=== PATIENT | male | born 1945 | race Caucasian/White ===

== ENCOUNTER → 2018-09-02 08:16 | Outpatient (BNVA) | payer MEDICARE, OTHER, SELFPAY | PROVIDERS: Visit Provider Urology | DX: R31.0 Gross hematuria (principal); R97.20 Elevated prostate specific antigen [PSA] | CPT/HCPCS: 36415; 99213; 84153 ==

== ENCOUNTER 2018-09-02 09:17 | Outpatient (CLI) | payer MEDICARE, OTHER, SELFPAY ==
[2018-09-03 10:22] LABS: PSA, Diagnostic 12.6 ng/ml (0-6.5)
== END 2018-09-02 09:37 ==
PROVIDERS: PCP Family Medicine; Visit Provider Urology
DX: R97.20 Elevated prostate specific antigen [PSA] (principal)
CPT/HCPCS: 36415; 84153

== ENCOUNTER 2019-03-14 01:22 | Outpatient (CLI) | payer MEDICARE, OTHER, SELFPAY ==
[2019-03-17 11:00] LABS: PSA, Diagnostic 12.5 ng/ml (0-6.5)
== END 2019-03-14 01:42 ==
PROVIDERS: Urology; PCP Family Medicine; Visit Provider Physician Assistant Medical
DX: R97.20 Elevated prostate specific antigen [PSA] (principal); Z80.42 Family history of malignant neoplasm of prostate
CPT/HCPCS: 36415; 84153

== ENCOUNTER → 2019-04-22 09:31 | Outpatient (BNVA) | payer MEDICARE, OTHER, SELFPAY | PROVIDERS: PCP Family Medicine; Visit Provider Urology | DX: R97.20 Elevated prostate specific antigen [PSA] (principal); N40.0 Benign prostatic hyperplasia without lower urinary tract symptoms | CPT/HCPCS: 99213 ==

== ENCOUNTER 2019-09-26 10:15 | Outpatient (CLI) | payer MEDICARE, OTHER, SELFPAY ==
[2019-09-29 11:09] LABS: PSA, Diagnostic 15.6 ng/ml (0-6.5)
== END 2019-09-26 10:35 ==
PROVIDERS: PCP Family Medicine; Visit Provider Urology
DX: R97.20 Elevated prostate specific antigen [PSA] (principal)
CPT/HCPCS: 36415; 84153

== ENCOUNTER → 2019-10-28 08:35 | Outpatient (BNVA) | payer MEDICARE, OTHER, SELFPAY | PROVIDERS: PCP Family Medicine; Referring Provider Family Medicine; Visit Provider Urology | DX: R97.20 Elevated prostate specific antigen [PSA] (principal) | CPT/HCPCS: 99213 ==

== ENCOUNTER → 2020-02-10 14:30 | Outpatient (BNVA) | payer MEDICARE, OTHER, SELFPAY | PROVIDERS: PCP Family Medicine; Referring Provider Family Medicine; Visit Provider Urology | DX: R31.0 Gross hematuria (principal) | CPT/HCPCS: 81003; 99213 ==

== ENCOUNTER 2020-02-10 15:32 | Outpatient (REF) | payer MEDICARE, OTHER, SELFPAY ==
--- NOTE | 2020-02-10 15:00 | PAPNONF_PTH ---
PATIENT: Tino Hart LOC: [facility] U#:[id number] AGE/SX: 74/M ROOM: RE02/10/[address]: Paulino Yi MD : [id number] BED: DIS: 02/10/2020 SPEC #: [id number] RECD: 02/10/20 18:32 STATUS: RIC REQ #: [id number] ZACHARY: 02/10/20 15:[address]: Paulino Yi DEPT: [facility] Cytology RECD BY: Marleny Gillis ENTERED: 02/10/20 18:34 SP TYPE: CAITLYN PEREZ DR: Jose Rafael Ivy MD Tissues: 1 - BODY FLUID CYTO(SPUTUM/URINE)[facility] Procedures: BODY FLUID CYTO(URINE/SPUTUM) Comments: [id number] (TOTAL VOLUME = 70 ml's) (35 ml's URINE & 35 ml's CYTOLYT ADDED IN 2 CONTAINERS)
== END 2020-02-10 15:52 ==
LOC: LBN 15:32
PROVIDERS: PCP Family Medicine; Visit Provider Urology
DX: R31.0 Gross hematuria (principal); R82.89 Other abnormal findings on cytological and histological examination of urine
CPT/HCPCS: 88104

== ENCOUNTER 2020-08-25 19:47 | Outpatient (REF) | payer MEDICARE, OTHER, SELFPAY ==
[2020-08-25 18:28] LABS: Albumin 4.1 g/dL (3.4-5.0); Alkaline Phosphatase 85 U/L (46-116); Anion Gap 7.6 mmol/L (3-11); BUN 32 mg/dL (7-18); Bilirubin, Total 0.4 mg/dL (0.2-1.0); CO2 26.4 mmol/L (21.0-32.0); CREATININE 1.45 mg/dL (0.70-1.30); Calcium 9.1 mg/dL (8.5-10.1); Chloride 99 mmol/L (98-107); Cholesterol 233 mg/dL (<200); Estimated GFR 47.71 (mL/min/1.73m2); Glucose 230 mg/dL (74-106); HDL Cholesterol 24 mg/dL (40-60); Potassium 3.9 mmol/L (3.5-5.1); Sodium 133 mmol/L (136-145); Total Protein 7.4 g/dL (6.4-8.2); Triglyceride 891 mg/dL (<150)
[2020-08-25 18:47] LABS: AST 27 U/L (15-37); LDL CHOLESTEROL 99 mg/dL (<100)
[2020-08-25 20:36] LABS: ALT 42 U/L (16-63)
== END 2020-08-25 20:07 ==
LOC: LBN 19:47
PROVIDERS: PCP Family Medicine; Visit Provider Nurse Practitioner Family
DX: E11.9 Type 2 diabetes mellitus without complications (principal); E78.5 Hyperlipidemia, unspecified
CPT/HCPCS: 80053; 80061; 83721

== ENCOUNTER 2021-01-06 02:46 | Outpatient (CLI) | payer MEDICARE, OTHER, SELFPAY ==
[2021-01-06 12:57] LABS: ALT 34 U/L (16-63); AST 19 U/L (15-37); Albumin 4.3 g/dL (3.4-5.0); Alkaline Phosphatase 86 U/L (46-116); Anion Gap 8.3 mmol/L (3-11); BUN 31 mg/dL (7-18); Bilirubin, Total 0.9 mg/dL (0.2-1.0); CO2 30.7 mmol/L (21.0-32.0); CREATININE 1.3 mg/dL (0.70-1.30); Calcium 9.9 mg/dL (8.5-10.1); Calculated LDL 55 mg/dL (<100); Chloride 100 mmol/L (98-107); Cholesterol 149 mg/dL (<200); Estimated GFR 53.96 (mL/min/1.73m2); Glucose 143 mg/dL (74-106); HDL Cholesterol 37 mg/dL (40-60); Potassium 4.4 mmol/L (3.5-5.1); Sodium 139 mmol/L (136-145); Total Protein 7.7 g/dL (6.4-8.2); Triglyceride 286 mg/dL (<150)
[2021-01-06 12:58] LABS: COMMENT (LAB VIEW ONLY) 109.22 mg/dL; Microalb ug/mg Crea 11.1 ug/mg Cr
[2021-01-06 13:05] LABS: Hemoglobin A1C 6.5 % (<5.7)
[2021-01-06 22:17] LABS: PSA, Diagnostic 15.2 ng/mL (0.0-6.5)
== END 2021-01-06 02:47 | disposition home or self-care (01) ==
LOC: LOS 02:46
PROVIDERS: Urology; PCP Family Medicine; Visit Provider Family Medicine
DX: E11.9 Type 2 diabetes mellitus without complications (principal); E78.5 Hyperlipidemia, unspecified; R97.20 Elevated prostate specific antigen [PSA]
CPT/HCPCS: 36415; 80053; 80061; 82043; 82570; 83036; 84153

== ENCOUNTER → 2021-02-10 09:57 | Outpatient (BNVA) | payer MEDICARE, OTHER, SELFPAY | PROVIDERS: PCP Family Medicine; Referring Provider Family Medicine; Visit Provider Nurse Practitioner Gerontology | DX: N40.2 Nodular prostate without lower urinary tract symptoms (principal); R97.20 Elevated prostate specific antigen [PSA]; Z80.42 Family history of malignant neoplasm of prostate; Z87.448 Personal history of other diseases of urinary system | CPT/HCPCS: 81003; 99213 ==

== ENCOUNTER 2021-04-12 01:46 | Outpatient (CLI) | payer MEDICARE, OTHER, SELFPAY ==
--- NOTE | 2021-04-12 07:30 | DI.US_ITS ---
Exam(s) US SCROTUM EXAM: US SCROTUM CLINICAL HISTORY: Mass on left testicle,n50.89. TECHNIQUE: Scrotal ultrasound performed using grayscale, color-flow and spectral Doppler analysis. COMPARISON: No exams were available for comparison FINDINGS: Right testicle: 4.5 x 2.7 x 3.3 cm Left testicle: 5.0 x 2.3 x 3.0 cm Echogenicity: Normal. Contour: Smooth. Mass: None seen. Microlithiasis: None. Hydrocele: None. Variocele: None. Hernia: No peristalsing bowel loop identified. Epididymis: 1.3 x 0.9 x 1.0 centimeter spermatocele in the head of the left epididymis. 3 millimeter spermatocele in the head of the right epididymis. DOPPLER: Color: Symmetric and uniform, no hyperemia. Duplex: Bilateral testicular arterial waveforms visualized. IMPRESSION: Normal appearing bilateral testicles. 1.3 centimeter spermatocele in the head of the left epididymis corresponds to the palpable abnormality. DATA REPOSITORY:
== END 2021-04-12 02:06 ==
PROVIDERS: PCP Family Medicine; Visit Provider Nurse Practitioner Family
DX: N50.89 Other specified disorders of the male genital organs (principal); N43.41 Spermatocele of epididymis, single
CPT/HCPCS: 76870

== ENCOUNTER → 2021-04-15 08:30 | Outpatient (BNVA) | payer MEDICARE, OTHER, SELFPAY | PROVIDERS: PCP Family Medicine; Referring Provider Family Medicine; Visit Provider Physical Therapy Assistant | DX: Z12.11 Encounter for screening for malignant neoplasm of colon (principal); E11.9 Type 2 diabetes mellitus without complications; I10 Essential (primary) hypertension ==

== ENCOUNTER 2021-05-17 08:10 | Day surgery (SDC) | payer MEDICARE, OTHER, SELFPAY ==
--- NOTE | 2021-05-17 06:33 | W.COLOREPORT ---
Date of service: 05/17/21 Time of Service: 09:29 Colonoscopy Report Date of procedure: 05/17/21 Pre-op diagnosis general: Colon Cancer screening Post-op diagnosis procedure note: other (Aborted procedure due to poor prep) Procedure: Unable to perform colonoscopy due to poor prep Surgeon: Tamara Silva Anesthesia Type: General:No Airway (ASA 2/Cira Zavala, ANA) Estimated blood loss (mL): 0 Pathology: none sent Complications: None Disposition: same day Indications: The patient is here for Colonoscopy pre-op. His last screening was in 2007 and was unremarkable. He has no family history of colon cancer. He has not had any bowel habit changes. -Discussed colonoscopy bowel prep as well as the procedure. Discussed possible complications of the procedure to include bleeding, pain, perforation, missed small lesion/polyp, sore throat, aspiration and adverse reaction to the medications. Questions were answered to patient?s satisfaction. No guarantees were implied or given. Prep: Miralax/Dulcolax Findings: Large amount of dark liquid stool throughout rectum and sigmoid. Colonoscope clogged 2 times. Unable to proceed due to poor prep Procedure Description: After informed consent was obtained the patient was taken to the procedure room and placed in a left decubitous position. Monitors were applied and a time out was done. The patients name, date of , procedure, allergies to medications and metal in their body was reviewed. The patient was then sedated. Once sedated and comfortable a rectal exam was done. External exam was normal. Internal exam revealed a normal sphincter tone and no palpable masses. The prostate felt mildly enlarged but smooth. The scope was then introduced and there was a large amount of dark liquid and solid stool throughout the rectum and sigmoid colon. Attempted to suction out the stool and debries. Colonoscope clogged 2 times. Abborted procedure. Patient will need a 2 day prep or go-lytly prep Follow up: We will call patient to set up follow up Colonoscopy with 2 day prep
--- NOTE | 2021-05-17 06:34 | W.PM.DSUDISC ---
Discharge Plan Disposition Patient Disposition: HOME Condition: Good Discharge Details Reason For Visit: SCREENING Attending Provider: Tamara Silva Primary Care Provider: Jas Darden Home Meds and New Rx's Prescriptions: Continued atorvastatin 20 mg tablet 20 mg PO DAILY Qty: 90 RF: 4 aspirin [Adult Low Dose Aspirin] 81 mg tablet,delayed release (DR/EC) 81 mg PO DAILY Qty: 90 RF: 3 finasteride 5 mg tablet 5 mg PO DAILY Qty: 90 RF: 3 (DME) FreeStyle Anamika 14 Day Sensor Kit See Rx Instructions .ROUTE .MEDSUPPLY Qty: 1 RF: 0 (DME) FreeStyle Anamika 14 Day [place] Misc See Rx Instructions .ROUTE .MEDSUPPLY Qty: 1 RF: 0 metformin 500 mg tablet 500 mg PO DAILY Qty: 90 RF: 11 (DME) lancets 1 EACH misc 1 ea Miscellaneous DAILY Qty: 100 RF: 3 lisinopril-hydrochlorothiazide 20-25 mg tablet 1 tab PO DAILY Qty: 90 RF: 4 (DME) blood-glucose meter Misc 1 ea Miscellaneous ONCE Qty: 1 RF: 0 (DME) blood sugar diagnostic Strip 1 ea Miscellaneous DAILY Qty: 100 RF: 5 metoprolol succinate 50 mg tablet extended release 24 hr 50 mg PO DAILY Qty: 90 RF: 4 Discontinued bisacodyl [Dulcolax (bisacodyl)] 5 mg tablet,delayed release (DR/EC) 5 mg PO ONCE Qty: 4 RF: 0 polyethylene glycol 3350 17 gram/dose powder 238 g PO ONCE Qty: 238 RF: 0 Discharge Instructions Additional Instructions: Findings: Unable to perform colonoscopy due to large amount of liquid and solid stool Follow up: My office will call you to set up another date for colonoscopy. We will need to do a 2 day prep in order to make sure that your large intestine is all cleaned out. Please call if you develop: fevers >101.5 Nausea or Vomiting Abdominal pain that is not transient Rectal bleeding that is more then a tbsp A hard abdomen and inability to pass gas DAY SURGERY UNIT POST ENDOSCOPY INSTRUCTIONS Instructions for everyone who is given Anesthesia: For your safety, please do the following for the next 24 Hours: a. Do not drive or operate dangerous equipment b. Do not drink alcohol beverages or use any recreational drugs for the first 24 hours or while taking pain medications. The medications in your body may have a reaction that can be dangerous. c. Do not make any important decisions or sign any important papers 1. Generally there are no restrictions on your activity after a day or so has gone by, but you may feel a bit fatigued for a few days. 2. After you arrive home you may have a light meal and return to a normal diet as you can tolerate it without feeling sick to your stomach. 3. After surgery, you may feel pain or discomfort. This should be only transient, but if it persists please contact your doctor. 4. If there are any questions regarding the findings of your procedure, please feel free to contact your doctor. 6. If you are unable to contact your doctor with a problem, contact the hospital at [phone]. 7. Continue all your regular medications unless directed otherwise. I understand the above instructions and have no questions. Signature of Patient or Responsible Adult Escort Date/Time Name of Responsible Adult Escort Signature of Nurse Date/Time Activity:: Activity as Tolerated Diet:: As Tolerated Discharge Orders Discharge Orders: Discharge Order (Routine); Ordered 05/17/21 Ordered By: Tamara Silva
--- NOTE | 2021-05-17 06:35 | HPE_ITS ---
Date of service: 05/17/21 Time of Service: 09:03 Assessment and Plan Assessment and plan (1) Encounter for colorectal cancer screening: Status: Acute Assessment and plan: The patient is here for Colonoscopy pre-op. His last screening was in 2007 and was unremarkable. He has no family history of colon cancer. He has not had any bowel habit changes. -Discussed colonoscopy bowel prep as well as the procedure. Discussed possible complications of the procedure to include bleeding, pain, perforation, missed small lesion/polyp, sore throat, aspiration and adverse reaction to the medications. Questions were answered to patient?s satisfaction. No guarantees were implied or given. History of Present Illness Narrative: 75 y/o male with history of Type 2 DM, HTN and hyperlipidema presents for colonoscopy screening pre-op. His last screening was in 2007, which was unremarkable. He denies a family history of colon cancer. He denies any changes in bowel habits including bloody or black tarry stools, abdominal pain, diarrhea or constipation. He denies constitutional symptoms. Denies use of marijuana or any other recreational or illegal drugs. He denies chest pain, palpitations, dyspnea or dyspnea with exertion. He denies prior history or family history of adverse reactions or complications with anesthesia. The patient denies any history of stroke, IA, seizures, bleeding or clotting disorders. He denies having any implanted metal in his body. There have been no changes in his health since he was last seen in the office [facility] Medical History Diabetes Umbilical hernia pt. denies this Surgical History Arthroplasty of knee bilateral Arthroscopy, Shoulder B/L History of arthroscopy of knee Status post arthroscopy of shoulder Family History Mother Diabetes Father Personal history of malignant neoplasm Breast Sister Personal history of malignant neoplasm Ovarian Brother No problems noted. Grandfather No problems noted. Grandfather No problems noted. Grandmother No problems noted. Grandmother No problems noted. Social History (Updated 04/15/21 @ 09:42 by HELDER Sinclair) Smoking/Tobacco Use Status: Former Tobacco Use Quit Date: 11/26/77 Smoking risk assessment performed?: Yes Alcohol Intake: never Drug use: Never Substance use type: does not use Do you feel safe at home: Yes Do you feel safe in your relationship?: Yes Meds Allergies and Home Medications Allergies Allergy/AdvReac Type Severity Reaction Status Date / Time No Known Allergies Allergy Verified 05/17/21 08:22 Home Medications Medication Instructions Recorded Confirmed Type lancets #100 ea 09/17/14 05/16/21 History lisinopril 20 1 tab PO DAILY #90 tab-cap 06/02/20 05/17/21 Rx mg-hydrochlorothiazide 25 mg tablet blood-glucose meter #1 ea 08/13/20 05/16/21 Rx aspirin 81 mg tablet,delayed 81 mg PO DAILY #90 tab 08/27/20 05/17/21 Rx release atorvastatin 20 mg tablet 20 mg PO DAILY #90 tab 08/27/20 05/17/21 Rx blood sugar diagnostic #100 strip 09/28/20 05/16/21 Rx flash glucose scanning reader #1 ea 10/12/20 05/16/21 Rx flash glucose sensor #1 ea 10/12/20 05/16/21 Rx metoprolol succinate 50 mg 50 mg PO DAILY #90 tab-cap 12/09/20 05/17/21 Rx tablet,extended release 24 hr metformin 500 mg tablet 500 mg PO DAILY #90 tab 01/11/21 05/17/21 Rx finasteride 5 mg tablet 5 mg PO DAILY #90 tab-cap 02/10/21 05/17/21 Rx bisacodyl 5 mg tablet,delayed 5 mg PO ONCE #4 tab 04/20/21 05/17/21 Rx release polyethylene glycol 3350 17 238 g PO ONCE #238 g 04/20/21 05/17/21 Rx gram/dose oral powder
[2021-05-17 08:15] VITALS: BP 163/85; PULSE 70; RESP 16; TEMP 36.4; O2SAT 97
--- NOTE | 2021-05-17 08:40 | W.ANESPRE ---
General Info Date of Service Date Performed: 05/17/21 Height: 6 ft 1 in Weight: 103.6 kg Body Mass Index (BMI): 30.1 Surgical Procedure: Operation Date: 05/17/21 09:20 Proposed Procedures Side Surgeon p Colonoscopy Tamara Silva MD Meds Allergies and Home Medications Allergies Allergy/AdvReac Type Severity Reaction Status Date / Time No Known Allergies Allergy Verified 05/17/21 08:22 Home Medication Medication Instructions Recorded lancets #100 ea 09/17/14 lisinopril 20 1 tab PO DAILY #90 tab-cap 06/02/20 mg-hydrochlorothiazide 25 mg tablet blood-glucose meter #1 ea 08/13/20 aspirin 81 mg tablet,delayed 81 mg PO DAILY #90 tab 08/27/20 release atorvastatin 20 mg tablet 20 mg PO DAILY #90 tab 08/27/20 blood sugar diagnostic #100 strip 09/28/20 flash glucose scanning reader #1 ea 10/12/20 flash glucose sensor #1 ea 10/12/20 metoprolol succinate 50 mg 50 mg PO DAILY #90 tab-cap 12/09/20 tablet,extended release 24 hr metformin 500 mg tablet 500 mg PO DAILY #90 tab 01/11/21 finasteride 5 mg tablet 5 mg PO DAILY #90 tab-cap 02/10/21 bisacodyl 5 mg tablet,delayed 5 mg PO ONCE #4 tab 04/20/21 release polyethylene glycol 3350 17 238 g PO ONCE #238 g 04/20/21 gram/dose oral powder Current Visit Medications: Current Medications Generic Name Dose Route Start Last Admin Trade Name Freq PRN Reason Stop Dose Admin Hyoscyamine Sulfate 0.125 mg 05/17/21 06:34 Hyoscyamine 0.125 Mg Sl/Oral/Chew SL DIRECTED PRN Ringer's Solution 1,000 mls @ 80 mls/hr 05/17/21 06:00 IV 06/15/21 23:59 INFUSION COREEN IV Miscellaneous Supplies 1 each 05/17/21 06:00 Iv Access IV 06/15/21 23:59 DIRECTED COREEN Ondansetron HCl 4 mg 05/17/21 06:34 Ondansetron 4 Mg/2 Ml Vial IVP Q4H PRN PRN Nausea / Vomiting Sodium Chloride 0 ml 05/17/21 06:00 Normal Saline Flush 10 Ml Syr IV 06/15/21 23:59 PRN PRN Sodium Chloride 0 ml 05/17/21 06:00 Normal Saline 10 Ml Vial IJ 06/15/21 23:59 DIRECTED PRN Sterile Water 0 ml 05/17/21 06:00 Water,Injection,Sterile 10 Ml Vial IJ 06/15/21 23:59 DIRECTED PRN PFSH Active Problems Active Problems: Problem Status Onset Code Encounter for colorectal cancer screening Z12.11, Z12.12 Tinnitus H93.19 Shoulder pain M25.519 Elevated PSA R97.20 Osteoarthritis M19.90 Knee pain M25.569 Hyperlipidemia 04/25/13 E78.5 Family history of prostate cancer Z80.42 Essential hypertension 12/24/13 I10 Edema R60.9 Diverticulitis of colon K57.32 Diabetes 09/25/14 E11.9 Actinic keratosis L57.0 Testicular mass N50.89 Diabetes E11.9 Medical History Medical History Diabetes Umbilical hernia pt. denies this Surgical History Surgical History Arthroplasty of knee bilateral Arthroscopy, Shoulder B/L History of arthroscopy of knee Status post arthroscopy of shoulder Tobacco Smoking/Tobacco Use Status: Former Tobacco Use Alcohol Alcohol Intake: never Substance Use Substance use: Never Substance use type: does not use Vital Signs and Lab Results Vital Signs Most Recent Vital Signs in EMR: Most Recent Vital Signs Temp Pulse Resp BP Pulse Ox 36.4 C L 70 16 163/85 H 97 05/17/21 08:15 05/17/21 08:15 05/17/21 08:15 05/17/21 08:15 05/17/21 08:15 Lab Results Blood Type / Crossmatch: No Data to Display Complete Blood Count: No Data to Display Complete Metabolic Panel: No Data to Display Liver Function Panel: No Data to Display Coagulation Panel: No Data to Display Cardiac Panel: No Data to Display Arterial Blood Gas: No Data to Display Venous Blood Gas: No Data to Display Pancreas Panel: No Data to Display Thyroid Panel: No Data to Display Infectious Disease: No Data to Display Blood Cultures: No Data to Display Toxicology Panel: No Data to Display Anesthesia Assessment and Plan Anesthesia History Personal History: No History of Anesthesia Complications Family History: No Family History of Anesthesia Complications Exercise Tolerance Exercise Tolerance: Metabolic Equivalents>4 Pertinent Negatives Pertinent Negatives: No Symptoms of GERD, No Major Cardiovascular Symptoms or Complaints and No Major Pulmonary Symptoms or Complaints Cardiac & Pulmonary Exam Cardiac Exam: Normal S1/S2 Heart Sounds Pulmonary Exam: Clear Bilateral Breath Sounds Airway Exam Known Difficult Airway: No Mallampati Class: 2 Mouth Opening: Normal (> 3cm) Thyromental Distance: Greater than 3 cm Neck Range of Motion: Full ROM Neck Circumference: Normal Teeth Condition: Normal Dentition ASA Classification ASA Score: ASA 2 Emergency Case?: No NPO Status NPO Status: NPO Clears >2 hours, Solids >8 hours Anesthesia Plan Resuscitation Status: Full Code Anesthesia Technique: General Anesthesia Airway Planned: Natural Airway Monitors Used: Standard Monitors Preoperative Comments:: Blood sugar 133 @ 0800
[2021-05-17] MEDS: Lactated Ringers 1,000 ML 80 ML IV (08:43)
[2021-05-17 09:02] VITALS: BMI 30.1
[2021-05-17 09:30] VITALS: BP 118/73; PULSE 66; RESP 16; TEMP 36.5; O2SAT 94
--- NOTE | 2021-05-17 09:33 | W.ANESPOSTOP ---
Postoperative Evaluation Date, Time and Location Date Performed: 05/17/21 Time Performed: 09:33 Patient Location: Day Surgery Unit Vital Signs Most Recent Imported Vital Signs: Most Recent Vital Signs Temp Pulse Resp BP Pulse Ox 36.4 C L 70 16 163/85 H 97 05/17/21 08:15 05/17/21 08:15 05/17/21 08:15 05/17/21 08:15 05/17/21 08:15 Most Recent Manually Entered Vital Signs: Adult Blood Pressure: 118/73 Heart Rate: 63 Respirations: 16 Oxygen Saturation (%): 95 Temperature (C): 36.5 C Pain Score (0-10 Scale): 0 Pain Score Most Recent Pain Score: Most Recent Pain Score Pain Level 0 05/17/21 08:15 Assessment Mental Status: Awake (Alert & Oriented to Patient Baseline) Airway and Respiratory Function: Patent airway with normal (patient baseline) respiratory exam Cardiovascular Function: Hemodynamically Stable Hydration Status: Adequately Hydrated Nausea & Vomiting: No Nausea or Vomiting Pain: Pt. Denies Any Pain Peripheral Nerve Block: Patient did not receive a nerve block
[2021-05-17 09:34] VITALS: BP 118/73; PULSE 63; RESP 16; TEMPC 36.5; O2SAT 95
[2021-05-17 10:00] VITALS: BP 140/82; PULSE 61; RESP 17; TEMP 36.5; O2SAT 97
== END 2021-05-17 10:40 | disposition home or self-care (01) ==
LOC: SUR 08:11
PROVIDERS: PCP Nurse Practitioner Family; Visit Provider Surgery
PROC: 0DJD8ZZ Inspection of Lower Intestinal Tract, Via Natural or Artificial Opening Endoscopic (ICD-10-PCS; CPT 45378; principal; 2021-05-17 09:15)
DX: Z12.11 Encounter for screening for malignant neoplasm of colon (principal); E11.9 Type 2 diabetes mellitus without complications; Z53.8 Procedure and treatment not carried out for other reasons
CPT/HCPCS: G0121; J2001

== ENCOUNTER → 2021-07-05 08:34 | Outpatient (BNVA) | payer MEDICARE, OTHER, SELFPAY | PROVIDERS: PCP Nurse Practitioner Family; Referring Provider Nurse Practitioner Family; Visit Provider Surgery | DX: Z12.11 Encounter for screening for malignant neoplasm of colon (principal); Z12.12 Encounter for screening for malignant neoplasm of rectum; E11.9 Type 2 diabetes mellitus without complications; I10 Essential (primary) hypertension ==

== ENCOUNTER 2021-07-13 08:13 | Day surgery (SDC) | payer MEDICARE, OTHER, SELFPAY ==
--- NOTE | 2021-07-13 06:25 | COLE_ITS ---
Date of service: 07/13/21 Time of Service: 09:11 Colonoscopy Report Date of procedure: 07/13/21 Pre-op diagnosis general: Colon Cancer Screening Post-op diagnosis procedure note: other (polyps, diverticulosis) Procedure: Colonoscopy with polypectomy Surgeon: Tamara Silva Anesthesia Type: General:No Airway (see anesthesia record) Pathology: other (rectal polyp x2, cecal polyp, ascending polyp, sigmoid polyp x2) Complications: None Disposition: same day Indications: Abebe is a pleasant 75-year-old gentleman who is back to see me to discuss his screening colonoscopy. There was an attempt at a colonoscopy back in April but unfortunately the MiraLAX prep did not work for him. The prior colonoscopy he took GoLYTELY which worked well for him. We discussed repeating his colonoscopy but this time using GoLYTELY as his prep. He has not had any new health issues since I saw him back in April. The colonoscopy and prep were again discussed with him we reviewed risks and benefits and he wished to proceed. Risks, benefits and complications have been reviewed. Complications include but are not limited to bleeding, pain, perforation, missed small lesion/polyp, sore throat, aspiration and adverse reaction to the medications. Questions were en tertained and answered to their satisfaction and they wished to proceed. No guarantees were given or implied. Proceed with colonoscopy under sedation Prep: Miralax/Dulcolax Procedure Start Time: :11 Procedure End Time: :55 Retraction Time: 25 minutes Findings: polyps X6 diverticulosis Procedure Description: After informed consent was obtained the patient was taken to the procedure room and placed in a left decubitous position. Monitors were applied and a time out was done. The patients name, date of , procedure, allergies to medications and metal in their body was reviewed. The patient was then sedated. Once sedated and comfortable a rectal exam was done. External exam was normal. Internal exam revealed a normal sphincter tone and no palpable masses. The prostate felt smooth and enlarged. The scope was then introduced and retro-flexed. No internal hemorrhoids, polyps or masses were identified on retro-flexion. The scope was then advanced to the cecum without difficulty. The ileocecal vlave and appendiceal orifice were identified. The prep was good. The scope was then slowly retracted over 25 minutes back into the rectum. Polyps were removed hot snare in the cecum and with cold forceps in the ascending colon, sigmoid colon x2 and rectum x2. There was mild diverticulosis noted. The scope was removed and the patient was woken up and taken back to Same day surgery in stable condition. The patient tolerated the procedure well and there were no immediate complications. Follow up: The patient should follow up in 3 - 5 years unless they develop changes in bowel habits or other new gastrointestinal complaints.
--- NOTE | 2021-07-13 06:26 | W.PM.DSUDISC ---
Discharge Plan Disposition Patient Disposition: HOME Condition: Good Discharge Details Reason For Visit: Colonoscopy Attending Provider: Tamara Silva Primary Care Provider: Jas Darden Home Meds and New Rx's Prescriptions: Continued atorvastatin 20 mg tablet 20 mg PO DAILY Qty: 90 RF: 4 aspirin [Adult Low Dose Aspirin] 81 mg tablet,delayed release (DR/EC) 81 mg PO DAILY Qty: 90 RF: 3 finasteride 5 mg tablet 5 mg PO DAILY Qty: 90 RF: 3 (DME) FreeStyle Anamika 14 Day Sensor Kit See Rx Instructions .ROUTE .MEDSUPPLY Qty: 1 RF: 0 (DME) FreeStyle Anamika 14 Day [place] Misc See Rx Instructions .ROUTE .MEDSUPPLY Qty: 1 RF: 0 metformin 500 mg tablet 500 mg PO DAILY Qty: 90 RF: 11 (DME) lancets 1 EACH misc 1 ea Miscellaneous DAILY Qty: 100 RF: 3 lisinopril-hydrochlorothiazide 20-25 mg tablet 1 tab PO DAILY Qty: 90 RF: 4 (DME) blood-glucose meter Misc 1 ea Miscellaneous ONCE Qty: 1 RF: 0 (DME) blood sugar diagnostic Strip 1 ea Miscellaneous DAILY Qty: 100 RF: 5 metoprolol succinate 50 mg tablet extended release 24 hr 50 mg PO DAILY Qty: 90 RF: 4 varicella-zoster [id number] (PF) 50 mcg/0.5 mL suspension for reconstitution 0.5 ml IM ONCE Qty: 1 RF: 0 Shingrix (PF) 50 mcg/0.5 mL suspension for reconstitution 0.5 ml IM ONCE Qty: 1 RF: 0 Discontinued bisacodyl [Dulcolax (bisacodyl)] 5 mg tablet,delayed release (DR/EC) 5 mg PO ONCE Qty: 4 RF: 0 peg 3350-electrolytes [Golytely] 236-22.74-6.74 -5.86 gram recon soln 240 ml PO Q10M Qty: 4000 RF: 0 Discharge Instructions Instructions: Diverticulosis (DC), Colorectal Polyps (DC) Additional Instructions: Findings: multiple polyps diverticulosis Follow up: 3-5 years Please call if you develop: fevers >101.5 Nausea or Vomiting Abdominal pain that is not transient Rectal bleeding that is more then a tbsp A hard abdomen and inability to pass gas DAY SURGERY UNIT POST ENDOSCOPY INSTRUCTIONS Instructions for everyone who is given Anesthesia: For your safety, please do the following for the next 24 Hours: a. Do not drive or operate dangerous equipment b. Do not drink alcohol beverages or use any recreational drugs for the first 24 hours or while taking pain medications. The medications in your body may have a reaction that can be dangerous. c. Do not make any important decisions or sign any important papers 1. Generally there are no restrictions on your activity after a day or so has gone by, but you may feel a bit fatigued for a few days. 2. After you arrive home you may have a light meal and return to a normal diet as you can tolerate it without feeling sick to your stomach. 3. After surgery, you may feel pain or discomfort. This should be only transient, but if it persists please contact your doctor. 4. If there are any questions regarding the findings of your procedure, please feel free to contact your doctor. 6. If you are unable to contact your doctor with a problem, contact the hospital at [phone]. 7. Continue all your regular medications unless directed otherwise. I understand the above instructions and have no questions. Signature of Patient or Responsible Adult Escort Date/Time Name of Responsible Adult Escort Signature of Nurse Date/Time Activity:: Activity as Tolerated Diet:: high fiber Discharge Orders Discharge Orders: Discharge Order (Routine); Ordered 07/13/21 Ordered By: Tamara Silva
[2021-07-13 08:30] VITALS: BP 149/82; PULSE 74; RESP 17; TEMP 36.7; O2SAT 96
[2021-07-13] MEDS: Lactated Ringers 1,000 ML 80 ML IV (08:47)
--- NOTE | 2021-07-13 08:53 | W.ANESPRE ---
General Info Date of Service Date Performed: 07/13/21 Height: 6 ft 1 in Weight: 105.3 kg Body Mass Index (BMI): 30.6 Surgical Procedure: Operation Date: 07/13/21 09:35 Proposed Procedures Side Surgeon p Colonoscopy Tamara Silva MD Meds Allergies and Home Medications Allergies Allergy/AdvReac Type Severity Reaction Status Date / Time No Known Allergies Allergy Verified 07/13/21 08:34 Home Medication Medication Instructions Recorded lancets #100 ea 09/17/14 lisinopril 20 1 tab PO DAILY #90 tab-cap 06/02/20 mg-hydrochlorothiazide 25 mg tablet blood-glucose meter #1 ea 08/13/20 aspirin 81 mg tablet,delayed 81 mg PO DAILY #90 tab 08/27/20 release atorvastatin 20 mg tablet 20 mg PO DAILY #90 tab 08/27/20 blood sugar diagnostic #100 strip 09/28/20 flash glucose scanning reader #1 ea 10/12/20 flash glucose sensor #1 ea 10/12/20 metoprolol succinate 50 mg 50 mg PO DAILY #90 tab-cap 12/09/20 tablet,extended release 24 hr metformin 500 mg tablet 500 mg PO DAILY #90 tab 01/11/21 finasteride 5 mg tablet 5 mg PO DAILY #90 tab-cap 02/10/21 varicella-zoster glycoE vacc-AS01B 0.5 ml IM ONCE #1 ea 05/23/21 adj(PF) 50 mcg/0.5 mL IM susp, kit varicella-zoster glycoE vacc-AS01B 0.5 ml IM ONCE #1 ea 06/08/21 adj(PF) 50 mcg/0.5 mL IM susp, kit bisacodyl 5 mg tablet,delayed 5 mg PO ONCE #4 tab 07/05/21 release peg 3350-electrolytes 236 240 ml PO Q10M #4000 ml 07/05/21 gram-22.74 gram-6.74 gram-5.86 gram solution Current Visit Medications: Current Medications Generic Name Dose Route Start Last Admin Trade Name Freq PRN Reason Stop Dose Admin Hyoscyamine Sulfate 0.125 mg 07/13/21 06:27 Hyoscyamine 0.125 Mg Sl/Oral/Chew SL DIRECTED PRN Ringer's Solution 1,000 mls @ 80 mls/hr 07/13/21 06:00 07/13/21 08:47 IV 08/11/21 23:59 80 mls/hr INFUSION COREEN Administration IV Miscellaneous Supplies 1 each 07/13/21 06:00 Iv Access IV 08/11/21 23:59 DIRECTED COREEN Ondansetron HCl 4 mg 07/13/21 06:27 Ondansetron 4 Mg/2 Ml Vial IVP Q4H PRN PRN Nausea / Vomiting Sodium Chloride 0 ml 07/13/21 06:00 Normal Saline Flush 10 Ml Syr IV 08/11/21 23:59 PRN PRN Sodium Chloride 0 ml 07/13/21 06:00 Normal Saline 10 Ml Vial IJ 08/11/21 23:59 DIRECTED PRN Sterile Water 0 ml 07/13/21 06:00 Water,Injection,Sterile 10 Ml Vial IJ 08/11/21 23:59 DIRECTED PRN PFSH Active Problems Active Problems: Problem Status Onset Code Shoulder pain M25.519 Knee pain M25.569 Edema R60.9 Diverticulitis of colon K57.32 Diabetes 09/25/14 E11.9 Encounter for colorectal cancer screening Z12.11, Z12.12 Testicular mass N50.89 Actinic keratosis L57.0 Essential hypertension 12/24/13 I10 Family history of prostate cancer Z80.42 Hyperlipidemia 04/25/13 E78.5 Osteoarthritis M19.90 Elevated PSA R97.20 Tinnitus H93.19 Diabetes E11.9 Medical History Medical History Actinic keratosis Diabetes Elevated PSA Essential hypertension (12/24/13) Family history of prostate cancer BPH rising PSA Hyperlipidemia (04/25/13) Osteoarthritis Testicular mass Tinnitus Surgical History Surgical History Arthroscopy, Shoulder Left only History of arthroscopy of both knees History of arthroscopy of knee Status post arthroscopy of shoulder Tobacco Smoking/Tobacco Use Status: Former Tobacco Use Alcohol Alcohol Intake: current Alcohol intake frequency: holidays/special occasions only Substance Use Substance use: Never Substance use type: does not use Vital Signs and Lab Results Vital Signs Most Recent Vital Signs in EMR: Most Recent Vital Signs Temp Pulse Resp BP Pulse Ox 36.7 C 74 17 149/82 H 96 07/13/21 08:30 07/13/21 08:30 07/13/21 08:30 07/13/21 08:30 07/13/21 08:30 Lab Results Blood Type / Crossmatch: No Data to Display Complete Blood Count: No Data to Display Complete Metabolic Panel: No Data to Display Liver Function Panel: No Data to Display Coagulation Panel: No Data to Display Cardiac Panel: No Data to Display Arterial Blood Gas: No Data to Display Venous Blood Gas: No Data to Display Pancreas Panel: No Data to Display Thyroid Panel: No Data to Display Infectious Disease: No Data to Display Blood Cultures: No Data to Display Toxicology Panel: No Data to Display Anesthesia Assessment and Plan Anesthesia History Personal History: No History of Anesthesia Complications Family History: No Family History of Anesthesia Complications Exercise Tolerance Exercise Tolerance: Metabolic Equivalents>4 Pertinent Negatives Pertinent Negatives: No Symptoms of GERD, No Major Cardiovascular Symptoms or Complaints, No Major Pulmonary Symptoms or Complaints and No History of CVA/TIA Cardiac & Pulmonary Exam Cardiac Exam: Normal S1/S2 Heart Sounds Pulmonary Exam: Clear Bilateral Breath Sounds Airway Exam Known Difficult Airway: No Mallampati Class: 2 Mouth Opening: Normal (> 3cm) Thyromental Distance: Less than 3 cm Neck Range of Motion: Limited ROM Neck Circumference: Normal Teeth Condition: Normal Dentition Airway Comments: Short thick neck ASA Classification ASA Score: ASA 2 Emergency Case?: No NPO Status NPO Status: NPO Clears >2 hours, Solids >8 hours Anesthesia Plan Resuscitation Status: Full Code Anesthesia Technique: General Anesthesia Airway Planned: Natural Airway Monitors Used: Standard Monitors
[2021-07-13 08:58] VITALS: BMI 30.6
--- NOTE | 2021-07-13 09:15 | BOWEL_PTH ---
PATIENT: Tino Hart LOC: [facility] U#:[id number] AGE/SX: 75/M ROOM: RE07/13/[address]: Tamara Silva MD : 1945 BED: DIS: 07/13/2021 SPEC #: [id number] RECD: 07/13/21 12:42 STATUS: RIC REQ #: [id number] ZACHARY: 07/13/21 09:[address]: Tamara Silva DEPT: Surgical Specimen RECD BY: Marleny Gillis ENTERED: 07/13/21 12:44 SP TYPE: Bowel OTHR DR: Jas Darden, PRESSURE TESTER Tissues: 1 - BIOPSY BOWEL 2 - BIOPSY BOWEL 3 - BIOPSY BOWEL 4 - BIOPSY BOWEL Procedures: GROSS AND MICRO LEVEL 4 Comments: [id number]
[2021-07-13 10:08] VITALS: BP 109/69; PULSE 75; RESP 16; TEMP 36.4; O2SAT 96
--- NOTE | 2021-07-13 10:09 | W.ANESPOSTOP ---
Postoperative Evaluation Date, Time and Location Date Performed: 07/13/21 Time Performed: 10:09 Patient Location: Day Surgery Unit Vital Signs Most Recent Imported Vital Signs: Most Recent Vital Signs Temp Pulse Resp BP Pulse Ox 36.7 C 74 17 149/82 H 96 07/13/21 08:30 07/13/21 08:30 07/13/21 08:30 07/13/21 08:30 07/13/21 08:30 Most Recent Manually Entered Vital Signs: Adult Blood Pressure: 109/69 Heart Rate: 71 Respirations: 12 Oxygen Saturation (%): 95 Temperature (C): 36.5 C Pain Score (0-10 Scale): 0 Pain Score Most Recent Pain Score: Most Recent Pain Score Pain Level 0 07/13/21 08:30 Assessment Mental Status: Awake (Alert & Oriented to Patient Baseline) Airway and Respiratory Function: Patent airway with normal (patient baseline) respiratory exam Cardiovascular Function: Hemodynamically Stable Hydration Status: Adequately Hydrated Nausea & Vomiting: No Nausea or Vomiting Pain: Pt. Denies Any Pain Peripheral Nerve Block: Patient did not receive a nerve block
[2021-07-13 10:10] VITALS: BP 109/69; PULSE 71; RESP 12; TEMPC 36.5; O2SAT 95
[2021-07-13 10:58] VITALS: BP 133/78; PULSE 62; RESP 16; TEMP 36.1; O2SAT 97
== END 2021-07-13 11:18 | disposition home or self-care (01) ==
LOC: SUR 08:13
PROVIDERS: PCP Nurse Practitioner Family; Visit Provider Surgery
PROC: 0DJD8ZZ Inspection of Lower Intestinal Tract, Via Natural or Artificial Opening Endoscopic (ICD-10-PCS; CPT 45378; principal; 2021-07-13 09:30)
DX: Z12.11 Encounter for screening for malignant neoplasm of colon (principal); D12.2 Benign neoplasm of ascending colon; K62.1 Rectal polyp; D17.79 Benign lipomatous neoplasm of other sites
CPT/HCPCS: 45385; 45380; 88305; J2001

== ENCOUNTER 2022-02-14 02:41 | Outpatient (CLI) | payer MEDICARE, SELFPAY ==
[2022-02-14 21:10] LABS: Lab Add On Test DONE
[2022-02-15 18:25] LABS: PSA, Diagnostic 12.4 ng/mL (0.0-6.5)
== END 2022-02-14 02:42 | disposition home or self-care (01) ==
LOC: LBO 02:41
PROVIDERS: PCP Nurse Practitioner Family; Visit Provider Nurse Practitioner Gerontology
DX: E11.9 Type 2 diabetes mellitus without complications (principal); R97.20 Elevated prostate specific antigen [PSA]
CPT/HCPCS: 36415; 83036; 84153

== ENCOUNTER → 2022-02-21 10:23 | Outpatient (BNVA) | payer MEDICARE, SELFPAY | PROVIDERS: PCP Nurse Practitioner Family; Referring Provider Family Medicine; Visit Provider Nurse Practitioner Gerontology | DX: N40.2 Nodular prostate without lower urinary tract symptoms (principal); R31.29 Other microscopic hematuria; Z80.42 Family history of malignant neoplasm of prostate; R97.20 Elevated prostate specific antigen [PSA] | CPT/HCPCS: 51798; 81003; 99214 ==

== ENCOUNTER 2022-06-12 11:50 | Emergency (ER) | payer MEDICARE, SELFPAY ==
[2022-06-12 11:58] VITALS: BP 193/80; PULSE 78; RESP 16; TEMP 36.9; O2SAT 97
--- OUTSIDE RECORDS SUMMARY | 2022-06-12 12:08 | XMS_ITS | Encounter Summary ---
:1945 [place] [address] Care Team Providers Name Role Phone Shy Gutierrez TELECOM ENGINEER Primary Care Provider Encounter Details Date Type Department Care Team Description 05/24/2022 Telephone Emergency Department Bijal Taylor, [place] [address] Social History Tobacco Use Types Packs/Day Years Used Date Former Smoker Smokeless Tobacco: Never Used Comments: quit 40 yrs ago Alcohol Use Standard Drinks/Week Comments No 0 (1 standard drink = 0.6 oz pure alcoho l) Sex Assigned at Date Recorded Not on file documented as of this encounter Plan of Treatment Upcoming Encounters Date Type Specialty Care Team Description 07/17/2022 Office Visit Physical Therapy Ro Colvin, PT documented as of this encounter Visit Diagnoses Not on filedocumented in this encounter Care Teams Medical Center Director Relationship Specialty Start Date End Date Shy Gutierrez, TELECOM ENGINEER PCP - General Family Medicine 08/31/[address] [place] [address] documented as of this encounter
--- OUTSIDE RECORDS SUMMARY | 2022-06-12 12:08 | XMS_ITS | Clinical Summary ---
:1945 Author Organization [facility] [place] [address] Care Team Providers Name Role Phone Shy Gutierrez APRN Primary Care Provider Allergies No known active allergies Medications Medication Sig Dispensed Refills Start Date End Date Status meTOPROLOL succinate Take 1 tablet by 0 06/27/2017 Active (TOPROL-XL) 50 mg mouth nightly. Tablet Sustained Release 24 hr acetaminophen (TYLENOL) Take 2 tablets by 30 tablet 1 07/02/20 17 Active 325 mg Tablet mouth every 6 hours as needed. lisinopril-hydrochlorot Take 2 tablets by 30 tablet 11 07/02/20 17 Active hiazide mouth daily. (PRINZIDE;ZESTORETIC) 10-12.5 mg Tablet Additional Information Patient taking differently: 2 tablet Oral NIGHTLY, Reported on 05/20/2022 ibuprofen (ADVIL;MOTRIN) 800 mg Take 1 tablet by mouth 30 tablet 0 07/02/2017 Active Tablet every 8 hours as needed for Pain. aspirin EC 81 mg Tablet, Take 81 mg by mouth 0 Active Delayed Release (E.C.) nightly. atorvastatin (Lipitor) 20 mg Take 20 mg by mouth 0 0 03/01/2022 Active Tablet nightly. metFORMIN (Glucophage) 500 mg Take 500 mg by mouth 2 0 08/25/2020 Active Tablet times daily (with meals). meclizine (Antivert) 25 mg Take 1 tablet by mouth 20 tablet 0 06/03/2022 Active Tablet 3 times daily as needed for Dizziness. Active Problems Problem Noted Date Class 1 obesity in adult 07/02/2017 Overview: ?? 07/02/2017 weight 109.7 kg. Height 185. 4 cm. bmi 31.84 interscapular back pain with EKG changes r/o ACS 07/01 Overview: Images from the original note were not i ncluded. ?? 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 06/2017 He has been seen by PCP-Neck/ Back/scapular Pain. He has been treated with Ibuprofen + tramadol + flexeril. He has been on prednisone taper. Physical therapy. ?? 06/30/2017 Neck/shoulder back pain inte nsified. Diaphoretic. Admitted to [facility]. ?? 06/30/2017 CAT scan chest/abdomen/pelvi s showed no acute aortic dissection. ?? 07/01/2017 transferred from [facility] with [address] elevation in V1/q wvaed and [address] elevation in V2. T wave inversion avL ?? 07/01/2017 CPK 30. Trop <0.03 ?? 07/02/2017 Echo-LVEF 70% with no WMAs. Mod concentric LVH. LA mod dilated. PASP 29 ?? 07/02/2017 Nuclear stress showed no isc hemia Hypertension 07/01/2017 Overview: ?? 07/01/2017 BP on arrival [facility] 190. (duenas s not been taking lisinopril-HCTZ for the past 8-months) HLD (hyperlipidemia) 07/01/2017 Overview: ?? 07/02/2017 Lipid profile TC 175. HDL 37 . Trig 235. LDL 120 on No statin Diabetes mellitus diet controlled 07/01/2017 Overview: ?? 07/01/2017 HAIC 5.7 on no hypoglycemics ACS (acute coronary syndrome) 07/01/2017 CIS - cc: neck, right shoulder and back pain 1 CIS - Entered not Verified 01/24/2011 Encounters Date Type Specialty Care Team Description 06/03/2022 Emergency Emergency Medicine Caridad Curran D izziness; Vertigo; Sinus pressure 05/24/2022 Telephone Emergency Medicine Bijal Magana RN 05/20/2022 Emergency Emergency Medicine Rao, Ashwini Gonzalez MD B enign paroxysmal positional vert igo, unspecified lat erality (Primary Dx) 05/20/2022 Emergency Emergency Medicine Biju Jacobson MD Champ gn paroxysmal positional vert igo, unspecified lat erality from Last 3 Months Immunizations Name Administration Dates Next Due Influenza Vaccine, Whole 09/13/2005 Pneumococcal Polyvalent 23 03/30/2003 Td, adult 03/30/2003 Social History Tobacco Use Types Packs/Day Years Used Date Former Smoker Smokeless Tobacco: Never Used Comments: quit 40 yrs ago Alcohol Use Standard Drinks/Week Comments No 0 (1 standard drink = 0.6 oz pure alcoho l) Sex Assigned at Date Recorded Not on file Last Filed Vital Signs Vital Sign Reading Time Taken Comments Blood Pressure 124/53 06/03/2022 3:02 PM EDT Pulse 76 06/03/2022 11:14 AM EDT Temperature 37.3 ??C (99.1 ??F) 06/03/2022 11:14 AM EDT Respiratory Rate 16 06/03/2022 11:14 AM EDT Oxygen Saturation 97% 06/03/2022 3:02 PM EDT Inhaled Oxygen Concentration - - Weight 103.4 kg (228 lb) 06/03/2022 11:14 AM EDT Height 185.4 cm (6' 1) 05/20/2022 1:13 PM EDT Body Mass Index 30.08 05/20/2022 1:13 PM EDT Plan of Treatment Upcoming Encounters Date Type Specialty Care Team Description 07/17/2022 Office Visit Physical Therapy Ro Colvin, PT Health Maintenance Due Date Last Done Comments Covid-19 Vaccine (#1) 1950 DM Opthalmology Exam 1955 DM Urine Microalbumin yearly 1955 Hepatitis C Screening 1964 Tdap adult 1965 Colonoscopy 1991 Zoster vaccine (1 of 2) 1996 Advance Directive 2001 Pneumoccocal Vaccine: 65+ (2 - 03/30/2004 03/30/2003 PCV) AAA Screen 2011 Tetanus vaccine 03/30/2013 03/30/2003 Influenza (Flu) vaccine (1 of 1 - 07/27/2022 09/13/2005 Influenza standard series) DM Hemoglobin A1c 6 month 11/19/2022 05/20/2022, 07/01/2017 DM Creatinine yearly 06/03/2023 06/03/2022, 05/20/2022, 07/02/2017, Additional history exists Procedures Procedure Name Priority Date/Time Associated Comments Diagnosis CT CAROTIDS AND [place] STAT 06/03/2022 2:36 PM Results for this OF [place] W CONTRAST EDT procedu re are in the results section. CT HEAD WO CONTRAST STAT 06/03/2022 2:36 PM Re sults for this (GENERIC) EDT procedure are i n the results section. DIFFERENTIAL, AUTOMATED STAT 06/03/2022 1:16 PM Results for this EDT procedure are i n the results section. HEMOGRAM STAT 06/03/2022 1:16 PM Results f or this EDT procedure are i n the results section. HC LYME DISEASE, DEMETRIA Routine 06/03/2022 1:16 PM Results for this EDT procedure are i n the results section. BASIC METABOLIC PANEL STAT 06/03/2022 1:16 PM Results for this (NON-FASTING) EDT procedure are in the results section. HC CBC,PLT & AUTO DIFF STAT 06/03/2022 1:16 PM EDT DIFFERENTIAL, AUTOMATED STAT 05/20/2022 7:18 PM Results for this EDT procedure are i n the results section. HEMOGRAM STAT 05/20/2022 7:18 PM Results f or this EDT procedure are i n the results section. COMPREHENSIVE METABOLIC STAT 05/20/2022 7:18 PM Results for this PANEL (NON-FASTING) EDT procedur e are in the results section. HC HEMOGLOBIN A1C STAT 05/20/2022 7:18 PM Resu lts for this EDT procedure are i n the results section. LIPID PANEL (REFLEX STAT 05/20/2022 7:18 PM Re sults for this DIRECT LDL) EDT procedure are i n the results section. HC CBC,PLT & AUTO DIFF STAT 05/20/2022 7:18 PM EDT HC PARTIAL STAT 05/20/2022 7:18 PM Results f or this THROMBOPLASTIN TIME EDT procedur e are in the results section. HC PROTHROMBIN TIME STAT 05/20/2022 7:18 PM Re sults for this EDT procedure are i n the results section. EKG 12-LEAD STAT 05/20/2022 5:50 PM Results f or this EDT procedure are i n the results section. MRI BRAIN WWO CONTRAST STAT 05/20/2022 5:50 PM Results for this (GENERIC) EDT procedure are i n the results section. EKG 12-LEAD STAT 05/20/2022 1:11 PM Results f or this EDT procedure are i n the results section. from Last [address] Angiogram Carotids & [place] (06/03/2022 2:36 PM EDT) Anatomical Region Laterality Modality Neck, Head Computed Tomography Specimen (Source) Anatomical Collection Method Collection Time Re ceived Time Location / / Volume Laterality 06/03/2022 2:53 PM EDT Impressions 06/03/2022 2:41 PM EDT 1. No intracranial infarct, hemorrhage o r other acute intracranial abnormality. 2. No severe vascular stenosis or occlus ion. Thank you for letting us participate in the care of this patient. ??If you are a health care provider and have any questi ons regarding this report, please contact the number below. ??For patients who have questions please contact the health manager intensive care unit that requested your imaging first. ? Narrative 06/03/2022 2:41 PM EDT EXAMINATION: CT HEAD WO CONTRAST (GENERIC), CT ANGIOGRAM CAROTIDS AND [place] CLINICAL HISTORY: Dizziness, persistent/ recurrent, cardiac or vascular cause suspected; Vertigo type symptoms, evalua te acute intracranial process TECHNIQUE: CT head performed without intravenous co ntrast administration. CTA carotids and [place] performed following int ravenous administration of 65 mm Omnipaque 350. 3-D and MIP images create d. COMPARISON: MR 05/20/2022 FINDINGS: CT head: The ventricles are unchanged in size or contour. There is no intracranial mass, mass effect, or shift . There is no intracranial hemorrhage or extra-axial collection. No CT evidence o f acute territorial infarct. Middle ear and mastoid air cells are normally aerat ed. There is no osseous and relatively. CTA: The arch origins are normal. There is an independent origin of the left vertebral artery from the arch, an anato meli variant. Right carotid: Common carotid origin is normal. There is minor plaque at the carotid bifurcation without ICA stenosis . The cervical ICA is normal in caliber. Left carotid: Common carotid origin is n ormal. There is minor plaque at the bifurcation without ICA stenosis. The ce rvical ICA is normal in caliber. Right vertebral artery: The Right verteb ral artery is dominant. There is a small noncalcified plaque at the origin withou t stenosis. No focal stenosis is present in the neck. Left vertebral artery: Left vertebral ar johnson originates strictly from the arch. There is minor plaque at the arch origin s without significant stenosis. The cervical vertebral artery is relatively small throughout its course without focal stenosis. Intracranial circulation: There is mild narrowing of the paraclinoid left ICA. Intradural cranial internal carotid jaya hernan otherwise normal in caliber. The right A1 segment is dominant. MCA, DOTTY, and branches appear unremarkable. The intradural Right vertebral artery is dom inant. The left vertebral artery has a small branch extending to the basilar co nfluence, with the majority of the left vertebral artery supplying the left PICA . The basilar arteries normal in caliber. Posterior cerebral arteries are normal. Procedure Note Deuce Redd MD - 06/03/2022Format ting of this note might be different from the original. EXAMINATION: CT HEAD WO CONTRAST (GENERI C), CT ANGIOGRAM CAROTIDS AND [place] CLINICAL HISTORY: Dizziness, persistent/ recurrent, cardiac or vascular cause suspected; Vertigo type symptoms, evalua te acute intracranial process TECHNIQUE: CT head performed without intravenous co ntrast administration. CTA carotids and [place] performed following int ravenous administration of 65 mm Omnipaque 350. 3-D and MIP images create d. COMPARISON: MR 05/20/2022 FINDINGS: CT head: The ventricles are unchanged in size or contour. There is no intracranial mass, mass effect, or shift . There is no intracranial hemorrhage or extra-axial collection. No CT evidence o f acute territorial infarct. Middle ear and mastoid air cells are normally aerat ed. There is no osseous and relatively. CTA: The arch origins are normal. There is an independent origin of the left vertebral artery from the arch, an anato meli variant. Right carotid: Common carotid origin is normal. There is minor plaque at the carotid bifurcation without ICA stenosis . The cervical ICA is normal in caliber. Left carotid: Common carotid origin is n ormal. There is minor plaque at the bifurcation without ICA stenosis. The ce rvical ICA is normal in caliber. Right vertebral artery: The Right verteb ral artery is dominant. There is a small noncalcified plaque at the origin withou t stenosis. No focal stenosis is present in the neck. Left vertebral artery: Left vertebral ar johnson originates strictly from the arch. There is minor plaque at the arch origin s without significant stenosis. The cervical vertebral artery is relatively small throughout its course without focal stenosis. Intracranial circulation: There is mild narrowing of the paraclinoid left ICA. Intradural cranial internal carotid jaya hernan otherwise normal in caliber. The right A1 segment is dominant. MCA, DOTTY, and branches appear unremarkable. The intradural Right vertebral artery is dom inant. The left vertebral artery has a small branch extending to the basilar co nfluence, with the majority of the left vertebral artery supplying the left PICA . The basilar arteries normal in caliber. Posterior cerebral arteries are normal. IMPRESSION 1. No intracranial infarct, hemorrhage o r other acute intracranial abnormality. 2. No severe vascular stenosis or occlus ion. Thank you for letting us participate in the care of this patient. If you are a health care provider and have any questi ons regarding this report, please contact the number below. For patients w ho have questions please contact the health manager intensive care unit that requested your imaging first. Horacio Chrystalshikhajane PLANT MAINTENANCE WORKER IMG CT ORDERABLES CT Head wo Contrast (Generic) (06/03/2022 2:36 PM EDT) Anatomical Region Laterality Modality Head Computed Tomography Specimen (Source) Anatomical Collection Method Collection Time Re ceived Time Location / / Volume Laterality 06/03/2022 2:53 PM EDT Impressions 06/03/2022 2:41 PM EDT 1. No intracranial infarct, hemorrhage o r other acute intracranial abnormality. 2. No severe vascular stenosis or occlus ion. Thank you for letting us participate in the care of this patient. ??If you are a health care provider and have any questi ons regarding this report, please contact the number below. ??For patients who have questions please contact the health manager intensive care unit that requested your imaging first. ? Narrative 06/03/2022 2:41 PM EDT EXAMINATION: CT HEAD WO CONTRAST (GENERIC), CT ANGIOGRAM CAROTIDS AND [place] CLINICAL HISTORY: Dizziness, persistent/ recurrent, cardiac or vascular cause suspected; Vertigo type symptoms, evalua te acute intracranial process TECHNIQUE: CT head performed without intravenous co ntrast administration. CTA carotids and [place] performed following int ravenous administration of 65 mm Omnipaque 350. 3-D and MIP images create d. COMPARISON: MR 05/20/2022 FINDINGS: CT head: The ventricles are unchanged in size or contour. There is no intracranial mass, mass effect, or shift . There is no intracranial hemorrhage or extra-axial collection. No CT evidence o f acute territorial infarct. Middle ear and mastoid air cells are normally aerat ed. There is no osseous and relatively. CTA: The arch origins are normal. There is an independent origin of the left vertebral artery from the arch, an anato meli variant. Right carotid: Common carotid origin is normal. There is minor plaque at the carotid bifurcation without ICA stenosis . The cervical ICA is normal in caliber. Left carotid: Common carotid origin is n ormal. There is minor plaque at the bifurcation without ICA stenosis. The ce rvical ICA is normal in caliber. Right vertebral artery: The Right verteb ral artery is dominant. There is a small noncalcified plaque at the origin withou t stenosis. No focal stenosis is present in the neck. Left vertebral artery: Left vertebral ar johnson originates strictly from the arch. There is minor plaque at the arch origin s without significant stenosis. The cervical vertebral artery is relatively small throughout its course without focal stenosis. Intracranial circulation: There is mild narrowing of the paraclinoid left ICA. Intradural cranial internal carotid jaya hernan otherwise normal in caliber. The right A1 segment is dominant. MCA, DOTTY, and branches appear unremarkable. The intradural Right vertebral artery is dom inant. The left vertebral artery has a small branch extending to the basilar co nfluence, with the majority of the left vertebral artery supplying the left PICA . The basilar arteries normal in caliber. Posterior cerebral arteries are normal. Procedure Note Deuce Redd MD - 06/03/2022Format ting of this note might be different from the original. EXAMINATION: CT HEAD WO CONTRAST (GENERI C), CT ANGIOGRAM CAROTIDS AND [place] CLINICAL HISTORY: Dizziness, persistent/ recurrent, cardiac or vascular cause suspected; Vertigo type symptoms, evalua te acute intracranial process TECHNIQUE: CT head performed without intravenous co ntrast administration. CTA carotids and [place] performed following int ravenous administration of 65 mm Omnipaque 350. 3-D and MIP images create d. COMPARISON: MR 05/20/2022 FINDINGS: CT head: The ventricles are unchanged in size or contour. There is no intracranial mass, mass effect, or shift . There is no intracranial hemorrhage or extra-axial collection. No CT evidence o f acute territorial infarct. Middle ear and mastoid air cells are normally aerat ed. There is no osseous and relatively. CTA: The arch origins are normal. There is an independent origin of the left vertebral artery from the arch, an anato meli variant. Right carotid: Common carotid origin is normal. There is minor plaque at the carotid bifurcation without ICA stenosis . The cervical ICA is normal in caliber. Left carotid: Common carotid origin is n ormal. There is minor plaque at the bifurcation without ICA stenosis. The ce rvical ICA is normal in caliber. Right vertebral artery: The Right verteb ral artery is dominant. There is a small noncalcified plaque at the origin withou t stenosis. No focal stenosis is present in the neck. Left vertebral artery: Left vertebral ar johnson originates strictly from the arch. There is minor plaque at the arch origin s without significant stenosis. The cervical vertebral artery is relatively small throughout its course without focal stenosis. Intracranial circulation: There is mild narrowing of the paraclinoid left ICA. Intradural cranial internal carotid jaya hernan otherwise normal in caliber. The right A1 segment is dominant. MCA, DOTTY, and branches appear unremarkable. The intradural Right vertebral artery is dom inant. The left vertebral artery has a small branch extending to the basilar co nfluence, with the majority of the left vertebral artery supplying the left PICA . The basilar arteries normal in caliber. Posterior cerebral arteries are normal. IMPRESSION 1. No intracranial infarct, hemorrhage o r other acute intracranial abnormality. 2. No severe vascular stenosis or occlus ion. Thank you for letting us participate in the care of this patient. If you are a health care provider and have any questi ons regarding this report, please contact the number below. For patients w ho have questions please contact the health manager intensive care unit that requested your imaging first. Horacio García APRN IMG CT ORDERABLES Lyme IgG & IgM Antibody (06/03/2022 1:16 PM EDT) athologist Signature Lyme Screening Neg Neg [facility] LABORATORY Specimen Anatomical Collection Method Collection Time Receive d Time (Source) Location / / Volume Laterality Blood 06/03/2022 1:16 PM 2 6:34 EDT AM EDT Resulting Agency Comment Spec In Lab Horacio García APRN IMMUNOLOGY ORDERABLES Performing Organization Address City/State/[place] [address] (ABNORMAL) Hemogram (06/03/2022 1:16 PM EDT)Only the most recent of2 results within the time period is included. Analysis Performed At Patho logist Time Signature WBC 8.3 4.0 - 9.5 [facility] x10(3)/[facility] LABORATORY RBC 5.76 (H) 4.58 - [facility] 5.54 [facility] x10(6)/[facility] LABORATORY Hemoglobin 17.5 (H) 13.7 - [facility] 16.5 g/dL [facility] LABORATORY Hematocrit 50.1 (H) 40.5 - [facility] 48.5 % [facility] LABORATORY MCV 87.0 82.9 - [facility] 93.1 [facility] LABORATORY MCH 30.4 27.5 - [facility] 32.1 pg [facility] MCHC 34.9 32.0 - [facility] 35.7 g/dL [facility] LABORATORY Platelets 267 145 - 357 [facility] x10(3)/[facility] LABORATORY RDWSD 37.5 36.0 - [facility] 45.0 [facility] LABORATORY RDWCV 11.9 11.4 - [facility] 13.8 % [facility] LABORATORY MPV 10.3 7.6 - 12.9 [facility] LABORATORY nRBC % Auto 0.0 % [facility] LABORATORY nRBC Abs Auto 0.000 0.000 - [facility] 0.000 [facility] x10(3)[facility] LABORATORY Specimen Anatomical Collection Method Collection Time Receive d Time (Source) Location / / Volume Laterality Blood 06/03/2022 1:16 PM 2 1:16 EDT PM EDT Resulting Agency Comment Spec In Lab Horacio García APRN HEMATOLOGY ORDERABLES Performing Organization Address City/State/[place] [address] Differential, Automated (06/03/2022 1:16 PM EDT)Only the most recent of2 results within the time period is included. P athologist Signature Neutrophils % 63.4 % [facility] LABORATORY Neutr Abs (ANC) 5.29 1.70 - [facility] 6.10 [facility] x10(3)/[facility] LABORATORY Lymphocytes % 27.2 % [facility] LABORATORY Lymphocytes Abs 2.3 0.9 - 3.2 [facility] x10(3)/[facility] LABORATORY Monocytes % 7.3 % [facility] LABORATORY Monocyte Abs 0.6 0.3 - 0.9 [facility] x10(3)/[facility] LABORATORY Eosinophils % 1.0 % [facility] LABORATORY Eosinophils Abs 0.1 0.0 - 0.4 [facility] x10(3)/[facility] LABORATORY Basophils % 0.6 % [facility] LABORATORY Basophils Abs 0.0 0.0 - 0.1 [facility] x10(3)/[facility] LABORATORY Immature Gran % 0.50 % [facility] LABORATORY Comment: Immature granulocytes(IG's)percentage an d absolute count will include metamyelocytes, myelocytes, and promyelo cytes. Blood smears from CBCs yielding IG's will be scanned manually for concor dance. If this scan disagrees with the automated IG or if promyelocytes are not ed, a manual differential will be performed. Debra Gran Abs 0.04 0.00 - 0.04 x10(3)/[facility] LABORATORY Specimen Anatomical Collection Method Collection Time Receive d Time (Source) Location / / Volume Laterality Blood 06/03/2022 1:16 PM 2 1:16 EDT PM EDT Resulting Agency Comment Spec In Lab Horacio Bacaicoa [employer] MA[employer]TE[employer]NCE WORKER HEMATOLOGY ORDERABLES Performing Organization Address City/State/[place] [address] (ABNORMAL) Basic Metabolic Panel (non-fasting) (06/03/2022 1:16 PM EDT) P athologist Signature Glucose Lvl 185 65 - 199 [facility] mg/dL [facility] LABORATORY Comment: Diabetes: >=200 mg/dL plus symp toms BUN 28 (H) 10 - 20 mg/dL [facility] LABORATORY Creatinine 1.21 0.80 - 1.50 mg/dL [facility] LABORATORY Sodium 140 135 - 145 mmol/L [facility] LABORATORY Potassium 3.9 3.5 - 5.0 mmol/L [facility] LABORATORY Comment: Please note: ??Patients with WBC >100,00 0 may have falsely elevated Potassium levels. ??For accurate Potassium quantif ication in these patients send serum separator tube (gold top) for subsequent determinations. ??Contact the Clinical Chemistry Laboratory if there are any qu estions. Chloride 100 98 - 107 mmol/L [facility] LABORATORY CO2 24 22 - 31 mmol/L [facility] LABORATORY Anion Gap 16 (H) 5 - 15 mmol/L [facility] LABORATORY Calcium 9.9 8.5 - 10.5 mg/dL [facility] LABORATORY Estimated GFR 62 >=60 mL/min/1.73 m?? [facility] LABORATORY Comment: This patient's estimated GFR was calcula svetlana using the 2020 CKD-EPI equation. The estimated GFR can vary from the essie ured GFR by up to 30% in the absence of rapidly changing kidney function. Assess ment of the estimated GFR is not appropriate when creatinine concentratio ns are rapidly changing. For clinical situations in which a more precise estim ate of GFR is necessary, consider alternative methods of GFR estimation roman ch as a 24-hour urine creatinine clearance. Assignment of CKD stage 1-5 for patients with an eGFR near the transition point between stages may be based on clinical assessment of muscle mass and symptoms in addition to eGFR. Specimen Anatomical Collection Method Collection Time Receive d Time (Source) Location / / Volume Laterality Blood 06/03/2022 1:16 PM 2 1:16 EDT PM EDT Resulting Agency Comment Spec In Lab Horacio García APRN CHEMISTRY ORDERABLES Performing Organization Address City/State/[place] [address] APTT (05/20/2022 7:18 PM EDT) P athologist Signature PTT 29 25 - 37 sec [facility] Comment: The PTT is NOT appropriate for heparin m onitoring. Use the Anti-Xa level for heparin monitoring (HEP UFH) or LMWH mon itoring (HEP LMW). A PTT less than 37 seconds generally indicates adequate hem ostasis. Specimen Anatomical Collection Method Collection Time Receive d Time (Source) Location / / Volume Laterality Blood 05/20/2022 7:18 PM 2 7:24 EDT PM EDT Resulting Agency Comment Spec In Lab Ashwini Yeh MD HEMATOLOGY ORDERABLES Performing Organization Address [facility]/[place] [facility] [place] [address] Prothrombin Time (05/20/2022 7:18 PM EDT) P athologist Signature PT 12.0 9.4 - 12.5 [facility]ATORY INR 1.1 [facility] Comment: An INR <2.0 indicates adequate procoagul ant activity for hemostasis in most patients without underlying bleeding dis orders, though the INR may not adequately reflect hemostatic capacity i n patients with liver disease and synthetic impairment. The recommended ta rget INR range for therapeutic anticoagulation is 2.0 ? 3.0 for most applications, though lower and higher ranges may be appropriate depending on c linical circumstances. Specimen Anatomical Collection Method Collection Time Receive d Time (Source) Location / / Volume Laterality Blood 05/20/2022 7:18 PM 2 7:24 EDT PM EDT Resulting Agency Comment Spec In Lab Ashwini Yeh MD HEMATOLOGY ORDERABLES Performing Organization Address [facility] [place] [address] (ABNORMAL) Hemoglobin A1c (05/20/2022 7:18 PM EDT) Analysis Performed At Patho logist Time Signature Hemoglobin A1C 7.8 (H) 4.3 - 5.6 [facility] Comment: Reference Range: 4.3 - 5.6% 5.7 - 6.4% - Increased Risk of Developin g Diabetes Mellitus >= 6.5% - Consistent with diagnosis of D iabetes Mellitus In the absence of hyperglycemia (i.e. pl asma glucose > 200 mg/dL) or classic symptoms of hyperglycemia a repeat measu rement of HbA1c should be performed on a separate sample to confirm the diagnos is. Diagnosis and Classification of Diabetes Mellitus, Diabetes Care 2013; 36: Suppl. 1, S67-49 Est Avg Gluc See note mg/dL [facility] Comment: Estimated Average Glucose not appropriat e for patients over 70 years of age. eAG equivalents for HbA1c percentages: HbA1c(%) ?eAG(mg/dL) 6.0 ?126 6.5 ?140 7.0 ?154 7.5 ?169 8.0 ?183 8.5 ?197 9.0 ?212 9.5 ?226 10.0 ? 240 Limitations: The eAG calculation has not been validated on women, individuals below 18 years old and above 70 years old, and individuals with hemoglobinopathies. Additional resources are available on [facility] ADA website. Zak SHAW, Margaret J, Jessika R, et al. ??Tr anslating the A1C assay into estimated average glucose values. ??Diabetes Care 2008:31(8):9651-2014. Specimen Anatomical Collection Method Collection Time Receive d Time (Source) Location / / Volume Laterality Blood 05/20/2022 7:18 PM 2 7:24 EDT PM EDT Resulting Agency Comment Spec In Lab Ashwini Yeh MD CHEMISTRY ORDERABLES Performing Organization Address City/State/[place] [address] Lipid Panel (Reflex Direct LDL) (05/20/2022 7:18 PM EDT) athologist Signature Chol, Total 151 mg/dL [facility] Comment: Lower Risk: <200 mg/dL Average Risk: 200-239 mg/dL Higher Risk: >nf=131 mg/dL Triglycerides 291 mg/dL [facility] Comment: Average Risk/Lower Risk: <150 mg/dL Borderline High Risk: 150-199 mg/dL High Risk: 200-499 mg/dL Very High Risk: >jl=082 mg/dL HDL 33 mg/dL [facility] Comment: Males: ?? Higher Risk: <40 mg/dL Females: ?? Higher Risk: <50 mg/dL LDL Cholesterol 60 mg/dL [facility] Comment: Lowest Risk: <100 mg/dL Lower Risk: 100-129 mg/dL Borderline High Risk: 130-159 mg/dL High Risk: 160-189 mg/dL Very High Risk: >oc=438 mg/dL Chol/HDL Ratio 4.6 ratio [facility] Lipid Interpretation See Note [facility] Comment: Lipid management should be guided by a p atient? s ASCVD risk, goals and preferences. ACC/AHA Guidelines recommend high intens ity statin if clinical ASCVD or LDL greater than or equal to 190 mg/dL. [email or web address]/FNA-REA-Dqdxzpttk Adults aged 40-75 with LDL 70-189 mg/dL should have their 10 year ASCVD risk estimated with the ACC/AHA ASCVD risk es timator http://tools.acc.org/KFMWJ-Rzzz-Ptdumfsk r/ Statin should be discussed if risk great er than or equal to 7.5% in non-diabetics. With diabetes, moderate i ntensity statin is recommended if risk less than 7.5%, high intensity if risk g reater than or equal to 7.5%. Annual lipid monitoring on statins is no t necessary. Evaluate secondary causes of Triglycerid es greater than 500 mg/dL or LDL greater than 190 mg/dL: See table 6 of A CC/AHA Guideline. Lifestyle modification is a critical com ponent of ASCVD risk reduction. Specimen Anatomical Collection Method Collection Time Receive d Time (Source) Location / / Volume Laterality Blood 05/20/2022 7:18 PM 7:24 EDT PM EDT Resulting Agency Comment Spec In Lab Ashwini Yeh MD CHEMISTRY ORDERABLES Performing Organization Address City/State/[place] [address] (ABNORMAL) Comprehensive metabolic panel (non-fasting) (05/20/2022 7:18 PM EDT) P athologist Signature Glucose Lvl 150 65 - 199 [facility] mg/dL [facility] Comment: Diabetes: >=200 mg/dL plus symp toms BUN 25 (H) 10 - 20 mg/dL [facility] Creatinine 1.19 0.80 - 1.50 mg/dL [facility] Sodium 140 135 - 145 mmol/L [facility] Potassium 3.9 3.5 - 5.0 mmol/L [facility] Comment: Please note: ??Patients with WBC >100,00 0 may have falsely elevated Potassium levels. ??For accurate Potassium quantif ication in these patients send serum separator tube (gold top) for subsequent determinations. ??Contact the Clinical Chemistry Laboratory if there are any qu estions. Chloride 104 98 - 107 mmol/L [facility] CO2 24 22 - 31 mmol/L [facility] Anion Gap 12 5 - 15 mmol/L [facility] Calcium 9.2 8.5 - 10.5 mg/dL [facility] Total Protein 7.0 6.1 - 8.0 g/dL [facility] Albumin 4.3 3.2 - 5.2 g/dL [facility] AST 12 0 - 39 unit/L [facility] ALT 19 0 - 55 unit/L [facility] Alk Phos 90 40 - 130 unit/L [facility] Total Bilirubin 0.6 0.2 - 1.3 mg/dL [facility] Estimated GFR 64 >=60 mL/min/1.73 m?? [facility] Comment: This patient's estimated GFR was calcula svetlana using the 2020 CKD-EPI equation. The estimated GFR can vary from the essie ured GFR by up to 30% in the absence of rapidly changing kidney function. Assess ment of the estimated GFR is not appropriate when creatinine concentratio ns are rapidly changing. For clinical situations in which a more precise estim ate of GFR is necessary, consider alternative methods of GFR estimation roman ch as a 24-hour urine creatinine clearance. Assignment of CKD stage 1-5 for patients with an eGFR near the transition point between stages may be based on clinical assessment of muscle mass and symptoms in addition to eGFR. Specimen Anatomical Collection Method Collection Time Receive d Time (Source) Location / / Volume Laterality Blood 05/20/2022 7:18 PM 2 7:24 EDT PM EDT Resulting Agency Comment Spec In Lab Ashwini Yeh MD CHEMISTRY ORDERABLES Performing Organization Address City/State/[place] [address] EKG 12 Lead (05/20/2022 5:50 PM EDT)Only the most recent of2 resultswithin the time period is included. Component Value Ref Range Test Analysis Performed Pathologis t Method Time At Signature Ventricular rate 73 BPM MUSE SYSTEM Atrial Rate 73 BPM MUSE SYSTEM P-R Interval 170 ms MUSE SYSTEM QRS Duration 96 ms MUSE SYSTEM Q-T Interval 402 ms MUSE SYSTEM QTC Calculated 442 ms MUSE SYSTEM (Bezet) Calculated P [place] 20 degrees MUSE SYSTEM Calculated R [place] -46 degrees MUSE SYSTEM Calculated T [place] 61 degrees MUSE SYSTEM INTERPRETATION Normal sinus rhythm MUSE SYSTEM Left anterior fascicular block Nonspecific T wave abnormality Abnormal ECG When compared with ECG of 20-MAY-2022 13:11, (unconfirmed) Nonspecific T wave abnormality no longer evident in Anterior leads Confirmed by Dara Santoyo MD ([id number]) on 05/31/2022 12:26:05 PM Specimen Anatomical Collection Method Collection Time Receive d Time (Source) Location / / Volume Laterality 05/20/2022 5:50 PM 2 EDT 12:26 PM EDT Ashwini Yeh MD ECG ORDERABLES Performing Organization Address City/State/ZIP Code Phon e Number MUSE SYSTEM MRI Brain wwo Contrast (Generic) (05/20/2022 5:50 PM EDT) Anatomical Region Laterality Modality Head Magnetic Resonance Specimen (Source) Anatomical Location Collection Method / Collectio n Time Received Time / Laterality Volume Impressions 05/20/2022 6:14 PM EDT No diffusion restriction, mass or mass effect. Essentially unremarkable postcontrast MRI brain. Thank you for letting us participate in the care of this patient. ??If you are a health care provider and have any questi ons regarding this report, please contact the number below. ??For patients who have questions please contact the health manager intensive care unit that requested your imaging first. ? Narrative 05/20/2022 6:14 PM EDT EXAMINATION: MRI BRAIN WWO CONTRAST (GENERIC) CLINICAL HISTORY: Dizziness, persistent/ recurrent, cardiac or vascular cause suspected; dizziness w/ vertical nystagm us TECHNIQUE: MRI of the brain was performe d before and after the intravenous administration of 20cc Dotarem. COMPARISON:None FINDINGS: The ventricles are normal in size for th e age of the patient. There is no mass or mass effect. The torrez-white matter di scrimination is normal. No abnormal restricted diffusion is identified to roman ggest an acute infarct. Few punctate areas of increased T2/STIR signal in the supratentorial brain which are nonspecific and could be related to whit e matter or senescent changes. There is no hemorrhage. The major intracranial ve ssels exhibit the expected signal void. No extra-axial fluid collection is ident ified. The T1 calvarial signal is unremarkable. The craniocervical junction, sella turcica and orbits are within normal gallo its. The included paranasal sinuses and mastoid air cells are well pneumatized. No significant abnormality on postcontra st images. Procedure Note Say Luu MD - 05/20/2022Formatt ing of this note might be different from the original. EXAMINATION: MRI BRAIN WWO CONTRAST (GEN RADHA) CLINICAL HISTORY: Dizziness, persistent/ recurrent, cardiac or vascular cause suspected; dizziness w/ vertical nystagm us TECHNIQUE: MRI of the brain was performe d before and after the intravenous administration of 20cc Dotarem. COMPARISON:None FINDINGS: The ventricles are normal in size for th e age of the patient. There is no mass or mass effect. The torrez-white matter di scrimination is normal. No abnormal restricted diffusion is identified to roman ggest an acute infarct. Few punctate areas of increased T2/STIR signal in the supratentorial brain which are nonspecific and could be related to whit e matter or senescent changes. There is no hemorrhage. The major intracranial ve ssels exhibit the expected signal void. No extra-axial fluid collection is ident ified. The T1 calvarial signal is unremarkable. The craniocervical junction, sella turcica and orbits are within normal gallo its. The included paranasal sinuses and mastoid air cells are well pneumatized. No significant abnormality on postcontra st images. IMPRESSION No diffusion restriction, mass or mass e ffect. Essentially unremarkable postcontrast MRI brain. Thank you for letting us participate in the care of this patient. If you are a health care provider and have any questi ons regarding this report, please contact the number below. For patients w ho have questions please contact the health manager intensive care unit that requested your imaging first. Ashwini Yeh MD IMG MRI ORDERABLES from Last 3 Months Insurance Payer Benefit Plan / Subscriber ID Effective Phone Address T ype Group Dates MEDICARE MEDICARE PART A [id number] 2020-Pres [phone] [place] [address] [place]OO [id number] [employer] MEDICARE AETNA MEDICARE [id number] 2021-Pres [address] [address] [place] [address] [employer] [id number] 2017-Prese [employer] [facility] [facility] [place] [address] [phone] (Work) Advance Directives Latest Code Status on File Code Status Date Activated Date Inactivated Comments Full Code 07/01/2017 6:52 PM 07/02/2017 7:03 PM Does patient have capacity to make decision: Yes Care Teams Saw Feeder Relationship Specialty Start Date End Date Shy Gutierrez, PLANT MAINTENANCE WORKER PCP - General Family Medicine 08/31/[address] [place], [place] [id number]
--- OUTSIDE RECORDS SUMMARY | 2022-06-12 12:08 | XMS_ITS | Encounter Summary ---
:1945 Author Organization [facility] [place] [address] Care Team Providers Name Role Phone Shy Gutierrez APRN Primary Care Provider Reason for Referral Diagnostic Test (Routine) - Pending Review Specialty Diagnoses / Procedures Referred By Contact Refer red To Contact Cardiology Diagnoses Dizziness Vertigo Horacio García APRN [facility] Non-Inv Card Lab Procedures Ziopatch 48 Hrs-15 [place] [address] [place] [address] Fax: Referral ID Status Reason Start Expiration Visits Visits Date Date Requested Authorized [id number] Pending Specialty 06/03/2022 06/03/2023 1 1 Review Service Requested Consultation (Routine) - Authorized Specialty Diagnoses / Procedures Referred By Contact Refer red To Contact Neurology Diagnoses Dizziness Vertigo Horacio García APRN [facility] Neurology [address]c [facility] [place] [address] [place] [address] Fax: Referral ID Status Reason Start Date Expiration Visits Visits Date Requested Authorized [id number] Authorized Consult, 06/03/2022 06/03/2023 1 1 Test & Treat Reason for Visit Reason Comments Dizziness Sinus Problem Encounter Details Date Type Department Care Team Description 06/03/2022 Emergency Emergency Department Caridad Bailey MD Dizziness; [facility] abbe [address]; [place] [address] Sinus pressure [facility] [place] [address] [phone] Social History Tobacco Use Types Packs/Day Years Used Date Former Smoker Smokeless Tobacco: Never Used Comments: quit 40 yrs ago Alcohol Use Standard Drinks/Week Comments No 0 (1 standard drink = 0.6 oz pure alcoho l) Sex Assigned at Date Recorded Not on file documented as of this encounter Last Filed Vital Signs Vital Sign Reading Time Taken Comments Blood Pressure 124/53 06/03/2022 3:02 PM EDT Pulse 76 06/03/2022 11:14 AM EDT Temperature 37.3 ??C (99.1 ??F) 06/03/2022 11:14 AM EDT Respiratory Rate 16 06/03/2022 11:14 AM EDT Oxygen Saturation 97% 06/03/2022 3:02 PM EDT Inhaled Oxygen Concentration - - Weight 103.4 kg (228 lb) 06/03/2022 11:14 AM EDT Height - - Body Mass Index 30.08 05/20/2022 1:13 PM EDT documented in this encounter Discharge Instructions Discharge InstructionsHoracio García APRN - 06/03/2022 3:27 PM EDT You were seen in the emergency department and evaluated for your symptoms including dizziness/vertigo type symptoms. Your exam was reassuring but we were not able to reproduce any of the symptoms that had been reproduced the other day in our maneuvers. Your labs were all reassuring. We also did imaging again of your head and the vessels that supply the blood to the brain with a CT scan which was all reassuring. Blood pressure was slightly elevated when he initially came in but it was reassuring. We recommend that you discuss with your primary care provider whether you need to monitor your blood pressure at home. Recommendations are as follows-- Try to stay hydrated, drink enough fluids so that your urine is a light yellow. We do recommend that you continue with your vestibular physical therapy to continue to work on your symptoms. You can try the meclizine which was prescribed and take this up to 3 times a day as needed for dizziness, if it helps you can use it if not or causes side effects you should not. There were no clear signs that sinus inflammation is involved however it may be part of this. Thingsthat you can try to do are ghar-efb-gkuazli antihistamine such as Claritin or Paulette, take this daily as instructed on package insert instructions and try this for 2 weeks. You can also take an dzni-xpi-ppkfzoa inhaled nasal spray such as Flonase or Nasonex. Take these as directed per package insert instructions and again try for 2 weeks to see if they help with your symptoms. We have ordered a ambulatory heart monitor called a Zio patch. You will likely to pick this up next week, you can also call your primary care provider to see if they can order one locally. Recommend you follow-up with your primary care provider next 5 days. Discuss with them whether referral to cardiology, ear nose and throat or other specialist may be indicated. We have referred you to neurology. Return to the emergency room with any new, worsening or concerning symptoms. AttachmentsThe following attachments cannot be sent through Care Everywhere. Vertigo (Grenadian)documented in this encounter Medications at Time of Discharge Medication Sig Dispensed Refills Start Date End Date meclizine (Antivert) 25 mg Take 1 tablet by 20 tablet 0 07/2022 Tablet mouth 3 times daily as needed for Dizziness. aspirin EC 81 mg Tablet, Take 81 mg by mouth 0 Delayed Release (E.C.) nightly. atorvastatin (Lipitor) 20 Take 20 mg by mouth 0 0 03/01/2022 mg Tablet nightly. metFORMIN (Glucophage) 500 Take 500 mg by mouth 0 08/25/2020 mg Tablet 2 times daily (with meals). acetaminophen (TYLENOL) 325 Take 2 tablets by 30 tablet 1 0 07/02/2017 mg Tablet mouth every 6 hours as needed. lisinopril-hydrochlorothiaz Take 2 tablets by 30 tablet 11 0 07/02/2017 lalita (PRINZIDE;ZESTORETIC) mouth daily. 10-12.5 mg Tablet ibuprofen (ADVIL;MOTRIN) Take 1 tablet by 30 tablet 0 07/02 800 mg Tablet mouth every 8 hours as needed for Pain. meTOPROLOL succinate Take 1 tablet by 0 7 (TOPROL-XL) 50 mg Tablet mouth nightly. Sustained Release 24 hr documented as of this encounter ED Notes Horacio García APRN - 06/03/2022 11:57 AM EDT Patient Name: Tino Hart Patient Age: 76 y.o. Patient : 1945 Encounter Date: 06/03/2022 Chief Complaint Dizziness and Sinus Problem History of Present Illness Tino Hart is a 76 y.o. male who presents for evaluation of vertigo. Past medical history notable for diabetes mellitus type 2, hypertension, hyperlipidemia. Patient presents for evaluation of ongoing/worsening vertigo symptoms. He reports he was seen here on 05/17 for evaluation of approximately 1 week of vertigo type symptoms. At that time he had been describing symptoms provoked by movement that dissipated with staying still. He was seen initially at [facility] emergency department where he was found to have vertical nystagmus with rightward gaze and transferred to our emergency department here at [facility] for further evaluation. Here he underwent an MRI of the brain with and without contrast which was unrevealing. He had a positive [place]-Hallpike to the right. 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 He reports he did end up getting into vestibular rehab and after his first visit he did have some improvement in symptoms. He then tried to do the Krystal at home for symptoms and it did not help. Ultimately hand up doing it to the other side because he is having symptoms both ways without improvement. He saw the physical therapist again who did feel that he had symptoms both ways but was unable to make his symptoms better with maneuvers. He denies fever or chills. He has otherwise been in his usual state of health for the time leading up to this. He denies any headache but he does have for 1 week some right-sided nasal sinus facial pressure as well as sensation of a caterpillar moving around in there sometimes. He wonders if his hearing is a little bit decreased on the right, he does intermittently have a sound of almost like someone tapping on a canvas tent. He has longstanding bilateral tinnitus that is unchanged for the past few decades. He denies any sore throat, cough. No shortness of breath or chest pain/pressure. Denies any abdominal pain or vomiting. He has had nausea with these episodes. He did also try meclizine which seemed to help somewhat with symptoms but not long-term. The history is provided by the patient, family and EMR. Review of Systems ROS as above with pertinent positives and negatives, otherwise 10 systems are reviewed and negative. PMH, PSH, SH, medications and allergies reviewed & updated in chart as appropriate. Physical Exam BP 124/53 Pulse 76 Temp 37.3 ??C (99.1 ??F) (Temporal) Resp 16 Wt 103.4 kg (228 lb) SpO2 97% BMI 30.08 kg/m?? Physical Exam Constitutional: General: He is not in acute distress. Appearance: Normal appearance. HENT: Head: Normocephalic. Jaw: There is normal jaw occlusion. Ears: Comments: Bilateral external auditory canals are clear with small amounts of nonobstructive wax. Right tympanic membrane is intact although does seem slightly retracted. Left tympanic membrane is intact. With finger rub patient endorses hearing in the right is slightly muffled as compared to left. Nose: Mucosal edema (mildly boggy) present. No nasal tenderness. Right Sinus: No maxillary sinus tenderness or frontal sinus tenderness. Left Sinus: No maxillary sinus tenderness or frontal sinus tenderness. Mouth/Throat: Mouth: Mucous membranes are moist. Pharynx: Oropharynx is clear. Cardiovascular: Rate and Rhythm: Normal rate and regular rhythm. Pulmonary: Effort: Pulmonary effort is normal. No respiratory distress. Breath sounds: Normal breath sounds. Musculoskeletal: General: Normal range of motion. Cervical back: Normal range of motion and neck supple. No tenderness. Skin: General: Skin is warm and dry. Capillary Refill: Capillary refill takes less than 2 seconds. Psychiatric: Mood and Affect: Mood normal. Neurological/Back: MS: Alert and oriented ??4, cooperative and follows commands Cranial nerves: CN II-XII grossly intact; PERRLA, extraocular movements intact, no nystagmus, tongue midline and symmetric Motor: Segment Muscle Action Right Left C5 Deltoid Arm Abduction/Flexion 5/5 5/5 C5, C6 Biceps Elbow flexion 5/5 5/5 C7 Triceps Elbow extension 5/5 5/5 C8, T1 Hand intrinsics Grasp 5/5 5/5 L2 Iliopsoas Hip flexion 5/5 5/5 L3 Quadriceps Knee extension 5/5 5/5 L4 Tibialis anterior Dorsiflexion 5/5 5/5 L5 Extensor hallucis Great toe extension 5/5 5/5 S1 Gastrocnemius/FHL Plantarflexion 5/5 5/5 Sensory: Sensation intact and equal in bilateral upper and lower extremities (light touch) Cerebellum: Normal ijgivf-hy-ziaz and finger to examiner, normal rapid alternating movements and no dysmetria (some slowing with exam but it is equal bilaterally without overshoot), slight/very mild tremor, no drift Romberg essentially somewhat equivocal (patient did drift somewhat backwards but did self-correct although he was not aware he was drifting or correcting) -Gait: Slowed with intention and slightly wide-based but not clearly ataxic, able to walk in place on toes and on heels -Speech: clear without dysarthria or aphasia Anni-Hallpike was done initially to the right which did not reproduce any nystagmus or symptoms. Anni-Hallpike was done to the left which did not reproduce any nystagmus or symptoms. We did attempt to doevaluation moving patient's head side to side to elicit nystagmus and consider good phony maneuver but no symptoms reproduced. The only time I was able to reproduce symptoms as when I had him lay up from out of bed and sit on edge of the bed and it was mild and brief. ED Course ED Course as of 06/03/22 1727 Sat Jun 03, 2022 1330 WBC: 8.3 1330 Hemoglobin(!): 17.5 1417 Anion Gap(!): 16 1417 BUN(!): 28 1417 Creatinine: 1.[address] Head wo Contrast (Generic) No acute findings 14[address] CT Angiogram Carotids & [place] No acute findings, findings of the posterior circulation, vertebral arteries and carotid arteries are reviewed 1521 Patient updated with plan for discharge History, examination Vitals, nursing notes reviewed Diagnostics Reviewed and interpreted independently Imaging CT Head wo Contrast (Generic) Final Result 1. No intracranial infarct, hemorrhage or other acute intracranial abnormality. 2. No severe vascular stenosis or occlusion. Thank you for letting us participate in the care of this patient. If you are a health care provider and have any questions regarding this report, please contact the number below. For patients who have questions please contact the health dog day care attendant that requested your imaging first. Angiogram Carotids & [place] Final Result 1. No intracranial infarct, hemorrhage or other acute intracranial abnormality. 2. No severe vascular stenosis or occlusion. Thank you for letting us participate in the care of this patient. If you are a health care provider and have any questions regarding this report, please contact the number below. For patients who have questions please contact the health dog day care attendant that requested your imaging first. Labs Recent Results (from the past 24 hour(s)) Basic Metabolic Panel (non-fasting) Result Value Ref Range Glucose Lvl 185 65 - 199 mg/dL BUN 28 (H) 10 - 20 mg/dL Creatinine 1.21 0.80 - 1.50 mg/dL Sodium 140 135 - 145 mmol/L Potassium 3.9 3.5 - 5.0 mmol/L Chloride 100 98 - 107 mmol/L CO2 24 22 - 31 mmol/L Anion Gap 16 (H) 5 - 15 mmol/L Calcium 9.9 8.5 - 10.5 mg/dL Estimated GFR 62 >=60 mL/min/1.73 m?? Hemogram Result Value Ref Range WBC 8.3 4.0 - 9.5 x10(3)/mcL RBC 5.76 (H) 4.58 - 5.54 x10(6)/mcL Hemoglobin 17.5 (H) 13.7 - 16.5 g/dL Hematocrit 50.1 (H) 40.5 - 48.5 % MCV 87.0 82.9 - 93.1 fL MCH 30.4 27.5 - 32.1 pg MCHC 34.9 32.0 - 35.7 g/dL Platelets 267 145 - 357 x10(3)/mcL RDWSD 37.5 36.0 - 45.0 fL RDWCV 11.9 11.4 - 13.8 % MPV 10.3 7.6 - 12.9 fL nRBC % Auto 0.0 % nRBC Abs Auto 0.000 0.000 - 0.000 x10(3)/mcL Differential, Automated Result Value Ref Range Neutrophils % 63.4 % Neutr Abs (ANC) 5.29 1.70 - 6.10 x10(3)/mcL Lymphocytes % 27.2 % Lymphocytes Abs 2.3 0.9 - 3.2 x10(3)/mcL Monocytes % 7.3 % Monocyte Abs 0.6 0.3 - 0.9 x10(3)/mcL Eosinophils % 1.0 % Eosinophils Abs 0.1 0.0 - 0.4 x10(3)/mcL Basophils % 0.6 % Basophils Abs 0.0 0.0 - 0.1 x10(3)/mcL Immature Gran % 0.50 % Debra Gran Abs 0.04 0.00 - 0.04 x10(3)/mcL Medications As noted below and documented in MAR Medications iohexoL (Omnipaque) (350 mg/mL) solution 0-200 mL (65 mLs Intravenous Given 06/03/22 1437) sodium chloride 0.9% 500 mL IV bolus ( Intravenous Stopped 06/03/22 1503) Procedures None MDM, Assessment and Plan MDM: 76 y.o. male with increasing episodic, provoked vertiginous symptoms. No preceding illnesses, no associated fever, chills. No vision loss, somewhat muffled hearing on right and some sinus pressure on right without pain. On initial presentation patient is afebrile and hemodynamically stable; he is sligh tly hypertensive. Physical exam is notable as above; strength intact throughout, slowed but no abnormal ehemrr-vk-ttxe/rapid alternating movements equivocal Romberg, wide/unsteady gait but not clearly ataxic. Initial plan is for labs. Pertinent diagnostic findings: Labs were reassuring and overall unremarkable, slightly hemoconcentrated with mild bump in H&H but not in other cell lines. BMP unremarkable. Lyme testing was sent and is pending. Patient was initially hypertensive but recheck was in the 120 systolic. He did receive some IV fluids. [place]-Hallpike was not positive or indicative of etiology. I was not able to really reproduce his symptoms except for 1 time when he sat up out of bed and they were brief. We did do a CT scan of the head and the [place] and carotids which did not reveal any acute pathology or obvious causes for his symptoms. This seems based on his symptoms to most likely be BPPV. I do think the most important things would be for continuing outpatient physical therapy for vestibular rehab. I also would look for alternate causes and a Zio patch was ordered. It seems that he was seen by neurology however there is no note or documentation to indicate that so I will refer him to neurology. I did recommend that he could try meclizine for symptoms and if it helped he could take it and if not that he would likely not have any benefit. I recommend he follow-up with his PCP to discuss further evaluation referral such as cardiology and ENT. Overall his exam and findings were most consistent with BPPV however we could not produce or evoke any symptoms although based on he describes it seems like they would end with his previous maneuvers. No evidence of stroke or posterior circulation issue. He might have a slight muffled miss to his hearing on the right but no profound hearing loss, no lesions in the EAC, nothing to suggest vestibular neuritis or labyrinthitis. Although he did have a single isolated blood pressure reading here that washigh no other findings suggestive of press. ASSESSMENT: 1. Dizziness 2. Vertigo 3. Sinus pressure PLAN/DISPO: Follow up with Shy Gutierrez APRN in in 5 days Discharge instructions per AVS Return precautions were discussed with the patient; patient expressed understanding and is in agreement with plan Discharge Medication List as of 06/03/2022 3:36 PM START taking these medications Details meclizine (Antivert) 25 mg Tablet Take 1 tablet by mouth 3 times daily as needed for Dizziness., Disp-20 tablet, R-0, Normal Discharge to home This note was dictated, at least, in part with Trusted[employer] Dictation software. PPE worn during this encounter: Level 2 mask and Eyeglasses Horacio García APRN 06/03/22 [id number] documented in this encounter Miscellaneous Notes ED Triage - Libia Heaton RN - 06/03/2022 11:17 AM EDT HPI (Adult) Stated Reason for Visit: I am having continued severe vertigo, I was seen 05/20/22 and had an MRI and have done the krystal manuever and saw physical therapy and I'm not getting better and my FS has been over 200 the last couple of days. History Obtained From: patient, family Pt. Presents with continued vertigo since 05/09/22 , seen in ED at [facility] on 05/20 and is concerned about continued sx and rising FS. documented in this encounter Plan of Treatment Upcoming Encounters Date Type Specialty Care Team Description 07/17/2022 Office Visit Physical Therapy Ro Colvin N, PT Scheduled Orders Name Type Priority Associated Diagnoses Order S chedule Ziopatch 48 Hrs-15 Cardiac Services Routine Dizziness Expected: Days Vertigo 06/12/2022, Expires: 2022 Scheduled Referrals Name Type Priority Associated Diagnoses Order S chedule Referral to Outpatient Referral Routine Dizziness Ordered: Neurology Vertigo 06/03/2022 documented as of this encounter Procedures Procedure Name Priority Date/Time Associated Diagnosis Comme nts CT CAROTIDS AND STAT 06/03/2022 2:36 PM Result s for this [place] W EDT procedure are in CONTRAST the results section. CT HEAD WO CONTRAST STAT 06/03/2022 2:36 PM Re sults for this (GENERIC) EDT procedure are i n the results section. HC LYME DISEASE, Routine 06/03/2022 1:16 PM Resul ts for this [place] EDT procedure are i n the results section. HEMOGRAM STAT 06/03/2022 1:16 PM Results f or this EDT procedure are i n the results section. DIFFERENTIAL, STAT 06/03/2022 1:16 PM Results for this AUTOMATED EDT procedure are i n the results section. HC CBC,PLT & AUTO STAT 06/03/2022 1:16 PM DIFF EDT BASIC METABOLIC STAT 06/03/2022 1:16 PM Result s for this PANEL (NON-FASTING) EDT procedur e are in the results section. documented in this encounter Results CT Angiogram Carotids & [place] (06/03/2022 2:36 PM EDT) Anatomical Region Laterality [...] who have questions please contact the health dog day care attendant that requested your imaging first. ? Narrative 06/03/2022 2:41 PM EDT EXAMINATION: CT HEAD WO CONTRAST (GENERIC), CT ANGIOGRAM CAROTIDS AND [place] CLINICAL HISTORY: Dizziness, persistent/ recurrent, cardiac or vascular cause suspected; Vertigo type symptoms, evalua te acute intracranial process TECHNIQUE: CT head performed without intravenous co ntrast administration. CTA carotids and [place] performed following int ravenous administration of 65 [...] CONTRAST (GENERI C), CT ANGIOGRAM CAROTIDS AND [place] CLINICAL HISTORY: Dizziness, persistent/ recurrent, cardiac or vascular cause suspected; Vertigo type symptoms, evalua te acute intracranial process TECHNIQUE: CT head performed without intravenous co ntrast administration. CTA carotids and [place] performed following int ravenous administration of 65 [...] ho have questions please contact the health dog day care attendant that requested your imaging first. Horacio Chrystalshikhajane RUGGIERO IMG CT ORDERABLES CT Head wo Contrast [...] who have questions please contact the health dog day care attendant that requested your imaging first. ? Narrative 06/03/2022 2:41 PM EDT EXAMINATION: CT HEAD WO CONTRAST (GENERIC), CT ANGIOGRAM CAROTIDS AND [place] CLINICAL HISTORY: Dizziness, persistent/ recurrent, cardiac or vascular cause suspected; Vertigo type symptoms, evalua te acute intracranial process TECHNIQUE: CT head performed without intravenous co ntrast administration. CTA carotids and [place] performed following int ravenous administration of 65 [...] CONTRAST (GENERI C), CT ANGIOGRAM CAROTIDS AND [place] CLINICAL HISTORY: Dizziness, persistent/ recurrent, cardiac or vascular cause suspected; Vertigo type symptoms, evalua te acute intracranial process TECHNIQUE: CT head performed without intravenous co ntrast administration. CTA carotids and [place] performed following int ravenous administration of 65 [...] ho have questions please contact the health dog day care attendant that requested your imaging first. Horacio García MONIK IMG CT ORDERABLES Differential, Automated (06/03/2022 1:16 PM EDT) P athologist Signature Neutrophils % 63.4 % [facility] Neutr Abs (ANC) 5.29 1.70 - [facility] 6.10 [facility] x10(3)/[facility] LABORAT[facility] Lymphocytes % 27.2 % [facility] Lymphocytes Abs 2.3 0.9 - 3.2 [facility] x10(3)/[facility] LABORATORY Monocytes % 7.3 % [facility] Monocyte Abs 0.6 0.3 - 0.9 [facility] x10(3)/[facility] LABORATORY Eosinophils % 1.0 % [facility] Eosinophils Abs 0.1 0.0 - 0.4 [facility] x10(3)/[facility] LABORATORY Basophils % 0.6 % [facility] Basophils Abs 0.0 0.0 - 0.1 [facility] x10(3)/[facility] LABORATORY Immature Gran % 0.50 % [facility] Comment: Immature granulocytes(IG's)percentage an d absolute count will include metamyelocytes, myelocytes, and promyelo cytes. Blood smears from CBCs yielding IG's will be scanned manually for bruce knight. If this scan disagrees with the automated IG or if promyelocytes are not ed, a manual differential will be performed. Debra Gran Abs 0.04 0.00 - 0.04 x10(3)/[facility] MAR Y [facility] Specimen Anatomical Collection Method Collection Time Receive d Time (Source) Location / / Volume Laterality Blood 06/03/2022 1:16 PM 1:16 EDT PM EDT Resulting Agency Comment Spec In Lab Horacio García APRN HEMATOLOGY ORDERABLES Performing Organization Address City/State/[place] [address] (ABNORMAL) Hemogram (06/03/2022 1:16 PM EDT) Analysis Performed At Patho logist Time Signature WBC 8.3 4.0 - 9.5 [facility] x10(3)/[facility] LABORATORY RBC 5.76 (H) 4.58 - [facility] 5.54 [facility] x10(6)/[facility] LABORATORY Hemoglobin 17.5 (H) 13.7 - [facility] 16.5 g/dL [facility] Hematocrit 50.1 (H) 40.5 - [facility] 48.5 % [facility] MCV 87.0 82.9 - [facility] 93.1 [facility] MCH 30.4 27.5 - [facility] 32.1 pg [facility] MCHC 34.9 32.0 - [facility] 35.7 g/dL [facility] Platelets 267 145 - 357 [facility] x10(3)/[facility] LABORATORY RDWSD 37.5 36.0 - [facility] 45.0 [facility] LABORATORY RDWCV 11.9 11.4 - [facility] MPV 10.3 7.6 - 12.9 [facility] LABORATORY nRBC % Auto 0.0 % [facility] LABORATORY nRBC Abs Auto 0.000 0.000 - [facility] ESTEBAN 0.000 [facility] x10(3)/[facility] LABORATORY Specimen Anatomical Collection Method Collection Time Receive d Time (Source) Location / / Volume Laterality Blood 06/03/2022 1:16 PM 2 1:16 EDT PM EDT Resulting Agency Comment Spec In Lab Horacio Ganna TECHNICAL COMMUNICATOR HEMATOLOGY ORDERABLES Performing Organization Address City/[facility]/ZIP [place] [address] Lyme IgG & IgM Antibody (06/03/2022 1:16 PM EDT) athologist Signature Lyme Screening Neg Neg [facility] LABORATORY Specimen Anatomical Collection Method Collection Time Receive d Time (Source) Location / / Volume Laterality Blood 06/03/2022 1:16 PM 2 6:34 EDT AM EDT Resulting Agency Comment Spec In Lab Horacio Ganna TECHNICAL COMMUNICATOR IMMUNOLOGY ORDERABLES Performing Organization Address City/[facility] [place] [address] (ABNORMAL) Basic Metabolic Panel (non-fasting) (06/03/2022 1:16 PM EDT) athologist Signature Glucose Lvl 185 65 - 199 [facility] mg/dL [facility] Comment: Diabetes: >=200 mg/dL plus symp toms BUN 28 (H) 10 - 20 mg/dL [facility] LABOR[facility] Creatinine 1.21 0.80 - 1.50 mg/dL [facility] LABOR[facility] Sodium 140 135 - 145 mmol/L [facility] Potassium 3.9 3.5 - 5.0 mmol/L [facility] Comment: Please note: ??Patients with WBC >100,00 0 may have falsely elevated Potassium levels. ??For accurate Potassium quantif ication in these patients send serum separator tube (gold top) for subsequent determinations. ??Contact the Clinical Chemistry Laboratory if there are any qu estions. Chloride 100 98 - 107 mmol/L [facility] LABOR[facility]ORY CO2 24 22 - 31 mmol/L [facility] Anion Gap 16 (H) 5 - 15 mmol/L [facility] LABOR[facility] Calcium 9.9 8.5 - 10.5 mg/dL [facility] Estimated GFR 62 >=60 mL/min/1.73 m?? [facility] LABOR[facility] Comment: This patient's estimated [...] Organization Address City/State/[place] [address] documented in this encounter Visit Diagnoses Diagnosis Dizziness Dizziness and giddiness Vertigo Dizziness and giddiness Sinus pressure Other diseases of nasal cavity and sinus es documented in this encounter Administered Medications Inactive Administered Medications - up to 3 most recent administrations Medication Order MAR Action Action Date Dose Rate Site iohexoL (Omnipaque) (350 mg/mL) Given 06/03/2022 2:37 PM EDT 65 mLs solution 0-200 mL 0-200 mL, Intravenous, ONCE PRN, 1 dose, Starting on 06/03/22 at 1436, Until 06/03/22 at 1437, Per Protocol, Warning Vesicant/Irritant Medication , Radiology Contrast, Routine sodium chloride 0.9% 500 mL IV bolus New Bag 06/03/2022 2:33 PM EDT 1000 mL/hr at 1,000 mL/hr, Intravenous, ONCE, 1 dose, On 06/03/22 at 1426 documented in this encounter Active and Recently Administered Medications Times are shown in EDT. Scheduled Medication Order 06/01/2022 06/02/2022 06/03/2022 sodium chloride 0.9% 500 mL IV bolus (COMPLETED) 1433 (New Bag - Provider: Ar Ying, RN)1503 (Stopped - Provider: Ar Ying, RN) at 1,000 mL/hr, Intravenous, ONCE, 1 dose, On 06/03/22 at 1426 PRN Medication Order 06/01/2022 06/02/2022 06/03/2022 iohexoL (Omnipaque) (350 mg/mL) solution 0-200 mL (COMPLETED) 1437 (Given - Provider: Kirstie Bowen) 0-200 mL, Intravenous, ONCE PRN, 1 dose, Starting on 06/03/22 at 1436, Until 06/03/22 at 1437, Per Protocol, Warning Vesicant/Irritant Medication , Radiology Contrast, Routine documented in this encounter Care Teams Operations Executive Relationship Specialty Start Date End Date Shy Gutierrez, TECHNICAL COMMUNICATOR PCP - General Family Medicine 08/31/[address] [place] [address] documented as of this encounter
--- OUTSIDE RECORDS SUMMARY | 2022-06-12 12:09 | XMS_ITS | Encounter Summary ---
:1945 [place] [address] Care Team Providers Name Role Phone Unknown Primary Care Provider Unavailable Encounter Details Date Type Department Care Team Description 07/29/2014 Orders Only [place] [facility] [place] [address] GASTROENTEROLOGY DEPT. [place], [place] [address] (Wo rk) Social History Tobacco Use Types Packs/Day Years Used Date Never Assessed Sex Assigned at Date Recorded Not on file documented as of this encounter Plan of Treatment Upcoming Encounters Date Type Specialty Care Team Description 07/17/2022 Office Visit Physical Therapy Ro Colvin, PT documented as of this encounter Procedures Procedure Name Priority Date/Time Associated Diagnosis Comme nts FILM LIBRARY Routine 07/29/2014 9:24 AM Results f or this STORAGE ONLY CT EDT procedure ar e in ABDOMEN the results section. documented in this encounter Results Film Library- Storage only CT Abdomen (07/29/2014 9:24 AM EDT) Anatomical Region Laterality Modality Abdomen Other Specimen (Source) Anatomical Collection Method Collection Time Re ceived Time Location / / Volume Laterality 07/29/2014 9:24 AM EDT Narrative 09/11/2014 9:30 AM EDT This is a Non-reportable exam Procedure Note BELLO, UNSIGNED REPORT - 09/11/2014Formatt ing of this note might be different from the original. This is a Non-reportable exam Dyllan Riddle MD IMG FILM LIBRARY ORDERABLES documented in this encounter Visit Diagnoses Not on filedocumented in this encounter Care Teams Linen Manager Relationship Specialty Start Date End Date Unknown PCP - General 01/24/11 09/13/14 None documented as of this encounter
--- OUTSIDE RECORDS SUMMARY | 2022-06-12 12:09 | XMS_ITS | Encounter Summary ---
:1945 [place] [address] Care Team Providers Name Role Phone Unknown Primary Care Provider Unavailable Encounter Details Date Type Department Care Team Description 01/24/2011 Office Visit Spine Center at [facility] Tima Casillas, [facility] [place] [address] [facility] [phone] [place] [id number] (Wo rk) Social History Tobacco Use Types Packs/Day Years Used Date Never Assessed Sex Assigned at Date Recorded Not on file documented as of this encounter Plan of Treatment Upcoming Encounters Date Type Specialty Care Team Description 07/17/2022 Office Visit Physical Therapy Ro Colvin, PT documented as of this encounter Visit Diagnoses Not on filedocumented in this encounter Care Teams Fund Accounting Manager Relationship Specialty Start Date End Date Unknown PCP - General 01/24/11 09/13/14 None documented as of this encounter
--- OUTSIDE RECORDS SUMMARY | 2022-06-12 12:09 | XMS_ITS | Encounter Summary ---
:1945 Author Organization [facility] [place] [address] Care Team Providers Name Role Phone Jose Rafael Ivy MD Primary Care Provider Encounter Details Date Type Department Care Team Description 07/01/2017 Telephone Cardiology at [facility] [place] Glo Koehler [place] [facility] [place] [address] CARDIOLOGY DEPT [phone] [place], [place] [address] (Wo rk) Social History Tobacco Use Types Packs/Day Years Used Date Former Smoker Smokeless Tobacco: Never Used Comments: quit 40 yrs ago Alcohol Use Standard Drinks/Week Comments No 0 (1 standard drink = 0.6 oz pure alcoho l) Sex Assigned at Date Recorded Not on file documented as of this encounter Miscellaneous Notes Telephone Encounter - Glo Koehler MD - 07/01/2017 2:54 PM EDT Outside facility: [facility] Outside provider: Dr. Sheets Reason of call: request for transfer Time of call:2: 30 p.m. This is a 71-year-old gentleman with history of diet-controlled diabetes, hypertension, hyperlipidemia who presented to an ER at [facility] with one and a half week history of mid scapular pain, pain got worse last night and he was feeling dizzy, sweaty and presented to ER at [facility]. Apparently on presentation he was very hypertensive with systolic blood pressure of 191 and diastolic of 81. Per outside provider he had CT angiogram of his chest, abdomen and pelvis which showed no Evidence of dissection or aneurysm. He denies any shortness of breath or frontal chest pain. Troponin I he has been unremarkable.patient did have ~ [address] elevation in V1 with Q waves and about [address] elevation in V2 and T-wave inversion in aVL. He does not fulfill STEMI criteria. Patient has been given Dilaudid IV andhas been initiated on IV nitroglycerin(by Out side provider) with some improvement in his interscapular pain. Outside provider would like to transfer him for expert care. Patient has received 324 mg aspirin. He will get 300 mg Plavix. Blood pressure 126/67, heart rate 50, 93% on room air, respiratory rate 13, temperature 36.7. WBC 8, hemoglobin 17.8, platelet 226, BUN 27, creatinine 1.06. Patient takes lisinopril, HCTZ, metoprolol, aspirin at home. Patient is full code and would be okay with cardiac catheterization if needed. I have advised the outside provider to get another EKG and call us if there were any significant changes. Patient accepted for transfer. documented in this encounter Plan of Treatment Upcoming Encounters Date Type Specialty Care Team Description 07/17/2022 Office Visit Physical Therapy Ro Colvin, PT documented as of this encounter Visit Diagnoses Not on filedocumented in this encounter Care Teams Accounts Payable Coordinator Relationship Specialty Start Date End Date Jose Rafael Ivy MD PCP - General 09/14/14 08/30/[address] [place] [address] documented as of this encounter
--- OUTSIDE RECORDS SUMMARY | 2022-06-12 12:09 | XMS_ITS | Encounter Summary ---
:1945 [place] [address] Care Team Providers Name Role Phone Jose Rafael Ivy MD Primary Care Provider Reason for Visit Auth/Cert Specialty Diagnoses / Procedures Referred By Contact Refer red To Contact Diagnoses ACS (acute coronary syndrome) CONCERNING EKG CHANGES Referral ID Status Reason Start Date Expiration Date Visits Requ ested Visits Authorized [id number] 1 1 Encounter Details Date Type Department Care Team Description 07/01/2017 - Hospital Encounter Intermediate Cardiac Gerardo Oh MD [facility] [place] [address] ACS (acute coronary 07/02/2017 Care Unit Richard Abrams MD [facility] [place] [address] syndrome) [place] [id number] Social History Tobacco Use Types Packs/Day Years Used Date Former Smoker Smokeless Tobacco: Never Used Comments: quit 40 yrs ago Alcohol Use Standard Drinks/Week Comments No 0 (1 standard drink = 0.6 oz pure alcoho l) Sex Assigned at Date Recorded Not on file documented as of this encounter Last Filed Vital Signs Vital Sign Reading Time Taken Comments Blood Pressure 171/94 07/02/2017 4:15 PM EDT Pulse 62 07/02/2017 4:15 PM EDT Temperature 37 ??C (98.6 ??F) 07/02/2017 4:15 PM EDT Respiratory Rate 16 07/02/2017 4:15 PM EDT Oxygen Saturation 96% 07/02/2017 4:15 PM EDT Inhaled Oxygen Concentration - - Weight 109.7 kg (241 lb 13.5 oz) 07/02/2017 6:13 AM EDT Height 185.4 cm (6' 1) 07/01/2017 5:06 PM EDT Body Mass Index 31.91 07/01/2017 5:06 PM EDT documented in this encounter Discharge Summaries Ashwini Ryan APRN - 07/02/2017 9:01 AM EDT Images from the original note were not included. Discharge Summary Patient Name: Samira Grigsby Patient Age: 71 y.o. Language: Burkinan Race: White Ethnicity: Not nor Admit date: 07/01/2017 Discharge date and time: 07/02/2017 Attending Physician: Richard Gallardo MD Discharge Physician: Richard Gallardo MD Follow-up Recommendations for Providers: 1. Discharge weight 109.7 kg 2. Please monitor heart rate + blood pressure Patient has been non-compliant with lisinopril-HCTZ in past (no prescription coverage) We have increased lisinopril 20 mg-HCTZ 25 mg 3. Chief complaint neck/back pain Patient is currently receiving physical therapy in [facility] Patient is currently on prednisone taper Patient has recently been prescribed tramadol + flexeril Cervical spine + shoulder X-rays done Inpatient Provider Contact Information: Ashwini Ryan APRN [facility] Provider # [id number] Discharge Diagnoses (Hospital Problems) and Secondary Diagnoses (Chronic Problems): Active Hospital Problems Diagnosis ??? interscapular back pain with EKG changes r/o ACS ?? 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 06/2017 He has been seen by PCP-Neck/ Back/scapular Pain. He has been treated with Ibuprofen + tramadol + flexeril. He has been on prednisone taper. Physical therapy. ?? 06/30/2017 Neck/shoulder back pain intensified. Diaphoretic. Admitted to [facility]. ?? 06/30/2017 CAT scan chest/abdomen/pelvis showed no acute aortic dissection. ?? 07/01/2017 transferred from [facility] with [address] elevation in V1/q wvaed and [address] elevation in V2. T wave inversion avL ?? 07/01/2017 CPK 30. Trop <0.03 ?? 07/02/2017 Echo-LVEF 70% with no WMAs. Mod concentric LVH. LA mod dilated. PASP 29 ?? 07/02/2017 Nuclear stress showed no ischemia ??? Class 1 obesity in adult ?? 07/02/2017 weight 109.7 kg. Height 185.4 cm. bmi 31.84 ??? ACS (acute coronary syndrome) Resolved Hospital Problems Diagnosis Date Resolved No resolved problems to display. Active Non-Hospital Problems Diagnosis ??? Hypertension ?? 07/01/2017 BP on arrival [facility] 190. (has not been taking lisinopril-HCTZ for the past 8-months) ??? HLD (hyperlipidemia) ?? 07/02/2017 Lipid profile TC 175. HDL 37. Trig 235. LDL 120 on No statin ??? Diabetes mellitus diet controlled ?? 07/01/2017 HAIC 5.7 on no hypoglycemics ??? CIS - cc: neck, right shoulder and back pain ??? CIS - Entered not Verified Operations/Major Procedures: ?? 07/02/2017 Echo 1. Moderate concentric left ventricular hypertrophy is observed. There is normal global left ventricular systolic function. Ejection fraction is estimated to be 70%. There are no left ventricular segmental wall motion abnormalities. 2. The right ventricle is normal in size. Right ventricular global systolic function is normal. 3. There is no hemodynamically significant valve disease. 4. See remainder of report for additional findings ?? 07/02/2017 Nuclear medicine EXAMINATION: NM MYOCARDIAL PERFUSION SCAN PHARMACOLOGIC ?? CLINICAL HISTORY: presented with intrascapular pain. neg troponins. abnormal EKG. Hypertensive on arrival ?? TECHNIQUE: During rest, 8 mCi of technetium-99m sestamibi was administered intravenously. Approximately 20 minutes later, SPECT images of the heart were obtained with reconstruction in the short, vertical long and horizontal long axis. ?? The patient then received regadenoson intravenously at a dose of 0.4 mg. 20 seconds later, 26.8 mCi of technetium-99m sestamibi was administered intravenously. Images of the heart were then again obtained with SPECT reconstruction. ?? A low-dose CT scan was acquired for the purpose of attenuation correction ?? COMPARISON: None ?? FINDINGS: ?? No fixed or reversible perfusion defects are present. ?? Functional analysis: ?? Myocardial function: There is normal wall thickening and wall motion. Left ventricular ejection fraction: 61 % (normal greater than 50%). ?? IMPRESSION No ischemia or scar. Left ventricular function is normal History of Presentation: ID/Chief Complaint: Interscapular pain for last 10 days went to [facility] ?? History of Present Illness: ?? 71 yr old male with a history of HTN, HLD and diet controlled Diabetes, quit smoking 40 yrs ago, no family CAD, who came to the [facility] for the interscapular pain for last 10 days with acute worsening this AM associated with dizziness and sweating found to have EKG changes of ST elevation in V1-V2 with TWI in lead I and AVL with negative troponin and negative for PE/Dissection on CTA, sent here for further evaluation. ?? As per the pt he is not taking the BP meds for last 8 months due to insurance issues, started to have some interscapular soreness 10 days ago getting slowly worse with 6-7/10 pain with out any radiation except some times to the back of the neck. After 3 days of pain, last Sunday06/25/2017 he saw the PCP got the steroids and cyclobenzaprine, as well saw the Physical therapist got some electric shocks to the back, chiropractor for joint/muscle massage on Sunday. He still not get relief and having on and off pain. He saw his PCP on Sunday06/29/2017 got the tramadol. He says he used the recliner all these days for the sleep because of less discomfort in that. He clearly says his pain positional - worse with neck extension and better with neck flexion. At any point in the last 10 he did not have any anterior chest pain or left shoulder pain/SOB/N/V/Palpitations/orthopnea/PND/pedal edema. He denies any LOPEZ/Exertional chest pain/ fevers/Upper respiratory infections. He says he is fixing his breeze wayfor last month, may be doing a lot of overhead work. Today morning he around 9 am his pain got worse10/10 with dizziness and sweating in spite of using the tramadol since last night and came to the ED. He has a plans to go [place] today but cancelled. ?? OSH course: ?? Upon arrival his vitals 36.7, 191/81, 57, 16 and 97% on RA. He was given multiple medications for his pain which seems to be not helping as per the pt. His work up at the OSH was negative for the troponin, CTA of the chest/abdomen/pelvis negative for the PE/dissection but EKG has 1 mm horizontal LEONA in V1 and 2 mm concave LEONA in V2 with TWI in lead I and AVL which are new compare to the old EKG done in 2007. He was given 2 nitro/ nitro drip/ valium 2 mg/dilaudid 1 mg/ aspirin 325 mg/Plavix 300 mg and heparin drip. He says he did not feel any difference in his pain after these interventions. ?? Upon arrival here he has 4/10 back pain, increased the nitro drip to 30 meli says may be my pain partially better to 2/10. Vitals stable. Bed side echo looks no WMA but difficult to do as his pain worsewith left lateral position. ?? OSH medications: Aspirin 325 Plavix 300 at 3 pm on 07/01/2017 2 nitro Nitro drip Heparin drip with bolus Valium 2 mg Dilaudid 1 mg ?? OSH labs prior to transfer: Troponin I <0.02 @ 12 pm EKG - 1 mm horizontal LEONA in V1 and 2 mm concave LEONA in V2 with TWI in lead I and AVL which are new compare to the old EKG in 2007 CBC normal with PLT 226 BMP normal Lipase normal Mag 2.2 Ca 8.8 LFT normal CTA of the chest/abdomen/pelvis - no PE/dissection. ?? Home Medications:(supposed to be taken) Aspirin 81 Metoprolol XL 50 mg Lisinopril/HCTZ 10/12.5 mg daily Cyclobenzaprine Ibuprofen S/p steroid course Tramadol Hospital Course: On admission to [place], the patient had no complaints of chest pain and/or SOB. Telemetry was attached which showed NSR. Heparin drip was infusing. [facility] records/transfer records were reviewed. Baselinelabs were checked and/or drawn. Intrascapular pain Echo showed LVEF 70% with no WMAs. Moderate concentric LVH noted. LA moderately dilated. PASP 29. RAP 3. Given the patient's negative troponins and no WMAs on echo it was decided to proceed with non-invasive imaging. Patient underwent pharmacologic nuclear stress (history of arthritis/inability to walk ontreadmill) . No ischemia identified. Mr. Grigsby's neck/scapular pain appears to be non-cardiac in nature. He is currently on steroid taper, flexeril prn and tramadol prn. He is undergoing physical therapy. Cervical spine + shoulder x-rays obtained. I curbsided orthopedics who advised to continue physical therapy and anti-inflammatory agent s. Patient was quite disappointed that he did not undergo MRI of his back. HTN Admission BP ([facility]) 191/81. Patient has been non-compliant with home medications lisinopril-HCTZ (recent change insurance coverage). BP discharge 167/85. He has recently obtained prescriptions for lisinopril-HCTZ 10-12.5 mg. We are increasing lisinopril/HCTZ 20-25 mg po daily. He also was recently prescribed Toprol xl 50 mg. Lipids Lipid profile showed total cholesterol 175 with LDL 120 . Patient has been on No statin Diabetes mellitus (diet controlled) Routine screening labs revealed HAIC 5.7. Patient takes no hypoglycemics. Smoking Smoking cessation was advised & discussed-quit 40 years ago Disposition The patient tolerated supervised ambulation in the hallway and up/downstairs with no anginal symptoms. The patient was discharged home in stable condition. Functional and Cognitive Status: -alert, oriented -ambulates Important Studies and Lab Data: Labs: Lab Results Component Value Date WBC 11.6 (H) 07/02/2017 HGB 16.8 (H) 07/02/2017 HCT 48.6 (H) 07/02/2017 PLATELET 237 07/02/2017 Recent Labs 07/02/17 0207 INR 1.0 Lab Results Component Value Date NA 140 07/02/2017 K 3.7 07/02/2017 CL 100 07/02/2017 CO2 23 07/02/2017 BUN 24 (H) 07/02/2017 CREATININE 0.92 07/02/2017 Recent Labs 07/01/17 1926 TSH 2.15 Recent Labs 07/01/171925 HA1C 5.7* Recent Labs 07/02/17 0826 07/02/17 0207 07/01/171925 CK 37 36 30 TROPONINT <0.03 <0.03 <0.03 Lab Results Component Value Date CHLPL 175 07/02/2017 HDL 37 (L) 07/02/2017 CHOLHDL 4.7 07/02/2017 TRIG 235 (H) 07/02/2017 LDLDIRECT 120 07/02/2017 Results for SAMIRA GRIGSBY ( ) as of 07/02/2017 15:39 Ref. Range 07/01/2017 19:26 Total Protein Latest Ref Range: 6.1 - 8.0 gm/dL 6.9 Albumin Latest Ref Range: 3.2 - 5.2 gm/dL 4.1 Total Bilirubin Latest Ref Range: 0.2 - 1.3 mg/dL 0.7 Bili, Direct Latest Ref Range: 0.0 - 0.3 mg/dL 0.1 Alk Phos Latest Ref Range: 40 - 120 unit/L 80 AST Latest Ref Range: 0 - 39 unit/L 10 ALT Latest Ref Range: 0 - 55 unit/L 31 Studies: -07/02/2017 cervical spine films -07/02/2017 Shoulder x-rays Pending Studies and Lab Data: V-rays Discharge Conditions/Prognosis: -ambulates Discharge to: -home Updated Allergies/ADRs: No Known Allergies Immunizations Given this Hospitalization: Immunization History Administered Date(s) Administered ??? Influenza Vaccine, Whole 09/13/2005 ??? Pneumococcal Polyvalent 23 03/30/2003 ??? Td, adult 03/30/2003 Discharge Medications: Your Medications New Medications Dose Details acetaminophen 325 mg Tab Commonly known as: TYLENOL Take 2 tablets by mouth every 6 hours as needed. 650 mg Quantity: 30 tablet Refills: 1 Continued medications with new dosing Dose Details ibuprofen 800 mg Tab Commonly known as: ADVIL;MOTRIN Take 1 tablet by mouth every 8 hours as needed for Pain. What changed: See the new instructions. 800 mg Quantity: 30 tablet Refills: 0 lisinopril-hydrochlorothiazide 10-12.5 mg Tab Commonly known as: PRINZIDE;ZESTORETIC Take 2 tablets by mouth daily. What changed: See the new instructions. 2 tablet Quantity: 30 tablet Refills: 11 Continued medications, unchanged Dose Details meTOPROLOL succinate 50 mg Tablet sr Commonly known as: TOPROL-XL Take 1 tablet by mouth daily. 1 tablet Refills: 0 predniSONE 20 mg Tab Commonly known as: DELTASONE Take 1 tablet by mouth daily. 1 tablet Refills: 0 traMADol 50 mg Tab Commonly known as: ULTRAM Take 1 tablet by mouth 4 times daily as needed. 1 tablet Refills: 0 Smoking Status at Discharge: History Smoking Status ??? Former Smoker Smokeless Tobacco ??? Never Used Comment: quit 40 yrs ago Instructions Given to Patient at Discharge: There are no outpatient Patient Instructions on file for this admission. General Instructions Anti-coagulation follow up: -n/a Call your doctor if: Chest pain, dyspnea, pain or swelling in legs occurs. If you have non-emergent questions, prior to your follow-up visit please call one of the computer sciences professor on Sunday-Sunday between the hours of 8A- 5PM. Cardiology Clinic number @ [phone] If off hours contact the cardiac fellow on- call. Hospital Hydraulic Bull Riveter Operator can help you. Hospital phone number [phone] Return to work: -retired Driving: -resume Follow up Appointments: Doctor Where Phone # Date Time Jose Rafael Ivy MD [address] / [facility] [address] July 17, 2017 3:40 PM Home oxygen therapy: N/A Arrangements for VNA/home care: -n/a Discharge References/Attachments None Ashwini Ryan APRN Nurse Practitioner-Department of Cardiology Kathleen. Ann. Pager [phone] Phone number: [phone] Fax number [phone] I have discussed this patient with attending Dr. Richard Gallardo ?? documented in this encounter Discharge Instructions Discharge Ashwini Soria APRN - 07/02/2017 1:00 PM EDT Anti-coagulation follow up: -n/a Call your doctor if: Chest pain, dyspnea, pain or swelling in legs occurs. If you have non-emergent questions, prior to your follow-up visit please call one of the computer sciences professor on Sunday-Sunday between the hours of 8A- 5PM. Cardiology Clinic number @ [phone] If off hours contact the cardiac fellow on- call. Hospital Hydraulic Bull Riveter Operator can help you. [facility] phone number [phone] Return to work: -retired Driving: -resume Follow up Appointments: Doctor Where Phone # Date Time Jose Rafael Ivy MD [address] / [place] [address] July 17, 2017 3:40 PM Home oxygen therapy: N/A Arrangements for VNA/home care: -n/a documented in this encounter Medications at Time of Discharge Medication Sig Dispensed Refills Start Date End Date acetaminophen (TYLENOL) Take 2 tablets by 30 tablet 1 07/02 325 mg Tablet mouth every 6 hours as needed. lisinopril-hydrochlorothia Take 2 tablets by 30 tablet 11 zide (PRINZIDE;ZESTORETIC) mouth daily. 10-12.5 mg Tablet ibuprofen (ADVIL;MOTRIN) Take 1 tablet by 30 tablet 0 07/02 800 mg Tablet mouth every 8 hours as needed for Pain. meTOPROLOL succinate Take 1 tablet by 0 7 (TOPROL-XL) 50 mg Tablet mouth nightly. Sustained Release 24 hr predniSONE (DELTASONE) 20 Take 1 tablet by 0 05/2805/20/2022 mg Tablet mouth daily. traMADol (ULTRAM) 50 mg Take 1 tablet by 0 201605/20/2022 Tablet mouth 4 times daily as needed. documented as of this encounter Progress Notes Adriana Adhikari RN - 07/02/2017 4:33 PM EDT IVs and telemetry discontinued. AVS reviewed with patient and family - no additional questions at this time. Pt to be driven home by in own car. Ade Ann DT - 07/02/2017 2:36 PM EDT Nutrition Services - Education Note Samira Grigsby : 1945 AGE: 71 y.o. Patient Active Problem List Diagnosis Date Noted ??? *Hospital-interscapular back pain with EKG changes r/o ACS 07/01/2017 Priority: High ??? Hospital-Class 1 obesity in adult 07/02/2017 Priority: Medium ??? Hypertension 07/01/2017 Priority: Medium Chronic ??? HLD (hyperlipidemia) 07/01/2017 Priority: Medium Chronic ??? Diabetes mellitus diet controlled 07/01/2017 Priority: Medium Chronic ??? Hospital-ACS (acute coronary syndrome) 07/01/2017 ??? CIS - cc: neck, right shoulder and back pain 01/24/2011 ??? CIS - Entered not Verified 01/24/2011 Reason for Nutrition Intervention: Consult Diet Order: [facility] at 14:20 Appetite: I am hungry Food allergies: NKFA Ht Readings from Last 3 Encounters: 07/01/17 185.4 cm (6' 1) Wt Readings from Last 3 Encounters: 07/02/17 (!) 109.7 kg (241 lb 13.5 oz) Body mass index is 31.91 kg/(m^2). Assessment: Pt declined heart healthy diet consult. Pt reported that he follows the PIYO diet which essentially is a heart healthy diet minus the grains. He does not consume grains, starch or sugar. Ptdoes not add salt to foods or consume processed foods. He did not have questions at this time. Denied leaving heart healthy booklet x2 times. Contact food and Nutrition if questions arise. Nutrition Plan: Continue current diet. Recommend Daily Multi Vitamins. Encourage good po intake. Monitor weight. Support and encouragement provided. Nutrition services to follow weekly thru hospital course unless consulted in the interim. ELIAN Day Richard Gallardo MD - 07/02/2017 7:34 AM EDT Images from the original note were not included. I have reviewed the pertinent information, examined the patient, and discussed the management and plan with the associate provider. Brief history: 71 yo man presents for evaluation of back discomfort. No h/o CAD. (+) HTN - untreated, HLD, DM, x-smoker. Persistent back with some chest pain for last few weeks, worse with position. Due to worsening symptoms, came to OSH. EKG with NS ST elevations in V1, V2 with inverted T's in lateral leads. Trops neg. Bedside echo (very limited) w/out obvious WMA's. CTA negative. Physical examination: Resting, NAD Increased upper back pain with position changes RRR with 1/6 JAYSHREE Lungs clear Abd soft No edema Pertinent data: EKG with ant LEONA, nonspecific, with RSR' with lateral T abn Impression: 1. Atypical chest pain 2. HTN, poorly controlled 3. HLD 4. DM Plan: 1. Echo 2. Stress test 3. Anti-HTN medications The patient understands the plan and all questions were answered. Richard Gallardo MD Ashwini Ryan APRN - 07/02/2017 6:57 AM EDT Images from the original note were not included. Inpatient Cardiology Progress Note Patient Name: Samira Grigsby Service: ANALYSIS ENGINEER / PA Responsible Attending: Richard Gallardo MD Reason for continued hospitalization: Evaluation and management of intrascapular pain in setting of abnormal EKG -echo this am Active Problems: Active Hospital Problems Diagnosis ??? interscapular back pain with EKG changes r/o ACS ??? ACS (acute coronary syndrome) Resolved Hospital Problems Diagnosis Date Resolved No resolved problems to display. Interval History: -transferred from [facility] -intrascapuar pain on arrival -Nitroglycerin infusing @ 5mcg Review of Systems: Review of Systems Constitutional: Negative. HENT: Negative. Eyes: Negative. Respiratory: Negative. Cardiovascular: Negative. Gastrointestinal: Negative. Genitourinary: Negative. Musculoskeletal: Positive for arthralgias (intrascapular pain). Neurological: Negative. Hematological: Negative. Psychiatric/Behavioral: Negative. Telemetry: HR: 60 sinus rhythm Meds: Scheduled Meds: ??? meTOPROLOL succinate 50 mg Oral Daily ??? aspirin 81 mg Oral Daily ??? clopidogrel 75 mg Oral Daily ??? lisinopril 10 mg Oral Daily ??? atorvastatin 80 mg Oral QPM ??? sodium chloride 0.9 % 5 mL Intravenous BID ??? famotidine 20 mg Oral Daily Continuous Infusions: ??? nitroGLYcerin Stopped (07/01/172026) ??? heparin (porcine) 1,650 Units/hr (07/02/17 0250) PRN Meds:heparin (porcine) AND heparin (porcine), morphine, sodium chloride 0.9 %, lidocaine, nitroGLYcerin, acetaminophen Physical Exam: Vital Signs: Last value Range last 24 hrs Temperature Temp: 36.7 ??C (98.1 ??F) Temp: [36.4 ??C (97.5 ??F)-36.8 ??C (98.2 ??F)] Heart Rate Heart Rate: 55 Heart Rate: [52-61] Blood Pressure BP: 156/72 BP: (129-156)/(64-74) Respiratory Rate Resp: 20 Resp: [20] SpO2 SpO2: 97 % SpO2: [94 %-97 %] Patient Vitals for the past 168 hrs: Weight 07/02/17 0613 (!) 109.7 kg (241 lb 13.5 oz) 07/01/17 1706 (!) 108.5 kg (239 lb 3.2 oz) Intake/Output Summary (Last 24 hours) at 07/02/17 0719 Last data filed at 07/02/17 0443 Gross per 24 hour Intake 200 ml Output 450 ml Net -250 ml Physical Exam Constitutional: He is oriented to person, place, and time. He appears well-developed. HENT: Head: Normocephalic. Eyes: Pupils are equal, round, and reactive to light. Neck: Normal range of motion. Cardiovascular: Normal rate, normal heart sounds and intact distal pulses. Pulmonary/Chest: Effort normal and breath sounds normal. Abdominal: Soft. Bowel sounds are normal. Musculoskeletal: Normal range of motion. Neurological: He is alert and oriented to person, place, and time. Skin: Skin is warm and dry. Psychiatric: He has a normal mood and affect. Lab Comments: Recent Labs 07/02/17 0207 07/01/17 1926 WBC 11.6* 11.9* HGB 16.8* 17.7* HCT 48.6* 50.4* PLATELET 237 222 Recent Labs 07/02/17206 INR 1.0 Recent Labs 07/02/17 0207 07/01/171925 NA 140 141 K 3.7 4.2 CL 100 103 CO2 23 23 BUN 24* 22* CREATININE 0.92 0.76* Recent Labs 07/01/171925 AST 10 ALT 31 ALKPHOS 80 BILITOT 0.7 BILIDIR 0.1 Recent Labs 07/02/17 0207 07/01/171925 CALCIUM 8.8 9.1 MAGNESIUM -- 0.95 Recent Labs 07/02/177 07/01/171925 CK 36 30 TROPONINT <0.03 <0.03 Pertinent Radiographic/Diagnostic Results: ECG: sinus rhythm with lateral T wave flattening Assessment: Samira Grigsby is a 71 y.o. diabetic male who was transferred from [facility] for 10-day history of neck/scapular pain (in setting of recent construction renovation @ his home). [facility]81. CT chest/abdomen/pelvis showed no dissection. Negative troponins. EKG showed [address] elevation V1-V2 Pain is not responsive to nitroglycerin Patient feels this pain is non-cardiac. He states he has been renovating [employer] @ home. Plan: 1. Neck/intrascapular pain Enzymes are negative On tele On MARCY (lisinopril 10 mg) On ASA On beta afia (toprol xl 50 mg) Antiplatelet Clopdiogrel On statin (high dose) atorvastatin 80 2. HTN Monitor trends BP range 129-156/64-74 Cont lisinopril (home med combo/HCTZ) Cont toprol xl 3. Hyperlipidemia High dose statin (new this admission) Lipid profile Results for SAMIRA GRIGSBY ( ) as of 07/02/2017 07:12 Ref. Range 07/02/2017 02:07 Chol, Total Latest Ref Range: <=239 mg/dL 175 HDL Latest Ref Range: >=40 mg/dL 37 (L) Chol/HDL Ratio Latest Units: ratio 4.7 Triglycerides Latest Ref Range: <=199 mg/dL 235 (H) LDL Chol Direct Latest Ref Range: <=190 mg/dL 120 4. Obesity Class I Weight 109.7 kg Height 185.4 cm bmi 31.84 Food & nutrition consult 5. Diabetes (diet-controlled) [facility] 5.7 fingersticks Results for SAMIRA GRIGSBY ( ) as of 07/02/2017 07:12 Ref. Range 07/01/2017 19:26 07/02/2017 02:07 Glucose Fasting Latest Ref Range: 65 - 99 mg/dL 106 (H) Glucose Lvl Latest Ref Range: 65 - 199 mg/dL 121 Ashwini Ryan APRN Nurse Practitioner-Department of Cardiology Kathleen. Ann. [email or web address] Pager [phone] Phone number: [phone] Fax number [phone] I have discussed this patient with attending Dr. Rcihard Gallardo GI prophylaxis-famotidine DVT prophylaxis -on heparin thomas RYAN APRN 07/02/2017 Adriana Adhikari RN - 07/01/2017 6:47 PM EDT Pt arrived from OSH with nitro and heparin gtts infusing. VSS, tele initiated (SB), pt endorsing 4/10 back pain radiating to neck. Nitro gtt titrated with some relief (pain now 2/10). MD Koehler and MD Delcid at bedside. EKG (x3) obtained and transmitted. Pt's family at bedside to help with admission questions. documented in this encounter H&P Notes Jana Delcid MD - 07/01/2017 6:53 PM EDT Cardiology Admission History and Physical Patient Name: Samira Grigsby Service: Cardiology Responsible Attending: PCP: Jose Rafael Ivy MD PCP phone #: [phone] ID/Chief Complaint: Interscapular pain for last 10 days went to [facility] History of Present Illness: 71 yr old male with a history of HTN, HLD and diet controlled Diabetes, quit smoking 40 yrs ago, no family CAD, who came to the [facility] for the interscapular pain for last 10 days with acute worsening this AM associated with dizziness and sweating found to have EKG changes of ST elevation in V1-V2 with TWI in lead I and AVL with negative troponin and negative for PE/Dissection on CTA, sent here for further evaluation. As per the pt he is not taking the BP meds for last 8 months due to insurance issues, started to have some interscapular soreness 10 days ago getting slowly worse with 6-7/10 pain with out any radiation except some times to the back of the neck. After 3 days of pain, last Sunday06/25/2017 he saw the PCP got the steroids and cyclobenzaprine, as well saw the Physical therapist got some electric shocks to the back, chiropractor for joint/muscle massage on Sunday. He still not get relief and having on and off pain. He saw his PCP on Sunday06/29/2017 got the tramadol. He says he used the recliner all these days for the sleep because of less discomfort in that. He clearly says his pain positional - worse with neck extension and better with neck flexion. At any point in the last 10 he did not have any anterior chest pain or left shoulder pain/SOB/N/V/Palpitations/orthopnea/PND/pedal edema. He denies any LOPEZ/Exertional chest pain/ fevers/Upper respiratory infections. 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 Today morning he around 9 am his pain got worse10/10 with dizziness and sweating in spite of using the tramadol since last night and came to the ED. He has a plans to go [place] today but cancelled. OSH course: Upon arrival his vitals 36.7, 191/81, 57, 16 and 97% on RA. He was given multiple medications for his pain which seems to be not helping as per the pt. His work up at the OSH was negative for the troponin, CTA of the chest/abdomen/pelvis negative for the PE/dissection but EKG has 1 mm horizontal LEONA in V1 and 2 mm concave LEONA in V2 with TWI in lead I and AVL which are new compare to the old EKG done in 2008. He was given 2 nitro/ nitro drip/ valium 2 mg/dilaudid 1 mg/ aspirin 325 mg/Plavix 300 mg and heparin drip. He says he did not feel any difference in his pain after these interventions. Upon arrival here he has 4/10 back pain, increased the nitro drip to 30 meli says may be my pain partially better to 2/10. Vitals stable. Bed side echo looks no WMA but difficult to do as his pain worsewith left lateral position. OSH medications: Aspirin 325 Plavix 300 at 3 pm on 07/01/2017 2 nitro Nitro drip Heparin drip with bolus Valium 2 mg Dilaudid 1 mg OSH labs prior to transfer: Troponin I <0.02 @ 12 pm EKG - 1 mm horizontal LEONA in V1 and 2 mm concave LEONA in V2 with TWI in lead I and AVL which are new compare to the old EKG in 2007 CBC normal with PLT 226 BMP normal Lipase normal Mag 2.2 Ca 8.8 LFT normal CTA of the chest/abdomen/pelvis - no PE/dissection. Home Medications:(supposed to be taken) Aspirin 81 Metoprolol XL 50 mg Lisinopril/HCTZ 10/12.5 mg daily Cyclobenzaprine Ibuprofen S/p steroid course Tramadol Review of Systems: negative except as stated above. GENERAL HEENT CV PULM x All negative x All negative x All negative All negative Weight loss Headache Chest Pain Non-productive cough Weight gain Vision change Palpitations Productive cough Fevers Sinus congestion Orthopnea Wheezing Chills Hoarseness LE edema Hemoptysis Night sweats Epistaxis PND ? Pleuritic pain Fatigue Syncope SOB Claudication LOPEZ MSK RENAL ENDO GI x All negative x All negative x All negative x All negative Arthralgias Frequency Heat intolerance Blood in stool Myalgias Urgency Cold intolerance Dysphagia Weakness Hematuria Polydipsia Odynophagia Stiffness Flank pain Polyphagia Abdominal discomfort Dysuria Cushingoid Constipation Foamy urine Diarrhea Discharge Nausea/Vomiting LYMPH SKIN NEURO PSYCH x All negative x All negative All negative x All negative Swollen nodes Rash Seizures Depressed affect Tender nodes Ulcers Tremors Occupational stress Diffuse nodes Bruising Spasticity Anxiety Local nodes Tanned skin Focal weakness Insomnia Night sweats Telangiectasias Diplopia Paresthesias x Dizziness Problem List/Past Medical History Patient Active Problem List Diagnosis ??? interscapular back pain with EKG changes r/o ACS ??? Hypertension ??? HLD (hyperlipidemia) ??? Diabetes mellitus diet controlled ??? ACS (acute coronary syndrome) ??? CIS - cc: neck, right shoulder and back pain ??? CIS - Entered not Verified Past Medical History: Diagnosis Date ??? Diabetes mellitus diet controlled ??? HLD (hyperlipidemia) ??? Hypertension Meds: No current facility-administered medications on file prior to encounter. Current Outpatient Prescriptions on File Prior to Encounter Medication Sig Dispense Refill ??? lisinopril-hydrochlorothiazide (PRINZIDE;ZESTORETIC) 10-12.5 mg per tablet 1 Tablet(s), PO, Oncedaily ??? ibuprofen (ADVIL;MOTRIN) 600 mg tablet 600 MG = 1 Tablet(s), PO, Three times daily At home meds reviewed Allergies: No Known Allergies Family History: no CAD Social History: Tobacco: former smoker quit 40 yrs ago EtOH: none Illicits: none Living Situation: Vitals: Last value Range last 24 hrs Temperature Temp: 36.7 ??C (98.1 ??F) Temp: [36.5 ??C (97.7 ??F)] Heart Rate Heart Rate: 55 Heart Rate: [52-58] Blood Pressure BP: 156/72 BP: (129-132)/(64-68) Respiratory Rate Resp: 20 Resp: [20] SpO2 SpO2: 97 % SpO2: [97 %] Examination: General: Pleasant, alert, appropriate, in NAD. Appears stated age. HEENT: EOMI, PERRL, anicteric sclera. Oropharynx clear w/o lesions. Moist mucous membranes Neck: Supple with normal ROM. No obvious LAD. JVD ~ normal Cardiac: Normal S1 and S2, Regular rate and rhythm; No murmrs/gallops/rubs. Respiratory: Non labored. Clear to auscultation bilaterally; No wheezes/ rhonchi/ rales. Abd: + BS; soft, non-tender, non-distended, no obvious masses. Ext: WWP without le edema, cyanosis or clubbing. DPP 2+ bilaterally. Neuro: II-XII grossly intact. Alert and orientated, no-focal deficits, sensation intact to crude touch Skin: No rashs, no lesions, no petechiae Laboratory: Recent Labs 07/02/17 0207 07/01/17 1926 WBC 11.6* 11.9* HGB 16.8* 17.7* HCT 48.6* 50.4* PLATELET 237 222 Recent Labs 07/02/177 07/01/171925 NA 140 141 K 3.7 4.2 CL 100 103 CO2 23 23 BUN 24* 22* CREATININE 0.92 0.76* Recent Labs 07/01/171925 AST 10 ALT 31 ALKPHOS 80 BILITOT 0.7 BILIDIR 0.1 Recent Labs 07/02/177 07/01/171925 CALCIUM 8.8 9.1 Recent Labs 07/02/177 07/01/171925 CK 36 30 TROPONINT <0.03 <0.03 Recent Labs 07/02/17206 PT 14.0 PTT 74* INR 1.0 Diagnostic Studies: EKG- 1 mm horizontal LEONA in V1 and 2 mm concave LEONA in V2 with TWI in lead I and AVL which are new compare to the old EKG in 2007 CXR- no acute abnormality ASSESSMENT: 71 yr old male with a history of HTN, HLD and diet controlled Diabetes, quit smoking 40 yrs ago, no family CAD, who came to the [facility] for the interscapular pain for last 10 days with acute worsening this AM associated with dizziness and sweating found to have EKG changes of ST elevation in V1-V2 with TWI in lead I and AVL with negative troponin and negative PE/Dissection on CTA, sent here for furtherevaluation. On further evaluation here his pain is positional, worse with left lateral position and extension ofthe neck, better with flexion of the neck, negative troponin after 10 days of interscapular pain, negative CTA for dissection/PE it is likely pericarditis/musculoskeletal. Only concern is ? EKG changes? LEONA in v1-v2 may be J point elevation with TWI in high lateral leads. Rt sided leads did not show any LEONA .Case discussed with emissions testing and repair technician junior software engineer by the balance engineer and decidedto follow up clinically with trending the troponin. Will get the Echo in AM. PLAN: 1) Interscapular pain for evaluation Differential in order of priority as per my evaluation - Musculoskeletal // pericarditis // ACS Case discussed with the emissions testing and repair technician interventional cardiology/ bedside Echo no wall motion abnormalitieswith normal looking EF and no pericardial effusion Will try morphine/toradol Trend the troponin Echo in AM for the EF and WMA Heparin drip as per protocol Will hold the Nitro drip and see the change Aspirin 325+81 Plavix 300 +75 Metoprolol XL 50 mg daily Lisinopril 10 mg Lipitor 80 mg Lipid panel/A1c/TSH Keep NPO 2) HTN Metoprolol XL 50 mg daily Lisinopril 10 mg daily 3) HLD Lipitor 80 mg Lipid panel 4) Diet controlled diabetes Check A1c Code Status: Full code Jana Delcid MD Cardiology Hospitalist 07/01/2017 documented in this encounter Miscellaneous Notes Initial Assessments - Ivanna Zepeda RN - 07/02/2017 1:43 PM EDT Office of Care Management Initial Assessment ALINA Lobo reviewed record and discussed patient with Care Team. Source of Information: History obtained from the patient. Introduced self/reviewed role; services accepted. Reason for Hospitalization: ID/Chief Complaint: Interscapular pain for last 10 days went to [facility] Past Medical History: Diagnosis Date ??? Diabetes mellitus diet controlled ??? HLD (hyperlipidemia) ??? Hypertension Hospitalizations Within the Past 30 Days: None Anticipated Length Of Stay (If known): OBS pending clinical progress and recommendations Current Decision-Making Capacity: cooperative & AOx4 patient is his own decision maker Advance Care Planning: Discussed and provided advance directive education, patient will discuss withfamily at a later time. Patient Current Coping/Education/Information Needs: doing well; concerned about his back pain Current Functional Ability: SBA Functional Status Prior to Admission: Independent with ADLs no assistive devices Home Environment: Living arrangements - the patient lives with their spouse in [facility] home with ability to stay on main level. Social & Family Supports/Community Resources: ?? Julissa Grigsby (Spouse) [phone] (H) Behavioral Health History: None reported Substance Use/Abuse: Social History Substance Use Topics ??? Smoking status: Former Smoker ??? Smokeless tobacco: Never Used Comment: quit 40 yrs ago ??? Alcohol use No Other Pertinent/Service Specific Information: None Health/Prescription Coverage: Primary Insurance: MEDICARE Secondary Insurance: [facility] Prescription Coverage: yes Preferred Pharmacy: [facility] Other: none Primary Care Provider: Jose Rafael Ivy MD [phone] Patient/Caregiver Goals of Treatment: patient would like to talk to the medical team about his back problems. Pt would like to return home to his baseline functioning. Potential Needs for Transition of Care: Rehab/SNF: none Home Health: none DME: none Dialysis: none Community Resources: none Transportation: spouse Other: none Anticipated Barriers to Discharge/Special Considerations: None identified at this time Plan: A member of the Care Management team will continue to monitor progress, follow for continuity of care and assist with transition of care planning. ALINA Lobo Pager: [phone] 07/02/2017 2:05 PM Care Management - Ivanna Zepeda RN - 07/02/2017 1:42 PM EDT Notified by Care Management Utilization Management (UM) Department that patient remains in observation status and anticipated length of stay will be greater than 24 hours. Medicare Outpatient Observation Notice (MARRERO) has been given and explained to patient. Questions were answered to the best of my ability. Patient was offered copies of [facility] publications; Are You a Hospital Inpatient or Outpatient? and Medicare Rights and Protections. Notice has been signed along with date and time, a copy of notice made and given to patient/registration representative. Original notice to be scanned into patient's medical record. ALINA Lobo Pager: [phone] 1:43 PM 07/02/2017 Plan of Care - Quyen Caballero RN - 07/02/2017 1:32 AM EDT Problem: Patient Care Overview Goal: Plan of Care Review Outcome: Ongoing (Interventions Implemented as Appropriate) 07/01/17 3414 Coping/Psychosocial Plan Of Care Reviewed With patient;spouse OUTCOME EVALUATION NOTE: OUTCOME SUMMARY: A+O. VSS. SR on tele. Pt denies CP/SOB- complains of shoulder pain exacerbated w/ movement, MD aware, Toradol, PRN tylenol and ice pack given w/ good relief, will continue monitoring. IV nitro turned off per MD, will continue monitoring. Pt had CXR and EKG tonight. Metoprolol held this evening for HR <60, MD aware. Heparin gtt maintained per protocol. PLAN MOVING FORWARD: NPO, trend cardiac enzymes INDIVIDUALIZED FALL PREVENTION INTERVENTIONS: Patient-specific fall risk factors per assessment: [current deficits]: IV Assistance [level of assistance required for transfers and ambulation]: SBA Supervision [direct monitoring required during toileting and ADLs]: ambulation and transfers Surveillance [continuous indirect monitoring]: telemetry, purposeful rounding Patient-specific fall prevention interventions for sensory deficits provided, if applicable: call oglesby in reach, urinal @ bedside, supervised activity CPG GOAL OUTCOME EVALUATION: ongoing Goal: Fall Prevention-Safe Patient Handling Outcome: Ongoing (Interventions Implemented as Appropriate) 07/01/172203 Strauss Fall Risk History of Falling 0 Secondary Diagnosis 15 Ambulatory Aids 0 Intravenous Therapy/Heparin/Saline Lock 20 Gait/Transferring 0 Mental Status 0 Score 35 OTHER Strauss Fall Risk Med Restraint Interventions Safety Promotion/Fall Prevention activity supervised;fall prevention program maintained;muscle strengthening facilitated;nonskid shoes/slippers when out of bed;safety round/check completed Positioning Body Position independent Goal: Infection Control Outcome: Ongoing (Interventions Implemented as Appropriate) 07/01/172203 Safety Interventions Isolation Precautions standard precautions maintained Infection Prevention rest/sleep promoted Coping Strategies Supportive Measures active listening utilized;counseling provided;decision- making supported;goal setting facilitated;positive reinforcement provided;problem solving facilitated;relaxation techniques promoted;self-care encouraged;self-reflection promoted;verbalization of feelings encouraged;self-responsibility promoted documented in this encounter Plan of Treatment Upcoming Encounters Date Type Specialty Care Team Description 07/17/2022 Office Visit Physical Therapy Ro Colvin, PT documented as of this encounter Procedures Procedure Name Priority Date/Time Associated Comments Diagnosis FIRE SPRINKLER SERVICE TECHNICIAN SCAN 07/03/2017 12:00 Res ults for this AM EDT procedure are i n the results section. XR SHOULDER BILAT Routine 07/02/2017 4:07 PM Resu lts for this EDT procedure are i n the results section. XR CERVICAL SPINE 2 OR Routine 07/02/2017 4:06 PM Results for this 3 VIEWS EDT procedure are i n the results section. NM PHARMACOLOGIC STRESS Routine 07/02/2017 12:23 Results for this AND REST MYOCARDIAL PM EDT procedur e are in PERFUSION the results section. NUCLEAR PHARMACOLOGIC Routine 07/02/2017 11:58 STRESS CARDIOLOGY AM EDT ECHOCARDIOGRAM COMPLETE Routine 07/02/2017 10:26 ACS (acute Results for this W CONTRAST AM EDT coronary syndrome) procedure are in the results section. CARDIAC ENZYMES STAT 07/02/2017 8:26 AM Result s for this ([facility] [place]/[facility]) EDT procedure are i n the results section. APTT Timed 07/02/2017 8:26 AM Results f or this EDT procedure are i n the results section. EKG 12-LEAD STAT 07/02/2017 6:17 AM ACS (acute Results f or this EDT coronary syndrome) procedure are in the results section. BMP W/FASTING GLUCOSE Routine 07/02/2017 2:07 AM Results for this EDT procedure are i n the results section. HEMOGRAM Routine 07/02/2017 2:07 AM Results f or this EDT procedure are i n the results section. DIFFERENTIAL, AUTOMATED Routine 07/02/2017 2:07 AM Results for this EDT procedure are i n the results section. CARDIAC ENZYMES STAT 07/02/2017 2:07 AM Result s for this ([facility] [place] [facility]) EDT procedure are i n the results section. APTT Timed 07/02/2017 2:07 AM Results f or this EDT procedure are i n the results section. PROTHROMBIN TIME Routine 07/02/2017 2:07 AM Resul ts for this EDT procedure are i n the results section. CBC (WITH DIFF) Routine 07/02/2017 2:07 AM EDT TRIGLYCERIDE Routine 07/02/2017 2:07 AM Results f or this EDT procedure are i n the results section. LDL CHOLESTEROL, DIRECT Routine 07/02/2017 2:07 AM Results for this EDT procedure are i n the results section. HDL/CHOL PROFILE Routine 07/02/2017 2:07 AM Resul ts for this EDT procedure are i n the results section. EKG 12-LEAD STAT 07/01/2017 9:48 PM ACS (acute Results f or this EDT coronary syndrome) procedure are in the results section. XR CHEST PA AND LATERAL Routine 07/01/2017 8:55 PM Results for this EDT procedure are i n the results section. HEMOGRAM STAT 07/01/2017 7:26 PM Results f or this EDT procedure are i n the results section. DIFFERENTIAL, AUTOMATED STAT 07/01/2017 7:26 PM Results for this EDT procedure are i n the results section. CARDIAC ENZYMES STAT 07/01/2017 7:26 PM Result s for this ([facility]) EDT procedure are i n the results section. APTT STAT 07/01/2017 7:26 PM Results f or this EDT procedure are i n the results section. PROTHROMBIN TIME STAT 07/01/2017 7:26 PM Resul ts for this EDT procedure are i n the results section. CBC (WITH DIFF) STAT 07/01/2017 7:26 PM EDT TSH STAT 07/01/2017 7:26 PM Results f or this EDT procedure are i n the results section. PRO-BRAIN NATRIURETIC STAT 07/01/2017 7:26 PM Results for this PEPTIDE EDT procedure are i n the results section. MAGNESIUM STAT 07/01/2017 7:26 PM Results f or this EDT procedure are i n the results section. HEMOGLOBIN A1C STAT 07/01/2017 7:26 PM Results for this EDT procedure are i n the results section. HEPATIC FUNCTION PANEL STAT 07/01/2017 7:26 PM Results for this EDT procedure are i n the results section. BASIC METABOLIC PANEL STAT 07/01/2017 7:26 PM Results for this (NON-FASTING) EDT procedure are in the results section. EKG 12-LEAD STAT 07/01/2017 6:08 PM ACS (acute Results f or this EDT coronary syndrome) procedure are in the results section. EKG 12-LEAD STAT 07/01/2017 5:52 PM ACS (acute Results f or this EDT coronary syndrome) procedure are in the results section. EKG 12-LEAD STAT 07/01/2017 5:22 PM ACS (acute Results f or this EDT coronary syndrome) procedure are in the results section. documented in this encounter Results SCAN DOC: FIRE SPRINKLER SERVICE TECHNICIAN (07/03/2017 12:00 AM EDT) Narrative 07/03/2017 12:00 AM EDT This result has an attachment that is no t available. Ordered by an unspecified provider. Scanning Provider MEDIA MGR SCAN EXT ORDR/RSLT XR Shoulder Bilat (Generic) (07/02/2017 4:07 PM EDT) Anatomical Region Laterality Modality Shoulder Bilateral Digital Radiography Specimen (Source) Anatomical Location Collection Method / Collectio n Time Received Time / Laterality Volume Narrative 07/02/2017 4:30 PM EDT EXAMINATION: XR SHOULDER BILAT (GENERIC) CLINICAL HISTORY: recent renovations @ h ome while holding lumber/wood above head. ??now pain neck/intrascapular & up per back with movement TECHNIQUE: ? COMPARISON: RIGHT shoulder from 2010. An d LEFT shoulder from 2003 FINDINGS: Bones: No fracture is present. Small bon e island in LEFT coracoid. AC Joint: There is unchanged mild bony o vergrowth but ??no os acromion. Normal AC joint alignment RIGHT Glenohumeral joint: Multiple osteophytes . No dislocation. Increased concentric joint space narrowing. LEFT Glenohumeral joint: Small osteophytes. N o dislocation Concentric joint space narrowing, progre ssed since 2003. Soft tissue: periarticular calcifications - ??none Impression 1. 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 2. ??The joint space narrowing of bilate ral glenoid humeral joint has increased. Procedure Note Evelyn Riddle MD - 07/02/2017Formatt ing of this note might be different from the original. EXAMINATION: XR SHOULDER BILAT (GENERIC) CLINICAL HISTORY: recent renovations @ h ome while holding lumber/wood above head. now pain neck/intrascapular & uppe r back with movement TECHNIQUE: COMPARISON: RIGHT shoulder from 2010. An d LEFT shoulder from 2003 FINDINGS: Bones: No fracture is present. Small bon e island in LEFT coracoid. AC Joint: There is unchanged mild bony o vergrowth but no os acromion. Normal AC joint alignment RIGHT Glenohumeral joint: Multiple osteophytes . No dislocation. Increased concentric joint space narrowing. LEFT Glenohumeral joint: Small osteophytes. N o dislocation Concentric joint space narrowing, progre ssed since 2003. Soft tissue: periarticular calcifications - none Impression 1. 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 2. The joint space narrowing of bilatera l glenoid humeral joint has increased. Ashwini Ryan APRN IMG DX ORDERABLES XR Cervical Spine 2 Or 3 Views (07/02/2017 4:06 PM EDT) Anatomical Region Laterality Modality C-spine N/A Digital Radiography Specimen (Source) Anatomical Location Collection Method / Collectio n Time Received Time / Laterality Volume Impressions 07/02/2017 5:00 PM EDT 1. ??No acute fracture or dislocation. 2. ??Multilevel disc degenerative and fa cet hypertrophic changes. I have personally reviewed the image(s) and the residents interpretation and agree with the findings, Evelyn siu 07/02/2017 5:00 PM Narrative 07/02/2017 5:00 PM EDT EXAMINATION: XR CERVICAL SPINE 2 OR 3 VIEWS CLINICAL HISTORY: recent renovation proj ects around his house. ??holding holding arms above his head. ??now neck + should er + intrascapular pain TECHNIQUE: AP, lateral and odontoid views of the ce rvical spine COMPARISON: None FINDINGS: C1-C6 are well visualized on the lateral projection. C7 is partially obscured by soft tissues. The C7-T1 disc space is no t well seen. Normal atlantoaxial alignment. The tip o f the dens is partially obscured by superposition of the occiput. There is reversal of the normal lordotic curvature of the cervical spine. No spondylolisthesis. Multilevel disc degenerative changes mundo racterized by disc height loss, endplate sclerosis and marginal osteophytes, most prominent at C4-5, C5-6 and C6-7. There are bilateral uncovertebral and facet hy pertrophic changes in the mid cervical spine. No abnormal prevertebral soft tissue swe lling. Procedure Note Evelyn Riddle MD - 07/02/2017Formatt ing of this note might be different from the original. EXAMINATION: XR CERVICAL SPINE 2 OR 3 EWS CLINICAL HISTORY: recent renovation proj ects around his house. holding holding arms above his head. now neck + shoulder + intrascapular pain TECHNIQUE: AP, lateral and odontoid views of the ce rvical spine COMPARISON: None FINDINGS: C1-C6 are well visualized on the lateral projection. C7 is partially obscured by soft tissues. The C7-T1 disc space is no t well seen. Normal atlantoaxial alignment. The tip o f the dens is partially obscured by superposition of the occiput. There is reversal of the normal lordotic curvature of the cervical spine. No spondylolisthesis. Multilevel disc degenerative changes mundo racterized by disc height loss, endplate sclerosis and marginal osteophytes, most prominent at C4-5, C5-6 and C6-7. There are bilateral uncovertebral and facet hy pertrophic changes in the mid cervical spine. No abnormal prevertebral soft tissue swe lling. IMPRESSION 1. No acute fracture or dislocation. 2. Multilevel disc degenerative and face t hypertrophic changes. I have personally reviewed the image(s) and the residents interpretation and agree with the findings, EvelynMadison siu 07/02/2017 5:00 PM Ashwini Ryan APRN IMG DX ORDERABLES NM Myocardial Perfusion Scan Pharmacologic (07/02/2017 12:23 PM EDT) Anatomical Region Laterality Modality Nuclear Medicine Specimen (Source) Anatomical Location Collection Method / Collectio n Time Received Time / Laterality Volume Impressions 07/02/2017 1:32 PM EDT No ischemia or scar. ??Left ventricular function is normal. Narrative 07/02/2017 1:32 PM EDT EXAMINATION: NM MYOCARDIAL PERFUSION SCAN PHARMACOLOGIC CLINICAL HISTORY: presented with intrasc apular pain. ??neg troponins. ??abnormal ekg. ??Hypertensive on arrival TECHNIQUE: During rest, 8 mCi of technet ium-99m sestamibi was administered intravenously. Approximately 20 minutes later, SPECT images of the heart were obtained with reconstruction in the shor t, vertical long and horizontal long axis. The patient then received regadenoson in travenously at a dose of 0.4 mg. 20 seconds later, 26.8 mCi of technetium-99 m sestamibi was administered intravenously. Images of the heart were then again obtained with SPECT reconstruction. A low-dose CT scan was acquired for the purpose of attenuation correction and reviewed with Dr. Markie gonzalez incidental findings. COMPARISON: None FINDINGS: No fixed or reversible perfusion defects are present. Functional analysis: Myocardial function: There is normal wal l thickening and wall motion. Left ventricular ejection fraction: 61 % (normal greater than than 50%). Procedure Note Fantasma Ceja MD - 07/02/2017Formatt ing of this note might be different from the original. EXAMINATION: NM MYOCARDIAL PERFUSION SCA N PHARMACOLOGIC CLINICAL HISTORY: presented with intrasc apular pain. neg troponins. abnormal ekg. Hypertensive on arrival TECHNIQUE: During rest, 8 mCi of technet ium-99m sestamibi was administered intravenously. Approximately 20 minutes later, SPECT images of the heart were obtained with reconstruction in the shor t, vertical long and horizontal long axis. The patient then received regadenoson in travenously at a dose of 0.4 mg. 20 seconds later, 26.8 mCi of technetium-99 m sestamibi was administered intravenously. Images of the heart were then again obtained with SPECT reconstruction. A low-dose CT scan was acquired for the purpose of attenuation correction and reviewed with Dr. Markie gonzalez incidental findings. COMPARISON: None FINDINGS: No fixed or reversible perfusion defects are present. Functional analysis: Myocardial function: There is normal wal l thickening and wall motion. Left ventricular ejection fraction: 61 % (normal greater than than 50%). IMPRESSION No ischemia or scar. Left ventricular fu nction is normal. Ashwini Ryan APRN IMG NM ORDERABLES Nuclear Pharmacologic Stress Cardiology (07/02/2017 11:58 AM EDT) Specimen (Source) Anatomical Location Collection Method / Collectio n Time Received Time / Laterality Volume Narrative This result has an attachment that is no t available. Ashwini Ryan APRN CARDIAC SERVICES ORDERABLES ECHOCARDIOGRAM COMPLETE W CONTRAST (07/02/2017 10:26 AM EDT) P athologist Signature EF 70 HEARTLAB SYSTEM Specimen (Source) Anatomical Location Collection Method / Collectio n Time Received Time / Laterality Volume 07/02/2017 Narrative HEARTLAB SYSTEM - 07/02/2017 10:38 AM ED T Procedure: ?Transthoracic Echocardiogram Patient: ?SEB GRIFFITHNETH C ? (Age): 1945(71y) Med Rec#: ? [id number] ?Sex: ?M ? Site Loc: ? [facility] [place] ?Ht / Wt: ??185(cm)/110(kg) Pt. Loc: ?Echo Lab ?BSA: ?2.33 Study Date: ?? 07/02/2017 ?Pt. Type: Inpatient Tape: ? Referring: Farhana Srivastava Referring: PRATIKYINAELFEGO Reading: Abran Rubio ([id number]) Diagnosis: *ICD-10-PCS Acute ischemic heart diseas e, unspecified (I24.9) BP: ? 172/87 SUMMARY: 1. Moderate concentric left ventricular hypertrophy is observed. ??There is normal global left ventricular systol ic function. ??Ejection fraction is estimated to be 70%. ??There are no l eft ventricular segmental wall motion abnormalities. 2. The right ventricle is normal in size . ??Right ventricular global systolic function is normal. 3. There is no hemodynamically significa nt valve disease. 4. See remainder of report for additiona l findings. Findings ? : Left Ventricle: ? The left ventricul ar chamber size is normal. ?Moderate concentric left ventricul ar hypertrophy is observed. ?There is no evidence of LVOT obstr uction. ?There is normal global left ventri cular systolic function. ??Ejection fraction is estimated to be 70%. ?There are no left ventricular segm ental wall motion abnormalities. ?Doppler assessment is consistent w ith elevated left sided filling pressure. Left Atrium: ? The left atrium is mo derately dilated.(43 ml/m2) ?No atrial septal defect is visuali zed. Right Ventricle: ? The right ventric le is normal in size. ?Right ventricular global systolic function is normal. ?The estimated pulmonary artery sys tolic pressure is 29 mmHg. ?The estimated right atrial pressur e is 3 mmHg. Right Atrium: ? The right atrium is mildly dilated. Aortic Valve: ? The aortic valve is tricuspid. ?The aortic valve leaflets are mild ly thickened. ?There is aortic annular calcificat ion. ?There is no evidence of aortic herminia ve stenosis. ?There is a trace of aortic regurgi tation present. Mitral Valve: ? The mitral valve minerva flets are mildly thickened. ?There is posterior mitral annular calcification. ?There is no evidence of mitral leona nosis. ?There is trace mitral regurgitatio n present. Tricuspid Valve: ? The tricuspid herminia ve leaflets are morphologically normal. ?There is trace tricuspid regurgita tion present. Pulmonic Valve: ? The pulmonic valve appears normal in structure and function. Pericardium: ? The pericardium appea rs normal and there is no evidence of a pericardial effusion. Aorta: ? The aortic root is normal i n size. ?There is mild dilatation of the as cending aorta. Pulmonary Artery: ? The main pulmona ry artery is probably normal in size. Venous: ? The inferior vena cava miguel a ears normal in size. ?There is a greater than 50% respir atory change in the inferior vena cava dimension. Misc: ? There is no hemodynamically significant valve disease. ?See remainder of report for additi onal findings. ?Two-dimensional echo, spectral Dop pler and color Doppler performed. ?Optison contrast (one 3 ml vial) w as used to enhance endocardial definition. Excess contrast was discarde d. Chambers 2D ?Value ?Units (Range) ? IVSd (2D) ? 2 ?cm ? LVPWd (2D) ?1.7 ?cm ? IVS:LVPW ratio (2D) 1.2 ?ratio ? RWT (2D) ?0.9 ?ratio ? RWT PW (2D) ? 0.8 ?ratio ? LVIDd (2D) ?4.3 ?cm ? LVIDs (2D) ?2.8 ?cm ? LVIDd (2D) index ?1.9 ?cm/m2 ? LVIDs (2D) index ?1.2 ?cm/m2 ? LV FS (2D) ?35 ? % ? EF Teichholz (2D) ?? 65 ? % ? Ao root diameter (2D3.4 ?cm (2.1 - 3.6) ? Ascending Ao ?3.7 ?cm (2 - 3.5) ? Volumes/Mass ?Value ?Units (Range) ? LA Area 4 CH ?26 ? cm2 (<21) ? LA ESV BP (A/L) inde43.5 ? ml/m2 ? RA AREA 4CH ? 20 ? cm2 ? LA ESV BP (MOD) inde43 ? ml/m2 ? LV ESV SP 4CH (MOD) 38.1 ? ml ? LV mass (2D) ?368.9 ?g ? LV mass (2D) index ??158.3 ?g/m2 ? Diastolic/Systolic Function ?Value ?Units (Range) ? MV E-wave Vmax ?0.9 ?m/sec ? MV deceleration bwza663.9 ? msec ? MV A-wave Vmax ?0.7 ?m/sec ? MV E:A ratio ?1.2 ?ratio ? LV septal e' Vmax ?? 0 ?m/sec ? LV lateral e' Vmax ??0.1 ?m/sec ? LV average e' Vmax ??0.1 ?m/sec ? LV E:e' septal ratio22.1 ? ratio ? LV E:e' lateral rati11 ? ratio ? LV average E:e' rati14.7 ? ratio ? Tricuspid Valve ?Value ?Units (Range) ? TR Vmax ? 2.5 ?m/sec ? TR peak gradient ?25.6 ? mmHg ? RAP ? 3 ?mmHg ? RVSP ?29 ? mmHg ? Wall Motion: Segment Name ?Rest ? Base-Anteroseptal ?? Normal ? Base-Anterior ? Normal ? Base-Anterolateral ??Normal ? Base-Posterolateral Normal ? Base-Inferior ? Normal ? Base-Inferoseptal ?? Normal ? Mid-Anteroseptal ?Normal ? Mid-Anterior ?Normal ? Mid-Anterolateral ?? Normal ? Mid-Posterolateral ??Normal ? Mid-Inferior ?Normal ? Mid-Inferoseptal ?Normal ? [place]-Septal ? Normal ? [place]-Anterior ? Normal ? [place]-Lateral ?Normal ? [place]-Inferior ? Normal ? [place]-Tip ?Normal ? This report has been electronically sign ed by: _ Abran Rubio M.D. ? 07/02/2017 10:39:10 Images reviewed and interpretation [facility] Cardiac Ultrasound Laboratory Procedure Note Abran Rubio MD - 07/02/2017Format ting of this note might be different from the original. Procedure: Transthoracic Echocardiogram Patient: SEB Rodgers (Age): [birth year](71y) Med Rec#: [id number] Sex: M Site Loc: [facility] [place] Ht / Wt: 185(cm)/110(kg) Pt. Loc: Echo Lab BSA: 2.33 Study Date: 07/02/2017 Pt. Type: Inpatie nt Tape: Referring: Farhana Srivastava Referring: MARTINEZ Reading: Abran Rubio ([id number]) Diagnosis: *ICD-10-PCS Acute ischemic heart diseas e, unspecified (I24.9) BP: 172/87 SUMMARY: 1. Moderate concentric left ventricular hypertrophy is observed. There is normal global left ventricular systol ic function. Ejection fraction is estimated to be 70%. There are no lef t ventricular segmental wall motion abnormalities. 2. The right ventricle is normal in size . Right ventricular global systolic function is normal. 3. There is no hemodynamically significa nt valve disease. 4. See remainder of report for additiona l findings. Findings : Left Ventricle: The left ventricular mundo mber size is normal. Moderate concentric left ventricular hy pertrophy is observed. There is no evidence of LVOT obstructio n. There is normal global left ventricular systolic function. Ejection fraction is estimated to be 70%. There are no left ventricular segmental wall motion abnormalities. Doppler assessment is consistent with e levated left sided filling pressure. Left Atrium: The left atrium is moderate ly dilated.(43 ml/m2) No atrial septal defect is visualized. Right Ventricle: The right ventricle is normal in size. Right ventricular global systolic funct ion is normal. The estimated pulmonary artery systolic pressure is 29 mmHg. The estimated right atrial pressure is 3 mmHg. Right Atrium: The right atrium is mildly dilated. Aortic Valve: The aortic valve is tricus pid. The aortic valve leaflets are mildly th ickened. There is aortic annular calcification. There is no evidence of aortic valve st enosis. There is a trace of aortic regurgitatio n present. Mitral Valve: The mitral valve leaflets are mildly thickened. There is posterior mitral annular calci fication. There is no evidence of mitral stenosis . There is trace mitral regurgitation pre sent. Tricuspid Valve: The tricuspid valve minerva flets are morphologically normal. There is trace tricuspid regurgitation present. Pulmonic Valve: The pulmonic valve appea rs normal in structure and function. Pericardium: The pericardium appears nor mal and there is no evidence of a pericardial effusion. Aorta: The aortic root is normal in size . There is mild dilatation of the ascendi ng aorta. Pulmonary Artery: The main pulmonary art mendoza is probably normal in size. Venous: The inferior vena cava appears n ormal in size. There is a greater than 50% respiratory change in the inferior vena cava dimension. Misc: There is no hemodynamically signif icant valve disease. See remainder of report for additional findings. Two-dimensional echo, spectral Doppler and color Doppler performed. Optison contrast (one 3 ml vial) was us ed to enhance endocardial definition. Excess contrast was discarde d. Chambers 2D Value Units (Range) IVSd (2D) 2 cm LVPWd (2D) 1.7 cm IVS:LVPW ratio (2D) 1.2 ratio RWT (2D) 0.9 ratio RWT PW (2D) 0.8 ratio LVIDd (2D) 4.3 cm LVIDs (2D) 2.8 cm LVIDd (2D) index 1.9 cm/m2 LVIDs (2D) index 1.2 cm/m2 LV FS (2D) 35 % EF Teichholz (2D) 65 % Ao root diameter (2D3.4 cm (2.1 - 3.6) Ascending Ao 3.7 cm (2 - 3.5) Volumes/Mass Value Units (Range) LA Area 4 CH 26 cm2 (<21) LA ESV BP (A/L) inde43.5 ml/m2 RA AREA 4CH 20 cm2 LA ESV BP (MOD) inde43 ml/m2 LV ESV SP 4CH (MOD) 38.1 ml LV mass (2D) 368.9 g LV mass (2D) index 158.3 g/m2 Diastolic/Systolic Function Value Units (Range) MV E-wave Vmax 0.9 m/sec MV deceleration buty939.9 msec MV A-wave Vmax 0.7 m/sec MV E:A ratio 1.2 ratio LV septal e' Vmax 0 m/sec LV lateral e' Vmax 0.1 m/sec LV average e' Vmax 0.1 m/sec LV E:e' septal ratio22.1 ratio LV E:e' lateral rati11 ratio LV average E:e' rati14.7 ratio Tricuspid Valve Value Units (Range) TR Vmax 2.5 m/sec TR peak gradient 25.6 mmHg RAP 3 mmHg RVSP 29 mmHg Wall Motion: Segment Name Rest Base-Anteroseptal Normal Base-Anterior Normal Base-Anterolateral Normal Base-Posterolateral Normal Base-Inferior Normal Base-Inferoseptal Normal Mid-Anteroseptal Normal Mid-Anterior Normal Mid-Anterolateral Normal Mid-Posterolateral Normal Mid-Inferior Normal Mid-Inferoseptal Normal [place]-Septal Normal [place]-Anterior Normal [place]-Lateral Normal [place]-Inferior Normal [place]-Tip Normal This report has been electronically sign ed by: _ Abran Rubio M.D. 07/02/2017 10:39: 10 Images reviewed and interpretation verif ied [facility] Cardiac Ultrasound Laboratory Jana Delcid MD ECHO ORDERABLES Performing Organization Address City/State/ZIP Code Phon e Number HEARTLAB SYSTEM (ABNORMAL) APTT (07/02/2017 8:26 AM EDT) athologist Signature PTT 95 (H) 25 - 35 sec [facility] Comment: The recommended therapeutic range for fu ll dose, unfractionated heparin at [facility] [place] is 80 ? 114 seconds. The use of the anti-Xa (heparin) level rather than the PTT is recommended for monitoring anticoagul ation intensity in critically ill patients receiving unfractionated hepari n by continuous IV infusion. Specimen Anatomical Collection Method Collection Time Receive d Time (Source) Location / / Volume Laterality Blood specimen 07/02/2017 8:26 AM 017 8:51 (specimen) EDT AM EDT Resulting Agency Comment Spec In Lab Richard Gallardo MD HEMATOLOGY ORDERABLES Performing Organization Address City/State/[place] [address] Cardiac Enzymes (07/02/2017 8:26 AM EDT) athologist Signature Troponin-T <0.03 <=0.03 [facility] ng/mL [facility] Comment: 0.03 ng/mL: Represents the 99th percenti le upper reference limit for normals. >0.03 ng/mL: Elevated cardiac troponin T level indicative of myocardial damage. Diagnosis of acute, evolving or recent M I requires a typical rise and gradual fall of cTnT with at least ONE of the fo llowing: a) Ischemic symptoms b) Development of pathologic Q waves on the ECG c) ECG changes indicative of eschemia (S -T segment elevation/depression) d) Coronary artery intervention Serial bloods should be obtained for desirae ting on admission, at 6 to 9 hrs and again at 12 to 24 hrs if earlier samples are negative and the clinical index of suspicion is high. Reference: [Myocardial infarction redefined? a consensus document of the Joint Society of Cardiology/[place] [employer] o f Cardiology Committee for the redefinition of myocardial infarction. ? ?Journal of the [place] College of Cardiology 2000; 36: 959-969] CK, Total 37 0 - 200 unit/L [facility] Specimen Anatomical Collection Method Collection Time Receive d Time (Source) Location / / Volume Laterality Blood specimen 07/02/2017 8:26 AM 017 8:51 (specimen) EDT AM EDT Resulting Agency Comment Spec In Lab Jana Delcid MD CHEMISTRY ORDERABLES Performing Organization Address City/State/ZIP Code Phon e Number [place] [id number] EKG 12 Lead (07/02/2017 6:17 AM EDT) Component Value Ref Range Test Analysis Performed Pathologis t Method Time At Signature Ventricular rate 57 BPM MUSE SYSTEM Atrial Rate 57 BPM MUSE SYSTEM P-R Interval 174 ms MUSE SYSTEM QRS Duration 96 ms MUSE SYSTEM Q-T Interval 458 ms MUSE SYSTEM QTC Calculated 445 ms MUSE SYSTEM (Bezet) Calculated P [place] 41 degrees MUSE SYSTEM Calculated R [place] -28 degrees MUSE SYSTEM Calculated T [place] 80 degrees MUSE SYSTEM INTERPRETATION Sinus bradycardia MUSE SY STEM Minimal voltage criteria for LVH, may be normal variant T wave abnormality, consider lateral ischemia Abnormal ECG When compared with ECG of 01-JUL-2017 21:48, (unconfirmed) No significant change was found Confirmed by MD Rubio Timothy ([id number]) on 07/02/2017 9:12:28 AM Specimen Anatomical Collection Method Collection Time Receive d Time (Source) Location / / Volume Laterality 07/02/2017 6:17 AM 7 9:12 EDT AM EDT Jana Delcid MD ECG ORDERABLES Performing Organization Address City/State/ZIP Code Phon e Number MUSE SYSTEM (ABNORMAL) BMP w/fasting Glucose (07/02/2017 2:07 AM EDT) athologist Signature Glucose 106 (H) 65 - 99 [facility] Fasting mg/dL [facility] Comment: ?Fasting* Glucose Interpretive C riteria Normal ?65-99 mg/dL Impaired Fasting glucose ?100-125 mg/dL Consistent with Diabetes Mellitus ? >or= 126 mg/dL *Fasting is defined as no caloric intake for at least 8 hours In the absence of unequivocal hypergly cemia a plasma glucose value of >or= 126 mg/dL should be repeated on a subseq uent day. Diagnosis and Classification of Diabetes Mellitus, Position Statement from the [place] Diabetes Association. ??Diabete s Care, Volume 33, Supplement 1, Nov 2009 BUN 24 (H) 10 - 20 mg/dL [facility] Creatinine 0.92 0.80 - 1.50 mg/dL [facility] Comment: Please note that the pediatric reference intervals supplied above were not validated at [facility] [facility]. Results from pediatri c patients should be interpreted in conjunction to the patient's age, height and muscle mass. Sodium 140 135 - 145 mmol/L [facility] Potassium 3.7 3.5 - 5.0 mmol/L [facility] Comment: Please note: ??Patients with WBC >100,00 0 may have falsely elevated Potassium levels. ??For accurate Potassium quantif ication in these patients send serum separator tube (gold top) for subsequent determinations. ??Contact the Clinical Chemistry Laboratory if there are any qu estions. Chloride 100 98 - 107 mmol/L [facility] CO2 23 22 - 31 mmol/L [facility] Anion Gap 17 (H) 5 - 15 mmol/L [facility] Calcium 8.8 8.5 - 10.5 mg/dL [facility] Estimated GFR >60 >=60 [facility] Comment: This estimated GFR (eGFR) value was calc ulated using the MDRD equation which has been validated on patients between t he ages of 18 and 70. The MDRD should not be used to assess kidney function in patients < 18 years of age or in patients with extremes of body mass, or in patients with acute kidney failure. This value should be multiplied by 1.2 f or patients. For further information please copy and past e the following links into your internet browser. [email or web address] [email or web address] Specimen Anatomical Collection Method Collection Time Receive d Time (Source) Location / / Volume Laterality Blood specimen 07/02/2017 2:07 AM 017 2:22 (specimen) EDT AM EDT Resulting Agency Comment Spec In Lab Jana Delcid MD CHEMISTRY ORDERABLES Performing Organization Address City/State/ZIP Code Phon e Number [place] [phone] (ABNORMAL) Differential, Automated (07/02/2017 2:07 AM EDT) [facility] gist Method Time Signature Neutrophils % 68.3 % [facility] Neutr Abs (ANC) 7.98 (H) 1.70 - [facility] 6.10 [facility] x10(3)/[facility] LABORATORY Lymphocytes % 20.9 % [facility] Lymphocytes Abs 2.4 0.9 - 3.2 [facility] x10(3)/[facility] LABORATORY Monocytes % 7.6 % [facility] Monocyte Abs 0.9 0.3 - 0.9 [facility] x10(3)/[facility] LABORATORY Eosinophils % 1.4 % [facility] Eosinophils Abs 0.2 0.0 - 0.4 [facility] x10(3)/[facility] LABORATORY Basophils % 0.9 % [facility] Basophils Abs 0.1 0.0 - 0.1 [facility] x10(3)/[facility] LABORATORY Immature Gran % 0.90 % [facility] Comment: Immature granulocytes(IG's)percentage an d absolute count will include metamyelocytes, myelocytes, and promyelo cytes. Blood smears from CBCs yielding IG's will be scanned manually for concor dance. If this scan disagrees with the automated IG or if promyelocytes are not ed, a manual differential will be performed. Debra Gran Abs 0.10 (H) 0.00 - 0.04 x10(3)/[facility] LABORATORY Specimen Anatomical Collection Method Collection Time Receive d Time (Source) Location / / Volume Laterality Blood specimen 07/02/2017 2:07 AM 017 2:22 (specimen) EDT AM EDT Resulting Agency Comment Spec In Lab Jana Delcid MD HEMATOLOGY ORDERABLES Performing Organization Address City/State/[place] [address] (ABNORMAL) Hemogram (07/02/2017 2:07 AM EDT) Analysis Performed At Patho logist Time Signature WBC 11.6 (H) 4.0 - 9.5 [facility] x10(3)/[facility] LABORATORY RBC 5.52 4.58 - [facility] 5.54 [facility] x10(6)/[facility] LABORATORY Hemoglobin 16.8 (H) 13.7 - [facility] 16.[facility] g[facility]/dL [facility] Hematocrit 48.6 (H) 40.5 - [facility] 48.5 % [facility] MCV 88.0 82.9 - [facility] 93.1 [facility] LABORATORY MCH 30.4 27.5 - [facility] 32.1 pg [facility] MCHC 34.6 32.0 - [facility] 35.7 gm/dL [facility] Platelets 237 145 - 357 [facility] x10(3)/[facility] LABORATORY RDWSD 38.8 36.0 - [facility] 45.0 [facility] LABORATORY RDWCV 12.0 11.4 - [facility] 13.8 % [facility] MPV 10.4 7.6 - 12.9 [facility] nRBC % Auto 0.0 % [facility] LABORATORY nRBC Abs Auto 0.000 0.000 - [facility] 0.000 [facility] x10(3)/[facility] LABORATORY Specimen Anatomical Collection Method Collection Time Receive d Time (Source) Location / / Volume Laterality Blood specimen 07/02/2017 2:07 AM 017 2:22 (specimen) EDT AM EDT Resulting Agency Comment Spec In Lab Jana Delcid MD HEMATOLOGY ORDERABLES Performing Organization Address City/[facility]/ZIP Code Phon e Number [address] (ABNORMAL) APTT (07/02/2017 2:07 AM EDT) P athologist Signature PTT 74 (H) 25 - 35 sec [facility] Comment: The recommended therapeutic range for fu ll dose, unfractionated heparin at [facility] is 80 ? 114 seconds. The use of the anti-Xa (heparin) level rather than the PTT is recommended for monitoring anticoagul ation intensity in critically ill patients receiving unfractionated hepari n by continuous IV infusion. Specimen Anatomical Collection Method Collection Time Receive d Time (Source) Location / / Volume Laterality Blood specimen 07/02/2017 2:07 AM 017 2:22 (specimen) EDT AM EDT Resulting Agency Comment Spec In Lab Richard Gallardo MD HEMATOLOGY ORDERABLES Performing Organization Address City/[facility]/[place] [address] (ABNORMAL) Triglyceride (07/02/2017 2:07 AM EDT) P athologist Signature Triglycerides 235 (H) <=199 [facility] Specimen Anatomical Collection Method Collection Time Receive d Time (Source) Location / / Volume Laterality Blood specimen 07/02/2017 2:07 AM 017 2:22 (specimen) EDT AM EDT Resulting Agency Comment Spec In Lab Jana Delcid MD CHEMISTRY ORDERABLES Performing Organization Address City/[facility]/[place] [address] (ABNORMAL) HDL/Cholesterol Profile (07/02/2017 2:07 AM EDT) Patholo gist Method Time Signature Chol, Total 175 <=239 [facility] mg/dL [facility] LABORATORY HDL 37 (L) >=40 [facility] mg/dL [facility]OR[facility]ORY Chol/HDL Ratio 4.7 ratio [facility] LABORATORY Chol/HDL See Note AVA Interpretation [facility]OR[facility]ORY Comment: Lipid management should be guided by a p atient? s ASCVD risk, goals and preferences. ACC/AHA Guidelines recommend high intens ity statin if clinical ASCVD or LDL greater than or equal to 190 mg/dL. [email or web address]-UAC-[email or web address] Measure LDL if Total Cholesterol minus H DL Cholesterol is greater than 220 mg/dL. Adults aged 40-75 with LDL 70-189 mg/dL should have their 10 year ASCVD risk estimated with the ACC/AHA ASCVD risk es timator http://tools.acc.org/FVVFL-Fduj-Hxicwbuq r/ Statin should be discussed if risk great er than or equal to 7.5% in non-diabetics. With diabetes, moderate i ntensity statin is recommended if risk less than 7.5%, high intensity if risk g reater than or equal to 7.5%. Annual lipid monitoring on statins is no t necessary. Lifestyle modification is a critical com ponent of ASCVD risk reduction. Specimen Anatomical Collection Method Collection Time Receive d Time (Source) Location / / Volume Laterality Blood specimen 07/02/2017 2:07 AM 017 2:22 (specimen) EDT AM EDT Resulting Agency Comment Spec In Lab Jana Delcid MD CHEMISTRY ORDERABLES Performing Organization Address City/State/[place] [address] LDL Cholesterol, Direct (07/02/2017 2:07 AM EDT) P athologist Signature LDL Chol 120 <=190 [facility] mg/dL [facility] Specimen Anatomical Collection Method Collection Time Receive d Time (Source) Location / / Volume Laterality Blood specimen 07/02/2017 2:07 AM 017 2:22 (specimen) EDT AM EDT Resulting Agency Comment Spec In Lab Jana Delcid MD CHEMISTRY ORDERABLES Performing Organization Address City/[facility]/ZIP Code Phon e Number [address] Prothrombin Time (07/02/2017 2:07 AM EDT) athologist Signature PT 14.0 12.0 - 15.0 [facility] LABORATORY Comment: An INR <2.0 indicates adequate [...] be appropriate depending on c linical circumstances. INR 1.0 0.9 - 1.1 [facility] LABORATORY Specimen Anatomical Collection Method Collection Time Receive d Time (Source) Location / / Volume Laterality Blood specimen 07/02/2017 2:07 AM 017 2:22 (specimen) EDT AM EDT Resulting Agency Comment Spec In Lab Jana Delcid MD HEMATOLOGY ORDERABLES Performing Organization Address City/[facility] [place] [address] Cardiac Enzymes (07/02/2017 2:07 AM EDT) athologist Signature Troponin-T <0.03 <=0.03 [facility] ng/mL [facility] Comment: 0.03 ng/mL: Represents the 99th percenti le upper reference limit for normals. >0.03 ng/mL: Elevated cardiac troponin T level indicative of myocardial damage. Diagnosis of acute, evolving or recent M I requires a typical rise and gradual fall of cTnT with at least ONE of the fo llowing: a) Ischemic symptoms b) Development of pathologic Q waves on the ECG c) ECG changes indicative of eschemia (S -T segment elevation/depression) d) Coronary artery intervention Serial bloods should be obtained for desirae ting on admission, at 6 to 9 hrs and again at 12 to 24 hrs if earlier samples are negative and the clinical index of suspicion is high. Reference: [Myocardial infarction redefined? a consensus document of the Joint Society of Cardiology/[employer] [place] [employer] o f [employer]iology Committee for the redefinition of myocardial infarction. ? ?Journal of the [place] College of Cardiology 2000; 36: 959-969] CK, Total 36 0 - 200 unit/L [facility] LABORATORY Specimen Anatomical Collection Method Collection Time Receive d Time (Source) Location / / Volume Laterality Blood specimen 07/02/2017 2:07 AM 017 2:22 (specimen) EDT AM EDT Resulting Agency Comment Spec In Lab Jana Delcid MD CHEMISTRY ORDERABLES Performing Organization Address City/State/[place] [address] EKG 12 Lead (07/01/2017 9:48 PM EDT) Component Value Ref Range Test Analysis Performed Pathologis t Method Time At Signature Ventricular rate 57 BPM MUSE SYSTEM Atrial Rate 57 BPM MUSE SYSTEM P-R Interval 162 ms MUSE SYSTEM QRS Duration 108 ms MUSE SYSTEM Q-T Interval 456 ms MUSE SYSTEM QTC Calculated 443 ms MUSE SYSTEM (Bezet) Calculated P [place] 30 degrees MUSE SYSTEM Calculated R [place] -29 degrees MUSE SYSTEM Calculated T [place] 60 degrees MUSE SYSTEM INTERPRETATION Sinus bradycardia MUSE SY STEM Incomplete right bundle branch block Minimal voltage criteria for LVH, may be normal variant Nonspecific ST and T wave abnormality Abnormal ECG When compared with ECG of 01-JUL-2017 18:08, (unconfirmed) Borderline criteria for Anterolateral infarct are no longer Present Confirmed by MD Rubio Timothy ([id number]) on 07/02/2017 9:12:18 AM Specimen Anatomical Collection Method Collection Time Receive d Time (Source) Location / / Volume Laterality 07/01/2017 9:48 PM 9:12 EDT AM EDT Jana Delcid MD ECG ORDERABLES Performing Organization Address City/State/ZIP Code Phon e Number MUSE SYSTEM XR Chest PA & Lateral (Generic) (07/01/2017 8:55 PM EDT) Anatomical Region Laterality Modality Chest N/A Digital Radiography Specimen (Source) Anatomical Location Collection Method / Collectio n Time Received Time / Laterality Volume Impressions 07/01/2017 9:03 PM EDT 1. ??The prominent contour of the descending aorta is of uncertain clinical significance. I suspect it is most likel y simply related to the relatively tortuous contour of the entire thoracic aorta. 2. ??Without earlier studies however I c annot exclude the possibility of abnormal dilatation of the ascending aorta. Allow ing for a mild degree of tortuosity the arch and descending aorta appear normal. Narrative 07/01/2017 9:03 PM EDT EXAMINATION: XR CHEST PA AND LATERAL (GENERIC) CLINICAL HISTORY: INTERSCAPULAR PAIN TECHNIQUE: PA and lateral chest x-ray COMPARISON: 1 FINDINGS: The cardiac silhouette is normal in size . The descending aorta is slightly tortuou s. It is sharply defined. There is no abnormal soft tissue filling the AP wind ow. The contour of the descending aorta is prominent. Pulmonary vasculature is normal. No consolidation or atelectasis is ident ified. No pleural effusion. Procedure Note Karl Nichols MD - 07/01/2017Forma tting of this note might be different from the original. EXAMINATION: XR CHEST PA AND LATERAL (GE NERIC) CLINICAL HISTORY: INTERSCAPULAR PAIN TECHNIQUE: PA and lateral chest x-ray COMPARISON: 1 FINDINGS: The cardiac silhouette is normal in size . The descending aorta is slightly tortuou s. It is sharply defined. There is no abnormal soft tissue filling the AP wind ow. The contour of the descending aorta is prominent. Pulmonary vasculature is normal. No consolidation or atelectasis is ident ified. No pleural effusion. IMPRESSION 1. The prominent contour of the descendi ng aorta is of uncertain clinical significance. I suspect it is most likel y simply related to the relatively tortuous contour of the entire thoracic aorta. 2. Without earlier studies however I can not exclude the possibility of abnormal dilatation of the ascending aorta. Allow ing for a mild degree of tortuosity the arch and descending aorta appear normal. Jana Delcid MD IMG DX ORDERABLES (ABNORMAL) Hemoglobin A1c (07/01/2017 7:26 PM EDT) Analysis Performed At Patho logist Time Signature Hemoglobin A1C 5.7 (H) 4.3 - 5.6 [facility] LAB[facility] Comment: Reference Range: 4.3 - 5.6% 5.7 - 6.4% - Increased Risk of Developin g Diabetes Mellitus >=6.5% - Consistent with diagnosis of Di abetes Mellitus In the absence of hyperglycemia (i.e. pl asma glucose > 200 mg/dL) or classic symptoms of hyperglycemia a repeat measu rement of HbA1c should be performed on a separate sample to confirm the diagnos is. Diagnosis and Classification of Diabetes Mellitus, Diabetes Care 2013; 36: Suppl. 1, S67-74 Est Avg Gluc See note mg/dL [facility] Comment: Estimated Average Glucose not [...] with hemoglobinopathies. Additional resources are available on [facility] ADA website. Zak SHAW, Margaret J, Jessika R, et al. ??Tr anslating the A1C assay into estimated average glucose values. ??Diabetes Care 2008:31(8):1767-3224. Specimen Anatomical Collection Method Collection Time Receive d Time (Source) Location / / Volume Laterality Blood specimen Venous Draw / 07/01/2017 7:26 PM 2016 8:13 (specimen) Unknown EDT PM EDT Resulting Agency Comment Spec In Lab Jana Delcid MD CHEMISTRY ORDERABLES Performing Organization Address City/State/[place] [address] Hepatic Function Panel (07/01/2017 7:26 PM EDT) athologist [facility] [place] Total Protein 6.9 6.1 - 8.0 [facility] [place] gm/dL [facility] Albumin 4.1 3.2 - 5.2 [place] gm/dL [facility] AST 10 0 - 39 [facility] unit/L [facility] ALT 31 0 - 55 [facility] [place] unit/L [facility] Alk Phos 80 40 - 120 [facility] [place] unit/L [facility] Total 0.7 0.2 - 1.3 [facility] Bilirubin mg/dL [facility] Bili, Direct 0.1 0.0 - 0.3 [facility] mg/dL [facility] Specimen Anatomical Collection Method Collection Time Receive d Time (Source) Location / / Volume Laterality Blood specimen Venous Draw / 07/01/2017 7:26 PM 2016 7:33 (specimen) Unknown EDT PM EDT Resulting Agency Comment Spec In Lab Jana Delcid MD CHEMISTRY ORDERABLES Performing Organization Address City/State/ZIP Code Phon e Number [address] Magnesium (07/01/2017 7:26 PM EDT) athologist [facility] [place] Magnesium 0.95 0.69 - 1.07 [facility] [place] mmol/L [facility] Specimen Anatomical Collection Method Collection Time Receive d Time (Source) Location / / Volume Laterality Blood specimen Venous Draw / 07/01/2017 7:26 PM 2016 7:33 (specimen) Unknown EDT PM EDT Resulting Agency Comment Spec In Lab Jana Delcid MD CHEMISTRY ORDERABLES Performing Organization Address City/State/ZIP Code Phon e Number [address] TSH (07/01/2017 7:26 PM EDT) athologist [facility] [place] TSH 2.15 0.27 - 4.20 [employer] mlU/ML [facility]OR[facility]ORY Specimen Anatomical Collection Method Collection Time Receive d Time (Source) Location / / Volume Laterality Blood specimen Venous Draw / 07/01/2017 7:26 PM 2016 7:33 (specimen) Unknown EDT PM EDT Resulting Agency Comment Spec In Lab Jana Delcid MD CHEMISTRY ORDERABLES Performing Organization Address City/State/[place] [address] (ABNORMAL) Differential, Automated (07/01/2017 7:26 PM EDT) [facility] Method Time Signature Neutrophils % 80.9 % [facility] LABORATORY Neutr Abs (ANC) 9.64 (H) 1.70 - [facility] 6.10 [facility] x10(3)/[facility] LABORATORY Lymphocytes % 11.1 % [facility] LABORATORY Lymphocytes Abs 1.3 0.9 - 3.2 [facility] x10(3)[facility] LABORATORY Monocytes % 6.6 % [facility] LABORATORY Monocyte Abs 0.8 0.3 - 0.9 [facility] x10(3)/[facility] LABORATORY Eosinophils % 0.3 % [facility] LABORATORY Eosinophils Abs 0.0 0.0 - 0.4 [facility] x10(3)/[facility] LABORATORY Basophils % 0.3 % [facility] LABORATORY Basophils Abs 0.0 0.0 - 0.1 [facility] x10(3)/[facility] LABORATORY Immature Gran % 0.80 % [facility] LABORATORY Comment: Immature granulocytes(IG's)percentage an d absolute count will include metamyelocytes, myelocytes, and promyelo cytes. Blood smears from CBCs yielding IG's will be scanned manually for concor dance. If this scan disagrees with the automated IG or if promyelocytes are not ed, a manual differential will be performed. Debra Gran Abs 0.09 (H) 0.00 - 0.04 x10(3)/[facility] LABORATORY Specimen Anatomical Collection Method Collection Time Receive d Time (Source) Location / / Volume Laterality Blood specimen 07/01/2017 7:26 PM 017 7:33 (specimen) EDT PM EDT Resulting Agency Comment Spec In Lab Jana Delcid MD HEMATOLOGY ORDERABLES Performing Organization Address City/State/ZIP Code Phon e Number [address] (ABNORMAL) Hemogram (07/01/2017 7:26 PM EDT) Analysis Performed At Patho logist Time Signature WBC 11.9 (H) 4.0 - 9.5 [facility] LABORATORY RBC 5.72 (H) 4.58 - [facility] 5.54 [facility] x10(6)/[facility] LABORATORY Hemoglobin 17.7 (H) 13.7 - [facility] 16.5 gm/dL [facility] Hematocrit 50.4 (H) 40.5 - [facility] 48.5 % [facility] MCV 88.1 82.9 - [facility] 93.1 [facility] LABORATORY MCH 30.9 27.5 - [facility] 32.1 pg [facility] MCHC 35.1 32.0 - [facility] [place] 35.7 gm/dL [facility] Platelets 222 145 - 357 [facility] x10(3)/[facility] LABORATORY RDWSD 38.6 36.0 - [facility] 45.0 [facility] LABORATORY RDWCV 12.0 11.4 - [facility] 13.8 % [facility] LABORATORY MPV 10.2 7.6 - 12.9 [facility] LABORATORY nRBC % Auto 0.0 % [facility] LABORATORY nRBC Abs Auto 0.000 0.000 - [facility] 0.000 [facility] x10(3)/[facility] LABORATORY Specimen Anatomical Collection Method Collection Time Receive d Time (Source) Location / / Volume Laterality Blood specimen 07/01/2017 7:26 PM 017 7:33 (specimen) EDT PM EDT Resulting Agency Comment Spec In Lab Jana Delcid MD HEMATOLOGY ORDERABLES Performing Organization Address City/[facility]/ZIP Code Phon e Number [address] (ABNORMAL) APTT (07/01/2017 7:26 PM EDT) athologist Signature PTT 45 (H) 25 - 35 sec [facility] LABORATORY Comment: The recommended therapeutic range for fu ll dose, unfractionated heparin at [facility] is 80 ? 114 seconds. The use of the anti-Xa (heparin) level rather than the PTT is recommended for monitoring anticoagul ation intensity in critically ill patients receiving unfractionated hepari n by continuous IV infusion. Specimen Anatomical Collection Method Collection Time Receive d Time (Source) Location / / Volume Laterality Blood specimen 07/01/2017 7:26 PM 017 7:33 (specimen) EDT PM EDT Resulting Agency Comment Spec In Lab Jana Delcid MD HEMATOLOGY ORDERABLES Performing Organization Address City/[facility] [place] [address] Prothrombin Time (07/01/2017 7:26 PM EDT) athologist Signature PT 13.8 12.0 - 15.0 [facility] LABORATORY Comment: An INR <2.0 indicates adequate [...] be appropriate depending on c linical circumstances. INR 1.0 0.9 - 1.1 [facility] LABORATORY Specimen Anatomical Collection Method Collection Time Receive d Time (Source) Location / / Volume Laterality Blood specimen 07/01/2017 7:26 PM 017 7:33 (specimen) EDT PM EDT Resulting Agency Comment Spec In Lab Jana Delcid MD HEMATOLOGY ORDERABLES Performing Organization Address City/[facility]/[place] [address] Cardiac Enzymes (07/01/2017 7:26 PM EDT) athologist Signature Troponin-T <0.03 <=0.03 [facility] ng/mL [facility] Comment: 0.03 ng/mL: Represents the 99th percenti le upper reference limit for normals. >0.03 ng/mL: Elevated cardiac troponin T level indicative of myocardial damage. Diagnosis of acute, evolving or recent M I requires a typical rise and gradual fall of cTnT with at least ONE of the fo llowing: a) Ischemic symptoms b) Development of pathologic Q waves on the ECG c) ECG changes indicative of eschemia (S -T segment elevation/depression) d) Coronary artery intervention Serial bloods should be obtained for desirae ting on admission, at 6 to 9 hrs and again at 12 to 24 hrs if earlier samples are negative and the clinical index of suspicion is high. Reference: [Myocardial infarction redefined? a consensus document of the Joint Society of Cardiology/[place] [employer] o f Cardiology Committee for the redefinition of myocardial infarction. ? ?Journal of the [place] College of Cardiology 2000; 36: 959-969] CK, Total 30 0 - 200 unit/L [facility] LABORATORY Specimen Anatomical Collection Method Collection Time Receive d Time (Source) Location / / Volume Laterality Blood specimen 07/01/2017 7:26 PM 017 7:33 (specimen) EDT PM EDT Resulting Agency Comment Spec In Lab Jana Delcid MD CHEMISTRY ORDERABLES Performing Organization Address City/[facility]/[place] [address] pro-Brain Natriuretic Peptide (07/01/2017 7:26 PM EDT) athologist Signature ProBNP 60 <=125 pg/mL [facility] LABORATORY Specimen Anatomical Collection Method Collection Time Receive d Time (Source) Location / / Volume Laterality Blood specimen 07/01/2017 7:26 PM 017 7:33 (specimen) EDT PM EDT Resulting Agency Comment Spec In Lab Jana Delcid MD CHEMISTRY ORDERABLES Performing Organization Address City/[facility]/ZIP [facility] [place] [address] (ABNORMAL) Basic Metabolic Panel (non-fasting) (07/01/2017 7:26 PM EDT) athologist Signature Glucose Lvl 121 65 - 199 [facility] mg/dL [facility] Comment: Diabetes: >=200 mg/dL plus symp toms BUN 22 (H) 10 - 20 mg/dL [facility] LABORATORY Creatinine 0.76 (L) 0.80 - 1.50 mg/dL [facility] LABORATORY Comment: Please note that the pediatric reference intervals supplied above were not validated at [facility]. Results from pediatri c patients should be interpreted in conjunction to the patient's age, height and muscle mass. Sodium 141 135 - 145 mmol/L [facility] Potassium 4.2 3.5 - 5.0 mmol/L [facility] Comment: Please note: ??Patients with WBC >100,00 0 may have falsely elevated Potassium levels. ??For accurate Potassium quantif ication in these patients send serum separator tube (gold top) for subsequent determinations. ??Contact the Clinical Chemistry Laboratory if there are any qu estions. Chloride 103 98 - 107 mmol/L [facility] LABORATORY CO2 23 22 - 31 mmol/L [facility] LABORATORY Anion Gap 15 5 - 15 mmol/L [facility] LABORATORY Calcium 9.1 8.5 - 10.5 mg/dL [facility] Estimated GFR >60 >=60 [facility]ORY Comment: This estimated GFR (eGFR) value was calc ulated using the MDRD equation which has been validated on patients between t he ages of 18 and 70. The MDRD should not be used to assess kidney function in patients < 18 years of age or in patients with extremes of body mass, or in patients with acute kidney failure. This value should be multiplied by 1.2 f or patients. For further information please copy and past e the following links into your internet browser. [email or web address] [email or web address] Specimen Anatomical Collection Method Collection Time Receive d Time (Source) Location / / Volume Laterality Blood specimen 07/01/2017 7:26 PM 017 7:33 (specimen) EDT PM EDT Resulting Agency Comment Spec In Lab Jana Delcid MD CHEMISTRY ORDERABLES Performing Organization Address City/State/[place] [address] EKG 12 Lead (07/01/2017 6:08 PM EDT) Component Value Ref Range Test Analysis Performed Pathologis t Method Time At Signature Ventricular rate 56 BPM MUSE SYSTEM Atrial Rate 56 BPM MUSE SYSTEM P-R Interval 170 ms MUSE SYSTEM QRS Duration 98 ms MUSE SYSTEM Q-T Interval 470 ms MUSE SYSTEM QTC Calculated 453 ms MUSE SYSTEM (Bezet) Calculated P [place] 38 degrees MUSE SYSTEM Calculated R [place] -25 degrees MUSE SYSTEM Calculated T [place] 74 degrees MUSE SYSTEM INTERPRETATION Sinus bradycardia MUSE SY STEM Minimal voltage criteria for LVH, may be normal variant ST elevation, consider early repolarization, pericarditis, o r injury T wave abnormality, consider lateral ischemia Poor R-wave progression Possible Anterolateral infarct , age undetermined Abnormal ECG When compared with ECG of 01-JUL-2017 17:52, Borderline criteria for Anterolateral infarct are now Presen t Confirmed by Clem Ding MD ([id number]) on 07/02/2017 3:05:07 PM Specimen Anatomical Collection Method Collection Time Receive d Time (Source) Location / / Volume Laterality 07/01/2017 6:08 PM 7 3:05 EDT PM EDT Richard Gallardo MD ECG ORDERABLES Performing Organization Address City/State/ZIP Code Phon e Number MUSE SYSTEM EKG 12 Lead (07/01/2017 5:52 PM EDT) Component Value Ref Range Test Analysis Performed Pathologis t Method Time At Signature Ventricular rate 51 BPM MUSE SYSTEM Atrial Rate 51 BPM MUSE SYSTEM P-R Interval 162 ms MUSE SYSTEM QRS Duration 98 ms MUSE SYSTEM Q-T Interval 498 ms MUSE SYSTEM QTC Calculated 458 ms MUSE SYSTEM (Bezet) Calculated P [place] 26 degrees MUSE SYSTEM Calculated R [place] -23 degrees MUSE SYSTEM Calculated T [place] 46 degrees MUSE SYSTEM INTERPRETATION Sinus bradycardia MUSE SY STEM Moderate voltage criteria for LVH, may be normal variant ST elevation, consider early repolarization, pericarditis, o r injury ST & T wave abnormality, consider lateral ischemia Abnormal ECG When compared with ECG of 01-JUL-2017 17:22, No significant change was found Confirmed by Clem Ding MD ([id number]) on 07/02/2017 3:03:07 PM Specimen Anatomical Collection Method Collection Time Receive d Time (Source) Location / / Volume Laterality 07/01/2017 5:52 PM 7 3:03 EDT PM EDT Jana Delcid MD ECG ORDERABLES Performing Organization Address [facility] Code Phon e Number MUSE SYSTEM EKG 12 Lead (07/01/2017 5:22 PM EDT) Component Value Ref Range Test Analysis Performed Pathologis t Method Time At Signature Ventricular rate 53 BPM MUSE SYSTEM Atrial Rate 53 BPM MUSE SYSTEM P-R Interval 174 ms MUSE SYSTEM QRS Duration 96 ms MUSE SYSTEM Q-T Interval 496 ms MUSE SYSTEM QTC Calculated 465 ms MUSE SYSTEM (Bezet) Calculated P [place] 39 degrees MUSE SYSTEM Calculated R [place] -21 degrees MUSE SYSTEM Calculated T [place] 55 degrees MUSE SYSTEM INTERPRETATION Sinus bradycardia MUSE SY STEM Minimal voltage criteria for LVH, may be normal variant ST elevation, consider early repolarization, pericarditis, o r injury Nonspecific ST and T wave abnormality Prolonged QT Abnormal ECG When compared with ECG of 08-JUL-1996 13:51, T wave inversion no longer evident in Inferior leads Confirmed by Clem Ding MD ([id number]) on 07/02/2017 3:02:33 PM Specimen Anatomical Collection Method Collection Time Receive d Time (Source) Location / / Volume Laterality 07/01/2017 5:22 PM 7 3:02 EDT PM EDT Gerardo Oh MD ECG ORDERABLES Performing Organization Address [facility] Phon e Number MUSE SYSTEM documented in this encounter Visit Diagnoses Diagnosis interscapular back pain with EKG changes r/o ACS - Primary Lumbago ACS (acute coronary syndrome) Intermediate coronary syndrome Class 1 obesity in adult documented in this encounter Admitting Diagnoses Diagnosis ACS (acute coronary syndrome) Intermediate coronary syndrome documented in this encounter Administered Medications Inactive Administered Medications - up to 3 most recent administrations Medication Order MAR Action Action Date Dose Rate Site acetaminophen (TYLENOL) tablet 650 Given 07/02/2017 5:29 AM EDT 650 mg mg 650 mg, Oral, EVERY 6 HOURS PRN, Starting on 07/01/17 at 1951, Until 07/02/17 at 1858, Pain, Headaches, Maximum dose of acetaminophen is 4000 mg from all sources in 24 hours., Routine Given 07/01/2017 10:04 PM EDT 650 mg aspirin EC tablet 81 mg Given 07/02/2017 8:04 AM EDT 81 mg 81 mg, Oral, DAILY, First dose on Sun07/02/17 at 0900, Until Discontinued, Routine atorvastatin (LIPITOR) tablet 80 mg Given 07/02/2017 4:47 PM EDT 80 mg 80 mg, Oral, EVERY EVENING, First dose on Sun07/01/17 at 2015, Until Discontinued, Routine Given 07/01/2017 8:21 PM EDT 80 mg clopidogrel (PLAVIX) tablet 75 mg Given 07/02/2017 8:04 AM EDT 75 mg 75 mg, Oral, DAILY, First dose on Sun07/02/17 at 0900, Until Discontinued, Routine famotidine (PEPCID) tablet 20 mg Given 07/02/2017 8:05 AM EDT 20 mg 20 mg, Oral, DAILY, First dose on Sun07/01/17 at 2015, Until Discontinued, Routine Given 07/01/2017 8:21 PM EDT 20 mg heparin (porcine) injection 0-4,000 Given 07/02/2017 2:51 AM EDT 2,000 Units Units 0-4,000 Units, Intravenous, BOLUS PER HEPARIN PROTOCOL, Starting on Sun07/01/17 at 1747, Until Sun07/02/17 at 1021, Per Protocol, START ADJUSTMENT SCHEDULE 6 HOURS AFTER STARTING INFUSION aPTT Between 60 - 79 seconds: Bolus 2,000 units aPTT Less than 60 seconds: Bolus 4,000 units Increase infusion and recheck aPTT in 6 hours. , Routine Given 07/01/2017 8:29 PM EDT 4,000 Units heparin 25,000 units in Rate/Dose Verify 07/02/2017 10:12 1,650 Uni ts/hr 33 mL/hr dextrose 5% 500 mL AM EDT infusion 0-5,000 Units/hr (0-100 mL/hr), Intravenous, CONTINUOUS, Starting on Sun07/01/17 at 1815, Until Sun07/02/17 at 1021, BEGIN infusion at 1,000 units per hr (12 units/kg/hr). MAX INITIAL infusion rate is 1,000 units/hr. Target PTT = 80 - 114 seconds Start adjustment schedule 6 hours after starting infusion. If PTT is: - less than 60 seconds, Administer PRN bolus and increase rate by 450 units per hr (4 units/kg/hr) - 60 - 79 seconds, Administer PRN bolus and increase rate by 200 units per hr (2 units/kg/hr) - 80 - 114 seconds, No Change - 115 - 129 seconds, decrease rate by 100 units per hr (1 units/kg/hr) - 130 - 145 seconds, stop infusion for 30 minutes, then decrease rate by 200 units per hr (2 units/kg/hr) - Greater than 145 seconds, stop infusion for 60 minutes, then decrease rate by 350 units per hour (3 units/kg/hr) Repeat aPTT 6 hours after initiating heparin. Then 6 hours after each dose adjustment. When 2 consecutive aPTT within target range of 80 - 114 seconds, change aPTT to once every 24 hours with A.M. labs while on heparin. RN to order required aPTT - Per Protocol, Routine Rate/Dose Change 07/02/2017 2:50 AM EDT 1,650 Units/hr 33 mL/hr Rate/Dose Change 07/01/2017 8:28 PM EDT 1,450 Units/hr 29 mL/hr hydroCHLOROthiazide (HYDRODIURIL) tablet 25 mg Given 07/02/2017 4:46 PM EDT 25 mg 25 mg, Oral, DAILY, First dose on Sun07/02/17 at 1445, Until Discontinued, Routine ketorolac (TORADOL) injection 15 mg Given 07/01/2017 8:22 PM EDT 15 mg 15 mg, Intravenous, ONCE, 1 dose, On Sun07/01/17 at 2000, Routine lisinopril (PRINIVIL;ZESTRIL) tablet 10 mg Given 07/02/2017 8:04 AM EDT 10 mg 10 mg, Oral, DAILY, First dose on Sun07/01/17 at 2015, Until Discontinued, Hold for systolic bp <100, Routine Given 07/01/2017 8:21 PM EDT 10 mg lisinopril (PRINIVIL;ZESTRIL) tablet 10 mg Given 07/02/2017 4:47 PM EDT 10 mg 10 mg, Oral, ONCE, 1 dose, On Sun07/02/17 at 1430, Routine lisinopril (PRINIVIL;ZESTRIL) tablet 20 mg 20 mg, Oral, DAILY, First dose (after last modificatio n) on Sun07/03/17 at 0900, Until Discontinued, Hold for systolic bp <100, Routine meTOPROLOL succinate (TOPROL-XL) XL tablet 50 Given 8:05 AM EDT 50 mg mg 50 mg, Oral, DAILY, First dose on Sun07/01/17 at 2015, Until Discontinued, DO NOT CRUSH OR OPEN Hold if the HR less than 60 and SBP less than 100, Routine nitroGLYcerin 50 mg in Rate/Dose Change 07/01/2017 6:30 PM EDT 30 m cg/min 9 mL/hr dextrose 5% 250 mL infusion 10 mcg/min (3 mL/hr), Intravenous, CONTINUOUS, Starting on Sun07/01/17 at 1815, Until Sun07/02/17 at 1858, Maximum dose: 200 mcg/min, Routine New Bag 07/01/2017 6:15 PM EDT 20 mcg/min 6 mL/hr perflutren lipid microspheres (DEFINITY) Given 07/02/2017 9:50 A M EDT 1.1 mLs injection 1.1 mL 1.1 mL (rounded from 1.05 mL), Intravenous, ONCE PRN, 1 dose, Starting on Sun07/02/17 at 1026, Until Sun07/02/17 at 0950, Other, for enhancement of sub-optimal echo images, Echo Lab (Intra-Procedure), Routine potassium chloride (K-DUR/KLOR-CON) extended Given 05/2017 5:29 AM EDT 40 mEq release tablet 40 mEq 40 mEq, Oral, ONCE, 1 dose, On Sun07/02/17 at 0500, 20 mEq tablet may be dissolved in water for administration, Routine regadenoson (LEXISCAN) injection 0.4 mg Given 07/02/2017 11:55 AM EDT 0.4 mg 0.4 mg, Intravenous, ONCE, 1 dose, On Sun07/02/17 at 1215, Routine sodium chloride 0.9 % flush 5 mL Given 07/02/2017 8:09 AM EDT 5 mLs 5 mL, Intravenous, 2 TIMES DAILY, First dose on Sun07/01/17 at 2100, Until Discontinued, Routine Given 07/01/2017 9:00 PM EDT 5 mLs technetium (Tc-99m) sestamibi injection Given 07/02/2017 11:55 A M EDT 26.8 mCi 26.8 mCi 26.8 mCi, Intravenous, ONCE PRN, 1 dose, Starting on Sun07/02/17 at 1155, Until Sun07/02/17 at 1155, Per Protocol, Routine technetium (Tc-99m) sestamibi injection 8 mCi Given 07/02/2017 10:55 AM EDT 8 mCi 8 mCi, Intravenous, ONCE PRN, 1 dose, Starting on Sun07/02/17 at 1055, Until Sun07/02/17 at 1055, Per Protocol, Routine traMADol (ULTRAM) tablet 50 mg Given 07/02/2017 4:47 PM EDT 50 mg 50 mg, Oral, ONCE, 1 dose, On Sun07/02/17 at 1645, Pre-discharge Non-cardiac neck/back/shoulder pain Has recently done home renovations & has active script @ [facility], Routine documented in this encounter Active and Recently Administered Medications Times are shown in EDT. Scheduled Medication Order 06/30/2017 07/01/2017 07/02/2017 aspirin EC tablet 81 mg 08 (Gi tomas - Provider: Adriana Adhikari RN) 81 mg, Oral, DAILY, First dose on 06/11 at 0900, Until Discontinued, Routine atorvastatin (LIPITOR) tablet 80 mg 2020 (Given - Provider: Quyen Caballero RN) 164 (Given - Provider: Adriana Adhikari RN) 80 mg, Oral, EVERY EVENING, First dose o n 07/01/17 at 2015, Until Discontinued, Routine clopidogrel (PLAVIX) tablet 75 mg (CANCELED) 803 (Given - Provider: Adriana Adhikari, RAJAN) 75 mg, Oral, DAILY, First dose on 06/11 at 0900, Until Discontinued, Routine famotidine (PEPCID) tablet 20 mg 2020 (G iven - Provider: Quyen Caballero RN) 08 (Given - Provider: Adriana Adhikari RN) 20 mg, Oral, DAILY, First dose on 05/12 at 2015, Until Discontinued, Routine hydroCHLOROthiazide (HYDRODIURIL) tablet 25 mg 1645 (Given - Provider: Adriana Adhikari RN) 25 mg, Oral, DAILY, First dose on 06/11 at 1445, Until Discontinued, Routine ketorolac (TORADOL) injection 15 mg (COMPLETED) 2021 (Given - Provider: Quyen Caballero RN) 15 mg, Intravenous, ONCE, 1 dose, Sun07/01/17 at 2000, Routine lisinopril (PRINIVIL;ZESTRIL) tablet 10 mg (CANCELED) 2020 (Given - Provider: Quyen Caballero RN) 0804 (Given - Provider: Adriana Adhikari, RAJAN) 10 mg, Oral, DAILY, First dose on 05/12 at 2014, Until Discontinued, Hold for systolic bp <100, Routine lisinopril (PRINIVIL;ZESTRIL) tablet 10 mg (COMPLETED) 1646 (Given - Provider: Adriana Adhikari, RAJAN) 10 mg, Oral, ONCE, 1 dose, Sun07/02/17 at 1430, Routine lisinopril (PRINIVIL;ZESTRIL) tablet 20 mg 20 mg, Oral, DAILY, First dose on 07/12 at 0900, Until Discontinued, Hold for systolic bp <100, Routine meTOPROLOL succinate (TOPROL-XL) XL tablet 50 mg 2014 (Not Given - Provider: Quyen Caballero RN - Reason: Order parameters not met - Comment: HR 56) 0805 (Given - Provider: Adriana Adhikari RN) 50 mg, Oral, DAILY, First dose on 05/12 at 2014, Until Discontinued, DO NOT CRUSH OR OPEN Hold if the HR less than 60 and SBP less than 100, Routine potassium chloride (K-DUR/KLOR-CON) extended release tablet 40 mEq (COMPLETED) 05 (Given - Provider: Quyen sabillon RN) 40 mEq, Oral, ONCE, 1 dose, Sun07/02/17 a t 0500, 20 mEq tablet may be dissolved in water for administration, Routine regadenoson (LEXISCAN) injection 0.4 mg (COMPLETED) 1155 (Given - Provider: Osvaldo Bass - Comment: LAC) 0.4 mg, Intravenous, ONCE, 1 dose, Sun07/02/17 at 1215, Routine sodium chloride 0.9 % flush 5 mL 2100 (G iven - Provider: Quyen Caballero RN) 0809 (Given - Provider: Adriana Adhikari RN) 5 mL, Intravenous, 2 TIMES DAILY, First dose on 07/01/17 at 2100, Until Discontinued, Routine traMADol (ULTRAM) tablet 50 mg (COMPLETED) 1647 (Given - Provider: Adriana Adhikari RN) 50 mg, Oral, ONCE, 1 dose, 07/02/17 at 1645, Pre-discharge Non-cardiac neck/back/shoulder pain Has recently done home renovations & has active script @ [facility], Routine Continuous Medication Order 06/30/2017 07/01/2017 07/02/2017 heparin 25,000 units in dextrose 5% 500 mL infusion (CANCELE D) 1815 (New Bag - Provider: Adriana Adhikari, RN)2028 (Rate/Dose Change - Provider: Quyen Caballero RN) 0250 (Rate/Dose Change - Provider: Nakia Caballero RN)1012 (Rate/Dose Verify - Provider: Adriana Adhikari, RN)1022 (Stopped - Provider: Adriana Adhikari RN) 0-5,000 Units/hr (0-100 mL/hr), Intraven ous, at 0-100 mL/hr, CONTINUOUS, Starting 07/01/17 at 1815, Until Sun07/02/17 at 1021, BEGIN infusion at 1,000 units per hr (12 units/kg/hr). MAX INITIAL infusio n rate is 1,000 units/hr. Target PTT = 8 0 - 114 seconds Start adjustment schedule 6 hours after starting infusion. If PTT is: - less than 60 seconds, Administer PRN bolus and increase rate by 450 units per hr (4 units/kg/hr) - 60 - 79 seconds , Administer PRN bolus and increase rate by 200 units per hr (2 units/kg/hr) - 80 - 114 seconds, No Change - 115 - 129 seconds, decrease rate by 100 units per hr (1 units/kg/hr) - 130 - 145 seconds, sto p infusion for 30 minutes, then decrease rate by 200 units per hr (2 units/kg/hr) - Greater than 145 seconds, stop infusion for 60 minutes, then decrease rate by 350 units per hour (3 units/kg/hr) Repea t aPTT 6 hours after initiating heparin. Then 6 hours after each dose adjustment. When 2 consecutive aPTT within target range of 80 - 114 seconds, change aPTT to once every 24 hours with A.M. labs while on heparin. RN to order required aPTT - Per Protocol, Routine nitroGLYcerin 50 mg in dextrose 5% 250 mL infusion 1814 (New Bag - Provider: Adriana Adhikari RN)1829 (Rate/Dose Change - Provider: Adriana Adhikari RN)2026 (Stopped - Provider: Quyen Caballero RN) 10 mcg/min (3 mL/hr), Intravenous, at 3 mL/hr, CONTINUOUS, Starting [place] 07/01/17 at 1815, Until Sun07/02/17 at 1858, Maximum dose: 200 mcg/min, Routine PRN Medication Order 06/30/2017 07/01/2017 07/02/2017 acetaminophen (TYLENOL) tablet 650 mg 17 03 (Given - Provider: Quyen Caballero RN - Comment: when moving) 528 (Given - Provider: Quyen sabillon RN) 650 mg, Oral, EVERY 6 HOURS PRN, Startin g 07/01/17 at 195, Until Sun07/02/17 at 1858, Pain, Headaches, Maximum dose of acetaminophen is 4000 mg from all sources in 24 hours., Routine heparin (porcine) injection 0-4,000 Units (CANCELED) 2028 (Given - Provider: Quyen Caballero RN) 250 (Given - Provider: Quyen sabillon RN) 0-4,000 Units, Intravenous, BOLUS PER MISHA ARCE PROTOCOL, Starting [place] 07/01/17 at 1747, Until Sun07/02/17 at 1021, Per Protocol, START ADJUSTMENT SCHEDULE 6 HOURS AFTER STARTING INFUSION aPTT Between 60 - 79 seconds: Bolus 2,000 units aPTT Le ss than 60 seconds: Bolus 4,000 units Increase infusion and recheck aPTT in 6 hours. , Routine lidocaine (XYLOCAINE) 10 mg/mL (1 %) injection 3 mg 3 mg (0.3 mL), Subcutaneous, ONCE PRN, 1 dose, Starting [place] 07/01/17 at 1951, Until Sun07/02/17 at 1858, for discomfort with PIV insertion, Routine morphine 2 mg/mL carpuject 2 mg 2 mg, Intravenous, EVERY 4 HOURS PRN, St [place] 07/01/17 at 1951, Until Sun07/02/17 at 1858, Pain, Routine nitroGLYcerin (NITROSTAT) SL tablet 0.4 mg 0.4 mg, Sublingual, EVERY 5 MIN PRN, Sta rting Sun07/01/17 at 1950, Until Sun07/02/17 at 1858, Chest pain, May repeat every 5 minutes for a total of three doses. Notify provider if chest pain not relieved with nitroglycerin. Do not administer ni troglycerin if the patinet has received or taken phosphodiesterase (PDE-5) inhibitors such as sildenafil, tadalafil or vardenafil within the last 24 to 72 hours., Routine perflutren lipid microspheres (DEFINITY) injection 1.1 mL (COMPL ETED) 0950 (Given - Provider: Jessica Small) 1.1 mL (rounded from 1.05 mL), Intraveno us, ONCE PRN, 1 dose, Starting Sun07/02/17 at 1026, Until Sun07/02/17 at 0950, Other, for enhancement of sub-optimal echo images, Echo Lab (Intra-Procedure), Routine sodium chloride 0.9 % flush 5-20 mL 5-20 mL, Intravenous, EVERY 1 MIN PRN, S tarting Sun07/01/17 at 1950, Until Sun07/02/17 at 1857, flush, Flush pertains to all indwelling lines. Flush per protocol found in the job aid using the link provided on this medication record., Routine technetium (Tc-99m) sestamibi injection 26.8 mCi (COMPLETED) 1155 (Given - Provider: Osvaldo Bass - Comment: LAC) 26.8 mCi, Intravenous, ONCE PRN, 1 dose, Starting Sun07/02/17 at 1155, Until Sun07/02/17 at 1155, Per Protocol, Routine technetium (Tc-99m) sestamibi injection 8 mCi (COMPLETED) 1055 (Given - Provider: Osvaldo Bass - Comment: L AC) 8 mCi, Intravenous, ONCE PRN, 1 dose, St arting Sun07/02/17 at 1055, Until Sun07/02/17 at 1055, Per Protocol, Routine documented in this encounter Care Teams Bottle Labeler Relationship Specialty Start Date End Date Jose Rafael Ivy MD PCP - General 09/14/14 08/30/[address] [place] [address] documented as of this encounter
--- OUTSIDE RECORDS SUMMARY | 2022-06-12 12:09 | XMS_ITS | Encounter Summary ---
:1945 [place] [address] Care Team Providers Name Role Phone Unknown Primary Care Provider Unavailable Encounter Details Date Type Department Care Team Description 07/17/2014 Orders Only Gastroenterology at [facility] [place] [address] GASTROENTEROLOGY DEPT. [place], [place] [address] (Wo rk) Social History Tobacco Use Types Packs/Day Years Used Date Never Assessed Sex Assigned at Date Recorded Not on file documented as of this encounter Plan of Treatment Upcoming Encounters Date Type Specialty Care Team Description 07/17/2022 Office Visit Physical Therapy Ro Colvin, PT documented as of this encounter Procedures Procedure Name Priority Date/Time Associated Comments Diagnosis FILM LIBRARY STORAGE Routine 07/17/2014 9:26 AM R esults for this ONLY ULTRASOUND EDT procedure ar e in STUDY the results section. documented in this encounter Results Film Library- Storage only Ultrasound Study (07/17/2014 9:26 AM EDT) Anatomical Region Laterality Modality Other Specimen (Source) Anatomical Collection Method Collection Time Re ceived Time Location / / Volume Laterality 07/17/2014 9:26 AM EDT Narrative 09/11/2014 9:31 AM EDT This is a Non-reportable exam Procedure Note BELLO, UNSIGNED REPORT - 09/11/2014Formatt ing of this note might be different from the original. This is a Non-reportable exam Dyllan Riddle MD IMG FILM LIBRARY ORDERABLES documented in this encounter Visit Diagnoses Not on filedocumented in this encounter Care Teams Tailor Helper Relationship Specialty Start Date End Date Unknown PCP - General 01/24/11 09/13/14 None documented as of this encounter
--- OUTSIDE RECORDS SUMMARY | 2022-06-12 12:09 | XMS_ITS | Encounter Summary ---
:1945 [place] [address] Care Team Providers Name Role Phone Jose Rafael Ivy MD Primary Care Provider Reason for Visit Auth/Cert Specialty Diagnoses / Procedures Referred By Contact Refer red To Contact Diagnoses ACS (acute coronary syndrome) CONCERNING EKG CHANGES Referral ID Status Reason Start Date Expiration Date Visits Requ ested Visits Authorized [id number] 1 1 Encounter Details Date Type Department Care Team Description 07/02/2017 Hospital Encounter Non-Invasive [place] [address] Social History Tobacco Use Types Packs/Day Years Used Date Former Smoker Smokeless Tobacco: Never Used Comments: quit 40 yrs ago Alcohol Use Standard Drinks/Week Comments No 0 (1 standard drink = 0.6 oz pure alcoho l) Sex Assigned at Date Recorded Not on file documented as of this encounter Medications at Time of Discharge [...] as needed. documented as of this encounter Plan of Treatment Upcoming Encounters Date Type Specialty Care Team Description 07/17/2022 Office Visit Physical Therapy Ro Colvin N, PT documented as of this encounter Procedures Procedure Name Priority Date/Time Associated Diagnosis Comme nts NUCLEAR PHARMACOLOGIC Routine 07/02/2017 11:58 AM STRESS CARDIOLOGY EDT documented in this encounter Results Nuclear Pharmacologic Stress Cardiology (07/02/2017 11:58 AM EDT) Specimen (Source) Anatomical Location Collection Method / Collectio n Time Received Time / Laterality Volume Narrative This result has an attachment that is no t available. Ashwini Ryan APRN CARDIAC SERVICES ORDERABLES documented in this encounter Visit Diagnoses Not on filedocumented in this encounter Care Teams Pv Design Engineer Relationship Specialty Start Date End Date Jose Rafael Ivy MD PCP - General 09/14/14 08/30/[address] [place] [address] [address] [place] [address] documented as of this encounter
--- OUTSIDE RECORDS SUMMARY | 2022-06-12 12:09 | XMS_ITS | Encounter Summary ---
:1945 Author Organization [facility] [place] [address] Care Team Providers Name Role Phone Shy Gutierrez APRN Primary Care Provider Reason for Visit Reason Comments Dizziness Encounter Details Date Type Department Care Team Description 05/20/2022 Emergency Emergency Services at [facility] Jacobson MD Benign paroxysmal [facility] positional vertigo, [address] [place] [address] EMERGENCY MEDICINE [phone] [place], [place] [address] (Wo rk) Social History Tobacco [...] Sign Reading Time Taken Comments Blood Pressure 138/65 05/20/2022 3:35 PM EDT Pulse 76 05/20/2022 3:35 PM EDT Temperature 37.4 ??C (99.3 ??F) 05/20/2022 1:13 PM EDT Respiratory Rate 20 05/20/2022 3:35 PM EDT Oxygen Saturation 95% 05/20/2022 3:35 PM EDT Inhaled Oxygen Concentration - - Weight 103.4 kg (228 lb) 05/20/2022 1:13 PM EDT Height 185.4 cm (6' 1) 05/20/2022 1:13 PM EDT Body Mass Index 30.08 05/20/2022 1:13 PM EDT documented in this encounter Discharge Instructions Discharge InstructionsBiju Jacobson MD - 05/20/2022 3:15 PM EDT As we discussed, please go directly to the emergency department at [facility] to get an MRI. If anything concerning is found you will be seen by neurology. If not it is likely you will be discharged to home. Consider referral to physical therapist with vestibular training. Return for severe headache, new weakness or numbness, new gait difficulties or any other concerns. Since it is unlikely that your symptoms will resolve soon, and since travel may make your symptoms worse I would not suggest travel at this time. AttachmentsThe following attachments cannot be sent through Care Everywhere. Mariangel Maneuver: Vertigo: Exercises (Monegasque)documented in this encounter Medications at Time of Discharge Medication Sig Dispensed Refills Start Date End Date atorvastatin (Lipitor) 20 Take 20 mg by [...] documented as of this encounter ED Notes Biju Jacobson MD - 05/20/2022 3:49 PM EDT ED Attending Note 76-year-old male with history of peripheral vertigo reports episodic, triggered dizziness for approximately 1 week. He states this is more persistent and less prominent than his previous episodes. He has been taking Dramamine without improvement. He states that today he went to get out of his truck and was so unsteady that he was unable to walk prompting him to come here. Patient reports chronic tinnitus which is unchanged. He states that he needs to clear his ears occasionally but denies lateralizing ear pain. He denies headache, focal wound weakness, numbness, or dysarthria. Past medical history significant for diabetes and hypertension, no known history of stroke. Social history: Patient is here with his . They are planning a trip to [place] in 2 days. Review of systems: Patient denies fevers/chills, sore throat, chest pain, shortness of breath, flank pain, dysuria, polyuria, abdominal pain, nausea/vomiting, new edema, new weakness or numbness, or rash. Well-developed, well-nourished patient in no acute distress. HEENT: Conjunctiva pink, mucous membranes moist, neck supple. Lungs: No excessive work of breathing. Clear to auscultation bilaterally. C-V: Regular rate and rhythm. No murmur appreciated. No significant JVD. Abdomen: Soft, non tender, non distended, positive bowel sounds. No rebound/guarding. Back/: No CVA tenderness Extremities: No edema, dorsalis pedis 2/4 bilaterally. Skin: Warm and dry without rash. Neuro: CN II_XII grossly intact. EOMI Distal sensation intact to LT x 4. No pronator drift [employer]/Wrist extension/Biceps/Triceps/TA/Gastrocsoleus/Quadriceps: 5/5 Bilaterally Finger to nose and heel to jeter symmetric B Toes downgoing bilaterally. ED course: Modified [place]-Hallpike maneuver performed. No nystagmus with leftward gaze but with rightward gaze noted vertical nystagmus. Because of the finding of vertical nystagmus I discussed the case with Dr. Song of neurology. Shestates this is rarely present with peripheral vertigo and so we decided to transfer the patient to [facility] for MRI. Impression: Vertigo. Based on history I suspect etiology is peripheral but vertical nystagmus is concerning for possible central etiology so we will pursue MRI today. Plan: Patient is driven to [facility] by his . Ultimate disposition will depend upon evaluation there. Biju Jacobson MD 05/20/222053 documented in this encounter Plan of Treatment Upcoming Encounters Date Type Specialty Care Team Description 07/17/2022 Office Visit Physical Therapy Ro Colvin, PT documented as of this encounter Procedures Procedure Name Priority Date/Time Associated Diagnosis Comme nts EKG 12-LEAD STAT 05/20/2022 1:11 PM Results f or this EDT procedure are i n the results section . documented in this encounter Results EKG 12 Lead (05/20/2022 1:11 PM EDT) Component Value Ref Range Test Analysis Performed Pathologis t Method Time At Signature Ventricular rate 80 BPM MUSE SYSTEM Atrial Rate 80 BPM MUSE SYSTEM P-R Interval 164 ms MUSE SYSTEM QRS Duration 104 ms MUSE SYSTEM Q-T Interval 370 ms MUSE SYSTEM QTC Calculated 426 ms MUSE SYSTEM (Bezet) Calculated P [place] 27 degrees MUSE SYSTEM Calculated R [place] -46 degrees MUSE SYSTEM Calculated T [place] 61 degrees MUSE SYSTEM INTERPRETATION Normal sinus rhythm MUSE SYSTEM Left anterior fascicular block Minimal voltage criteria for LVH, may be normal variant Nonspecific ST and T wave abnormality Abnormal ECG When compared with ECG of 02-JUL-2017 11:54, Left anterior fascicular block is now Present T wave amplitude has decreased in Inferior leads Nonspecific T wave abnormality, worse in Anterolateral leads Confirmed by MD Merry, Teddy Adame ([id number]) on 05/22/2022 10:10: 02 AM Specimen Anatomical Collection Method Collection Time Receive d Time (Source) Location / / Volume Laterality 05/20/2022 1:11 PM EDT 10:10 AM EDT Biju Jacobson MD ECG ORDERABLES Performing Organization Address City/State/ZIP Code Phon e Number MUSE SYSTEM documented in this encounter Visit Diagnoses Diagnosis Benign paroxysmal positional vertigo, un specified laterality documented in this encounter Care Teams Manager Food Relationship Specialty Start Date End Date Shy Gutierrez APRN PCP - General Family Medicine 08/31/[address] [place] [address] documented as of this encounter
--- OUTSIDE RECORDS SUMMARY | 2022-06-12 12:09 | XMS_ITS | Encounter Summary ---
:1945 [place] [address] Care Team Providers Name Role Phone Shy Gutierrez APRN Primary Care Provider Reason for Referral Physical Therapy (Routine) - Authorized Specialty Diagnoses / Procedures Referred By Contact Refer red To Contact Physical Therapy Diagnoses Benign paroxysmal positional vertigo, unspecified laterality Jelena Treadwell MD [facility] Pt Rehab [facility] [place] [address] [place] [address] Phone: Fax: Referral ID Status Reason Start Expiration Visits Visits Date Date Requested Authorized [id number] Authorized Evaluate and 05/20/2022 05/20/2023 100 100 Treat Reason for Visit Reason Comments Hospital Transfer Encounter Details Date Type Department Care Team Description 05/20/2022 Emergency Emergency Department Saumya eYh MD Benign paroxysmal [facility] positio nal vertigo, [facility] Dr unspecified laterality [place], [place] [address] [address] (Primary Dx) [place] [address] [phone] Social History Tobacco Use Types Packs/Day Years Used Date Former Smoker Smokeless Tobacco: Never Used Comments: quit 40 yrs ago Alcohol Use Standard Drinks/Week Comments No 0 (1 standard drink = 0.6 oz pure alcoho l) Sex Assigned at Date Recorded Not on file documented as of this encounter Last Filed Vital Signs Vital Sign Reading Time Taken Comments Blood Pressure 140/87 05/20/2022 8:14 PM EDT Pulse 74 05/20/2022 8:14 PM EDT Temperature 37.1 ??C (98.7 ??F) 05/20/2022 8:14 PM EDT Respiratory Rate 18 05/20/2022 8:14 PM EDT Oxygen Saturation 97% 05/20/2022 8:14 PM EDT Inhaled Oxygen Concentration - - Weight 103.4 kg (227 lb 15.3 oz) 05/20/2022 4:01 PM EDT Height - - Body Mass Index 30.08 05/20/2022 1:13 PM EDT documented in this encounter Discharge Instructions Discharge InstructionsJelena Treadwell MD - 05/20/2022 7:58 PM EDT You were seen in the Emergency Department for Benign Paroxysmal Positional Vertigo. You received an MRI of your brain which was normal and showed no evidence of stroke. You have been referred to outpatient vestibular physical therapy for symptoms of vertigo. You will be contacted by a management developer to arrange an intake appointment. Please return to the ED or call 911 if you experience worsening vertigo, nausea, vomiting, new-onsetweakness or facial droop, confusion or worsening unsteadiness on your feet. Please also return to the ED if you develop any new symptoms that are emergently concerning to you. Please call [facility]'s main campus line ([phone]) with any further questions. It is recommended that you follow up with your primary care provider within 7 days of discharge from the ED. AttachmentsThe following attachments cannot be sent through Care Everywhere.BPPV (Benign Paroxysmal Positional Vertigo) (Beninese)Mariangel Maneuver: Vertigo: Exercises (Beninese)documented in this encounter Medications at Time of Discharge Medication Sig Dispensed Refills Start Date End Date aspirin EC 81 mg Tablet, Take 81 [...] documented as of this encounter ED Notes Guillermina Marks RN - 05/20/2022 5:11 PM EDT Pt to MRI Jelena Treadwell MD - 05/20/2022 4:51 PM EDT ED Resident Note HPI: Tino Hart is a 76 y.o. male h/o HLD, diet-controlled DM2 & htn who presents to the Emergency Department w/ 3-4d positional dizziness and gait instability. Pt reports he was in his USOH until 3-4d prior to presentation when developed dizziness (room spinning sensation) on standing with associated gait instability (however pt denies falls), improved by sitting or lying down. Pt has a h/o episodes of BPPV remotely which always presented with vertigo when lying on one side or the other, alleviated when sitting or standing therefore reports this episode is different than previous. Pt presented to [facility] ED today and had ara-hallpike performed by Dr. Jacobson with vertical nystagmus elicited on the R therefore he was referred to [facility] for brain MRI and neuro c/s. Review of Systems Pertinent positives and negatives are included in the HPI, otherwise at least ten systems were reviewed and negative. Past Medical and Surgical Histories, Social History, Medications, Allergies were reviewed in the chart. Vitals: ED Triage Vitals [05/20/22 1601] BP: (!) 138/97 Heart Rate: 80 Resp: n/a Temp: 37.2 ??C (99 ??F) Temp src: Temporal SpO2: 96 % O2 Device: RA O2 Flow Rate (L/min): n/a Physical Exam Constitutional: Appearance: Normal appearance. HENT: Head: Normocephalic and atraumatic. Right Ear: External ear normal. Left Ear: External ear normal. Nose: Nose normal. Mouth/Throat: Pharynx: Oropharynx is clear. Eyes: Extraocular Movements: Extraocular movements intact. Pupils: Pupils are equal, round, and reactive to light. Comments: Fine continuous nystagmus on deep lateral gaze bilaterally on EOM testing. Cardiovascular: Rate and Rhythm: Normal rate and regular rhythm. Pulses: Normal pulses. Comments: Harsh holosystolic murmur heard best over aortic area Pulmonary: Effort: Pulmonary effort is normal. Breath sounds: Normal breath sounds. Abdominal: General: There is no distension. Palpations: Abdomen is soft. Tenderness: There is no abdominal tenderness. Musculoskeletal: General: Normal range of motion. Cervical back: Normal range of motion and neck supple. Skin: General: Skin is warm and dry. Neurological: Mental Status: He is alert. Comments: Mild rotatory nystagmus elicited on R ara-hallpike, no nystagmus on L. +mild dysdiachokinesia on L, +mild dysmetria on rzzowi-ionc-mekgtu and heel- jeter on L. Romberg -ve but pt did sway backward. ED Course: I have reviewed labs and imaging, images and available reports, and they are significant for: Recent Results (from the past 24 hour(s)) Prothrombin Time Result Value Ref Range PT 12.0 9.4 - 12.5 sec INR 1.1 APTT Result Value Ref Range PTT 29 25 - 37 sec Lipid Panel (Reflex Direct LDL) Result Value Ref Range Chol, Total 151 mg/dL Triglycerides 291 mg/dL HDL 33 mg/dL LDL Cholesterol 60 mg/dL Chol/HDL Ratio 4.6 ratio Lipid Interpretation See Note Hemoglobin A1c Result Value Ref Range Hemoglobin A1C 7.8 (H) 4.3 - 5.6 % Est Avg Gluc See note mg/dL Comprehensive metabolic panel (non-fasting) Result Value Ref Range Glucose Lvl 150 65 - 199 mg/dL BUN 25 (H) 10 - 20 mg/dL Creatinine 1.19 0.80 - 1.50 mg/dL Sodium 140 135 - 145 mmol/L Potassium 3.9 3.5 - 5.0 mmol/L Chloride 104 98 - 107 mmol/L CO2 24 22 - 31 mmol/L Anion Gap 12 5 - 15 mmol/L Calcium 9.2 8.5 - 10.5 mg/dL Total Protein 7.0 6.1 - 8.0 g/dL Albumin 4.3 3.2 - 5.2 g/dL AST 12 0 - 39 unit/L ALT 19 0 - 55 unit/L Alk Phos 90 40 - 130 unit/L Total Bilirubin 0.6 0.2 - 1.3 mg/dL Estimated GFR 64 >=60 mL/min/1.73 m?? Hemogram Result Value Ref Range WBC 8.3 4.0 - 9.5 x10(3)/mcL RBC 5.00 4.58 - 5.54 x10(6)/mcL Hemoglobin 15.9 13.7 - 16.5 g/dL Hematocrit 44.2 40.5 - 48.5 % MCV 88.4 82.9 - 93.1 fL MCH 31.8 27.5 - 32.1 pg MCHC 36.0 (H) 32.0 - 35.7 g/dL Platelets 228 145 - 357 x10(3)/mcL RDWSD 38.1 36.0 - 45.0 fL RDWCV 11.9 11.4 - 13.8 % MPV 10.2 7.6 - 12.9 fL nRBC % Auto 0.0 % nRBC Abs Auto 0.000 0.000 - 0.000 x10(3)/mcL Differential, Automated Result Value Ref Range Neutrophils % 57.9 % Neutr Abs (ANC) 4.79 1.70 - 6.10 x10(3)/mcL Lymphocytes % 32.1 % Lymphocytes Abs 2.7 0.9 - 3.2 x10(3)/mcL Monocytes % 7.7 % Monocyte Abs 0.6 0.3 - 0.9 x10(3)/mcL Eosinophils % 1.3 % Eosinophils Abs 0.1 0.0 - 0.4 x10(3)/mcL Basophils % 0.6 % Basophils Abs 0.0 0.0 - 0.1 x10(3)/mcL Immature Gran % 0.40 % Debra Gran Abs 0.03 0.00 - 0.04 x10(3)/mcL MRI Brain wwo Contrast (Generic) Final Result No diffusion restriction, mass or mass effect. Essentially unremarkable postcontrast MRI brain. Thank you for letting us participate in the care of this patient. If you are a health care provider and have any questions regarding this report, please contact the number below. For patients who have questions please contact the health personal care worker that requested your imaging first. Assessment and Plan: Tino Hart is a 76 y.o. male h/o HLD, diet-controlled DM2 & htn who presents to the Emergency Department w/ 3-4d positional dizziness and gait instability. MRI brain -ve for stroke (cerebellar suspected in setting of gait ataxia & vertical nystagmus, which was not observed at [facility]) or explanatory intracranial pathology therefore presentation appears consistent with BPPV, which patient has reportedly had before. Neuro called for evaluation and agreed with this assessment. Referral for vestibular PT placed and pt in agreement with plan for discharge with PCP f/u within 7d. Of note per neurology t/w's exam findings likely consistent with action tremor as opposed to dysmetria or dysdiachokinesia. The visit findings, diagnosis, and care plan were discussed with the patient. The diagnosis and care plans discussions were outlined in the discharge instructions. The patient expressed understanding of the details of the visit, the return precautions and that he should return to the ER at any time for worsening symptoms, new symptoms, or other concerns. he agrees with the follow- up plan. Jelena Treadwell MD Resident 05/20/222009 Associated attestation - Ashwini Yeh MD - 05/20/2022 11:09 PM EDT ED ATTENDING ATTESTATION The patient was seen in conjunction with the resident physician. I have independently performed the bragg portions of the history and physical exam. I have personally reviewed nursing notes, vital signs,and diagnostic studies including labs, imaging studies and EKGs. I have discussed the details of the case with the resident and agree with the assessment and plan as described in the resident's note, unless stated otherwise in my separate note. Did this case involve critical care? No Guillermina Marks RN - 05/20/2022 4:40 PM EDT Pt ambulated to BR Ashwini Yeh MD - 05/20/2022 4:36 PM EDT Brief Attending Note I cared for the patient with the resident physician. Please see Dr. Treadwell's note, associated withthe encounter, for more details. HPI: Tino Hart is a 76 y.o. who presents to the ED from [facility] for new finding of vertical nystagmus associated with vertigo and gait ataxia. 3 days ago developed room spinning sensation when lying down and turning in bed, worse when standing. He denies any falls. No hearing loss,but has feeling of pulse in his ears that sound like bongos, no chest pain or SOB, no n/v/d. PMH metabolic syndrome, HTN. Has had BPPV in the past, but this is worse. ED Course: Mild hypertension,but otherwise VSS DickHallpike exam did not show nystagmus on arrival, but was seen while in the ED at [facility]. Fine nystagmus noted lateral gaze bilaterally. Harsh holosystolic murmer noted on cardiac exam. GCS 15. No focal weakness. Neg. Rhomberg - but did have to hold one to something if he stood long. + difficulty with heal-to jeter on the left, ccgqwi-dy-vska on left - worse when close to target - not past pointing. , + adiadokokinesia on left. Has an intention tremor that impacts this. Neuro consult - peripheral vertigo. No central etiology identified. MRI w/wo contrast - neg Results for orders placed or performed during the hospital encounter of 05/20/22 MRI Brain wwo Contrast (Generic) (Exam End: 05/20/2022 5:50 PM) Impression No diffusion restriction, mass or mass effect. Essentially unremarkable postcontrast MRI brain. Thank you for letting us participate in the care of this patient. If you are a health care provider and have any questions regarding this report, please contact the number below. For patients who have questions please contact the health personal care worker that requested your imaging first. Ambulatory in the ED. Assessment/plan: Positional vertigo D/c home F/u vestibular PT Return precautions. Ashwini Yeh MD 05/20/221951 Guillermina Marks RN - 05/20/2022 4:28 PM EDT Unable to get pt on monitor due to MDs assessments. documented in this encounter Miscellaneous Notes ED Triage - Karuna Rivas RN - 05/20/2022 4:01 PM EDT Coming for MRI from [facility] ED Triage - Ashwini Yeh MD - 05/20/2022 3:16 PM EDT Coming from [facility] for brain MRI. Has vertigo, vertical nystagmus, and gait instability. Neurology consult after MRI completed. documented in this encounter Plan of Treatment Upcoming Encounters Date Type Specialty Care Team Description 07/17/2022 Office Visit Physical Therapy Ro Colvin, PT Scheduled Referrals Name Type Priority Associated Diagnoses Order S chedule Referral to Outpatient Referral Routine Benign paroxysmal Ord ered: Physical Therapy positional vertigo, 04/27 unspecified laterality documented as of this encounter Procedures Procedure Name Priority Date/Time Associated Comments Diagnosis HEMOGRAM STAT 05/20/2022 7:18 PM Results f or this EDT procedure are i n the results section. DIFFERENTIAL, AUTOMATED STAT 05/20/2022 7:18 PM Results for this EDT procedure are i n the results section. HC PARTIAL STAT 05/20/2022 7:18 PM Results f or this THROMBOPLASTIN TIME EDT procedur e are in the results section. HC PROTHROMBIN TIME STAT 05/20/2022 7:18 PM Re sults for this EDT procedure are i n the results section. HC CBC,PLT & AUTO DIFF STAT 05/20/2022 7:18 PM EDT HC HEMOGLOBIN A1C STAT 05/20/2022 7:18 PM Resu lts for this EDT procedure are i n the results section. LIPID PANEL (REFLEX STAT 05/20/2022 7:18 PM Re sults for this DIRECT LDL) EDT procedure are i n the results section. COMPREHENSIVE METABOLIC STAT 05/20/2022 7:18 PM Results for this PANEL (NON-FASTING) EDT procedur e are in the results section. EKG 12-LEAD STAT 05/20/2022 5:50 PM Results f or this EDT procedure are i n the results section. MRI BRAIN WWO CONTRAST STAT 05/20/2022 5:50 PM Results for this (GENERIC) EDT procedure are i n the results section. documented in this encounter Results Differential, Automated (05/20/2022 7:18 PM EDT) P athologist Signature Neutrophils % 57.9 % [facility] Neutr Abs (ANC) 4.79 1.70 - [facility] 6.10 [facility] x10(3)/[facility] LABORATORY Lymphocytes % 32.1 % [facility] Lymphocytes Abs 2.7 0.9 - 3.2 [facility] x10(3)/[facility] LABORATORY Monocytes % 7.7 % [facility] Monocyte Abs 0.6 0.3 - 0.9 [facility] x10(3)/[facility] LABORATORY Eosinophils % 1.3 % [facility] Eosinophils Abs 0.1 0.0 - 0.4 [facility] x10(3)/[facility] LABORATORY Basophils % 0.6 % [facility] Basophils Abs 0.0 0.0 - 0.1 [facility] x10(3)/[facility] LABORATORY Immature Gran % 0.40 % [facility] Comment: Immature granulocytes(IG's)percentage an d absolute count will include metamyelocytes, myelocytes, and promyelo cytes. Blood smears from CBCs yielding IG's will be scanned manually for concor danstephanie. If this scan disagrees with the automated IG or if promyelocytes are not ed, a manual differential will be performed. Debra Gran Abs 0.03 0.00 - 0.04 x10(3)/[facility] Specimen Anatomical Collection Method Collection Time Receive d Time (Source) Location / / Volume Laterality Blood 05/20/2022 7:18 PM 7:24 EDT PM EDT Resulting Agency Comment Spec In Lab Jelena Treadwell MD HEMATOLOGY ORDERABLES Performing Organization Address City/State/[place] [address] (ABNORMAL) Hemogram (05/20/2022 7:18 PM EDT) Analysis Performed At Patho logist Time Signature WBC 8.3 4.0 - 9.5 [facility] x10(3)/[facility] LABORATORY RBC 5.00 4.58 - [facility] 5.54 [facility] x10(6)/[facility] LABORATORY Hemoglobin 15.9 13.7 - [facility] 16.5 g/dL [facility] Hematocrit 44.2 40.5 - [facility] 48.5 % [facility] MCV 88.4 82.9 - [facility] 93.1 [facility] MCH 31.8 27.5 - [facility] 32.1 pg [facility] MCHC 36.0 (H) 32.0 - [facility] 35.7 g/dL [facility] Platelets 228 145 - 357 [facility] x10(3)/[facility] LABORATORY RDWSD 38.1 36.0 - [facility] 45.0 [facility] RDWCV 11.9 11.4 - [facility] 13.8 % [facility] MPV 10.2 7.6 - 12.9 [facility] LABORATORY nRBC % Auto 0.0 % [facility] nRBC Abs Auto 0.000 0.000 - [facility] 0.000 [facility] x10(3)/[facility] LABORATORY Specimen Anatomical Collection Method Collection Time Receive d Time (Source) Location / / Volume Laterality Blood 05/20/2022 7:18 PM 7:24 EDT PM EDT Resulting Agency Comment Spec In Lab Jelena Treadwell MD HEMATOLOGY ORDERABLES Performing Organization Address City/State/[place] [address] (ABNORMAL) Comprehensive metabolic panel (non-fasting) (05/20/2022 7:18 PM EDT) P athologist Signature Glucose Lvl 150 65 - 199 [facility] mg/dL [facility] Comment: Diabetes: >=200 mg/dL plus symp toms BUN 25 (H) 10 - 20 mg/dL [facility] Creatinine 1.19 0.80 - 1.50 mg/dL [facility] Sodium 140 135 - 145 mmol/L [facility] Potassium 3.9 3.5 - 5.0 mmol/L [facility] Comment: Please note: ??Patients with WBC >100,00 0 may have falsely elevated Potassium levels. ??For accurate Potassium quantif ication in these patients send serum separator tube (gold top) for subsequent determinations. ??Contact the Clinical Chemistry Laboratory if there are any qu estions. Chloride 104 98 - 107 mmol/L [facility] CO2 24 22 - 31 mmol/L [facility] Anion Gap 12 5 - 15 mmol/L [facility] Calcium 9.2 8.5 - 10.5 mg/dL [facility] Total Protein 7.0 6.1 - 8.0 g/dL [facility] Albumin 4.3 3.2 - 5.2 g/dL [facility] AST 12 0 - 39 unit/L [facility] ALT 19 0 - 55 unit/L [facility] Alk Phos 90 40 - 130 unit/L [facility] Total Bilirubin 0.6 0.2 - 1.3 mg/dL [facility] Estimated GFR 64 >=60 mL/min/1.73 m?? [facility] Comment: This patient's estimated GFR was [...] Organization Address City/State/[place] [address] (ABNORMAL) Hemoglobin A1c (05/20/2022 7:18 PM EDT) Analysis Performed At Patho logist Time Signature Hemoglobin A1C 7.8 (H) 4.3 - 5.6 [facility] Comment: Reference Range: 4.3 [...] Mellitus, Diabetes Care 2013; 36: Suppl. 1, D29-16 Est Avg Gluc See note mg/dL [facility] Comment: Estimated Average Glucose not appropriat [...] with hemoglobinopathies. Additional resources are available on [facility] ADA website. Zak SHAW, Margaret J, Jessika R, et al. ??Tr anslating the A1C assay into estimated average glucose values. ??Diabetes Care 2008:31(8):9531-8794. Specimen Anatomical Collection Method Collection Time Receive d Time (Source) Location / / Volume Laterality Blood 05/20/2022 7:18 PM 2 7:24 EDT PM EDT Resulting Agency Comment Spec In Lab Ashwini Yeh MD CHEMISTRY ORDERABLES Performing Organization Address City/State/[place] [address] Lipid Panel (Reflex Direct LDL) (05/20/2022 7:18 PM EDT) P athologist Signature Chol, Total 151 mg/dL [facility] Comment: Lower Risk: <200 mg/dL Average Risk: 200-239 mg/dL Higher Risk: >jn=523 mg/dL Triglycerides 291 mg/dL [facility] Comment: Average Risk/Lower Risk: <150 mg/dL Borderline High Risk: 150-199 mg/dL High Risk: 200-499 mg/dL Very High Risk: >sq=230 mg/dL HDL 33 mg/dL [facility] Comment: Males: ?? Higher Risk: <40 mg/dL Females: ?? Higher Risk: <50 mg/dL LDL Cholesterol 60 mg/dL [facility] Comment: Lowest Risk: <100 mg/dL Lower Risk: 100-129 mg/dL Borderline High Risk: 130-159 mg/dL High Risk: 160-189 mg/dL Very High Risk: >mc=195 mg/dL Chol/HDL Ratio 4.6 ratio [facility] Lipid Interpretation See Note [facility] Comment: Lipid management should be guided by a p atient? s ASCVD risk, goals and preferences. ACC/AHA Guidelines recommend high intens ity statin if clinical ASCVD or LDL greater than or equal to 190 mg/dL. http://Jiff/PNY-NPN-Dpryfxzhl Adults aged 40-75 with LDL 70-189 mg/dL should have their 10 year ASCVD risk estimated with the ACC/AHA ASCVD risk es timator http://tools.acc.org/OTVQI-Vgfe-Kzdxmipt r/ Statin should be discussed if risk [...] Organization Address City/State/[place] [address] APTT (05/20/2022 7:18 PM EDT) P athologist Signature PTT 29 25 - 37 sec [facility] Comment: The PTT is NOT appropriate [...] Yeh MD HEMATOLOGY ORDERABLES Performing Organization Address City/[facility]/[place] [address] Prothrombin Time (05/20/2022 7:18 PM EDT) P athologist Signature PT 12.0 9.4 - 12.5 [facility] LABORATORY INR 1.1 [facility] Comment: An INR <2.0 indicates adequate [...] Yeh MD HEMATOLOGY ORDERABLES Performing Organization Address City/[facility]/ZIP Code Phon e Number [address] EKG 12 Lead (05/20/2022 5:50 PM EDT) Component Value Ref Range Test Analysis Performed Pathologis t Method Time At Signature Ventricular rate 73 BPM MUSE SYSTEM Atrial Rate 73 BPM MUSE SYSTEM P-R Interval 170 ms MUSE SYSTEM QRS Duration 96 ms MUSE SYSTEM Q-T Interval 402 ms MUSE SYSTEM QTC Calculated 442 ms MUSE SYSTEM (Bezet) Calculated P [place] 20 degrees MUSE SYSTEM Calculated R [place] -46 degrees MUSE SYSTEM Calculated T [place] 61 degrees MUSE SYSTEM INTERPRETATION Normal sinus [...] / / Volume Laterality 05/20/2022 5:50 PM EDT 12:26 PM EDT Ashwini Yeh MD [...] who have questions please contact the health personal care worker that requested your imaging first. ? Narrative [...] ho have questions please contact the health personal care worker that requested your imaging first. Ashwini Yeh MD IMG MRI ORDERABLES documented in this encounter Visit Diagnoses Diagnosis Benign paroxysmal positional vertigo, un specified laterality - Primary documented in this encounter Administered Medications Inactive Administered Medications - up to 3 most recent administrations Medication Order MAR Action Action Date Dose Rate Site gadoterate meglumine (Dotarem) Given 05/20/2022 5:50 PM EDT 20 m Ls (0.5 mMol/mL) injection solution 0-100 mL 0-100 mL, Intravenous, ONCE PRN, 1 dose, Starting on 05/20/22 at 1750, Until 05/20/22 at 1750, Per Protocol, Radiology Contrast, Routine documented in this encounter Active and Recently Administered Medications Times are shown in EDT. PRN Medication Order 05/18/2022 05/19/2022 05/20/2022 gadoterate meglumine (Dotarem) (0.5 mMol /mL) injection solution 0-100 mL (COMPLETED) 1750 (Given - Provid er: Biju Sexton) 0-100 mL, Intravenous, ONCE PRN, 1 dose, Starting on 05/20/22 at 1750, Until 05/20/22 at 1750, Per Protocol, Radiology Contrast, Routine documented in this encounter Care Teams Psychiatry Teacher Relationship Specialty Start Date End Date Shy Gutierrez, EMPLOYMENT ADVISOR PCP - General Family Medicine 08/31/20 93 [place] [address] [address] [place] [address] documented as of this encounter
--- OUTSIDE RECORDS SUMMARY | 2022-06-12 12:09 | XMS_ITS | Encounter Summary ---
:1945 Author Organization [facility] [place] [address] Care Team Providers Name Role Phone Unknown Primary Care Provider Unavailable Encounter Details Date Type Department Care Team Description 01/24/2011 Office [place] [facility] [place], [facility] [place] [address] [facility] [phone] ORTHOPAEDIC SURG [place], [place] 0[address] (Wo rk) Social History Tobacco Use Types Packs/Day Years Used Date Never Assessed Sex Assigned at Date Recorded Not on file documented as of this encounter Plan of Treatment Upcoming Encounters Date Type Specialty Care Team Description 07/17/2022 Office Visit Physical Therapy Ro Colvin, PT documented as of this encounter Visit Diagnoses Not on filedocumented in this encounter Care Teams Information Assurance Officer Relationship Specialty Start Date End Date Unknown PCP - General 01/24/11 09/13/14 None documented as of this encounter
--- OUTSIDE RECORDS SUMMARY | 2022-06-12 12:10 | XMS_ITS | Encounter Summary ---
:1945 Author Organization [facility] Address [address] [place] [address] Care Team Providers Name Role Phone Jose Rafael Ivy MD Primary Care Provider Unavailable Encounter Details Date Type Department Care Team Description 02/15/2022 Lab Requisition [facility] Outr Resulting Lab, Pathology & Laboratory Provider [facility] [address] [place] [address] Social History Tobacco Use Types Packs/Day Years Used Date Never Assessed Sex Assigned at Date Recorded Not on file documented as of this encounter Plan of Treatment Not on filedocumented as of this encounter Procedures Procedure Name Priority Date/Time Associated Comments Diagnosis PSA TOTAL, Routine 02/14/2022 16:00 Results for this DIAGNOSTIC EDT procedure are i n the results section. documented in this encounter Results (ABNORMAL) PSA TOTAL, DIAGNOSTIC (02/14/2022 16:00 EDT) Pathologist Sig nature PSA 12.4 (H) 0.0 - 6.5 ng/mL [facility] Specimen Blood - Venous blood (substance) Narrative [facility] - 02/15/2022 18:20 EDT NOTE: Serum PSA concentration should not be in terpreted as absolute evidence for the presence or absence of malignant disease. Assayed on Siemens ADVIA Centaur XPT usi ng chemiluminescent technology.??Values obtained by using different assay methods cannot be used interchangeably. Performing Organization Address City/State/ZIP Code Phon e Number [facility] [address] [place] [address] SERVICES documented in this encounter Visit Diagnoses Not on filedocumented in this encounter Care Teams Piano Player Relationship Specialty Start Date End Date Jose Rafael Ivy MD PCP - General 02/10/20 documented as of this encounter
--- OUTSIDE RECORDS SUMMARY | 2022-06-12 12:10 | XMS_ITS | Encounter Summary ---
:1945 Author Organization [facility] Address [address] [place] [address] Care Team Providers Name Role Phone Unavailable Primary Care Provider Unavailable Encounter Details Date Type Department Care Team Description 12/02/2013 Results Only [facility] Won Greenberg, DO [phone] [place] [address] [place] [address] (Wo rk) Social History Tobacco Use Types Packs/Day Years Used Date Never Assessed Sex Assigned at Date Recorded Not on file documented as of this encounter Plan of Treatment Not on filedocumented as of this encounter Procedures Procedure Name Priority Date/Time Associated Diagnosis Comme [facility] SURGICAL PATHOLOGY Routine 12/02/2013 8:44 EST Re sults for this procedure are i n the results section. documented in this encounter Results SURGICAL PATHOLOGY (12/02/2013 8:44 EST) Pathology Report: SURGICAL PATHOLOGY REPORT BECKFORDJACKELYN ELLIOTTANETTE Reports generated via electronic interface contain heidy ginal data; LAB however they are lacking the format of the original re port. Caution should be taken when reading/interpreting unfo rmatted reports. Name: ? TINO HART ? Accession #: ? [id number] ? : ? 1945 (Age: 68) ??M ? Collect Date: ? 12/02/2013 ? Location: ? [facility] ? Receive Date: ? 014 ? Provider: WON GREENBERG DO Copy to: ALPHONSO LEE MD ? Final Pathologic Diagnosis: SKIN OF AXILLA, LEFT, BIOPSY: - Seborrheic keratosis, irritated and inflamed. ?? Microscopic Description: The stratum corneum is thick ened by compact and basketweave orthokeratosis with formation of horn pseudocysts. ??The epi dermis is acanthotic with formation of broad and anastomosing trabeculae. ??The trabeculae ar e composed of basaloid keratinocytes with round uniform nuclei. ??The keratin ocytes have a variable amount of melanin pigment. ??(Dr. Rm)/n Document reviewed and electronically signed by: MARIA INES RM MD Report ??Date: 12/04/2013 12:12 By the signature above, the attending physician certif ies that he/she has personally conducted a gross and/or microscopic examin ation of the described specimens and rendered or confirmed the above diagnosi s. Specimen(s) Received: Excision lesion left axilla Clinical History: Not listed Gross Description: Received in formalin arcdaio d with proper patient identification (initials M, K) and lesion left axilla is a shave biopsy of an irregular torrez-brown bosselated hairbearing nodule (2.0 x 1. 6 x 0.8 cm). ??Serially sectioned and submitted in 1 through 3. Pratima Conway 12/03/2013 10:36 AM End of Report Specimen Performing Organization Address City/State/ZIP Code Phon e Number [facility] [address] [place] [address] SERVICES [facility] [address] [place] [address] documented in this encounter Visit Diagnoses Not on filedocumented in this encounter
--- OUTSIDE RECORDS SUMMARY | 2022-06-12 12:10 | XMS_ITS | Clinical Summary ---
:1945 Author Organization [facility] Address [address] [place] [address] Care Team Providers Name Role Phone Jose Rafael Ivy MD Primary Care Provider Unavailable Social History Tobacco Use Types Packs/Day Years Used Date Never Assessed Sex Assigned at Date Recorded Not on file Plan of Treatment Health Maintenance Due Date Last Done Comments Hepatitis C Screen 1945 COVID-19 Vaccine (1) 1951 Fall Risk Screening 2011 Insurance Payer Benefit Plan Subscriber ID Effective Phone Address Typ e / Group Dates MEDICARE MEDICARE A/B [id number] 2012-Prese [address] Medicare [address] [place] [address] MUTUAL OF MUTUAL OF [id number] 2016-Prese [id number] [place] [address] [phone] (Work) Tino Hart Personal/Famil Self [address] (Home) [place], [place] [phone] (Work) Tino Hart Personal/Famil Self [address] (Home) [place], [place] [phone] (Work) Tino Hart Personal/Famil Self [address] (Home) [place], [place] [phone] (Work) Tino Hart Personal/Famil Self [address] (Home) [place], [place] [phone] (Work) Care Teams Inspector Fuel Hose Relationship Specialty Start Date End Date Jose Rafael Ivy MD PCP - General 02/10/20
--- OUTSIDE RECORDS SUMMARY | 2022-06-12 12:10 | XMS_ITS | Encounter Summary ---
:1945 Author Organization [facility] Address [address] [place] [address] Care Team Providers Name Role Phone Unavailable Primary Care Provider Unavailable Encounter Details Date Type Department Care Team Description 12/04/2007 Results Only [facility] - Jose Rafael Avila MD conversion [address] [place] [phone] Social History Tobacco Use Types Packs/Day Years Used Date Never Assessed Sex Assigned at Date Recorded Not on file documented as of this encounter Plan of Treatment Not on filedocumented as of this encounter Procedures Procedure Name Priority Date/Time Associated Diagnosis Comme nts SURGICAL PATHOLOGY Routine 12/04/2007 0:00 EST Re sults for this procedure are i n the results section. documented in this encounter Results SURGICAL PATHOLOGY (12/04/2007 0:00 EST) Pathology Report: SURGICAL PATHOLOGY REPORT [facility]KE[facility] TOUSSAINT Reports generated via electronic interface contain heidy ginal data; LAB however they are lacking the format of the original re port. Caution should be taken when reading/interpreting unfo rmatted reports. Name: ? TINO GRIGSBY ? Accession #: ? [id number] ? : ? 1945 (Age: 62) ??M ? Collect Date: ? 12/04/2007 ? Location: ? [facility] ? Receive Date: ? 008 ? Provider: RUPALI GARCIA MD Copy to: MARLENA SRINIVASAN MD ? Final Pathologic Diagnosis: A. ?Colon, 10 cm, polyps, biopsies: 1. ?Inflamed hyperplastic polyp. 2. ?Polypoid fragment of vegetable materi al. B. ?Colon, 1 cm, polyp, biopsy: 1. ?Hyperplastic polyp. Document reviewed and electronically signed by: ROSA DAMON MD Report ??Date: 12/06/2007 15:17 By the signature above, the attending physician certif ies that he/she has personally conducted a gross and/or microscopic examin ation of the described specimens and rendered or confirmed the above diagnosi s. Specimen(s) Received: A. ?Polyp @ 10 cm x2 B. ? Polyp @ 1 cm Clinical History: ? Hx of polyps Gross Description: ? Received in Hollande' s fixative labelled Tanner and #1 ??polyp at 10 cm x2 are two biopsies measuri ng 0.2 x 0.2 x 0.2 cm and 0.3 x 0.2 x 0.2 cm. ??Also present in the specimen cont ainer are four fragments of vegetable material which vary in size from 0.1 x 0.1 by less than 0.1 cm up to 0.5 x 0.3 x 0.3 cm. ??The specimens are submitted intact as (A1) and (A2), respe ctively. Received in Hollande's fixative labelled Tanner and #2 ??polyp at 1 cm is a 0.3 x 0.3 x 0.3 cm polypoid biopsy. ??Th e specimen is submitted intact as (B). (Clifford Padron/[facility] End of Report Specimen Performing Organization Address City/State/ZIP Code Phon e Number [facility] [address] [place] [address] SERVICES [facility] [address] [place] [address] documented in this encounter Visit Diagnoses Not on filedocumented in this encounter
--- OUTSIDE RECORDS SUMMARY | 2022-06-12 12:10 | XMS_ITS | Encounter Summary ---
:1945 Author Organization [facility] Address [address] [place] [address] Care Team Providers Name Role Phone Unavailable Primary Care Provider Unavailable Encounter Details Date Type Department Care Team Description 12/02/2013 Hospital Encounter [facility]- Ana M Palacios, Provider, [facility] 0 [facility] [phone] [place] [address] (Work) [phone] Social History Tobacco Use Types Packs/Day Years Used Date Never Assessed Sex Assigned at Date Recorded Not on file documented as of this encounter Discharge Disposition Disposition Code Departure Means Destination Home or Self [facility] documented in this encounter Plan of Treatment Not on filedocumented as of this encounter Visit Diagnoses Not on filedocumented in this encounter
--- OUTSIDE RECORDS SUMMARY | 2022-06-12 12:10 | XMS_ITS | Encounter Summary ---
:1945 Author Organization [facility] Address [address] [place] [address] Care Team Providers Name Role Phone Jose Rafael Ivy MD Primary Care Provider Unavailable Encounter Details Date Type Department Care Team Description 07/13/2021 Lab Requisition [facility] Alan Silva for Pathology & MD [place] screening for Laboratory Medicine [address] malignant neoplasm - [place], [place] of colon [address] [facility] [address] [place] [address] Social History Tobacco Use Types Packs/Day Years Used Date Never Assessed Sex Assigned at Date Recorded Not on file documented as of this encounter Plan of Treatment Not on filedocumented as of this encounter Procedures Procedure Name Priority Date/Time Associated Diagnosis Comme nts SURGICAL PATHOLOGY Today 07/13/2021 9:15 EDT Encounter for R esults for this screening for procedure are in malignant neoplasm the resul ts of colon section. documented in this encounter Results SURGICAL PATHOLOGY (07/13/2021 9:15 EDT) Note to Patient The following [facility] pathology results CENTER have been interpreted LABORATORY by your pathologist SERVICES and may be available to you before your health provider has had the opportunity to review them. Please allow time for your provider to receive these results and explore management options, if applicable. Final Diagnosis A. RECTUM, POLYPS, BIOPSY: [facility] - Hyperplastic polyps. CENTER LABORATORY B. COLON, CECUM, POLYP, POLYPECTOMY: SERV ICES - Benign submucosal lipoma. C. COLON, ASCENDING, POLYP, BIOPSY: - Fragments of sessile serrated adenoma. D. COLON, SIGMOID, POLYPS, BIOPSY: - Hyperplastic polyps. Attestation By the signature [facility] Electronica lly below, the attending CENTER signed by Amber physician certifies LABORATORY MD [place] on that they have 1) SERVICES 07/15/2021 at 1631 personally conducted a gross and/or microscopic examination of the described specimen(s), and/or personally interpreted the results of laboratory testing of the described specimen(s), and 2) personally rendered or confirmed the above diagnosis. Clinical History Screening for colon [facility] cancer; clinical CENTER diagnosis code: LABORATORY Z12.11 SERVICES Gross Description A. [facility] Received in formalin arcadio d with proper patient identification (initials M, K) and rectal polyps x2 are 2 light aguirre tissues measuring 0.2 x 0.2 x 0.1 cm and 0.3 x 0.3 x 0.1 cm. Submitted intact in A1. CENTER LABORATORY B. SERVICES Received in formalin arcadio d with proper patient identification (initials M, K) and cecal polyp is a aguirre-red polypoid structure measuring 1.5 x 1.5 x 1.2 cm. The specimen has a homogeneous aguirre-yellow cut surface. Serially sectioned and submitted entirel y in B1-B2. C. Received in formalin arcadio d with proper patient identification (initials M, K) and ascending colon polyp are 2 aguirre-pink tissues measuring 0.3 x 0.2 x 0.1 cm and 0.4 x 0.3 x 0.1 cm. Submitted intact in C1. D. Received in formalin arcadio d with proper patient identification (initials M, K) and sigmoid colon polyp x2 are 2 aguirre-pink tissues measuring 0.3 x 0.2 x 0.1 cm and 0.2 x 0.2 x 0.2 cm. Submitted intact in D1. HELDER LOPEZ(ASCP) 07/13/2021 18:47 Performing Lab [facility] Scanned Images [facility] Specimen Tissue - Entire sigmoid colon (body stru cture) Tissue specimen (specimen) - Cecum struc ture (body structure) Tissue specimen (specimen) - Ascending c olon structure (body structure) Tissue specimen (specimen) - Entire sigm oid colon (body structure) Performing Organization Address City/State/ZIP Code Phon e Number [facility] [address] [place] [address] SERVICES documented in this encounter Visit Diagnoses Diagnosis Encounter for screening for malignant ne oplasm of colon Special screening for malignant neoplasm s, colon documented in this encounter Care Teams Sewer Bricklayer Relationship Specialty Start Date End Date Jose Rafael Ivy MD PCP - General 02/10/20 documented as of this encounter
--- OUTSIDE RECORDS SUMMARY | 2022-06-12 12:10 | XMS_ITS | Encounter Summary ---
:1945 Author Organization [facility] Address [address] [place] [address] Care Team Providers Name Role Phone Jose Rafael Ivy MD Primary Care Provider Unavailable Encounter Details Date Type Department Care Team Description 01/06/2021 Lab Requisition [facility] Outr Resulting Lab, Pathology & Laboratory Provider [facility] [address] [place] [address] Social History Tobacco Use Types Packs/Day Years Used Date Never Assessed Sex Assigned at Date Recorded Not on file documented as of this encounter Plan of Treatment Not on filedocumented as of this encounter Procedures Procedure Name Priority Date/Time Associated Comments Diagnosis PSA TOTAL, Routine 01/06/2021 9:02 EST Results for this DIAGNOSTIC procedure are i n the results section. documented in this encounter Results (ABNORMAL) PSA TOTAL, DIAGNOSTIC (01/06/2021 9:02 EST) Pathologist Sig nature PSA 15.2 (H) 0.0 - 6.5 ng/mL [facility] Specimen Blood - Venous blood (substance) Narrative [facility] - 01/06/2021 22:12 EST NOTE: Serum PSA concentration should not be in terpreted as absolute evidence for the presence or absence of malignant disease. Assayed on Siemens ADVIA Centaur XPT usi ng chemiluminescent technology.??Values obtained by using different assay methods cannot be used interchangeably. Performing Organization Address City/State/ZIP Code Phon e Number [facility] [address] [place] [address] SERVICES documented in this encounter Visit Diagnoses Not on filedocumented in this encounter Care Teams Cook Pie Relationship Specialty Start Date End Date Jose Rafael Ivy MD PCP - General 02/10/20 documented as of this encounter
--- NOTE | 2022-06-12 15:26 | ED.GENADUL_ITS ---
Discharge Plan Disposition Patient Disposition: HOME Condition: Stable Discharge Details Clinical Impression: Spinal stenosis, Acute UTI (urinary tract infection) Primary Care Provider: Jas Darden ED Provider: Deuce Schofield Home Meds and New Rx's Prescriptions: New cefpodoxime 200 mg tablet 200 mg PO BID 7 Days Qty: 14 0RF Rx Instructions: must administer with a meal/food lidocaine [Lidoderm] 5 % adhesive patch,medicated 1 patch topical DAILY Qty: 15 0RF Rx Instructions: leave on most painful area for up to 12 hrs cyclobenzaprine 5 mg tablet 5 mg PO TID PRN (Reason: muscle spasm) Qty: 10 0RF No Action aspirin [Adult Low Dose Aspirin] 81 mg tablet,delayed release (DR/EC) 81 mg PO DAILY Qty: 90 3RF ibuprofen 200 mg tablet 400 mg PO Q6H PRN (DME) FreeStyle Anamika 14 Day Sensor Kit See Rx Instructions .ROUTE .MEDSUPPLY Qty: 1 0RF Rx Instructions: As directed (DME) FreeStyle Anamika 14 Day [place] Misc See Rx Instructions .ROUTE .MEDSUPPLY Qty: 1 0RF Rx Instructions: As directed Dramamine 50 mg tablet,chewable 50 mg PO Q8H Qty: 30 0RF metformin 500 mg tablet 500 mg PO BID Qty: 180 3RF (DME) lancets 1 EACH misc 1 ea Miscellaneous DAILY Qty: 100 Rx Instructions: FOR ONE TOUCH ULTRA MINI METER. NO INSULIN. DIAGNOSIS CODE 250.02 (DME) blood-glucose meter Misc 1 ea Miscellaneous ONCE Qty: 1 0RF Rx Instructions: ONE TOUCH ULTRA MINI Dx E11.9. Check BS Daily (DME) blood sugar diagnostic Strip 1 ea Miscellaneous DAILY Qty: 100 5RF Rx Instructions: Test Daily atorvastatin 20 mg tablet 20 mg PO DAILY Qty: 90 4RF metoprolol succinate 50 mg tablet extended release 24 hr 50 mg PO DAILY Qty: 90 4RF lisinopril-hydrochlorothiazide 20-25 mg tablet 1 tab PO DAILY Discharge Instructions Instructions: Urinary Tract Infection in Men (ED), Lumbar Spinal Stenosis (ED) Additional Instructions: Please follow-up with Dr. Yi of urology and follow-up with spinal specialist at [facility]. Please return to the emergency department you develop worsening symptoms specifically but not limited to worsening back pain loss of bowel or bladder control numbness or change in sensation in your groin or lower extremities, weakness falls or other abnormal symptoms. Medical Decision Making 76-year-old male presents with atraumatic right lower back pain over the past 4 to 5 days, no midline spinal tenderness, afebrile, no urinary symptoms, full strength and sensation lower extremities, ambulatory without assistance, reproduction of right low back pain with hip flexion, also worse when patient goes from a seated to standing position, high clinical suspicion for spinal stenosis versus lumbar nerve impingement, less likely sciatica, low suspicion for cauda equina spinal epidural hematoma or infectious process given history and physical. Will trial analgesia and anti-inflammatory as well as muscle relaxant and topical pain patch. Will obtain UA. Lower suspicion for pyelonephritis or kidney stone given history and physical. Pending symptomatology after medications will discharge home if improved otherwise will consider obtaining labs and imaging 20: 05 patient resting comfortably no acute distress neurologically intact. Evidence of spinal stenosis. Intrarenal kidney stones with renal cyst the patient is already aware of. We will treat for possible UTI although patient does not have any urinary symptoms such as dysuria urinary frequency or foul- smelling urine. Patient endorses that he has had abnormal urinalysis in the past and has not been treated. Low suspicion for pyelonephritis. Patient to follow with Dr. Yi of urology and will be given follow-up with spinal team at [facility]. Given strict return precautions for worsening neurologic symptomatology HPI General Date/Time Provider Initiated Documentation: 06/12/22 15:15 . HPI Narrative: 76-year-old male presents with 4 to 5 days of atraumatic right lower back discomfort worse with movement specifically lateral movement of the lower back and going from a sitting to standing position. Denies urinary symptoms such as burning when he pees or testicular pain. Denies history of kidney stones. Denies history of spinal surgery. No fevers chills or rash. Has had intermittently elevated PSA levels that have gone down and occasionally has blood in his urine and is followed by Dr. Yi of urology. Patient denies any change in sensation in the perineal region. Denies any falls. Related Data Home Medications Medication Instructions Recorded Confirmed lancets 28 gauge #100 ea 09/17/14 06/09/22 blood-glucose meter #1 ea 08/13/20 06/09/22 aspirin 81 mg tablet,delayed 81 mg PO DAILY #90 tabs 08/27/20 06/12/22 release (Adult Low Dose Aspirin) blood sugar diagnostic #100 strips 09/28/20 06/09/22 flash glucose scanning reader #1 ea 10/12/20 06/09/22 (FreeStyle Anamika 14 Day [place]) flash glucose sensor (FreeStyle #1 ea 10/12/20 06/09/22 Anamika 14 Day Sensor kit) atorvastatin 20 mg tablet 20 mg PO DAILY #90 tabs 12/02/21 06/12/22 metoprolol succinate 50 mg 50 mg PO DAILY #90 tab-caps 02/23/22 06/12/22 tablet,extended release 24 hr dimenhydrinate 50 mg chewable 50 mg PO Q8H #30 tabs 04/10/22 06/12/22 tablet (Dramamine) metformin 500 mg tablet 500 mg PO BID #180 tabs 04/10/22 06/12/22 cefpodoxime 200 mg tablet 200 mg PO BID 7 days #14 tabs 06/12/22 cyclobenzaprine 5 mg tablet 5 mg PO TID PRN muscle spasm #10 06/12/22 tabs ibuprofen 200 mg tablet 400 mg PO Q6H PRN 06/12/22 06/12/22 lidocaine 5 % topical patch 1 patch topical DAILY #15 ea 06/12/22 (Lidoderm) lisinopril 20 1 tab PO DAILY 06/12/22 06/12/22 mg-hydrochlorothiazide 25 mg tablet Previous Rx's Medication Instructions Recorded blood-glucose meter #1 ea 08/13/20 aspirin 81 mg tablet,delayed 81 mg PO DAILY #90 tabs 08/27/20 release (Adult Low Dose Aspirin) blood sugar diagnostic #100 strips 09/28/20 flash glucose scanning reader #1 ea 10/12/20 (FreeStyle Anamika 14 Day [place]) flash glucose sensor (FreeStyle #1 ea 10/12/20 Anamika 14 Day Sensor kit) atorvastatin 20 mg tablet 20 mg PO DAILY #90 tabs 12/02/21 metoprolol succinate 50 mg 50 mg PO DAILY #90 tab-caps 02/23/22 tablet,extended release 24 hr dimenhydrinate 50 mg chewable 50 mg PO Q8H #30 tabs 04/10/22 tablet (Dramamine) metformin 500 mg tablet 500 mg PO BID #180 tabs 04/10/22 cefpodoxime 200 mg tablet 200 mg PO BID 7 days #14 tabs 06/12/22 cyclobenzaprine 5 mg tablet 5 mg PO TID PRN muscle spasm #10 06/12/22 tabs lidocaine 5 % topical patch 1 patch topical DAILY #15 ea 06/12/22 (Lidoderm) Allergies Allergy/AdvReac Type Severity Reaction Status Date / Time No Known Allergies Allergy Verified 06/12/22 12:02 General Stated Complaint: Nk/Back Pain ROSALIO: 4 Review of Systems Narrative: Review of Systems Constitutional: negative Eyes: negative ENT: negative Cardiovascular: negative Respiratory: negative Gastrointestinal: negative : negative Musculoskeletal: Back pain Skin: negative Neurologic: negative Psych: negative PFSH All Active Problems (Updated 06/12/22 @ 20:12 by Deuce Schofield MD) Spinal stenosis (Acute) Acute UTI (urinary tract infection) (Acute) Vertigo (Acute) Serrated adenoma of colon (Acute ~06/2021) Colon polyp, hyperplastic (Acute ~06/2021) x4 Shoulder pain (Acute) left arthroscopy Diabetes (Acute 09/25/14) Testicular mass (Acute) Actinic keratosis (Acute) Essential hypertension (Acute 12/24/13) Family history of prostate cancer (Acute) BPH rising PSA Hyperlipidemia (Acute 04/25/13) Osteoarthritis (Acute) Elevated PSA (Acute) Tinnitus (Acute) Surgical History (Updated 09/14/21 @ 16:18 by Debora Trujillo) Arthroscopy, Shoulder Left only History of arthroscopy of both knees History of arthroscopy of knee History of colonoscopy (~06/2021) Status post arthroscopy of shoulder Family History Mother Diabetes Father Personal history of malignant neoplasm Breast Sister Personal history of malignant neoplasm Ovarian Brother No problems noted. Grandfather No problems noted. Grandfather No problems noted. Grandmother No problems noted. Grandmother No problems noted. Social History (Updated 04/10/22 @ 12:49 by Kamini Jha) Smoking/Tobacco Use Status: Former Tobacco Use tobacco type: cigarettes Quit Date: 11/26/77 Tobacco: How many years used: 10 Second Hand Exposure: Yes Smoking risk assessment performed?: Yes Alcohol Intake: current Alcohol Intake frequency: holidays/special occasions only Alcohol type: beer, wine and hard liquor Drug use: Never Substance use type: does not use Household members: spouse Housing: house Communication Needs: None Do you need help understanding health information?: Never Sexually active: Yes Do you think of yourself as: straight/heterosexual Current gender identity: male What is your relationship status?: How often do you talk on the phone with friends or family?: three or more times per week How often do you get together with friends or relatives?: once per week How often do you attend yarsani or yazidism services?: 4 or more times per year Do you belong to any clubs or organized social groups?: no Panel score (0-1 are the most socially isolated patients): 3 What type of physical activity do you participate in: other Details: Back and forth to TV Duration: 15-30 minutes/day Frequency: daily Adelina/Evangelical: Pentecostal Do you feel safe at home: Yes Do you feel safe in your relationship?: Yes Exam Narrative Exam Narrative: Physical Examination General: alert, awake, cooperative, resting comfortably, no acute distress HEENT: normocephalic, atraumatic; PERRL, EOM intact, conjunctiva normal; no nasal discharge; moist mucous membranes, oral and pharyngeal mucosa normal, tolerating secretions Neck: supple, trachea midline; full ROM Chest: normal to inspection Respiratory: normal respiratory effort, speaking in full sentences, clear to auscultation, no wheezing, rales or rhonchi Cardiac: regular rate, regular rhythm, S1S2 intact, no murmurs rubs or gallops GI: abdomen soft, non-tender, non-distended; no palpable mass or hepatosplenomegaly Back: No midline spinal tenderness, no step off or deformity; no point tenderness no rash; reproduction of lower back discomfort with right lower extremity hip flexion Skin: no lesions, rashes or trauma appreciated Neuro: AAOx3, normal speech, moving all extremities, 5/5 strength upper and lower extremities, reproduction of lower back pain with hip flexion on right Extremities: Full range of motion bilateral lower extremities, able to ambulate Psych: Appropriate mood and affect Course Vital Signs Vital signs: Vital Signs Temperature 36.9 C 06/12/22 11:58 Pulse 78 06/12/22 11:58 Respiratory Rate 16 06/12/22 11:58 Blood Pressure 193/80 H 06/12/22 11:58 Pulse Oximetry 97 06/12/22 11:58 Temperature 36.9 C 06/12/22 11:58 Temperature Source Temporal Artery Scan 06/12/22 11:58 Pulse 78 06/12/22 11:58 Respiratory Rate 16 06/12/22 11:58 Respiratory Effort 06/12/22 12:04 Blood Pressure 193/80 H 06/12/22 11:58 Blood Pressure Position Sitting 06/12/22 11:58 Pulse Oximetry 97 06/12/22 11:58 Oxygen Delivery Method Room Air 06/12/22 11:58 Oxygen Flow Rate 0 06/12/22 11:58 Pain Level 3 06/12/22 11:58
[2022-06-12] MEDS: Lidocaine 5% Patch 1 PATCH TP ×2 (16:37→20:09)
[2022-06-12] MEDS: Ketorolac 15 MG/ML VIAL IM (16:38)
[2022-06-12] MEDS: Dexamethasone 10 MG/ML VIAL IVP (16:38)
[2022-06-12] MEDS: Cyclobenzaprine 10 MG TAB PO (16:38)
[2022-06-12 18:00] LABS: Bilirubin Negative (Negative); Blood Trace-intact (Negative); Clarity Cloudy (Clear); Glucose Negative (Negative); Ketones Negative (Negative); Leukocyte Esterase Moderate (Negative); Nitrite Positive (Negative); Specific Gravity >= 1.030 (1.005-1.025); Urobilinogen 0.2 EU/dL (Up TO 0.2); pH 5.5 (5-8)
--- NOTE | 2022-06-12 18:00 | DI.CT_ITS ---
Exam(s) CT ABDOMEN PELVIS WO EXAM: CT ABDOMEN PELVIS WO CLINICAL HISTORY: right flank pain. TECHNIQUE: Imaging Protocol: Axial computed tomography images with coronal and sagittal reformatted images were created and reviewed CONTRAST MATERIAL: Intravenous: none Oral: None COMPARISON: CT CT LUMBAR SPINE RECONS from 06/12/2022 FINDINGS: VISUALIZED LUNG BASES: No nodules nor pleural effusions evident. ABDOMEN: There is no ascites. LIVER: There are no obvious focal hepatic lesions evident of this noninfused study. GALLBLADDER/BILIARY: No obvious gallbladder pathology. CBD is not dilated. PANCREAS: No evidence of pancreatic mass nor dilatation of the pancreatic duct. SPLEEN: Spleen is not enlarged. No obvious intrasplenic lesions. ADRENALS: There are no significant adrenal masses. KIDNEYS:Cysts in both kidneys noted. 1 of the partially exophytic cysts off the lateral cortex of th e right kidney is associated with some calcification. No solid renal masses. No hydronephrosis.. N o hydroureter. ABDOMINAL AORTA: Abdominal aorta is not enlarged. LYMPH NODES: There is no retroperitoneal nor paraaortic adenopathy. ABDOMINAL WALL: Anterior abdominal wall fat containing umbilical hernia. Does not contain bowel loop s. No significant inguinal hernias. GI: There is no evidence of bowel obstruction, free air, nor abscess. PELVIS: LYMPH NODES: There is no intrapelvic nor inguinal adenopathy. GI: No evidence of appendicitis.No evidence of sigmoid diverticulitis. URINARY BLADDER: No calculi nor obvious masses evident REPRODUCTIVE: Gross enlargement of the prostate gland measuring 8 x 9 cm. The urinary bladder is not distended. OSSEOUS: No significant osseous lesions. IMPRESSION: 1. Benign renal cysts noted, 1 of which contains some calcification but still benign appearance. The re are no renal calculi no hydronephrosis. No hydroureter. No calculi in the nondistended urinary b ladder. 2. Grossly enlarged prostate gland. The urinary bladder is not distended. 3. There is a 4 millimeter renal calcification in the right kidney associated with a cyst. RADIATION DOSE DELIVERED: Total DLP DATA REPOSITORY: All CT scans at this facility are submitted to the National Radiology Data Registry (NRDR) Dose Index Registry (DIR) with the [employer] (A[employer]). RADIATION OPTIMIZATION: All CT scans at this facility use at least one of these dose optimization te chniques: automated exposure control; mA and/or kV adjustment per patient size (includes targeted exa ms where dose is matched to clinical indication); or iterative reconstruction.
[2022-06-12 18:11] LABS: Bacteria Many HPF (Negative); C & S Indicated? Yes; Casts Negative LPF (Negative); Crystals Negative HPF (Negative); Epithelial Cells Few HPF (Negative); Mucus Trace (Negative); WBC >50 HPF (0-5)
--- NOTE | 2022-06-12 18:14 | DI.CT_ITS ---
Exam(s) CT LUMBAR SPINE RECONS EXAM: CT LUMBAR SPINE RECONS CLINICAL HISTORY: right lower back pain. TECHNIQUE: Imaging Protocol: Axial computed tomography images with coronal and sagittal reformatted images were created and reviewed COMPARISON: CT ABD/PELVIS WO W CONTRAST from 12/27/2017 FINDINGS: Bones: There are no fractures, listhesis, nor pars defects. There are no lytic osseous lesions evide nt.There is advanced disc space narrowing at L2-3 level and moderate-advanced disc space narrowing at L4-5 and L5-S1 levels. Relative sparing of disc height L3-4. PARASPINAL SOFT TISSUES: Visualized paraspinal tissues appear unremarkable. IMPRESSION: 1. No fracture, malalignment, nor acute compromise of the lumbar spinal canal. Multilevel degenerati ve changes. If clinically indicated follow-up MRI can be performed 2. 3. RADIATION DOSE DELIVERED: 1097.99 mGy.cm Total DLP DATA REPOSITORY: All CT scans at this facility are submitted to the National Radiology Data Registry (NRDR) Dose Index Registry (DIR) with the [employer] (ACR). RADIATION OPTIMIZATION: All CT scans at this facility use at least one of these dose optimization te chniques: automated exposure control; mA and/or kV adjustment per patient size (includes targeted exa ms where dose is matched to clinical indication); or iterative reconstruction.
[2022-06-12] MEDS: Cefpodoxime 200 MG TAB 400 MG PO (19:27)
--- NOTE | 2022-06-12 19:27 | DI.VRAD_ITS ---
PROCEDURE INFORMATION: Exam: CT Lumbar Spine Without Contrast Exam date and time: 06/12/2022 6:40 PM Age: 76 years old Clinical indication: Other: Right lower back pain TECHNIQUE: Imaging protocol: Computed tomography of the lumbar spine without contrast. Radiation optimization: All CT scans at this facility use at least one of these dose optimization techniques: automated exposure control; mA and/or kV adjustment per patient size (includes targeted exams where dose is matched to clinical indication); or iterative reconstruction. COMPARISON: CT ABD/PELVIS WO W CONTRAST 12/27/2017 8:29 AM FINDINGS: Bones/joints: No acute lumbar fracture or gross malalignment is seen. Loss of disc height with endplate irregularity and anterior osteophyte formation. Small Schmorl's node in the superior T11 endplate. Mild central canal narrowing. No significant foraminal narrowing. T11-T12: Discogenic degeneration with small Schmorl's nodes in the inferior T11 and superior T12 endplates. Small broad-based posterior disc bulge abutting the thecal sac with mild central canal narrowing and moderate bilateral foraminal narrowing with disc material apparently abutting the right T11 nerve root. T12-L1: Endplate irregularity with tiny forming Schmorl's nodes in the opposing endplates. Anterior osteophytes. No significant cervical stenosis or foraminal narrowing. L1-L2: Disc height preserved. Small forming Schmorl's nodes in the opposing endplates. Tiny anterior osteophytes. No significant cervical stenosis. Moderate left-sided facet arthrosis. Moderate left-sided foraminal narrowing with osteophytic material abutting the left L1 nerve root. L2-L3: Prominent discogenic degeneration with loss of disc height, endplate irregularity, anterior osteophyte formation, and posterior osteophytic ridging. Moderate bilateral facet arthrosis. Moderate central canal narrowing. Mild-moderate bilateral foraminal narrowing. L3-L4: Disc height relatively preserved. Anterior osteophytes. Small broad-based disc bulge eccentric to the left. Ligamentum flavum thickening. Severe right-sided facet arthrosis. Severe central canal narrowing, image 470 of series 6 of the abdomen and pelvis exam. Moderate left-sided foraminal narrowing with disc material abutting the left L3 nerve root. Moderate-severe right-sided foraminal narrowing with osteophytic material abutting and mildly deforming the right L3 nerve root. L4-L5: Mild loss of disc height. Anterior osteophyte formation. Small broad-based posterior disc bulge with associated osteophytic ridging, eccentric to the right. Moderate bilateral facet arthrosis, worse on the right. Moderate central canal narrowing. Severe right-sided foraminal narrowing and partial flattening of the right L4 nerve root. Moderate left-sided foraminal narrowing with osteophytic material abutting the left L4 nerve root. L5-S1: Prominent discogenic degeneration with loss of disc height, endplate irregularity, a vacuum disc deformity, anterior osteophyte formation, and posterior osteophytic ridging. Moderate bilateral facet arthrosis. No significant central canal narrowing. Severe bilateral foraminal narrowing with partial flattening of the L5 nerve roots bilaterally. Soft tissues: No gross superficial soft tissue fluid collection or mass is seen in the lumbar region. IMPRESSION: 1. No acute lumbar fracture or malalignment. 2. Multilevel degenerative change with severe central canal narrowing at L3-L4 and multiple nerve roots affected, as detailed level of level above. Dictated and Authenticated by: Fernando Morse MD. Ordering:HERMELINDA Tripathi MD
--- NOTE | 2022-06-12 19:30 | DI.VRAD_ITS ---
PROCEDURE INFORMATION: Exam: CT Abdomen And Pelvis Without Contrast Exam date and time: 06/12/2022 6:40 PM Age: 76 years old Clinical indication: Other: Right flank pain TECHNIQUE: Imaging protocol: Computed tomography of the abdomen and pelvis without contrast. Radiation optimization: All CT scans at this facility use at least one of these dose optimization techniques: automated exposure control; mA and/or kV adjustment per patient size (includes targeted exams where dose is matched to clinical indication); or iterative reconstruction. COMPARISON: CT ABD/PELVIS WO W CONTRAST 12/27/2017 8:29 AM FINDINGS: Lungs: Lung bases clear. Liver: Grossly unremarkable unenhanced liver. Gallbladder and bile ducts: Normal appearing gallbladder. No calcified gallstones. No biliary dilatation. Pancreas: Grossly unremarkable unenhanced pancreas. Spleen: Grossly unremarkable unenhanced spleen. Adrenal glands: Normal appearing adrenal glands. Kidneys and ureters: 2.5 cm x 1.4 cm right renal cyst, image 46 of series 5. 1.8 cm x 1.7 cm left renal cyst, image 30 of series 5. Additional smaller hypoattenuating renal lesions, incompletely characterized but statistically most likely additional small cysts. 4 mm nonobstructing renal calcification on the right, apparently located within a dumbbell shaped cyst measuring 1.1 cm x 2.1 cm, better demonstrated by the comparison exam. No obstructing ureteral stones, hydronephrosis, or evidence of recent stone passage. Stomach and bowel: No oral contrast. Stomach partially decompressed. No small bowel dilatation to suggest obstruction. Scattered colonic diverticula but no evidence of diverticulitis or colitis. Appendix: Normal appendix. Intraperitoneal space: No gross ascites or free air. Vasculature: Normal caliber abdominal aorta. Lymph nodes: No pathologically enlarged mesenteric, retroperitoneal, or pelvic sidewall lymph nodes. Urinary bladder: Urinary bladder collapsed and not well evaluated but grossly unremarkable, as seen. Reproductive: Gross enlargement of the prostate gland measuring 7.7 cm x 9.0 cm. Seminal vesicles partially obscured but grossly unremarkable, as seen. Bones/joints: No acute fracture seen among the bones of the abdomen or pelvis. CT imaging through the lumbar spine obtained concurrently, dictated separately. Soft tissues: Diastasis recti.Tiny fat-containing ventral hernia at the umbilicus, doubtful clinical significance. IMPRESSION: 1. No obstructing ureteral stones, hydronephrosis, or evidence of recent stone passage. 2. Gross enlargement of the prostate gland measuring 7.9 cm x 9.0 cm maximum axial dimension. 3. 4 mm nonobstructing renal calcification on the right, apparently located within a dumbbell shaped cyst measuring 1.1 cm x 2.1 cm, better demonstrated by the comparison exam. 4. No acute bowel pathology demonstrated. Dictated and Authenticated by: Fernando Morse MD. Ordering:HERMELINDA Tripathi MD
[2022-06-12] MEDS: Cyclobenzaprine 10 MG TAB, 3 TABS/BTL PO (20:08)
--- NOTE | 2022-06-13 17:09 | PDOC.ERCMACT ---
- If Service Date Differs Date of service: 06/13/22 Time of Service: 17:09 Care Management Activity Note Tino is seen in the ED for spinal stenosis and a UTI. At the request of ED provider, CM coordinates a referral to [facility] for further evaluation and treatment of his low back pain. A referral has already been made to urology by the ED.
== END 2022-06-12 20:31 | disposition home or self-care (01) ==
PROVIDERS: Emergency Provider Emergency Medicine; PCP Nurse Practitioner Family
DX: M48.061 Spinal stenosis, lumbar region without neurogenic claudication (principal); N39.0 Urinary tract infection, site not specified; B95.61 Methicillin susceptible Staphylococcus aureus infection as the cause of diseases classified elsewhere; R10.9 Unspecified abdominal pain; M54.50 Low back pain, unspecified
CPT/HCPCS: 87077; 96372; 96374; 99284; 74176; 81003; 81015; 87086; 87186; 99283; J1100; J1885

== ENCOUNTER 2023-02-13 02:44 | Outpatient (CLI) | payer MEDICARE, SELFPAY ==
[2023-02-13 23:08] LABS: PSA, Diagnostic 15.6 ng/mL (<=6.5)
== END 2023-02-13 02:45 | disposition home or self-care (01) ==
LOC: LBO 02:45
PROVIDERS: PCP Nurse Practitioner Family; Visit Provider Nurse Practitioner Gerontology
DX: R97.20 Elevated prostate specific antigen [PSA] (principal); Z80.42 Family history of malignant neoplasm of prostate
CPT/HCPCS: 36415; 84153

== ENCOUNTER → 2023-02-20 10:31 | Outpatient (BNVA) | payer MEDICARE, SELFPAY | PROVIDERS: PCP Nurse Practitioner Family; Visit Provider Nurse Practitioner Gerontology | DX: R31.9 Hematuria, unspecified (principal); Z80.42 Family history of malignant neoplasm of prostate; R97.20 Elevated prostate specific antigen [PSA] | CPT/HCPCS: 51798; 81003; 99214 ==

== ENCOUNTER 2023-02-20 11:16 | Outpatient (REF) | payer MEDICARE, SELFPAY ==
[2023-02-20 13:40] LABS: Bilirubin Negative (Negative); Blood Moderate (Negative); Clarity Sl Cloudy (Clear); Glucose Negative (Negative); Ketones Negative (Negative); Leukocyte Esterase Moderate (Negative); Nitrite Negative (Negative); Specific Gravity 1.025 (1.005-1.025); Urobilinogen 0.2 mg/dL (Up to 0.2); pH 5.5 (5-8)
[2023-02-20 13:52] LABS: Bacteria Few HPF (Negative); C & S Indicated? C&S Done As Ordered; Casts Negative LPF (Negative); Crystals Negative HPF (Negative); Epithelial Cells Few HPF (Negative); Mucus Negative (Negative)
== END 2023-02-20 11:17 | disposition home or self-care (01) ==
LOC: LBN 11:16
PROVIDERS: PCP Nurse Practitioner Family; Visit Provider Nurse Practitioner Gerontology
DX: R31.9 Hematuria, unspecified (principal)
CPT/HCPCS: 87077; 81003; 81015; 87086; 87186

== ENCOUNTER 2023-02-28 01:33 | Outpatient (CLI) | payer MEDICARE, SELFPAY ==
--- NOTE | 2023-02-28 08:00 | DI.US_ITS ---
Exam(s) US RENAL EXAM: US RENAL CLINICAL HISTORY: hematuria,R31.9. TECHNIQUE: Solorio scale, color and spectral Doppler were used. COMPARISON: CT CT ABDOMEN PELVIS WO from 06/12/2022 FINDINGS: Renal size in cm: Right: 10.6 left: 11.1 Echogenicity: Normal Hydronephrosis: No Cyst or mass: No suspicious masses. 1.5 centimeters cyst upper pole right kidney. 2.7 centimeter pa rapelvic cyst lower pole right kidney. 1.8 centimeter cyst upper pole left kidney, parapelvic. 12 m illimeter cyst mid left kidney. Nephrolithiasis: No Visualized portions of liver noted to show mild fatty infiltration. Bladder:Normal Prevoid vol: 28 Postvoid vol:Not performed Prostate markedly enlarged with volume of 279 cc. IMPRESSION: Bilateral renal cysts. No nephrolithiasis or hydronephrosis. Marked prostatomegaly. DATA REPOSITORY:
== END 2023-02-28 01:53 ==
PROVIDERS: PCP Nurse Practitioner Family; Visit Provider Nurse Practitioner Gerontology
DX: R31.9 Hematuria, unspecified (principal); N28.1 Cyst of kidney, acquired; N40.0 Benign prostatic hyperplasia without lower urinary tract symptoms
CPT/HCPCS: 76770

== ENCOUNTER 2023-05-14 06:54 | Day surgery (SDC) | payer MEDICARE, SELFPAY ==
[2023-05-14] VITALS (8 sets, daily range): BP systolic 110–179; BP diastolic 59–72; PULSE 63–76; RESP 16–26; TEMP 36.3–37; O2SAT 95–97; BMI 31.6
[2023-05-14] MEDS: Lactated Ringers 1,000 ML 80 ML IV (07:33)
--- NOTE | 2023-05-14 08:09 | W.ANESPRE ---
General Info Date of Service Date Performed: 05/14/23 Height: 6 ft 1 in Weight: 108.579 kg Body Mass Index (BMI): 31.6 Surgical Procedure: Operation Date: 05/14/23 08:40 Proposed Procedure Side Surgeon p Cystoscopy/Possibble Transurethral Resection Bladder Tumor/ Possible Retrograde Pyelogram Paulino Yi MD Meds Allergies and Home Medications Allergies Allergy/AdvReac Type Severity Reaction Status Date / Time No Known Allergies Allergy Verified 05/14/23 07:09 Home Medication Medication Instructions Recorded lancets 28 gauge #100 ea 09/17/14 blood-glucose meter #1 ea 08/13/20 aspirin 81 mg tablet,delayed 81 mg PO DAILY #90 tabs 08/27/20 release (Adult Low Dose Aspirin) flash glucose scanning reader #1 ea 10/12/20 (FreeStyle Anamika 14 Day [place]) flash glucose sensor (FreeStyle #1 ea 10/12/20 Anamika 14 Day Sensor kit) dimenhydrinate 50 mg chewable 50 mg PO Q8H #30 tabs 04/10/22 tablet (Dramamine) cyclobenzaprine 5 mg tablet 5 mg PO TID PRN muscle spasm #10 06/12/22 tabs ibuprofen 200 mg tablet 400 mg PO Q6H PRN 06/12/22 diazepam 5 mg tablet (Valium) 5 mg PO QHS PRN sleep #5 tabs 06/14/22 blood sugar diagnostic #100 strips 07/19/22 lisinopril 20 1 tab PO DAILY #90 tabs 08/17/22 mg-hydrochlorothiazide 25 mg tablet atorvastatin 20 mg tablet 20 mg PO DAILY #90 tabs 12/13/22 metformin 500 mg tablet 1,000 mg PO BID #180 tabs 02/07/23 tetanus-diphtheria toxoids-Td 2 Lf 0.5 ml IM ONCE #0.5 mL 04/12/23 unit-2 Lf unit/0.5 mL IM suspension metoprolol succinate 50 mg 50 mg PO HS 05/11/23 tablet,extended release 24 hr Current Visit Medications: Current Medications Generic Name Dose Route Start Last Admin Trade Name Freq PRN Reason Stop Dose Admin Ringer's Solution 1,000 mls @ 80 mls/hr 05/14/23 06:00 05/14/23 07:33 IV 06/10/23 23:59 80 mls/hr INFUSION COREEN Administration Cefazolin Sodium/Dextrose 2 gm in 50 mls @ 100 mls/hr 05/14/23 06:00 Ancef Duplex IVPB 05/14/23 16:00 PREOP COREEN IV Miscellaneous Supplies 1 each 05/14/23 06:00 Iv Access IV 06/10/23 23:59 DIRECTED COREEN Sodium Chloride 0 ml 05/14/23 06:00 Normal Saline Flush 10 Ml Syr IV 06/10/23 23:59 PRN PRN Sodium Chloride 0 ml 05/14/23 06:00 Normal Saline 10 Ml Vial IJ 06/10/23 23:59 DIRECTED PRN Sterile Water 0 ml 05/14/23 06:00 Water,Injection,Sterile 10 Ml Vial IJ 06/10/23 23:59 DIRECTED PRN PFSH Active Problems Active Problems: Problem Status Onset Code Tinnitus H93.19 Shoulder pain M25.519 Elevated PSA R97.20 Osteoarthritis M19.90 Hyperlipidemia 04/25/13 E78.5 Family history of prostate cancer Z80.42 Essential hypertension 12/24/13 I10 Diabetes 09/25/14 E11.9 Actinic keratosis L57.0 Testicular mass N50.89 Colon polyp, hyperplastic ~06/2021 K63.5 Serrated adenoma of colon ~06/2021 D12.6 Vertigo R42 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 Surgical History Surgical History (Updated 05/14/23 @ 07:09 by Dara Natarajan) Arthroscopy, Shoulder Left only H/O cystoscopy History of arthroscopy of both knees History of arthroscopy of knee History of colonoscopy (~06/2021) Status post arthroscopy of shoulder Tobacco Smoking/Tobacco Use Status: Former Tobacco Use Passive smoking exposure: Yes Second hand exposure: Yes Alcohol Alcohol Intake: current Alcohol intake frequency: holidays/special occasions only Alcohol type: beer Substance Use Substance use: Never Substance use type: does not use Vital Signs and Lab Results Vital Signs Most Recent Vital Signs in EMR: Most Recent Vital Signs Temp Pulse Resp BP Pulse Ox 37 C 76 18 179/70 H 97 05/14/23 07:00 05/14/23 07:00 05/14/23 07:00 05/14/23 07:00 05/14/23 07:00 Point of Care Results Point of Care Results: Finger Stick Blood Glucose 174 05/14/23 07:18 Lab Results Blood Type / Crossmatch: No Data to Display Complete Blood Count: No Data to Display Complete Metabolic Panel: No Data to Display Liver Function Panel: No Data to Display Coagulation Panel: No Data to Display Cardiac Panel: No Data to Display Arterial Blood Gas: No Data to Display Venous Blood Gas: No Data to Display Pancreas Panel: No Data to Display Thyroid Panel: No Data to Display Infectious Disease: No Data to Display Blood Cultures: No Data to Display Toxicology Panel: No Data to Display Anesthesia Assessment and Plan Anesthesia History Personal History: No History of Anesthesia Complications Family History: No Family History of Anesthesia Complications Exercise Tolerance Exercise Tolerance: Metabolic Equivalents>4 Pertinent Negatives Pertinent Negatives: No Symptoms of GERD, No Major Cardiovascular Symptoms or Complaints and No Major Pulmonary Symptoms or Complaints Cardiac & Pulmonary Exam Cardiac Exam: Normal S1/S2 Heart Sounds Pulmonary Exam: Clear Bilateral Breath Sounds Implantable Cardiac Device Does patient have a Pacemaker or an ICD?: No Airway Exam Known Difficult Airway: No Mallampati Class: 2 Mouth Opening: Normal (> 3cm) Thyromental Distance: Less than 3 cm Neck Range of Motion: Limited ROM Neck Circumference: Normal Teeth Condition: Normal Dentition Airway Comments: Short thick neck ASA Classification ASA Score: ASA 2 Emergency Case?: No NPO Status NPO Status: NPO Clears >2 hours, Solids >8 hours Anesthesia Plan Resuscitation Status: Full Code Anesthesia Technique: General Anesthesia Airway Planned: Natural Airway Monitors Used: Standard Monitors
--- NOTE | 2023-05-14 08:21 | HPE_ITS ---
Date of service: 05/14/23 Time of Service: 08:21 Assessment and Plan Assessment and plan (1) Gross hematuria: Status: Acute Assessment and plan: For cystoscopy with possible retrograde pyelogram and possible TUR bladder tumor/fulguration of bleeders. History of Present Illness History of Present Illness Chief Complaint: Hematuria Narrative: This is a 77 year old man who has seen gross painless hematuria with clots. Previously, he had microscopic hematuria. He had a renal ultrasound which showed a diffusely enlarged prostate and bilateral renal cysts. He presents for cystoscopy. In the past, we used finasteride for prostatic bleeding. He had side effects, so if the prostate again seems to be the culprit, we will consider fulgurating the prostatic mucosa. Review of Systems Narrative: No fevers or chills Decreased hearing acuity. No vision change or dysphasia Hx Diabetes. No thyroid No shortness of breath, cough or hemoptysis No chest pain or palpitations No nausea, vomiting, hepatitis, ulcers, jaundice No seizures, strokes or peripheral neuropathy No bleeding disorders or anemia No gout PFSH All Active Problems (Updated 05/14/23 @ 08:27 by Paulino Yi MD) Gross hematuria (Acute) Tinnitus (Acute) Bilateral Shoulder pain (Acute) left arthroscopy Elevated PSA (Acute) Osteoarthritis (Acute) Hyperlipidemia (Acute 04/25/13) Family history of prostate cancer (Acute) BPH rising PSA Essential hypertension (Acute 12/24/13) Diabetes (Acute 09/25/14) Actinic keratosis (Acute) Testicular mass (Acute) Colon polyp, hyperplastic (Acute ~06/2021) x4 Serrated adenoma of colon (Acute ~06/2021) Vertigo (Acute) Mixed conductive and sensorineural hearing loss of left ear with restricted hearing of right ear (Acute) Surgical History (Updated 05/14/23 @ 07:09 by Dara Natarajan) Arthroscopy, Shoulder Left only H/O cystoscopy History of arthroscopy of both knees History of arthroscopy of knee History of colonoscopy (~06/2021) Status post arthroscopy of shoulder Family History Mother Diabetes Father Personal history of malignant neoplasm Breast Sister Personal history of malignant neoplasm Ovarian Brother No problems noted. Grandfather No problems noted. Grandfather No problems noted. Grandmother No problems noted. Grandmother No problems noted. Social History (Updated 04/13/23 @ 12:54 by Mariia Cleveland) Smoking/Tobacco Use Status: Former Tobacco Use tobacco type: cigarettes Quit Date: 11/26/77 Tobacco: How many years used: 45 Second Hand Exposure: Yes Smoking risk assessment performed?: Yes Alcohol Intake: current Alcohol Intake frequency: holidays/special occasions only Alcohol type: beer Drug use: Never Substance use type: does not use Caregiver/Support person: No Household members: spouse Housing: house Communication Needs: None Do you need help understanding health information?: Never Pets and animals: No Sexually active: Yes Do you think of yourself as: straight/heterosexual Current gender identity: male What is your relationship status?: How often do you talk on the phone with friends or family?: twice per week How often do you get together with friends or relatives?: three or more times per week How often do you attend taoist or jehovah's witness services?: 4 or more times per year Do you belong to any clubs or organized social groups?: yes Panel score (0-1 are the most socially isolated patients): 4 What type of physical activity do you participate in: none Frequency: does not exercise Adelina/Lutheran: Zoroastrian Special adelina needs: No Seatbelt use: sometimes Drive intox or ride w/intox racecar driver: No Do you feel safe at home: Yes Do you feel safe in your relationship?: Yes Meds Allergies and Home Medications Allergies Allergy/AdvReac Type Severity Reaction Status Date / Time No Known Allergies Allergy Verified 05/14/23 07:09 Home Medications Medication Instructions Recorded Confirmed Type lancets 28 gauge #100 ea 09/17/14 05/11/23 History blood-glucose meter #1 ea 08/13/20 05/11/23 Rx aspirin 81 mg tablet,delayed 81 mg PO DAILY #90 tabs 08/27/20 05/14/23 Rx release (Adult Low Dose Aspirin) flash glucose scanning reader #1 ea 10/12/20 05/11/23 Rx (FreeStyle Anamika 14 Day [place]) flash glucose sensor (FreeStyle #1 ea 10/12/20 05/11/23 Rx Anamika 14 Day Sensor kit) dimenhydrinate 50 mg chewable 50 mg PO Q8H #30 tabs 04/10/22 05/11/23 Rx tablet (Dramamine) cyclobenzaprine 5 mg tablet 5 mg PO TID PRN muscle spasm #10 06/12/22 05/11/23 Rx tabs ibuprofen 200 mg tablet 400 mg PO Q6H PRN 06/12/22 05/11/23 History diazepam 5 mg tablet (Valium) 5 mg PO QHS PRN sleep #5 tabs 06/14/22 05/11/23 Rx blood sugar diagnostic #100 strips 07/19/22 05/11/23 Rx lisinopril 20 1 tab PO DAILY #90 tabs 08/17/22 05/14/23 Rx mg-hydrochlorothiazide 25 mg tablet atorvastatin 20 mg tablet 20 mg PO DAILY #90 tabs 12/13/22 05/14/23 Rx metformin 500 mg tablet 1,000 mg PO BID #180 tabs 02/07/23 05/14/23 Rx tetanus-diphtheria toxoids-Td 2 Lf 0.5 ml IM ONCE #0.5 mL 04/12/23 05/11/23 Rx unit-2 Lf unit/0.5 mL IM suspension metoprolol succinate 50 mg 50 mg PO HS 05/11/23 05/14/23 History tablet,extended release 24 hr Exam Const General: cooperative and no acute distress Neck Neck: normal visual inspection and supple Resp Effort & Inspection: normal respiratory effort Auscultation: clear to auscultation bilaterally Cardio Rate: regular rate Rhythm: regular rhythm GI Inspection: normal to inspection Palpation: soft and no guarding Neuro General: patient alert, patient awake and patient oriented x3 Results Last Vital Signs Temp 37 C 05/14/23 07:00 Pulse 76 05/14/23 07:00 Resp 18 05/14/23 07:00 BP 179/70 H 05/14/23 07:00 Pulse Ox 97 05/14/23 07:00 Time Spent Time spent with Patient: <40 minutes Time was spent: other
[2023-05-14] MEDS: Lidocaine 2% Jelly 6 ML SYR (09:09)
--- NOTE | 2023-05-14 09:24 | URETHRABX_PTH ---
PATIENT: Tino Hart LOC: [facility] U#:[id number] AGE/SX: 77/M ROOM: RE05/14/[address]: Paulino Yi MD : 1945 BED: DIS: 05/14/2023 SPEC #: [id number] RECD: 05/14/23 12:26 STATUS: RIC REQ #: [id number] ZACHARY: 05/14/23 09:[address]: Paulino Yi DEPT: Surgical Specimen RECD BY: Marleny Gillis ENTERED: 05/14/23 12:27 SP TYPE: URETHRABX OTHR DR: Jas Darden, FILM SPLICER Tissues: 1 - URETHRA BIOPSY Procedures: GROSS AND MICRO LEVEL 4 Comments: [id number]
--- NOTE | 2023-05-14 09:46 | PDOC.DSDIS_ITS ---
Date of service: 05/14/23 Time of Service: 09:46 Discharge Plan Disposition Patient Disposition: Home Condition: Stable Discharge Details Reason For Visit: gross hematuria Attending Provider: Paulino Yi Primary Care Provider: Jas Darden Home Meds and New Rx's Prescriptions: No Action aspirin [Adult Low Dose Aspirin] 81 mg tablet,delayed release (DR/EC) 81 mg PO DAILY Qty: 90 3RF ibuprofen 200 mg tablet 400 mg PO Q6H PRN diazepam [Valium] 5 mg tablet 5 mg PO QHS PRN (Reason: sleep) Qty: 5 0RF (DME) FreeStyle Anamika 14 Day Sensor Kit See Rx Instructions .ROUTE .MEDSUPPLY Qty: 1 0RF Rx Instructions: As directed (DME) FreeStyle Anamika 14 Day [place] Misc See Rx Instructions .ROUTE .MEDSUPPLY Qty: 1 0RF Rx Instructions: As directed Dramamine 50 mg tablet,chewable 50 mg PO Q8H Qty: 30 0RF tetanus-diphtheria toxoids-Td 2-2 Lf unit/0.5 mL suspension 0.5 ml IM ONCE Qty: 0.5 0RF (DME) lancets 1 EACH misc 1 ea Miscellaneous DAILY Qty: 100 Rx Instructions: FOR ONE TOUCH ULTRA MINI METER. NO INSULIN. DIAGNOSIS CODE 250.02 (DME) blood-glucose meter Misc 1 ea Miscellaneous ONCE Qty: 1 0RF Rx Instructions: ONE TOUCH ULTRA MINI Dx E11.9. Check BS Daily (DME) blood sugar diagnostic Strip 1 ea Miscellaneous DAILY Qty: 100 5RF Rx Instructions: Test Daily lisinopril-hydrochlorothiazide 20-25 mg tablet 1 tab PO DAILY Qty: 90 12RF atorvastatin 20 mg tablet 20 mg PO DAILY Qty: 90 4RF metformin 500 mg tablet 1,000 mg PO BID Qty: 180 3RF cyclobenzaprine 5 mg tablet 5 mg PO TID PRN (Reason: muscle spasm) Qty: 10 0RF metoprolol succinate 50 mg tablet extended release 24 hr 50 mg PO HS Discharge Instructions Additional Instructions: may remove victoria once pt is awake (only if output is transparent) followup 1 to 2 weeks for biopsy results Activity:: Activity as Tolerated Shower/Bathe:: 24 hours Diet:: As Tolerated Discharge Orders Discharge Orders: Discharge Order (Routine); Ordered 05/14/23 Ordered By: Paulino Yi DS: Diagnosis Discharge Diagnosis (1) Gross hematuria: Status: Acute
--- NOTE | 2023-05-14 09:50 | ROE_ITS ---
Date of service: 05/14/23 Time of Service: 09:50 Operative Note Operative Note DATE OF PROCEDURE: 05/14/23 PRE-OP DIAGNOSIS: Gross hematuria POST-OP DIAGNOSIS: same bleeding from prostatic urethra PROCEDURE: cystoscopy, TUR biopsy of prostatic urethra, fulguration of prostatic urethra SURGEON: Paulino Yi ANESTHESIA TYPE: General:No Airway Refer to Anesthesia Record ESTIMATED BLOOD LOSS: 100 PATHOLOGY: other (prostatic urethra biopsy) COMPLICATIONS: None Patient was transported to: PACU Patient's condition: stable Implants: 20 Micronesian victoria with 10 cc sterile water in balloon Indications: This is a 77-year-old gentleman who has a history of microscopic and gross gab turia. He had a cystoscopy about 3 years ago that showed a markedly enlarged and vascular prostate. He was started on finasteride, but was unable to tolerate the medication due to side effects. Lately, he has had gross painless hematuria with clots. He had a renal ultrasound which showed bilateral renal cysts but no solid renal masses. His prostate was again found to be enlarged. He presents now for cystoscopy and possible transurethral resection of any visible bladder tumor Findings: The patient was given preoperative antibiotics and brought to the operating room on 05/14/2023. After successful induction of general anesthesia, he was placed in the dorsal lithotomy position. His genitalia was prepped and draped sterilely. 2% Xylocaine jelly was instilled into the urethra to act as a local anesthetic. A 24 Micronesian resectoscope sheath was passed through the urethra into the bladder. The urethra and bladder were inspected using the visual obturator. The pendulous, bulbar and membranous urethra's appeared normal with no strictures. The prostatic urethra showed prominent blood vessels and some papillary lesions out toward the verumontanum. The most prominent of the papillary lesions were on the patient's right side. The lateral lobes of the prostate were markedly enlarged. There was no significant median lobe, but due to the length of the prostate, it was very difficult to look all the way into the bladder. The part of the bladder with that was visualized showed no papillary or nodular lesions. I was unable to easily visualize the ureteral orifices, so no retrograde pyelogram was done today. I then switched to the AirXpanders resectoscope with bipolar cautery. I performed a transurethral biopsy of the papillary prostatic urethral mucosa. The specimen was removed and sent to pathology for permanent section. I then switched to the button electrode and cauterized all visible prostatic mucosa. There were still quite a few clots remaining within the bladder and prostatic urethra, so I placed a 20 Micronesian Victoria and inflated the catheter balloon with 10 cc of sterile water. I hand irrigated the catheter until the irrigant was clear. We will plan on removing the catheter once the patient is awake and assuming that the urine remains transparent. The patient tolerated the procedure well with no complications. He was taken to the recovery room in stable condition.
--- NOTE | 2023-05-14 10:47 | W.ANESPOSTOP ---
Postoperative Evaluation Date, Time and Location Date Performed: 05/14/23 Time Performed: 10:47 Patient Location: Day Surgery Unit Vital Signs Most Recent Imported Vital Signs: Most Recent Vital Signs Temp Pulse Resp BP Pulse Ox 36.3 C L 63 18 142/67 H 97 05/14/23 10:20 05/14/23 10:20 05/14/23 10:20 05/14/23 10:20 05/14/23 10:20 Pain Score Most Recent Pain Score: Most Recent Pain Score Pain Level 0 05/14/23 10:20 Assessment Mental Status: Awake (Alert & Oriented to Patient Baseline) Airway and Respiratory Function: Patent airway with normal (patient baseline) respiratory exam Cardiovascular Function: Hemodynamically Stable Hydration Status: Adequately Hydrated Nausea & Vomiting: No Nausea or Vomiting Pain: Pt. Denies Any Pain Peripheral Nerve Block: Patient did not receive a nerve block
== END 2023-05-14 13:15 | disposition home or self-care (01) ==
PROVIDERS: PCP Nurse Practitioner Family; Visit Provider Urology
PROC: 0TBB8ZZ Excision of Bladder, Via Natural or Artificial Opening Endoscopic (ICD-10-PCS; CPT 52224; principal; 2023-05-14 08:30)
DX: R31.0 Gross hematuria (principal); N40.0 Benign prostatic hyperplasia without lower urinary tract symptoms; N36.8 Other specified disorders of urethra; N34.2 Other urethritis
CPT/HCPCS: 52224; 88305; J0690; J1100; J1885; J2405; J2704

== ENCOUNTER → 2023-05-15 14:02 | Outpatient (BNVA) | payer MEDICARE, SELFPAY | PROVIDERS: PCP Nurse Practitioner Family; Referring Provider Nurse Practitioner Family; Visit Provider Nurse Practitioner Gerontology | DX: R31.0 Gross hematuria (principal); R33.8 Other retention of urine; Z98.890 Other specified postprocedural states | CPT/HCPCS: 51702; 51798; 81003; 99214 ==

== ENCOUNTER 2023-05-15 14:22 | Outpatient (REF) | payer MEDICARE, SELFPAY | END 2023-05-15 14:23 | disposition home or self-care (01) | LOC: LBN 14:22 | PROVIDERS: PCP Nurse Practitioner Family; Visit Provider Nurse Practitioner Gerontology | DX: R30.0 Dysuria (principal) | CPT/HCPCS: 87086 ==

== ENCOUNTER 2023-05-17 20:48 | Emergency (ER) | payer MEDICARE, SELFPAY ==
[2023-05-17 20:51] VITALS: PULSE 97; RESP 16; TEMP 37.1; O2SAT 94
--- NOTE | 2023-05-17 21:24 | NUR.NOTE ---
Existing victoria flushed w return (BRB). 10cc balloon emptied and reinflated. BRB clots and blood continues to come out in moderate amounts around victoria cath. Per , 20cc (more) inserted into balloon. Victoria tubing pulled tight and secured to leg to stop blood flow. Bleeding subsided until pt tried to urinate. When pt attempted to urinate he pushed and BRB began to flow out again. Instructed pt to stop pushing. Pt cleaned. Offered medication for comfort. Pt denied pain at this time.
--- NOTE | 2023-05-17 21:25 | ED.GENADUL_ITS ---
Discharge Plan Disposition Patient Disposition: Home Condition: Stable Discharge Details Clinical Impression: Hematuria, Urinary catheter complication Primary Care Provider: Jas Darden ED Provider: Bonilla Sheets Home Meds and New Rx's Prescriptions: Continued aspirin [Adult Low Dose Aspirin] 81 mg tablet,delayed release (DR/EC) 81 mg PO DAILY Qty: 90 3RF (DME) FreeStyle Anamika 14 Day Sensor Kit See Rx Instructions .ROUTE .MEDSUPPLY Qty: 1 0RF Rx Instructions: As directed (DME) FreeStyle Anamika 14 Day [place]vere Misc See Rx Instructions .ROUTE .MEDSUPPLY Qty: 1 0RF Rx Instructions: As directed ciprofloxacin HCl 500 mg tablet 500 mg PO BID Qty: 14 0RF (DME) lancets 1 EACH misc 1 ea Miscellaneous DAILY Qty: 100 Rx Instructions: FOR ONE TOUCH ULTRA MINI METER. NO INSULIN. DIAGNOSIS CODE 250.02 (DME) blood-glucose meter Misc 1 ea Miscellaneous ONCE Qty: 1 0RF Rx Instructions: ONE TOUCH ULTRA MINI Dx E11.9. Check BS Daily (DME) blood sugar diagnostic Strip 1 ea Miscellaneous DAILY Qty: 100 5RF Rx Instructions: Test Daily lisinopril-hydrochlorothiazide 20-25 mg tablet 1 tab PO DAILY Qty: 90 12RF atorvastatin 20 mg tablet 20 mg PO DAILY Qty: 90 4RF metformin 500 mg tablet 1,000 mg PO BID Qty: 180 3RF metoprolol succinate 50 mg tablet extended release 24 hr 50 mg PO HS Discontinued ibuprofen 200 mg tablet 400 mg PO Q6H PRN Patient Comments: doesnt take daily diazepam [Valium] 5 mg tablet 5 mg PO QHS PRN (Reason: sleep) Qty: 5 0RF Patient Comments: Does not take Dramamine 50 mg tablet,chewable 50 mg PO Q8H Qty: 30 0RF Patient Comments: doesnt take tetanus-diphtheria toxoids-Td 2-2 Lf unit/0.5 mL suspension 0.5 ml IM ONCE Qty: 0.5 0RF Patient Comments: NA cyclobenzaprine 5 mg tablet 5 mg PO TID PRN (Reason: muscle spasm) Qty: 10 0RF Patient Comments: does not take Discharge Instructions Instructions: Rowe Catheter Placement and Care (ED) Additional Instructions: Please follow-up with urology tomorrow. Return to the ER immediately for any worsening or new concerning symptoms. Referrals: [facility] [Provider Group] Jas Darden, [employer] [Primary Care Provider] - Medical Decision Making 2153 --77-year-old male presents 4 days status post cystoscopy, TUR biopsy of prostatic urethra, fulguration of prostatic urethra with heavy bleeding around catheter. Nursing evaluated catheter, deflated balloon, repositioned and r einflated balloon, flushed catheter and bleeding persisted. I called and spoke with Dr. Yi and discussed ED presentation. Dr. Yi recommends inflating balloon to 30 cc and pulling traction to tamponade bleeding prostate. He will come in to evaluate the patient. I will send labs to assess for anemia. Type and screen sent should transfusion be necessary. 2239 -- Patient was evaluated by Dr. Yi. Catheter replaced. Bleeding controlled. Plan for discharge with outpatient followup. Usual and customary discharge instructions were reviewed with the patient. Lab Data Lab results reviewed: Yes I reviewed the patient's lab results. Labs: Laboratory Tests Range/Units 05/17/23 05/17/23 21:21 21:21 WBC (4.4-10.8) 10^3/uL 10.44 RBC (4.36-5.78) 10^6/uL 4.53 Hgb (13.5-17.5) g/dL 14.1 Hct (40.0-50.0) % 40.0 MCV (80-95) fL 88 MCH (27.0-33.0) pg 31.1 MCHC (32.0-36.0) % 35.3 RDW (11.8-14.1) % 11.8 Plt Count (130-400) 10^3/uL 235 MPV (8.0-11.0) fL 9.9 Immature Gran % 0.6 Neutrophils % 60.3 Lymphocytes % 27.6 Monocytes % 9.3 Eosinophils % 1.8 Basophils % 0.4 Nucleated RBC % (0.0-0.3) % 0.0 Absolute Neutrophils (1.2-6.7) 10^3/uL 6.30 Absolute Lymphocytes (1.2-3.4) 10^3/uL 2.88 Absolute Monocytes (0.1-0.8) 10^3/uL 0.97 H Absolute Eosinophils (0.0-0.7) 10^3/uL 0.19 Absolute Basophils (0.0-0.2) 10^3/uL 0.04 Sodium (136-145) mmol/L 139 Potassium (3.5-5.1) mmol/L 3.5 Chloride (98-107) mmol/L 100 Carbon Dioxide (21.0-32.0) mmol/L 31.0 Anion Gap (3-11) mmol/L 8.0 BUN (7-18) mg/dL 24 H Creatinine (0.70-1.30) mg/dL 1.5 H Est GFR (CKD-EPI 2020) (mL/min/1.73m2) 47.95 Glucose (74-106) mg/dL 208 H Calcium (8.5-10.1) mg/dL 8.7 Total Bilirubin (0.2-1.0) mg/dL 0.6 AST (15-37) U/L 15 ALT (16-63) U/L 33 Alkaline Phosphatase (46-116) U/L 91 Total Protein (6.4-8.2) g/dL 6.9 Albumin (3.4-5.0) g/dL 3.5 HPI General Mode of arrival: ambulatory . Date/Time Provider Initiated Documentation: 05/17/23 21:10 . Limitations to Documentation: no limitations . Information obtained by: patient . HPI Narrative: 77-year-old male presents 3 days status post cystoscopy, TUR biopsy of prostatic urethra, fulguration of prostatic urethra with bleeding around urinary catheter. Patient notes he has had some bleeding since the procedure. Today he accidentally tugged on his catheter and subsequently had a heavy bloody output around the catheter. Patient denies fever. Related Data Home Medications Medication Instructions Recorded Confirmed lancets 28 gauge #100 ea 09/17/14 05/11/23 blood-glucose meter #1 ea 08/13/20 05/11/23 aspirin 81 mg tablet,delayed 81 mg PO DAILY #90 tabs 08/27/20 05/17/23 release (Adult Low Dose Aspirin) flash glucose scanning reader #1 ea 10/12/20 05/11/23 (FreeStyle Anamika 14 Day Revere) flash glucose sensor (FreeStyle #1 ea 10/12/20 05/11/23 Anamika 14 Day Sensor kit) blood sugar diagnostic #100 strips 07/19/22 05/11/23 lisinopril 20 1 tab PO DAILY #90 tabs 08/17/22 05/17/23 mg-hydrochlorothiazide 25 mg tablet atorvastatin 20 mg tablet 20 mg PO DAILY #90 tabs 12/13/22 05/17/23 metformin 500 mg tablet 1,000 mg PO BID #180 tabs 02/07/23 05/17/23 metoprolol succinate 50 mg 50 mg PO HS 05/11/23 05/17/23 tablet,extended release 24 hr ciprofloxacin HCl 500 mg tablet 500 mg PO BID #14 tabs 05/15/23 05/17/23 Previous Rx's Medication Instructions Recorded blood-glucose meter #1 ea 08/13/20 aspirin 81 mg tablet,delayed 81 mg PO DAILY #90 tabs 08/27/20 release (Adult Low Dose Aspirin) flash glucose scanning reader #1 ea 10/12/20 ([email or web address].comStyle Anamika 14 Day [place]) flash glucose sensor (FreeStyle #1 ea 10/12/20 Anamika 14 Day Sensor kit) blood sugar diagnostic #100 strips 07/19/22 lisinopril 20 1 tab PO DAILY #90 tabs 08/17/22 mg-hydrochlorothiazide 25 mg tablet atorvastatin 20 mg tablet 20 mg PO DAILY #90 tabs 12/13/22 metformin 500 mg tablet 1,000 mg PO BID #180 tabs 02/07/23 ciprofloxacin HCl 500 mg tablet 500 mg PO BID #14 tabs 05/15/23 Allergies Allergy/AdvReac Type Severity Reaction Status Date / Time No Known Allergies Allergy Verified 05/17/23 20:59 General Stated Complaint: Urinary ROSALIO: 4 Review of Systems Constitutional Constitutional: Denies fever(s) Genitourinary Genitourinary: Reports as per HPI PFSH All Active Problems (Updated 05/17/23 @ 22:44 by Bonilla Sheets MD) Hematuria (Acute) Urinary catheter complication (Acute) Gross hematuria (Acute) Tinnitus (Acute) Bilateral Shoulder pain (Acute) left arthroscopy Elevated PSA (Acute) Osteoarthritis (Acute) Hyperlipidemia (Acute 04/25/13) Family history of prostate cancer (Acute) BPH rising PSA Essential hypertension (Acute 12/24/13) Diabetes (Acute 09/25/14) Actinic keratosis (Acute) Testicular mass (Acute) Colon polyp, hyperplastic (Acute ~06/2021) x4 Serrated adenoma of colon (Acute ~06/2021) Vertigo (Acute) Mixed conductive and sensorineural hearing loss of left ear with restricted hearing of right ear (Acute) Surgical History Arthroscopy, Shoulder Left only H/O cystoscopy History of arthroscopy of both knees History of arthroscopy of knee History of colonoscopy (~06/2021) Status post arthroscopy of shoulder Family History Mother Diabetes Father Personal history of malignant neoplasm Breast Sister Personal history of malignant neoplasm Ovarian Brother No problems noted. Grandfather No problems noted. Grandfather No problems noted. Grandmother No problems noted. Grandmother No problems noted. Social History Smoking/Tobacco Use Status: Former Tobacco Use tobacco type: cigarettes Quit Date: 11/26/77 Tobacco: How many years used: 45 Second Hand Exposure: Yes Smoking risk assessment performed?: Yes Alcohol Intake: current Alcohol Intake frequency: holidays/special occasions only Alcohol type: beer Drug use: Never Substance use type: does not use Caregiver/Support person: No Household members: spouse Housing: house Communication Needs: None Do you need help understanding health information?: Never Pets and animals: No Sexually active: Yes Do you think of yourself as: straight/heterosexual Current gender identity: male What is your relationship status?: How often do you talk on the phone with friends or family?: twice per week How often do you get together with friends or relatives?: three or more times per week How often do you attend nondenominational or quaker services?: 4 or more times per year Do you belong to any clubs or organized social groups?: yes Panel score (0-1 are the most socially isolated patients): 4 What type of physical activity do you participate in: none Frequency: does not exercise Adelina/Restorationist: [employer] Special adelina needs: No Seatbelt use: sometimes Drive intox or ride w/intox 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 Do you feel safe at home: Yes Do you feel safe in your relationship?: Yes Exam Const General: cooperative and no acute distress Eyes Conjunctivae: normal conjunctivae Sclera: normal sclerae Cardio Rate: regular rate and not tachycardic Rhythm: regular rhythm GI Palpation: soft, not firm, no guarding, no masses, not rigid and nontender Other: Rowe catheter in place with bleeding around catheter Neuro General: patient alert, patient awake and tone normal Course Vital Signs Vital signs: Vital Signs Temperature 37.1 C 05/17/23 20:51 Pulse 97 H 05/17/23 20:51 Respiratory Rate 16 05/17/23 20:51 Pulse Oximetry 94 05/17/23 20:51 Temperature 37.1 C 05/17/23 20:51 Temperature Source Oral 05/17/23 20:51 Pulse 97 H 05/17/23 20:51 Respiratory Rate 16 05/17/23 20:51 Respiratory Effort Normal 05/17/23 20:53 Pulse Oximetry 94 05/17/23 20:51 Oxygen Delivery Method Room Air 05/17/23 20:51 Oxygen Flow Rate 0 05/17/23 20:51
[2023-05-17 21:29] LABS: Abs Immature Grans 0.06 10^3/uL (0.0-0.06); Absolute Basophil Count 0.04 10^3/uL (0.0-0.2); Absolute Eosinophil Count 0.19 10^3/uL (0.0-0.7); Absolute Lymphocyte Count 2.88 10^3/uL (1.2-3.4); Absolute Monocyte Count 0.97 10^3/uL (0.1-0.8); Basophils % 0.4; Eosinophils % 1.8; HGB 14.1 g/dL (13.5-17.5); Immature Grans % 0.6; Lymphocytes % 27.6; MCH 31.1 pg (27.0-33.0); MCHC 35.3 % (32.0-36.0); MCV 88 fL (80-95); MPV 9.9 fL (8.0-11.0); Monocytes % 9.3; Neutrophils % 60.3; Platelet Count 235 10^3/uL (130-400); RBC 4.53 10^6/uL (4.36-5.78); RDW 11.8 % (11.8-14.1); RDW-SD 37.4 fL; WBC 10.44 10^3/uL (4.4-10.8)
[2023-05-17 21:44] LABS: ALT 33 U/L (16-63); AST 15 U/L (15-37); Albumin 3.5 g/dL (3.4-5.0); Alkaline Phosphatase 91 U/L (46-116); BUN 24 mg/dL (7-18); Bilirubin, Total 0.6 mg/dL (0.2-1.0); CREATININE 1.5 mg/dL (0.70-1.30); Calcium 8.7 mg/dL (8.5-10.1); Chloride 100 mmol/L (98-107); Estimated GFR 47.95 (mL/min/1.73m2); Glucose 208 mg/dL (74-106); Potassium 3.5 mmol/L (3.5-5.1); Sodium 139 mmol/L (136-145); Total Protein 6.9 g/dL (6.4-8.2)
[2023-05-17 22:59] VITALS: BP 168/90; PULSE 89; RESP 16; O2SAT 99
--- NOTE | 2023-05-18 06:46 | W.UROLOGYCON ---
Date of service: 05/17/23 Time of Service: 06:46 Assessment and Plan Assessment and plan (1) Hematuria: Status: Acute (2) Urinary catheter complication: Status: Acute Assessment and plan: We had originally planned to remove his catheter tomorrow morning, but we will likely leave the catheter through the weekend and remove it early next week. We have asked the patient to contact us tomorrow morning with a progress report so that we can plan next week's follow-up. History of Present Illness History of Present Illness Chief Complaint: Clot retention Narrative: This is a 77 gentleman who had undergone cystoscopy and fulguration of his prostate earlier this week. I placed the catheter immediately after the surgery, but we remove the catheter before he was discharged later that day. He returned to our office 24 hours later with incomplete bladder emptying, so we replaced his catheter in the office. He was sent home with a catheter plug to allow him to drain the bladder. He came into the emergency room this evening with leakage around the catheter. He was passing quite a bit of blood and clots continuously. He also had urgency. Because of the amount of bleeding, I asked the emergency rooms staff to inflate his catheter balloon up to 30 cc of sterile water and to tape his catheter to his leg on traction to help tamponade any bleeding. I then came in to see the patient. PFSH All Active Problems (Updated 05/17/23 @ 22:44 by Bonilla Sheets MD) Hematuria (Acute) Urinary catheter complication (Acute) Gross hematuria (Acute) Tinnitus (Acute) Bilateral Shoulder pain (Acute) left arthroscopy Elevated PSA (Acute) Osteoarthritis (Acute) Hyperlipidemia (Acute 04/25/13) Family history of prostate cancer (Acute) BPH rising PSA Essential hypertension (Acute 12/24/13) Diabetes (Acute 09/25/14) Actinic keratosis (Acute) Testicular mass (Acute) Colon polyp, hyperplastic (Acute ~06/2021) x4 Serrated adenoma of colon (Acute ~06/2021) Vertigo (Acute) Mixed conductive and sensorineural hearing loss of left ear with restricted hearing of right ear (Acute) Surgical History Arthroscopy, Shoulder Left only H/O cystoscopy History of arthroscopy of both knees History of arthroscopy of knee History of colonoscopy (~06/2021) Status post arthroscopy of shoulder Family History Mother Diabetes Father Personal history of malignant neoplasm Breast Sister Personal history of malignant neoplasm Ovarian Brother No problems noted. Grandfather No problems noted. Grandfather No problems noted. Grandmother No problems noted. Grandmother No problems noted. Social History Smoking/Tobacco Use Status: Former Tobacco Use tobacco type: cigarettes Quit Date: 11/26/77 Tobacco: How many years used: 45 Second Hand Exposure: Yes Smoking risk assessment performed?: Yes Alcohol Intake: current Alcohol Intake frequency: holidays/special occasions only Alcohol type: beer Drug use: Never Substance use type: does not use Caregiver/Support person: No Household members: spouse Housing: house Communication Needs: None Do you need help understanding health information?: Never Pets and animals: No Sexually active: Yes Do you think of yourself as: straight/heterosexual Current gender identity: male What is your relationship status?: How often do you talk on the phone with friends or family?: twice per week How often do you get together with friends or relatives?: three or more times per week How often do you attend mandaen or alevism services?: 4 or more times per year Do you belong to any clubs or organized social groups?: yes Panel score (0-1 are the most socially isolated patients): 4 What type of physical activity do you participate in: none Frequency: does not exercise Adelina/Mormonism: Adventist Special adelina needs: No Seatbelt use: sometimes Drive intox 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 tipped catheter. I was able to flush fluid into the catheter, but was unable to withdraw any fluid or clots. He had leakage around the catheter when I did irrigate him. I then deflated the catheter balloon and removed his Rowe. We inserted a 22 Nepali hematuria catheter and were able to successfully hand irrigate multiple clots. The irrigation then became clear. The catheter was hooked to gravity drainage. Results Last Vital Signs Temp 37.1 C 05/17/23 20:51 Pulse 89 05/17/23 22:59 Resp 16 05/17/23 22:59 BP 168/90 H 05/17/23 22:59 Pulse Ox 99 05/17/23 22:59 Labs 05/17/23 21:21 05/17/23 21:21 Labs: Laboratory Results - last 24 hr 05/17/23 05/17/23 05/17/23 21:21 21:21 21:21 WBC 10.44 RBC 4.53 Hgb 14.1 Hct 40.0 MCV 88 MCH 31.1 MCHC 35.3 RDW 11.8 Plt Count 235 MPV 9.9 Immature Gran % 0.6 Neutrophils % 60.3 Lymphocytes % 27.6 Monocytes % 9.3 Eosinophils % 1.8 Basophils % 0.4 Nucleated RBC % 0.0 Absolute Neutrophils 6.30 Absolute Lymphocytes 2.88 Absolute Monocytes 0.97 H Absolute Eosinophils 0.19 Absolute Basophils 0.04 Sodium 139 Potassium 3.5 Chloride 100 Carbon Dioxide 31.0 Anion Gap 8.0 BUN 24 H Creatinine 1.5 H Est GFR (CKD-EPI 2020) 47.95 Glucose 208 H Calcium 8.7 Total Bilirubin 0.6 AST 15 ALT 33 Alkaline Phosphatase 91 Total Protein 6.9 Albumin 3.5 Patient ABO/Rh O Positive Antibody Screen NEGATIVE Insert Bladder Catheter Text: The patient was seen in the emergency room. His genitalia was prepped with Betadine. A 22 Nepali coud? tipped irrigating catheter was passed through the urethra into the bladder. The catheter balloon was inflated with 30 cc of sterile water. The catheter was hand irrigated with over a liter of saline. Multiple clots were obtained. By the end of the irrigation procedure, the irrigant was coming back clear. The catheter was hooked to a drainage bag and the irrigating port on the catheter was plugged.
== END 2023-05-17 23:01 | disposition home or self-care (01) ==
PROVIDERS: Emergency Provider Student in an Organized Health Care Education/Training Program; PCP Nurse Practitioner Family
DX: R31.9 Hematuria, unspecified (principal); T83.9XXA Unspecified complication of genitourinary prosthetic device, implant and graft, initial encounter
CPT/HCPCS: 80053; 86850; 86900; 86901; 85025

== ENCOUNTER 2023-05-18 20:48 | Emergency (ER) | payer MEDICARE, SELFPAY ==
[2023-05-18 20:50] VITALS: BP 160/82; PULSE 101; RESP 18; TEMP 37.2; O2SAT 99
--- NOTE | 2023-05-18 21:01 | ED.GENADUL_ITS ---
Discharge Plan Disposition Patient Disposition: Home Condition: Stable Discharge Details Clinical Impression: Painful bladder spasm Primary Care Provider: Jas Darden ED Provider: Aris Reynoso [place] Meds and New Rx's Prescriptions: New flavoxate 100 mg tablet 100 mg PO QID PRN (Reason: bladder spasms) Qty: 20 0RF oxycodone 5 mg tablet 5 mg PO TID PRN (Reason: pain) Qty: 5 0RF Continued aspirin [Adult Low Dose Aspirin] 81 mg tablet,delayed release (DR/EC) 81 mg PO DAILY Qty: 90 3RF (DME) FreeStyle Anamika 14 Day Sensor Kit See Rx Instructions .ROUTE .MEDSUPPLY Qty: 1 0RF Rx Instructions: As directed (DME) FreeStyle Anamika 14 Day [place] Misc See Rx Instructions .ROUTE .MEDSUPPLY Qty: 1 0RF Rx Instructions: As directed ciprofloxacin HCl 500 mg tablet 500 mg PO BID Qty: 14 0RF (DME) lancets 1 EACH misc 1 ea Miscellaneous DAILY Qty: 100 Rx Instructions: FOR ONE TOUCH ULTRA MINI METER. NO INSULIN. DIAGNOSIS CODE 250.02 (DME) blood-glucose meter Misc 1 ea Miscellaneous ONCE Qty: 1 0RF Rx Instructions: ONE TOUCH ULTRA MINI Dx E11.9. Check BS Daily (DME) blood sugar diagnostic Strip 1 ea Miscellaneous DAILY Qty: 100 5RF Rx Instructions: Test Daily lisinopril-hydrochlorothiazide 20-25 mg tablet 1 tab PO DAILY Qty: 90 12RF atorvastatin 20 mg tablet 20 mg PO DAILY Qty: 90 4RF metformin 500 mg tablet 1,000 mg PO BID Qty: 180 3RF metoprolol succinate 50 mg tablet extended release 24 hr 50 mg PO HS Discontinued hyoscyamine sulfate 0.125 mg tablet,disintegrating 0.125 mg PO BID-QID PRN (Reason: spasms) Qty: 12 0RF Discharge Instructions Instructions: Opioid Safety (ED) Additional Instructions: You were seen for intermittent yet recurrent painful bladder spasms that were not responding to your hyoscyamine. Unfortunately, we did not have the antispasmodic flavoxate available here tonight. You were given oxycodone to at least help with the painful aspect of the spasms. Please see the opioid safety sheet for use. Prescriptions for flavoxate and oxycodone have been sent to pharmacy for you to fruit picker tomorrow. Hopefully, the flavoxate works to control the spasms so that you will not need the oxycodone. Please follow-up with Dr. Yi as planned next week. Return to ED if you develop fever, back pain, persistent abdominal pain, vomiting, other concerns or changes. Referrals: Paulino iY MD [ [facility] STAFF PHYSICIAN] - Medical Decision Making Patient presenting to ED with bladder spasms that are intermittent and short- lived but very painful when they occur. He has hyoscyamine which he took two this evening without relief. We will try Urispas to see if any better controlling symptoms. Hospital does not have Urispas or B&O suppositories available. No other antispasmodics available. Have decided to treat with oxycodone to at least make the pain tolerable. Will send home with a few for overnight and will send prescription for Urispas and oxycodone to pharmacy. He will pick that up tomorrow morning. He can probably stop the hyoscyamine since it is not working. He is following up with Dr. Yi on Sunday. Return precautions provided. HPI General Mode of arrival: ambulatory . Date/Time Provider Initiated Documentation: 05/18/23 21:01 . Limitations to Documentation: no limitations . Information obtained by: patient . HPI Narrative: Patient presents to ED with complaint of suprapubic pain and spasm that began over the last few hours. Episodes last 15 to 30 seconds and are severe in nature. They resolved when he feels back to baseline until the next episode. Patient has Rowe catheter in place after urologic procedure on Sunday 5 days ago. He denies fever, back pain, penis or testicle pain, abdominal pain other than suprapubic spasm. Related Data Home Medications Medication Instructions Recorded Confirmed lancets 28 gauge #100 ea 09/17/14 05/18/23 blood-glucose meter #1 ea 08/13/20 05/18/23 aspirin 81 mg tablet,delayed 81 mg PO DAILY #90 tabs 08/27/20 05/18/23 release (Adult Low Dose Aspirin) flash glucose scanning reader #1 ea 10/12/20 05/18/23 (FreeStyle Anamika 14 Day [place]) flash glucose sensor (FreeStyle #1 ea 10/12/20 05/18/23 Anamika 14 Day Sensor kit) blood sugar diagnostic #100 strips 07/19/22 05/18/23 lisinopril 20 1 tab PO DAILY #90 tabs 08/17/22 05/18/23 mg-hydrochlorothiazide 25 mg tablet atorvastatin 20 mg tablet 20 mg PO DAILY #90 tabs 12/13/22 05/18/23 metformin 500 mg tablet 1,000 mg PO BID #180 tabs 02/07/23 05/18/23 metoprolol succinate 50 mg 50 mg PO HS 05/11/23 05/18/23 tablet,extended release 24 hr ciprofloxacin HCl 500 mg tablet 500 mg PO BID #14 tabs 05/15/23 05/18/23 flavoxate 100 mg tablet 100 mg PO QID PRN bladder spasms 05/18/23 #20 tabs oxycodone 5 mg tablet 5 mg PO TID PRN pain #5 tabs 05/18/23 Previous Rx's Medication Instructions Recorded blood-glucose meter #1 ea 08/13/20 aspirin 81 mg tablet,delayed 81 mg PO DAILY #90 tabs 08/27/20 release (Adult Low Dose Aspirin) flash glucose scanning reader #1 ea 10/12/20 (Sophia SearchStyle Anamika 14 Day [place]) flash glucose sensor (FreeStyle #1 ea 10/12/20 Anamika 14 Day Sensor kit) blood sugar diagnostic #100 strips 07/19/22 lisinopril 20 1 tab PO DAILY #90 tabs 08/17/22 mg-hydrochlorothiazide 25 mg tablet atorvastatin 20 mg tablet 20 mg PO DAILY #90 tabs 12/13/22 metformin 500 mg tablet 1,000 mg PO BID #180 tabs 02/07/23 ciprofloxacin HCl 500 mg tablet 500 mg PO BID #14 tabs 05/15/23 flavoxate 100 mg tablet 100 mg PO QID PRN bladder spasms 05/18/23 #20 tabs oxycodone 5 mg tablet 5 mg PO TID PRN pain #5 tabs 05/18/23 Allergies Allergy/AdvReac Type Severity Reaction Status Date / Time No Known Allergies Allergy Verified 05/17/23 20:59 General Stated Complaint: Urinary ROSALIO: 3 Review of Systems Narrative: See HPI PFSH All Active Problems (Updated 05/18/23 @ 22:38 by Aris Reynoso MD) Painful bladder spasm (Acute) Hematuria (Acute) Urinary catheter complication (Acute) Gross hematuria (Acute) Tinnitus (Acute) Bilateral Shoulder pain (Acute) left arthroscopy Elevated PSA (Acute) Osteoarthritis (Acute) Family history of prostate cancer (Acute) BPH rising PSA Actinic keratosis (Acute) Testicular mass (Acute) Colon polyp, hyperplastic (Acute ~06/2021) x4 Serrated adenoma of colon (Acute ~06/2021) Vertigo (Acute) Mixed conductive and sensorineural hearing loss of left ear with restricted hearing of right ear (Acute) Medical History Diabetes (09/25/14) Essential hypertension (12/24/13) Hyperlipidemia (04/25/13) Surgical History (Updated 05/18/23 @ 21:17 by Aris Reynoso MD) H/O cystoscopy History of arthroscopy of both knees History of arthroscopy of knee History of colonoscopy (~06/2021) Status post arthroscopy of shoulder Family History Mother Diabetes Father Personal history of malignant neoplasm Breast Sister Personal history of malignant neoplasm Ovarian Brother No problems noted. Grandfather No problems noted. Grandfather No problems noted. Grandmother No problems noted. Grandmother No problems noted. Social History Smoking/Tobacco Use Status: Former Tobacco Use tobacco type: cigarettes Quit Date: 11/26/77 Tobacco: How many years used: 45 Second Hand Exposure: Yes Smoking risk assessment performed?: Yes Alcohol Intake: current Alcohol Intake frequency: holidays/special occasions only Alcohol type: beer Drug use: Never Substance use type: does not use Caregiver/Support person: No Household members: spouse Housing: house Communication Needs: None Do you need help understanding health information?: Never Pets and animals: No Sexually active: Yes Do you think of yourself as: straight/heterosexual Current gender identity: male What is your relationship status?: How often do you talk on the phone with friends or family?: twice per week How often do you get together with friends or relatives?: three or more times per week How often do you attend spiritism or restorationist services?: 4 or more times per year Do you belong to any clubs or organized social groups?: yes Panel score (0-1 are the most socially isolated patients): 4 What type of physical activity do you participate in: none Frequency: does not exercise Adelina/Oriental Orthodox: Faith Special adelina needs: No Seatbelt use: sometimes Drive intox or ride w/intox powder truck driver: No Do you feel safe at home: Yes Do you feel safe in your relationship?: Yes Exam Narrative Exam Narrative: Const: WDWN elderly male in NAD. HEENT: NC/AT. Normal facial exam. Eyes: Normal conjunctiva and sclera. Neck: Supple. Trachea midline. Lungs: Normal respiratory effort. GI: Soft. NT/ND. No guarding or rebound. Back: No CVAT Neuro: A+O x 3. Normal speech, mentation, gait. Cranial nerves II - XII grossly intact. No gross motor or sensory deficit. Ext: No C/C/E. Course Vital Signs Vital signs: Vital Signs Temperature 99.0 F 05/18/23 20:50 Pulse 101 H 05/18/23 20:50 Respiratory Rate 18 05/18/23 20:50 Blood Pressure 160/82 H 05/18/23 20:50 Pulse Oximetry 99 05/18/23 20:50 Temperature 99.0 F 05/18/23 20:50 Temperature Source Skin 05/18/23 20:50 Pulse 101 H 05/18/23 20:50 Respiratory Rate 18 05/18/23 20:50 Respiratory Effort Normal 05/18/23 20:56 Blood Pressure 160/82 H 05/18/23 20:50 Blood Pressure Position Sitting 05/18/23 20:50 Pulse Oximetry 99 05/18/23 20:50 Oxygen Delivery Method Room Air 05/18/23 20:50 Oxygen Flow Rate 0 05/18/23 20:50
[2023-05-18] MEDS: oxyCODONE 5 MG TAB PO (22:33)
--- NOTE | 2023-05-19 09:52 | NUR.NOTE ---
Nursing Note: Pharmacy called stating they could not get the medication until sometime Sunday afternoon. Was there another substitute? Dr. Ramirez spoke with pharmacy.
== END 2023-05-18 23:20 | disposition home or self-care (01) ==
PROVIDERS: Emergency Provider Emergency Medicine; PCP Nurse Practitioner Family
DX: N32.89 Other specified disorders of bladder (principal)
CPT/HCPCS: 99283; 99284

== ENCOUNTER → 2023-05-21 07:55 | Outpatient (BNVA) | payer MEDICARE, SELFPAY | PROVIDERS: PCP Nurse Practitioner Family; Referring Provider Nurse Practitioner Family; Visit Provider Nurse Practitioner Gerontology | DX: R33.8 Other retention of urine (principal); Z46.6 Encounter for fitting and adjustment of urinary device; R30.1 Vesical tenesmus; R31.0 Gross hematuria; N40.1 Benign prostatic hyperplasia with lower urinary tract symptoms; R97.20 Elevated prostate specific antigen [PSA] | CPT/HCPCS: 99214 ==

== ENCOUNTER → 2023-05-28 14:54 | Outpatient (BNVA) | payer MEDICARE, SELFPAY | PROVIDERS: PCP Nurse Practitioner Family; Referring Provider Nurse Practitioner Family; Visit Provider Urology | DX: R31.9 Hematuria, unspecified (principal) | CPT/HCPCS: 99214 ==

== ENCOUNTER → 2023-12-04 10:01 | Outpatient (BNVA) | payer MEDICARE, SELFPAY | PROVIDERS: PCP Nurse Practitioner Family; Referring Provider Nurse Practitioner Family; Visit Provider Urology | DX: R31.0 Gross hematuria (principal); R97.20 Elevated prostate specific antigen [PSA] | CPT/HCPCS: 81002; 99214 ==

== ENCOUNTER 2024-02-06 10:47 | Outpatient (CLI) | payer MEDICARE, SELFPAY ==
[2024-02-06 16:25] LABS: Hemoglobin A1C 11.4 % (<5.7)
[2024-02-06 17:13] LABS: Cholesterol 214 mg/dL (<200); HDL Cholesterol 44 mg/dL (40-60); Triglyceride 707 mg/dL (<150)
[2024-02-06 17:37] LABS: LDL CHOLESTEROL 63 mg/dL (<100)
[2024-02-07 18:44] LABS: PSA, Diagnostic 0.7 ng/mL (<=6.5)
== END 2024-02-06 10:48 | disposition home or self-care (01) ==
LOC: LBO 02-12 10:47
PROVIDERS: Urology; PCP Nurse Practitioner Family; Visit Provider Nurse Practitioner Family
DX: E11.9 Type 2 diabetes mellitus without complications (principal); E78.5 Hyperlipidemia, unspecified; R97.20 Elevated prostate specific antigen [PSA]
CPT/HCPCS: 36415; 80061; 83721; 83036; 84153

== ENCOUNTER → 2024-06-03 10:35 | Outpatient (BNVA) | payer MEDICARE, SELFPAY | PROVIDERS: PCP Nurse Practitioner Family; Referring Provider Nurse Practitioner Family; Visit Provider Urology | DX: R31.0 Gross hematuria (principal); Z80.42 Family history of malignant neoplasm of prostate; R97.20 Elevated prostate specific antigen [PSA] | CPT/HCPCS: 99213 ==

== ENCOUNTER 2024-06-03 11:11 | Outpatient (REF) | payer MEDICARE, SELFPAY ==
--- NOTE | 2024-06-03 01:05 | PAPNONF_PTH ---
PATIENT: Tino Hart LOC: [facility] U#:[id number] AGE/SX: 78/M ROOM: RE06/03/[address]: Paulino Yi MD : 1945 BED: DIS: 06/03/2024 SPEC #: [id number] RECD: 06/03/24 13:24 STATUS: RIC TORRES #: [id number] ZACHARY: 06/03/24 01:[address]: Paulino Yi DEPT: [facility] Cytology RECD BY: Marleny Gillis ENTERED: 06/03/24 13:24 SP TYPE: CAITLYN PEREZ DR: Jas Darden, PELLET PRESS OPERATOR Tissues: 1 - BODY FLUID CYTO(SPUTUM/URINE)UVM Procedures: BODY FLUID CYTO(URINE/SPUTUM) Comments: [id number] (TV = 50 ml, 30 mL CYTOLYT ADDED) (REFRIGERATED)
== END 2024-06-03 11:12 | disposition home or self-care (01) ==
LOC: LBN 11:11
PROVIDERS: PCP Nurse Practitioner Family; Visit Provider Urology
DX: R31.9 Hematuria, unspecified (principal)
CPT/HCPCS: 88104

== ENCOUNTER 2024-06-03 14:23 | Outpatient (CLI) | payer MEDICARE, SELFPAY ==
[2024-06-03 11:55] LABS: CREATININE 1.3 mg/dL (0.70-1.30); Calculated LDL 48 mg/dL (<100); Cholesterol 167 mg/dL (<200); Estimated GFR 56.58 (mL/min/1.73m2); HDL Cholesterol 42 mg/dL (40-60); Triglyceride 387 mg/dL (<150)
[2024-06-03 23:34] LABS: PSA, Diagnostic 9.4 ng/mL (<=6.5)
== END 2024-06-03 14:24 | disposition home or self-care (01) ==
LOC: LBO 14:24
PROVIDERS: Urology; PCP Nurse Practitioner Family; Visit Provider Nurse Practitioner Family
DX: E78.2 Mixed hyperlipidemia (principal); I10 Essential (primary) hypertension; R97.20 Elevated prostate specific antigen [PSA]
CPT/HCPCS: 36415; 80061; 82565; 84132; 84153

== ENCOUNTER → 2024-06-10 01:22 | Outpatient (CLI) | payer MEDICARE, SELFPAY ==
--- NOTE | 2024-06-10 11:00 | DI.US_ITS ---
APPROVED REPORT EXAM: Comprehensive 2D, Doppler, and color-flow Echocardiogram Patient Location: Out-Patient Medical Appointment Clerk: Viktoriya Young RDCS (AE) Indications: Murmur Other Information Study Quality: Fair. Technically limited study due to body habitus. Conclusion Normal left ventricular wall thickness and chamber size. Ejection fraction is 55 to 60%. Wall motio n is normal Grossly normal right ventricular size and function Both atria are normal in size The aortic valve is calcified with mild regurgitation Mild mitral annular calcification. Trace mitral regurgitation Trace to mild tricuspid regurgitation Ascending aorta measures 3.58 cm Estimated right ventricular systolic pressure is 26 mmHg Wall motion Left Ventricle The left ventricle is normal size. The left ventricular systolic function is normal. The left ventric ular ejection fraction is within the normal range. There is normal left ventricular wall thickness. T here is normal LV segmental wall motion. There is no ventricular septal defect visualized. LVEF is 55 -60%. Right Ventricle Right ventricle is not well visualized. Right ventricular systolic function could not be assessed. Atria The left atrium size is normal. The right atrium size is normal. The interatrial septum is intact wit h no evidence for an atrial septal defect. Aortic Valve Aortic valve is calcified. Aortic valve is trileaflet. No hemodynamically significant valvular aortic stenosis. Mild aortic regurgitation. Mitral Valve Mild mitral annular calcification. No evidence of mitral valve stenosis. Trace mitral regurgitation. Tricuspid Valve The tricuspid valve is normal in structure. There is no tricuspid valve stenosis. Trace to mild tric uspid regurgitation. Pulmonic Valve The pulmonary valve is normal in structure. There is no pulmonic valvular stenosis. Trace pulmonic re gurgitation. Great Vessels The aortic root is normal in size. The ascending aorta is mildly dilated. Aortic arch is not well vis ualized. IVC is normal in size and collapses >50% with inspiration. Pericardium There is no pericardial effusion. 2D Dimensions IVSD d PLAX 1.11 cm M: 0.6-1.2 Ao Root d 3.33 cm M: 3.1 - 3.7 LVPW d PLAX 1.10 cm M: 0.6 - 1.2 Ao Asc Diam d 3.58 cm M: 2.6 - 3.4 LVID d PLAX 4.97 cm M: 4.2 - 5.8 LVDs 3.41 cm M: 2.5 - 4.0 LV EF Teichholz 59.0 % FS 31.35 % LV EDV (Teich) 116.7 mL LV ESV (Teich) 47.9 mL Auto EF LV EDV A4C 150.2 mL LV EDV A2C 89.1 mL LV EDV BP 118.4 mL LV ESV A4C 66.5 mL LV ESV A2C 41.0 mL LV ESV BP 53.3 mL LVEF(%) A4C 55.7 % LVEF(%) A2C 54.0 % LVEF(%) BP 55.0 % LV SV A4C 83.7 ml LV SV A2C 48.2 ml LV SV BP 65.1 ml LV CO A4C 5.6 L/min LV CO A2C 3.2 L/min LV CO BP 4.4 L/min HR A4C 66.55 BPM HR A2C 66.67 BPM LV EDV Index (BP) LA Volume LA Length A4C 5.2 cm LA Length A2C 4.5 cm LA Area A4C s 18.16 cm2 LA Area A2C s 15.34 cm2 LA Vol A4C A-L 54.10 mL LA Vol A2C A-L 44.00 mL LA Vol Biplane A-L 52.1 mL LA Vol/BSA A4C A-L LA Vol/BSA A2C A-L LA Vol/BSA BP A-L 22.8 mL/m2 LA Vol A4C MOD 49.9 mL LA Vol A2C MOD 42.3 mL LA Vol BP MOD 48.9 mL RA Volume RA Area A4C 14.8 cm2 RA ESV A4C (A-L) 39.2mL RA Vol/BSA A4C A-L RA Length A4C 4.7 cm RA ESV A4C (MOD) 38.4mL LV Diastology MV E' medial 0.051 (>0.07 m/s) MV E Vmax 0.59 (0.4-1.3 m/s) MV E/E' MED 11.53 (<14) MV A Vmax 0.95 (0.4-1.3 m/s) MV E' lateral 0.046 (>0.1 m/s) E/A Ratio 0.6 MV E/E' LAT 12.64 (<14) MV E' Average 0.049 m/s MV E/E'(average) 12.06 Aortic Valve AoV Vmax 2.56 m/s LVOT Vmax 1.27 m/s AoV Peak Grad 49.0 mmHg LVOT Peak Grad 6.4 mmHg AoV Area (Vmax) 1.62 cm2 LVOT VTI 0.299 m AoV VTI 0.521 m LVOT Mean Grad 3.7 mmHg AoV Mean Scott. 1.90 m/s LVOT SV 97.72 mL AoV Mean Grad 15.4 mmHg LVOT Diam s 2.00 cm AoV Area (VTI) 1.87 cm2 AV Regurg Peak Gr. 71.65 mmHg Velocity Ratio 0.50 AR Decel Pleasants 1.2m/sec2 AR DT 3560 msec AR PHT 1032 msec AR Vmax 4.23 m/s Mitral Valve MV DT 255 (160-240 msec) MV Vmax TIPS 1.01 m/s MV Mean Grad 1.2 (<2mmHg) MV VTI 0.276 m Pulmonary Valve PV Vmax 1.37 (0.5-1.5 m/s) RVOT Vmax 0.77 m/s PV Peak Grad 7.5 mmHg RVOT Peak Gr. 2.4 mmHg PV Mean Scott 0.86 m/s RVOT VTI 0.147 m PV Mean Grad 3.6 mmHg RVOT Mean Gr. 1.1 mmHg Tricuspid Valve RA Pressure 3.00 mmHg TR Vmax 2.39 m/s TV S' 0.17 m/s TR Peak Grad 22.8 mmHg RVSP (TR) 25.9 mmHg
== END ==
PROVIDERS: PCP Nurse Practitioner Family; Visit Provider Nurse Practitioner Family
DX: R01.1 Cardiac murmur, unspecified (principal)
CPT/HCPCS: 93306

== ENCOUNTER → 2024-12-10 10:02 | Outpatient (BNVA) | payer MEDICARE, SELFPAY | PROVIDERS: PCP Nurse Practitioner Family; Visit Provider Nurse Practitioner Gerontology | DX: R31.0 Gross hematuria (principal); Z80.42 Family history of malignant neoplasm of prostate; R97.20 Elevated prostate specific antigen [PSA] | CPT/HCPCS: 81003; 99213 ==

== ENCOUNTER 2024-12-10 10:46 | Outpatient (CLI) | payer MEDICARE, SELFPAY ==
[2024-12-10 18:14] LABS: PSA, Diagnostic 6.4 ng/mL (<=6.5)
== END 2024-12-10 10:47 | disposition home or self-care (01) ==
LOC: LBO 10:46
PROVIDERS: PCP Nurse Practitioner Family; Visit Provider Nurse Practitioner Gerontology
DX: R31.0 Gross hematuria (principal); R97.20 Elevated prostate specific antigen [PSA]; Z80.42 Family history of malignant neoplasm of prostate
CPT/HCPCS: 36415; 84153

== ENCOUNTER → 2025-06-10 09:29 | Outpatient (BNVA) | payer MEDICARE, SELFPAY | PROVIDERS: PCP Nurse Practitioner Family; Referring Provider Nurse Practitioner Family; Visit Provider Physical Therapy Assistant | DX: D48.5 Neoplasm of uncertain behavior of skin (principal) | CPT/HCPCS: 99213 ==

== ENCOUNTER → 2025-06-10 10:32 | Outpatient (BNVA) | payer MEDICARE, SELFPAY | PROVIDERS: PCP Nurse Practitioner Family; Referring Provider Nurse Practitioner Family; Visit Provider Nurse Practitioner Gerontology | DX: R31.0 Gross hematuria (principal); R97.20 Elevated prostate specific antigen [PSA]; Z80.42 Family history of malignant neoplasm of prostate; B95.61 Methicillin susceptible Staphylococcus aureus infection as the cause of diseases classified elsewhere | CPT/HCPCS: 99213; 81002 ==

== ENCOUNTER 2025-06-10 18:06 | Outpatient (REF) | payer MEDICARE, SELFPAY ==
--- NOTE | 2025-06-10 11:20 | PAPNONF_PTH ---
PATIENT: Tino Hart LOC: [facility] U#:[id number] AGE/SX: 79/M ROOM: RE06/10/[address]: Kathleen Alvarado DNP : 1945 BED: DIS: 06/10/2025 SPEC #: [id number] RECD: 06/10/25 18:08 STATUS: RIC REQ #: [id number] ZACHARY: 06/10/25 11:[address]: Kathleen Alvarado DEPT: [facility] Cytology RECD BY: Marleny Gillis ENTERED: 06/10/25 18:09 SP TYPE: PAPJAZMYNF ANA DR: Jas Darden, WELDING TEACHER Tissues: 1 - BODY FLUID CYTO(SPUTUM/URINE)UVM Procedures: BODY FLUID CYTO(URINE/SPUTUM) Comments: [id number] (TV = 50 ml, 30 ml CYTOLYT ADDED (REFRIGERATED)
== END 2025-06-10 18:07 | disposition home or self-care (01) ==
LOC: LBN 18:06
PROVIDERS: PCP Nurse Practitioner Family; Visit Provider Nurse Practitioner Gerontology
DX: R31.0 Gross hematuria (principal)
CPT/HCPCS: 87077; 87086; 87186; 88104

== ENCOUNTER 2025-06-16 12:46 | Outpatient (CLI) | payer MEDICARE, SELFPAY ==
--- NOTE | 2025-06-16 11:35 | DI.RAD_ITS ---
Exam(s) XR KNEE LT 4V AP,LAT,KONRAD,PAT EXAM: XR KNEE LT 4V AP,LAT,KONRAD,PAT CLINICAL HISTORY: evlaluate pathology M25.562 PAIN LEFT KNEE. TECHNIQUE: 2D digital imaging was performed. Three views. COMPARISON: CR XR KNEE RT 4V AP,LAT,KONRAD,PAT from 06/16/2025 FINDINGS: BONES: No acute fracture is present. No bony destructive lesion is seen. Patellar enthesophyte. JOINTS: Moderate to severe narrowing of the medial femoral tibial joint space. Mild periarticular spurring. Mild spurring at the articular aspect of the patella and tibial spines. No joint effusion is seen. SOFT TISSUE: Normal. 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 DATA REPOSITORY: RADIATION DOSE DELIVERED:
--- NOTE | 2025-06-16 11:35 | DI.RAD_ITS ---
Exam(s) XR KNEE RT 4V AP,LAT,KONRAD,PAT EXAM: XR KNEE RT 4V AP,LAT,KONRAD,PAT CLINICAL HISTORY: evaluate pathology M25.561 PAIN RT KNEE. TECHNIQUE: 2D digital imaging was performed. Three views. COMPARISON: No exams were available for comparison FINDINGS: BONES: No acute fracture is present. No bony destructive lesion is seen. JOINTS: The severe narrowing of the medial femoral tibial joint space and periarticular spurring. Mild spurring at the articular aspect of the patella with maintained joint space. No joint effusion is seen. SOFT TISSUE: Normal. 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 DATA REPOSITORY: RADIATION DOSE DELIVERED:
== END 2025-06-16 13:06 ==
LOC: DI 12:47
PROVIDERS: PCP Nurse Practitioner Family; Visit Provider Nurse Practitioner Family
DX: M17.0 Bilateral primary osteoarthritis of knee (principal)
CPT/HCPCS: 73564

== ENCOUNTER 2025-07-16 00:59 | Outpatient (CLI) | payer MEDICARE, SELFPAY ==
[2025-07-16 19:27] LABS: PSA, Diagnostic 6.5 ng/mL (<=6.5)
== END 2025-07-16 01:00 | disposition home or self-care (01) ==
LOC: LOS 00:59
PROVIDERS: PCP Nurse Practitioner Family; Visit Provider Nurse Practitioner Gerontology
DX: R97.20 Elevated prostate specific antigen [PSA] (principal); Z80.42 Family history of malignant neoplasm of prostate
CPT/HCPCS: 36415; 84153

== ENCOUNTER 2025-08-05 13:02 | Outpatient (REF) | payer MEDICARE, SELFPAY ==
--- NOTE | 2025-08-05 13:34 | SKI_PTH ---
PATIENT: Tino Hart LOC: [facility] U#:[id number] AGE/SX: 79/M ROOM: RE08/05/[address]: HELDER Sinclair : 1945 BED: DIS: 08/05/2025 SPEC #: [id number] RECD: 08/05/25 17:33 STATUS: RIC REKrzysztof #: [id number] ZACHARY: 08/05/25 13:[address]: Scarlet Elder DEPT: Surgical Specimen RECD BY: Marleny Gillis ENTERED: 08/05/25 17:34 SP TYPE: AYDEE PEREZ DR: Jas Darden, PROOF CLERK Tissues: 1 - SKIN BIOPSY(SHAVE/PUNCH) 2 - SKIN BIOPSY(SHAVE/PUNCH) Procedures: SKIN LEVEL 4 Comments: [id number]
== END 2025-08-05 13:03 | disposition home or self-care (01) ==
LOC: LBN 13:02
PROVIDERS: PCP Nurse Practitioner Family; Referring Provider Nurse Practitioner Family; Visit Provider Physical Therapy Assistant
DX: L82.1 Other seborrheic keratosis (principal)
CPT/HCPCS: 88305

== ENCOUNTER → 2025-08-05 13:02 | Outpatient (BNVA) | payer MEDICARE, SELFPAY | PROVIDERS: PCP Nurse Practitioner Family; Referring Provider Nurse Practitioner Family; Visit Provider Physical Therapy Assistant | DX: L82.1 Other seborrheic keratosis (principal) | CPT/HCPCS: 11402 ==

== ENCOUNTER 2025-08-21 08:26 | Day surgery (SDC) | payer MEDICARE, SELFPAY ==
--- NOTE | 2025-08-20 17:10 | W.PM.DSUDISC ---
Date of service: 08/21/25 Discharge Plan Disposition Patient Disposition: Home Condition: Good Discharge Details Reason For Visit: screening colonoscopy Attending Provider: Oneal Nunn Primary Care Provider: Jas Darden Home Meds and New Rx's Prescriptions: Continued aspirin [Adult Low Dose Aspirin] 81 mg tablet,delayed release (DR/EC) 81 mg PO DAILY Qty: 90 3RF metoprolol succinate 50 mg tablet extended release 24 hr 50 mg PO HS Qty: 90 3RF (DME) lancets 1 EACH misc 1 ea Miscellaneous DAILY Qty: 100 Rx Instructions: FOR ONE TOUCH ULTRA MINI METER. NO INSULIN. DIAGNOSIS CODE 250.02 (DME) blood-glucose meter Misc 1 ea Miscellaneous ONCE Qty: 1 0RF Rx Instructions: ONE TOUCH ULTRA MINI Dx E11.9. Check BS Daily (DME) blood sugar diagnostic Strip 1 ea Miscellaneous DAILY Qty: 100 5RF Rx Instructions: Test Daily lisinopril 10 mg tablet 10 mg PO DAILY Qty: 90 3RF lisinopril-hydrochlorothiazide 20-25 mg tablet 1 tab PO DAILY Qty: 90 3RF finasteride 5 mg tablet 5 mg PO DAILY Qty: 90 4RF metformin 500 mg tablet 1,000 mg PO BID Qty: 180 3RF atorvastatin 20 mg tablet See Rx Instructions .ROUTE .COMPLEX Qty: 90 3RF Dose Instruction: TAKE 1 TABLET BY MOUTH DAILY Rx Instructions: TAKE 1 TABLET BY MOUTH DAILY (DME) FreeStyle Anamika 3 Plus Sensor Device See Rx Instructions .Route Qty: 2 12RF Rx Instructions: Continuous Ozempic 0.25 mg or 0.5 mg (2 mg/3 mL) pen injector 0.25 mg subcut QWEEK 42 Days Qty: 3 12RF Rx Instructions: Inject 0.25 mg subcutaneously once weekly as directed, titrating as directed to 0.5 mg weekly Discontinued bisacodyl [Dulcolax (bisacodyl)] 5 mg tablet,delayed release (DR/EC) 5 mg PO ONCE Qty: 4 0RF Rx Instructions: Take per colonoscopy instructions provided by ordering providers office peg 3350-electrolytes [Golytely] 236-22.74-6.74 -5.86 gram recon soln 240 ml PO Q10M Qty: 4000 0RF Rx Instructions: until fecal effluent is clear Discharge Instructions Instructions: Diverticulosis Additional Instructions: Tino, it was a pleasure meeting you today. I hope you feel well after the procedure. Things went very smoothly. Your prep was excellent, and I could see everything fine. I did not find any tumors or polyps today. Incidentally, you do have a little bit of diverticulosis. Diverticula are little weak spots in the muscular layer of the colon wall that cause the inside lining to pocket her pouch outwards. These pockets are called diverticula, and the condition of having them is known as diverticulosis. These can get infected or inflamed, typically causing pain on the left side of the abdomen. Those flareups are referred to as diverticulitis. Hopefully years never give you any trouble. I will attach some basic information here about typical approaches to diverticular management. Based on the polyps he had removed previously, I do recommend another 5-year interval for your next screening. If you need anything or have any questions at all, please do not hesitate to ask at any time. 1. If tolerated, consume a soft, low fiber diet for 1-2 days. 2[address] Do not drive, drink alcohol, operate machinery, make critical decisions, or do activities that require coordination or balance for 24 hours. 3. Because air was put into your colon during the procedure, expelling air from your rectum (passing gas or farting) is normal. 4. You may not have a bowel movement for 1-3 days because of the colonoscopy prep. This is normal. 5. Go directly to the emergency room if you notice any of the following: Develop chills (warm to touch), or if you have a thermometer and your temperature is above 101 Difficulty breathing or difficultly swallowing Persistent vomiting Severe abdominal pain, other than gas cramps Severe chest pain Black, tarry stools Any bleeding ? exceeding one tablespoon 6. Call your physician if the site where your intravenous was started becomes red, swollen, painful, and warm to touch. 7. Your physician has reviewed your pre-procedure medications. Please continue to take those medications as previously ordered. You will be given specific information/education regarding any changes to your medications before leaving. Stand Alone Forms: Anesthesia Discharge Inst., Colonoscopy Post Instructions, Ariana Tolliver (DSU) Activity:: Activity as Tolerated Diet:: As Tolerated Discharge Orders Discharge Orders: Discharge Order (Routine); Ordered 08/20/25 Ordered By: Oneal Nunn DS: Diagnosis Discharge Diagnosis (1) Encounter for screening colonoscopy: Status: Acute Asessment and Plan: Negative screening colonoscopy today; based on history of adenomatous polyps recommend 5-year interval for the next screening
--- NOTE | 2025-08-20 17:12 | COLE_ITS ---
Date of service: 08/21/25 Time of Service: 10:16 Colonoscopy Report Date of procedure: 08/21/25 Pre-op diagnosis general: screening colonoscopy Post-op diagnosis procedure note: other (Diverticulosis) Procedure: colonoscopy Surgeon: Oneal Nunn Anesthesia Type: General:No Airway Estimated blood loss (mL): 0 Pathology: none sent Complications: None Disposition: same day Indications: Tino is a 79 year old man with a history of adenomatous polyps who needs a screening colonoscopy Prep: Miralax/Dulcolax Procedure Start Time: 09:50 Procedure End Time: 10:07 Retraction Time: 7 Findings: Left-sided diverticulosis Procedure Description: After the induction of anesthesia, and with Tino in left lateral decubitus position, I began by performing an external anorectal exam.? Perineum and skin were normal, as was the anal verge.?Next, I performed a digital rectal exam.? I did not appreciate any abnormal findings.? Next, I advanced a colonoscope into the rectal vault.? I performed retroflexion.? There are some internal he morrhoids.? Using insufflation, I then advanced the colonoscope beyond the rectal folds and into the sigmoid colon before advancing towards the cecum.? The quality of the prep was excellent.? The scope was noted to be in the cecum by identification of the ileocecal valve and appendiceal orifice.? I then began withdrawing the colonoscope using repeated irrigation as necessary for full evaluation of the colonic mucosa. There is diverticulosis involving the descending and sigmoid segments. Once the scope was withdrawn to the level of the rectum, great care was taken to examine portions of the rectal folds.? Finally, the scope was withdrawn and the patient was brought to the same-day surgery recovery unit as the anesthetic wore off. ?The findings and instructions were shared with the patient prior to discharge. [place] Bowel Prep [place] Bowel Prep Right Colon: 3 Left Colon: 3 Transverse Colon: 3 Total Score: 9
[2025-08-21 08:45] VITALS: BP 179/82; PULSE 83; RESP 16; TEMP 36.6; O2SAT 97
[2025-08-21] MEDS: Lactated Ringers 1,000 ML 80 ML IV (09:06)
--- NOTE | 2025-08-21 09:37 | W.ANESPRE ---
General Info Date of Service Date Performed: 08/21/25 Height: 6 ft Weight: 101.4 kg Body Mass Index (BMI): 30.3 Surgical Procedure: Operation Date: 08/21/25 09:50 Proposed Procedure Side Surgeon maria teresa Nunn MD Meds Allergies and Home Medications Allergies Allergy/AdvReac Type Severity Reaction Status Date / Time No Known Allergies Allergy Verified 08/21/25 08:36 Home Medication ?Medication ?Instructions ?Recorded lancets 28 gauge #100 ea 09/17/14 blood-glucose meter #1 ea 08/13/20 aspirin 81 mg tablet,delayed 81 mg PO DAILY #90 tabs 08/27/20 release (Adult Low Dose Aspirin) blood sugar diagnostic #100 strips 07/02/24 lisinopril 10 mg tablet 10 mg PO DAILY #90 tabs 10/08/24 lisinopril 20 1 tab PO DAILY #90 tabs 12/25/24 mg-hydrochlorothiazide 25 mg tablet finasteride 5 mg tablet 5 mg PO DAILY #90 tabs 01/27/25 atorvastatin 20 mg tablet See Rx Instructions .Route 02/19/25 .COMPLEX #90 tabs metformin 500 mg tablet 1,000 mg (2 x 500 mg) PO BID #180 02/19/25 tabs blood-glucose sensor (FreeStyle #2 ea 03/20/25 Anamika 3 Plus Sensor device) metoprolol succinate 50 mg 50 mg PO HS #90 tabs 05/20/25 tablet,extended release 24 hr semaglutide 0.25 mg or 0.5 mg (2 0.25 mg (0.368 mL) subcut QWEEK 42 06/15/25 mg/3 mL) subcutaneous pen injector days #3 mL (Ozempic) Current Visit Medications: Current Medications Generic Name Dose Route Start Last Admin Trade Name Freq PRN Reason Stop Dose Admin Ringer's Solution 1,000 mls @ 80 mls/hr 08/21/25 06:00 08/21/25 09:06 IV 08/21/25 23:59 80 mls/hr INFUSION COREEN Administration IV Miscellaneous Supplies 1 each 08/21/25 06:00 Iv Access IV 08/21/25 23:59 DIRECTED COREEN Sodium Chloride 0 ml 08/21/25 06:00 Normal Saline Flush 10 Ml Syr IV 08/21/25 23:59 PRN PRN Sodium Chloride 0 ml 08/21/25 06:00 Normal Saline 10 Ml Vial IJ 08/21/25 23:59 DIRECTED PRN Sterile Water 0 ml 08/21/25 06:00 Water,Injection,Sterile 10 Ml Vial IJ 08/21/25 23:59 DIRECTED PRN PFSH Active Problems Active Problems: Problem Status Onset Code Encounter for screening colonoscopy Acute Z12.11 Skin lesion Acute L98.9 Murmur, heart Acute R01.1 Hyperlipidemia Acute 04/25/13 E78.5 Essential hypertension Chronic 12/24/13 I10 Diabetes Chronic 09/25/14 E11.9 Gross hematuria Acute R31.0 Tinnitus Acute H93.19 Shoulder pain Acute M25.519 Elevated PSA Acute R97.20 Osteoarthritis Acute M19.90 Family history of prostate cancer Acute Z80.42 Actinic keratosis Acute L57.0 Testicular mass Acute N50.89 Colon polyp, hyperplastic Acute ~06/2021 K63.5 Serrated adenoma of colon Acute ~06/2021 D12.6 Vertigo Acute R42 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 Surgical History Surgical History H/O cystoscopy History of colonoscopy (~06/2021) History of arthroscopy of both knees History of arthroscopy of knee Status post arthroscopy of shoulder Tobacco Smoking/Tobacco Use Status: Former Tobacco Use Passive smoking exposure: Yes Second hand exposure: Yes Alcohol Alcohol Intake: current Alcohol intake frequency: holidays/special occasions only Alcohol type: beer Substance Use Substance use: Never Substance use type: does not use Vital Signs and Lab Results Vital Signs Most Recent Vital Signs in EMR: Most Recent Vital Signs Temp Pulse Resp BP Pulse Ox 36.6 C 83 16 179/82 H 97 08/21/25 08:45 08/21/25 08:45 08/21/25 08:45 08/21/25 08:45 08/21/25 08:45 Point of Care Results Point of Care Results: Finger Stick Blood Glucose 193 08/21/25 09:10 Anesthesia Assessment and Plan Anesthesia History Personal History: No History of Anesthesia Complications Family History: No Family History of Anesthesia Complications Exercise Tolerance Exercise Tolerance: Metabolic Equivalents>4 Pertinent Negatives Pertinent Negatives: No Symptoms of GERD Cardiac & Pulmonary Exam Cardiac Exam: Normal S1/S2 Heart Sounds Pulmonary Exam: Clear Bilateral Breath Sounds Implantable Cardiac Device Does patient have a Pacemaker or an ICD?: No Airway Exam Known Difficult Airway: No Mallampati Class: 2 Mouth Opening: Normal (> 3cm) Thyromental Distance: Less than 3 cm Neck Range of Motion: Limited ROM Neck Circumference: Normal Teeth Condition: Normal Dentition Airway Comments: Short thick neck ASA Classification ASA Score: ASA 3 Emergency Case?: No NPO Status NPO Status: NPO Clears >2 hours, Solids >8 hours Anesthesia Plan Resuscitation Status: Full Code Anesthesia Technique: General Anesthesia Airway Planned: Natural Airway Monitors Used: Standard Monitors
[2025-08-21 09:38] VITALS: BMI 30.3
[2025-08-21 10:12] VITALS: BP 86/52; PULSE 75; RESP 16; TEMP 36.3; O2SAT 95
--- NOTE | 2025-08-21 10:22 | W.ANESPOSTOP ---
Postoperative Evaluation Date, Time and Location Date Performed: 08/21/25 Time Performed: 10:22 Patient Location: Day Surgery Unit Vital Signs Most Recent Imported Vital Signs: Most Recent Vital Signs Temp Pulse Resp BP Pulse Ox 36.3 C L 75 16 86/52 L 95 08/21/25 10:12 08/21/25 10:12 08/21/25 10:12 08/21/25 10:12 08/21/25 10:12 Pain Score Most Recent Pain Score: Most Recent Pain Score Pain Level 0 08/21/25 10:12 Assessment Mental Status: Awake (Alert & Oriented to Patient Baseline) Airway and Respiratory Function: Patent airway with normal (patient baseline) respiratory exam Cardiovascular Function: Hemodynamically Stable Hydration Status: Adequately Hydrated Nausea & Vomiting: No Nausea or Vomiting Pain: Pt. Denies Any Pain Peripheral Nerve Block: Patient did not receive a nerve block
[2025-08-21 10:39] VITALS: BP 136/74; PULSE 67; RESP 16; TEMP 36.3; O2SAT 96
== END 2025-08-21 10:50 | disposition home or self-care (01) ==
LOC: SUR 08:27
PROVIDERS: PCP Nurse Practitioner Family; Visit Provider Surgery
PROC: 0DJD8ZZ Inspection of Lower Intestinal Tract, Via Natural or Artificial Opening Endoscopic (ICD-10-PCS; CPT 45378; principal; 2025-08-21 09:45)
DX: Z12.11 Encounter for screening for malignant neoplasm of colon (principal); K57.30 Diverticulosis of large intestine without perforation or abscess without bleeding; Z86.0101 Personal history of adenomatous and serrated colon polyps
CPT/HCPCS: G0105; J2003; J2704

== ENCOUNTER 2025-11-06 06:14 | Day surgery (SDC) | payer MEDICARE, SELFPAY ==
[2025-11-06 06:32] VITALS: BP 132/70; PULSE 71; RESP 16; TEMP 36.5; O2SAT 97
[2025-11-06] MEDS: Tropicam./Phenyleph. (1/2.5%) 5 ML BTL ×3 (06:37→06:55)
--- NOTE | 2025-11-06 07:12 | W.ANESPRE ---
General Info Date of Service Date Performed: 11/06/25 Height: 6 ft Weight: 102.7 kg Body Mass Index (BMI): 30.7 Surgical Procedure: Operation Date: 11/06/25 07:40 Proposed Procedure Side Surgeon p Cataract Extraction with IOL Implant Left Deuce Otoole MD Meds Allergies and Home Medications Allergies Allergy/AdvReac Type Severity Reaction Status Date / Time No Known Allergies Allergy Verified 11/06/25 06:39 Home Medication ?Medication ?Instructions ?Recorded lancets 28 gauge #100 ea 09/17/14 blood-glucose meter #1 ea 08/13/20 aspirin 81 mg tablet,delayed 81 mg PO DAILY #90 tabs 08/27/20 release (Adult Low Dose Aspirin) blood sugar diagnostic #100 strips 07/02/24 lisinopril 20 1 tab PO DAILY #90 tabs 12/25/24 mg-hydrochlorothiazide 25 mg tablet finasteride 5 mg tablet 5 mg PO DAILY #90 tabs 01/27/25 atorvastatin 20 mg tablet See Rx Instructions .Route 02/19/25 .COMPLEX #90 tabs metformin 500 mg tablet 1,000 mg (2 x 500 mg) PO BID #180 02/19/25 tabs blood-glucose sensor (FreeStyle #2 ea 03/20/25 Anamika 3 Plus Sensor device) metoprolol succinate 50 mg 50 mg PO HS #90 tabs 05/20/25 tablet,extended release 24 hr semaglutide 0.25 mg or 0.5 mg (2 0.25 mg (0.368 mL) subcut QWEEK 42 06/15/25 mg/3 mL) subcutaneous pen injector days #3 mL (Ozempic) lisinopril 10 mg tablet 10 mg PO DAILY #90 tabs 10/07/25 Current Visit Medications: Current Medications Generic Name Dose Route Start Last Admin Trade Name Freq PRN Reason Stop Dose Admin Acetaminophen 1,000 mg 11/06/25 06:00 Acetaminophen 500 Mg Tab PO 12/06/25 05:59 Q4H PRN PRN Balanced Salt Solution 500 ml 11/06/25 06:00 Balanced Salt Soln.-Plus 500 Ml Bag OP 12/06/25 05:59 DIRECTED COREEN Miscellaneous Medication 0 ml 11/06/25 06:00 Prednisolone 1%, Moxifloxacin 0.5%, Bromfenac 0.09% 5.6ml Btl OS 12/06/25 05:59 DIRECTED [facility] Miscellaneous Medication 0 ml 11/06/25 06:00 Tropicam./Phenyleph. (1/2.5%) 5 Ml Btl OS 12/06/25 05:59 DIRECTED [facility] Tetracaine HCl 0 ml 11/06/25 06:00 Tetracaine 0.5% 4 Ml Btl OS 12/06/25 05:59 DIRECTED [facility] PFSH Active Problems Active Problems: Problem Status Onset Code Cortical age-related cataract, left eye Acute H25.012 Nuclear age-related cataract, left eye Acute H25.12 Skin lesion Acute L98.9 Murmur, heart Acute R01.1 Hyperlipidemia Acute 04/25/13 E78.5 Essential hypertension Chronic 12/24/13 I10 Diabetes Chronic 09/25/14 E11.9 Gross hematuria Acute R31.0 Tinnitus Acute H93.19 Shoulder pain Acute M25.519 Elevated PSA Acute R97.20 Osteoarthritis Acute M19.90 Family history of prostate cancer Acute Z80.42 Actinic keratosis Acute L57.0 Testicular mass Acute N50.89 Colon polyp, hyperplastic Acute ~06/2021 K63.5 Serrated adenoma of colon Acute ~06/2021 D12.6 Vertigo Acute R42 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 Surgical History Surgical History H/O cystoscopy History of colonoscopy (~08/21/25) History of arthroscopy of both knees History of arthroscopy of knee Status post arthroscopy of shoulder Tobacco Smoking/Tobacco Use Status: Former Tobacco Use Passive smoking exposure: Yes Second hand exposure: Yes Alcohol Alcohol Intake: current Alcohol intake frequency: holidays/special occasions only Alcohol type: beer Substance Use Substance use: Never Substance use type: does not use Vital Signs and Lab Results Vital Signs Most Recent Vital Signs in EMR: Most Recent Vital Signs Temp Pulse Resp BP Pulse Ox 36.5 C 71 16 132/70 97 11/06/25 06:32 11/06/25 06:32 11/06/25 06:32 11/06/25 06:32 11/06/25 06:32 Point of Care Results Point of Care Results: Finger Stick Blood Glucose 209 11/06/25 06:45 Imaging and Studies Imaging and Studies Study information below may be from another EMR and interpreted by another provider. Please see original notes in EMR for more complete details. Echocardiogram Summary: Conclusion Normal left ventricular wall thickness and chamber size. Ejection fraction is 55 to 60%. Wall motion is normal Grossly normal right ventricular size and function Both atria are normal in size The aortic valve is calcified with mild regurgitation Mild mitral annular calcification. Trace mitral regurgitation Trace to mild tricuspid regurgitation Ascending aorta measures 3.58 cm Estimated right ventricular systolic pressure is 26 mmHg Anesthesia Assessment and Plan Anesthesia History Personal History: No History of Anesthesia Complications Family History: No Family History of Anesthesia Complications Exercise Tolerance Exercise Tolerance: Metabolic Equivalents>4 Pertinent Negatives Pertinent Negatives: No Symptoms of GERD Cardiac & Pulmonary Exam Cardiac Exam: Normal S1/S2 Heart Sounds and Heart Murmur Present Pulmonary Exam: Clear Bilateral Breath Sounds Implantable Cardiac Device Does patient have a Pacemaker or an ICD?: No Airway Exam Known Difficult Airway: No Mallampati Class: 2 Mouth Opening: Normal (> 3cm) Thyromental Distance: Less than 3 cm Neck Range of Motion: Limited ROM Neck Circumference: Normal Teeth Condition: Normal Dentition Airway Comments: Short thick neck ASA Classification ASA Score: ASA 2 Emergency Case?: No NPO Status NPO Status: NPO Clears >2 hours, Solids >8 hours Anesthesia Plan Resuscitation Status: Full Code Anesthesia Technique: MAC Anesthesia Airway Planned: Natural Airway Monitors Used: Standard Monitors
[2025-11-06 07:31] VITALS: BMI 30.7
[2025-11-06] MEDS: Tetracaine 0.5% 4 ML BTL (07:36)
[2025-11-06] MEDS: Lidocaine 1% Pres-Free 5 ML VIAL (07:37)
[2025-11-06] MEDS: Moxifloxacin-PF 1 MG/ML VIAL (07:37)
[2025-11-06] MEDS: Phenylephrine/Lidocaine (15/10) MG/ML 1 ML VIAL (07:38)
[2025-11-06] MEDS: Povidone-Iodine Ophth 30 ML BTL (07:38)
[2025-11-06] MEDS: Duovisc Viscoelastic System EACH 1 EACH (07:39)
[2025-11-06] MEDS: Balanced Salt Soln.-PLUS 500 ML BAG OP (07:39)
[2025-11-06] MEDS: Trypan Blue 0.06% 0.5 ML SYR (07:39)
[2025-11-06] MEDS: Prednisolone 1%, Moxifloxacin 0.5%, Bromfenac 0.09% 5.6ML BTL 5.6 ML (07:40)
[2025-11-06 07:53] VITALS: BP 129/66; PULSE 65; RESP 14; TEMP 36.5; O2SAT 97
--- NOTE | 2025-11-06 07:53 | ROE_ITS ---
Operative Note Operative Note PRE-OP DIAGNOSIS: Nuclear/cortical cataract, left eye POST-OP DIAGNOSIS: same PROCEDURE: Cataract extraction using phacoemulsification with intraocular lens implant, left eye SURGEON: Deuce Otoole ANESTHESIA TYPE: Local By Surgeon and MAC Refer to Anesthesia Record PATHOLOGY: none sent COMPLICATIONS: None Patient was transported to: same day Patient's condition: stable Implants: Luiz Clareon [id number] Indications: Progressive decreased vision due to cataract, left eye Procedure Description: CATARACT SURGERY OPERATIVE REPORT PREOPERATIVE DIAGNOSIS: Nuclear/cortical cataract, left eye POSTOPERATIVE DIAGNOSIS: Same OPERATION: Cataract extraction using phacoemulsification with posterior chamber intraocular lens implant, left eye. IOL: IOL [employer] Team Member/Model: Luiz Clareon [id number] IOL Power: + 21.5 diopters IOL Serial Number: [id number] Optic Diameter: 6.0mm Haptic/Overall Diameter: 13.0mm PHACO INFO: Luiz Centurion Vision System with OZil and Active Fluidics Cumulative Dispersed Energy (CDE): 6.46 seconds SURGEON: Deuce Otoole MD, HALLEY ANESTHESIA: Monitored Anesthesia Care (MAC), with local sub-tenon's anesthetic infiltration COMPLICATIONS: None SPECIMENS: None INDICATIONS FOR PROCEDURE: The patient is a 80-year-old male with history of diminished visual acuity in his left eye secondary to the development of significant nuclear/cortical cataract. He is significantly symptomatic that he desires cataract surgery in attempt to improve and maximize his vision. See office notes for detailed information. PROCEDURE: The correct surgical eye was identified and marked as the left eye and the pupil was dilated in the preoperative area using mydriatics and cycloplegics. The dilated pupil size was 5.0 mm. The patient elected to proceed without oral sedation. The patient was brought to the operating room where cardiopulmonary monitoring was instituted and surgical time-out was performed, confirming the correct operative eye and IOL power. Topical anesthesia was administered and ophthalmic povidone-iodine 5% was instilled into the conjunctival fornices. The kelly-ocular area was prepped with Betadine 10% solution and draped in the usual sterile fashion for intraocular surgery, including an aperture drape. A Tegaderm transparent film dressing was cut in half and used to cover the lashes and lid margins. Care was taken to sequester the lashes and lid margins under the Tegaderm dressing. A lid speculum was placed between the lids of the operative eye and the Luiz LuxOR Revalia operating microscope was maneuvered into position. Anya scissors were then used to make a conjunctival buttonhole approximately 6mm posterior to the limbus in the inferonasal quadrant. Blunt dissection was carried out to expose bare sclera, and a blunt-tipped sub-tenon?s anesthesia cannula was introduced and passed posteriorly along the globe where non- preserved plain lidocaine was injected into posterior sub-Tenon?s space. A sideport knife was used to make a paracentesis port. VisionBlue was injected into the anterior chamber and allowed to sit for 30 seconds. Intraocular phenylephrine/lidocaine was injected into the anterior chamber. The anterior chamber was then filled with viscoelastic. A keratome knife was used construct a two-plane clear corneal tunnel extending 2.0mm into clear cornea. A flap was raised on the anterior capsule and capsulorhexis forceps were used to complete a continuous curvilinear capsulorhexis of 5.0 mm. Balanced salt solution was then used to perform cortical cleaving hydrodissection and nuclear hydrodelineation until the lens could be freely rotated within the capsular bag. The lens nucleus was then disassembled and removed within the capsular bag and iris plane using phacoemulsification. Residual cortical material was removed using the irrigation/aspiration handpiece . The posterior capsule was carefully polished to remove as much residual lens epithelial cells as safely possible. The capsular bag was then inflated and the anterior chamber deepened with viscoelastic. The lens implant described above was inserted into the capsular bag using the Luiz Autonome Injector. A Kuglen hook was used to dial the IOL into position. Residual viscoelastic was then removed first from posterior to the IOL, then from the anterior chamber using the I/A handpiece. The lens implant was noted to center nicely within the capsular bag. The incisions were stromally hydrated, and the anterior chamber was reformed using BSS. Then 0.5cc of moxifloxacin 1.0mg/ml were injected into the capsular bag and anterior chamber. The incisions were checked with a Weck spear and found to be secure. Several drops of ophthalmic povidone-iodine 5% were then applied to the eye followed by two drops of combination steroid/NSAID/antibiotic solution. The drapes were removed and a clear plastic protective eye shield was placed over the eye. The patient was then returned to Same Day Surgery in stable condition. Date of Procedure: 11/06/25
--- NOTE | 2025-11-06 07:53 | W.PM.DSUDISC ---
Date of service: 11/06/25 Discharge Plan Disposition Patient Disposition: Home Discharge Details Attending Provider: Deuce Otoole Primary Care Provider: Jas Darden Home Meds and New Rx's Prescriptions: No Action aspirin [Adult Low Dose Aspirin] 81 mg tablet,delayed release (DR/EC) 81 mg PO DAILY Qty: 90 3RF metoprolol succinate 50 mg tablet extended release 24 hr 50 mg PO HS Qty: 90 3RF (DME) lancets 1 EACH misc 1 ea Miscellaneous DAILY Qty: 100 Rx Instructions: FOR ONE TOUCH ULTRA MINI METER. NO INSULIN. DIAGNOSIS CODE 250.02 (DME) blood-glucose meter Misc 1 ea Miscellaneous ONCE Qty: 1 0RF Rx Instructions: ONE TOUCH ULTRA MINI Dx E11.9. Check BS Daily (DME) blood sugar diagnostic Strip 1 ea Miscellaneous DAILY Qty: 100 5RF Rx Instructions: Test Daily lisinopril-hydrochlorothiazide 20-25 mg tablet 1 tab PO DAILY Qty: 90 3RF finasteride 5 mg tablet 5 mg PO DAILY Qty: 90 4RF metformin 500 mg tablet 1,000 mg PO BID Qty: 180 3RF atorvastatin 20 mg tablet See Rx Instructions .ROUTE .COMPLEX Qty: 90 3RF Dose Instruction: TAKE 1 TABLET BY MOUTH DAILY Rx Instructions: TAKE 1 TABLET BY MOUTH DAILY (DME) FreeStyle Anamika 3 Plus Sensor Device See Rx Instructions .Route Qty: 2 12RF Rx Instructions: Continuous Ozempic 0.25 mg or 0.5 mg (2 mg/3 mL) pen injector 0.25 mg subcut QWEEK 42 Days Qty: 3 12RF Patient Comments: Per pt. has not started this Rx 11/04/25. JW Rx Instructions: Inject 0.25 mg subcutaneously once weekly as directed, titrating as directed to 0.5 mg weekly lisinopril 10 mg tablet 10 mg PO DAILY Qty: 90 3RF Discharge Instructions Stand Alone Forms: [facility] Post-Op Cataract, Ariana Tolliver ([facility]), Portal Information Discharge Orders Discharge Orders: Discharge Order (Routine); Ordered 11/06/25 Ordered By: Deuce Otoole DS: Diagnosis Discharge Diagnosis (1) Cortical age-related cataract, left eye: Status: Resolved (2) Nuclear age-related cataract, left eye: Status: Resolved
--- NOTE | 2025-11-06 08:03 | W.ANESPOSTOP ---
Postoperative Evaluation Date, Time and Location Date Performed: 11/06/25 Time Performed: 08:04 Patient Location: Day Surgery Unit Vital Signs Most Recent Imported Vital Signs: Most Recent Vital Signs Temp Pulse Resp BP Pulse Ox 36.5 C 65 14 129/66 97 11/06/25 07:53 11/06/25 07:53 11/06/25 07:53 11/06/25 07:53 11/06/25 07:53 Pain Score Most Recent Pain Score: Most Recent Pain Score Pain Level 0 11/06/25 07:53 Assessment Mental Status: Awake (Alert & Oriented to Patient Baseline) Airway and Respiratory Function: Patent airway with normal (patient baseline) respiratory exam Cardiovascular Function: Hemodynamically Stable Hydration Status: Adequately Hydrated Nausea & Vomiting: No Nausea or Vomiting Pain: Pt. Denies Any Pain Peripheral Nerve Block: Patient did not receive a nerve block
== END 2025-11-06 08:13 | disposition home or self-care (01) ==
LOC: SUR 06:15
PROVIDERS: PCP Nurse Practitioner Family; Visit Provider Ophthalmology
PROC: (CPT 66984; principal; 2025-11-06 07:30)
DX: H25.012 Cortical age-related cataract, left eye (principal); H25.12 Age-related nuclear cataract, left eye
CPT/HCPCS: 66984; 00123; V2632; J2003

== ENCOUNTER 2025-11-13 06:12 | Day surgery (SDC) | payer MEDICARE, SELFPAY ==
[2025-11-13 06:21] VITALS: BP 106/78; PULSE 73; RESP 16; TEMP 36.8; O2SAT 97
[2025-11-13] MEDS: Tropicam./Phenyleph. (1/2.5%) 5 ML BTL OD ×3 (06:35→06:47)
--- NOTE | 2025-11-13 07:11 | W.ANESPRE ---
General Info Date of Service Date Performed: 11/13/25 Height: 6 ft Weight: 103.6 kg Body Mass Index (BMI): 30.9 Surgical Procedure: Operation Date: 11/13/25 07:40 Proposed Procedure Side Surgeon p Cataract Extraction with IOL Implant Right Deuce Otoole MD Meds Allergies and Home Medications Allergies Allergy/AdvReac Type Severity Reaction Status Date / Time No Known Allergies Allergy Verified 11/13/25 06:31 Home Medication ?Medication ?Instructions ?Recorded lancets 28 gauge #100 ea 09/17/14 blood-glucose meter #1 ea 08/13/20 aspirin 81 mg tablet,delayed 81 mg PO DAILY #90 tabs 08/27/20 release (Adult Low Dose Aspirin) blood sugar diagnostic #100 strips 07/02/24 lisinopril 20 1 tab PO DAILY #90 tabs 12/25/24 mg-hydrochlorothiazide 25 mg tablet finasteride 5 mg tablet 5 mg PO DAILY #90 tabs 01/27/25 atorvastatin 20 mg tablet See Rx Instructions .Route 02/19/25 .COMPLEX #90 tabs metformin 500 mg tablet 1,000 mg (2 x 500 mg) PO BID #180 02/19/25 tabs blood-glucose sensor (FreeStyle #2 ea 03/20/25 Anamika 3 Plus Sensor device) metoprolol succinate 50 mg 50 mg PO HS #90 tabs 05/20/25 tablet,extended release 24 hr semaglutide 0.25 mg or 0.5 mg (2 0.25 mg (0.368 mL) subcut QWEEK 42 06/15/25 mg/3 mL) subcutaneous pen injector days #3 mL (Ozempic) lisinopril 10 mg tablet 10 mg PO DAILY #90 tabs 10/07/25 Current Visit Medications: Current Medications Generic Name Dose Route Start Last Admin Trade Name Freq PRN Reason Stop Dose Admin Acetaminophen 1,000 mg 11/13/25 06:00 Acetaminophen 500 Mg Tab PO 12/13/25 05:59 Q4H PRN PRN Balanced Salt Solution 500 ml 11/13/25 06:00 Balanced Salt Soln.-Plus 500 Ml Bag OP 12/13/25 05:59 DIRECTED C[facility] Miscellaneous Medication 0 ml 11/13/25 06:00 Prednisolone 1%, Moxifloxacin 0.5%, Bromfenac 0.09% 5.6ml Btl OD 12/13/25 05:59 [facility] Miscellaneous Medication 0 ml 11/13/25 06:00 11/13/25 06:47 Tropicam./Phenyleph. (1/2.5%) 5 Ml Btl OD 12/13/25 05:59 1 drp DIRECTED COREEN Administration Tetracaine HCl 0 ml 11/13/25 06:00 Tetracaine 0.5% 4 Ml Btl OD 12/13/25 05:59 [facility] PFSH Active Problems Active Problems: Problem Status Onset Code Cortical age-related cataract, right eye Acute H25.011 Nuclear age-related cataract, right eye Acute H25.11 Cortical age-related cataract, left eye Resolved H25.012 Nuclear age-related cataract, left eye Resolved H25.12 Skin lesion Acute L98.9 Murmur, heart Acute R01.1 Hyperlipidemia Acute 04/25/13 E78.5 Essential hypertension Chronic 12/24/13 I10 Diabetes Chronic 09/25/14 E11.9 Gross hematuria Acute R31.0 Tinnitus Acute H93.19 Shoulder pain Acute M25.519 Elevated PSA Acute R97.20 Osteoarthritis Acute M19.90 Family history of prostate cancer Acute Z80.42 Actinic keratosis Acute L57.0 Testicular mass Acute N50.89 Colon polyp, hyperplastic Acute ~06/2021 K63.5 Serrated adenoma of colon Acute ~06/2021 D12.6 Vertigo Acute R42 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 Surgical History Surgical History History of cataract extraction left eye 11/06/25, H/O cystoscopy History of colonoscopy (~08/21/25) History of arthroscopy of both knees History of arthroscopy of knee Status post arthroscopy of shoulder Tobacco Smoking/Tobacco Use Status: Former Tobacco Use Passive smoking exposure: Yes Second hand exposure: Yes Alcohol Alcohol Intake: current Alcohol intake frequency: holidays/special occasions only Alcohol type: beer Substance Use Substance use: Never Substance use type: does not use Vital Signs and Lab Results Vital Signs Most Recent Vital Signs in EMR: Most Recent Vital Signs Temp Pulse Resp BP Pulse Ox 36.8 C 73 16 106/78 97 11/13/25 06:21 11/13/25 06:21 11/13/25 06:21 11/13/25 06:21 11/13/25 06:21 Point of Care Results Point of Care Results: Finger Stick Blood Glucose 249 11/13/25 06:33 Imaging and Studies Imaging and Studies Study information below may be from another EMR and interpreted by another provider. Please see original notes in EMR for more complete details. Echocardiogram Summary: Conclusion Normal left ventricular wall thickness and chamber size. Ejection fraction is 55 to 60%. Wall motion is normal Grossly normal right ventricular size and function Both atria are normal in size The aortic valve is calcified with mild regurgitation Mild mitral annular calcification. Trace mitral regurgitation Trace to mild tricuspid regurgitation Ascending aorta measures 3.58 cm Estimated right ventricular systolic pressure is 26 mmHg Anesthesia Assessment and Plan Anesthesia History Personal History: No History of Anesthesia Complications Family History: No Family History of Anesthesia Complications Exercise Tolerance Exercise Tolerance: Metabolic Equivalents>4 Pertinent Negatives Pertinent Negatives: No Symptoms of GERD Cardiac & Pulmonary Exam Cardiac Exam: Normal S1/S2 Heart Sounds and Heart Murmur Present Pulmonary Exam: Clear Bilateral Breath Sounds Implantable Cardiac Device Does patient have a Pacemaker or an ICD?: No Airway Exam Known Difficult Airway: No Mallampati Class: 2 Mouth Opening: Normal (> 3cm) Thyromental Distance: Less than 3 cm Neck Range of Motion: Limited ROM Neck Circumference: Normal Teeth Condition: Normal Dentition Airway Comments: Short thick neck ASA Classification ASA Score: ASA 2 Emergency Case?: No NPO Status NPO Status: NPO Clears >2 hours, Solids >8 hours Anesthesia Plan Resuscitation Status: Full Code Anesthesia Technique: MAC Anesthesia Airway Planned: Natural Airway Monitors Used: Standard Monitors
[2025-11-13 07:29] VITALS: BMI 30.9
[2025-11-13] MEDS: Lidocaine 1% Pres-Free 5 ML VIAL (07:38)
[2025-11-13] MEDS: Duovisc Viscoelastic System EACH 1 EACH (07:39)
[2025-11-13] MEDS: Moxifloxacin-PF 1 MG/ML VIAL (07:39)
[2025-11-13] MEDS: Phenylephrine/Lidocaine (15/10) MG/ML 1 ML VIAL (07:40)
[2025-11-13] MEDS: Povidone-Iodine Ophth 30 ML BTL (07:40)
[2025-11-13] MEDS: Trypan Blue 0.06% 0.5 ML SYR (07:41)
[2025-11-13] MEDS: Balanced Salt Soln.-PLUS 500 ML BAG OP (07:41)
[2025-11-13] MEDS: Prednisolone 1%, Moxifloxacin 0.5%, Bromfenac 0.09% 5.6ML BTL OD (07:41)
[2025-11-13] MEDS: Tetracaine 0.5% 4 ML BTL OD (07:42)
--- NOTE | 2025-11-13 08:00 | W.PM.DSUDISC ---
Date of service: 11/13/25 Discharge Plan Disposition Patient Disposition: Home Discharge Details Attending Provider: Deuce Otoole Primary Care Provider: Jas Darden Home Meds and New Rx's Prescriptions: No Action aspirin [Adult Low Dose Aspirin] 81 mg tablet,delayed release (DR/EC) 81 mg PO DAILY Qty: 90 3RF metoprolol succinate 50 mg tablet extended release 24 hr 50 mg PO HS Qty: 90 3RF (DME) lancets 1 EACH misc 1 ea Miscellaneous DAILY Qty: 100 Rx Instructions: FOR ONE TOUCH ULTRA MINI METER. NO INSULIN. DIAGNOSIS CODE 250.02 (DME) blood-glucose meter Misc 1 ea Miscellaneous ONCE Qty: 1 0RF Rx Instructions: ONE TOUCH ULTRA MINI Dx E11.9. Check BS Daily (DME) blood sugar diagnostic Strip 1 ea Miscellaneous DAILY Qty: 100 5RF Rx Instructions: Test Daily lisinopril-hydrochlorothiazide 20-25 mg tablet 1 tab PO DAILY Qty: 90 3RF finasteride 5 mg tablet 5 mg PO DAILY Qty: 90 4RF metformin 500 mg tablet 1,000 mg PO BID Qty: 180 3RF atorvastatin 20 mg tablet See Rx Instructions .ROUTE .COMPLEX Qty: 90 3RF Dose Instruction: TAKE 1 TABLET BY MOUTH DAILY Rx Instructions: TAKE 1 TABLET BY MOUTH DAILY (DME) FreeStyle Anamika 3 Plus Sensor Device See Rx Instructions .Route Qty: 2 12RF Rx Instructions: Continuous Ozempic 0.25 mg or 0.5 mg (2 mg/3 mL) pen injector 0.25 mg subcut QWEEK 42 Days Qty: 3 12RF Patient Comments: Per pt. has not started this Rx 11/04/25. JW Rx Instructions: Inject 0.25 mg subcutaneously once weekly as directed, titrating as directed to 0.5 mg weekly lisinopril 10 mg tablet 10 mg PO DAILY Qty: 90 3RF Discharge Instructions Stand Alone Forms: [facility] Post-Op Ariana Farr ([facility]) Discharge Orders Discharge Orders: Discharge Order (Routine); Ordered 11/13/25 Ordered By: Deuce Otoole DS: Diagnosis Discharge Diagnosis (1) Cortical age-related cataract, right eye: Status: Resolved (2) Nuclear age-related cataract, right eye: Status: Resolved
[2025-11-13 08:01] VITALS: BP 130/70; PULSE 68; RESP 16; TEMP 36.6; O2SAT 97
--- NOTE | 2025-11-13 08:01 | ROE_ITS ---
Operative Note Operative Note PRE-OP DIAGNOSIS: Nuclear/cortical cataract, right eye POST-OP DIAGNOSIS: same PROCEDURE: Cataract extraction using phacoemulsification with intraocular lens implant, right eye SURGEON: Deuce Otoole ANESTHESIA TYPE: Local By Surgeon and MAC Refer to Anesthesia Record ESTIMATED BLOOD LOSS: 0 PATHOLOGY: none sent COMPLICATIONS: None Patient was transported to: same day Patient's condition: stable Implants: Luiz Clareon [id number] Indications: Progressive decreased vision due to cataract, right eye Procedure Description: CATARACT SURGERY OPERATIVE REPORT PREOPERATIVE DIAGNOSIS: Nuclear/cortical cataract, right eye POSTOPERATIVE DIAGNOSIS: Same OPERATION: Cataract extraction using phacoemulsification with posterior chamber intraocular lens implant, right eye. IOL: IOL Chef Broiler Or Fry/Model: Luiz Clareon [id number] IOL Power: + 21.5 diopters IOL Serial Number: [id number] Optic Diameter: 6.0mm Haptic/Overall Diameter: 13.0mm PHACO INFO: Luiz Centurion Vision System with OZil and Active Fluidics Cumulative Dispersed Energy (CDE): 6.82 seconds SURGEON: Deuce Otoole MD, HALLEY ANESTHESIA: Monitored Anesthesia Care (MAC), with local sub-tenon's anesthetic infiltration COMPLICATIONS: None SPECIMENS: None INDICATIONS FOR PROCEDURE: The patient is a 80-year-old male with history of diminished visual acuity in both eyes secondary to the development of nuclear/cortical cataract. He has already undergone cataract surgery in the left eye and is doing well postoperatively. He now presents for cataract surgery in the right eye. See office notes for detailed information. PROCEDURE: The correct surgical eye was identified and marked as the right eye and the pupil was dilated in the preoperative area using mydriatics and cycloplegics. The dilated pupil size was 5.0 mm. The patient elected to proceed without oral sedation. The patient was brought to the operating room where cardiopulmonary monitoring was instituted and surgical time-out was performed, confirming the correct operative eye and IOL power. Topical anesthesia was administered and ophthalmic povidone-iodine 5% was instilled into the conjunctival fornices. The kelly-ocular area was prepped with Betadine 10% solution and draped in the usual sterile fashion for intraocular surgery, including an aperture drape. A Tegaderm transparent film dressing was cut in half and used to cover the lashes and lid margins. Care was taken to sequester the lashes and lid margins under the Tegaderm dressing. A lid speculum was placed between the lids of the operative eye and the Luiz LuxOR Revalia operating microscope was maneuvered into position. Anya scissors were then used to make a conjunctival buttonhole approximately 6mm posterior to the limbus in the inferonasal quadrant. Blunt dissection was carried out to expose bare sclera, and a blunt-tipped sub-tenon?s anesthesia cannula was introduced and passed posteriorly along the globe where non- preserved plain lidocaine was injected into posterior sub-Tenon?s space. A sideport knife was used to make a paracentesis port. VisionBlue was injected into the anterior chamber and allowed to sit for 30 seconds. Intraocular phenylephrine/lidocaine was injected into the anterior chamber. The anterior chamber was then filled with viscoelastic. A keratome knife was used to construct a two--plane clear corneal tunnel extending 2.0mm into clear cornea. A flap was raised on the anterior capsule and capsulorhexis forceps were used to complete a continuous curvilinear capsulorhexis of 5.0 mm. Balanced salt solution was then used to perform cortical cleaving hydrodissection and nuclear hydrodelineation until the lens could be freely rotated within the capsular bag. The lens nucleus was then disassembled and removed within the capsular bag and iris plane using phacoemulsification. Residual cortical material was removed using the I/A handpiece. The posterior capsule was carefully polished to remove as much residual lens epithelial cells as safely possible. The capsular bag was then inflated and the anterior chamber deepened with cohesive viscoelastic. The lens implant described above was inserted into the capsular bag using the Luiz Autonome Injector. A Kuglen hook was used to dial the IOL into position. Residual viscoelastic was then removed first from posterior to the IOL, then from the anterior chamber using the I/A handpiece. The lens implant was noted to center nicely within the capsular bag. The incisions were stromally hydrated, and the anterior chamber was reformed using BSS. Then 0.5cc of moxifloxacin 1.0mg/ml were injected into the capsular bag and anterior chamber. The incisions were checked with a Weck spear and found to be secure. Several drops of ophthalmic povidone-iodine 5% were then applied to the eye followed by two drops of combination steroid/NSAID/antibiotic solution. The drapes were removed and a clear plastic protective eye shield was placed over the eye. The patient was then returned to [facility] Day Surgery in stable condition. Date of Procedure: 11/13/25
--- NOTE | 2025-11-13 08:28 | W.ANESPOSTOP ---
Postoperative Evaluation Date, Time and Location Date Performed: 11/13/25 Time Performed: 08:04 Patient Location: Day Surgery Unit Vital Signs Most Recent Imported Vital Signs: Most Recent Vital Signs Temp Pulse Resp BP Pulse Ox 36.6 C 68 16 130/70 97 11/13/25 08:01 11/13/25 08:01 11/13/25 08:01 11/13/25 08:01 11/13/25 08:01 Pain Score Most Recent Pain Score: Most Recent Pain Score Pain Level 0 11/13/25 08:01 Assessment Mental Status: Awake (Alert & Oriented to Patient Baseline) Airway and Respiratory Function: Patent airway with normal (patient baseline) respiratory exam Cardiovascular Function: Hemodynamically Stable Hydration Status: Adequately Hydrated Nausea & Vomiting: No Nausea or Vomiting Pain: Pt. Denies Any Pain Peripheral Nerve Block: Other (Local by Dr. Otoole)
== END 2025-11-13 08:13 | disposition home or self-care (01) ==
LOC: SUR 06:13
PROVIDERS: PCP Nurse Practitioner Family; Visit Provider Ophthalmology
PROC: (CPT 66984; principal; 2025-11-13 07:30)
DX: H25.011 Cortical age-related cataract, right eye (principal); H25.11 Age-related nuclear cataract, right eye; Z98.42 Cataract extraction status, left eye
CPT/HCPCS: 66984; 00123; V2632; J2003